=== PATIENT | male | born 1975 | race Caucasian/White ===

== ENCOUNTER 2022-04-28 07:26 | Emergency (ER) | payer OTHER ==
[2022-04-28] MEDS ORDERED: MORPHINE 4 MG/ML SYR ONE ×2 (07:43→08:52)
[2022-04-28] MEDS ORDERED: ONDANSETRON 4 MG/2 ML VIAL ONE (07:43)
[2022-04-28 08:08] LABS: Absolute Lymphocytes (CBC) 1.8 K/uL (0.7-4.9); Hematocrit 45.6 % (39.6-49.0); Lymphocytes % 23.6 % (15.3-44.8); MCV 81.5 fL (80-100); MPV 7.7 fL (7.6-11.3); RBC Red Blood Cell Count 5.59 M/uL (4.33-5.43)
[2022-04-28 08:12] LABS: Potassium 4.1 mmol/L (3.5-5.1)
--- NOTE | 2022-04-28 09:04 | RAD REPORT ---
EXAM DESCRIPTION: CT - Thorax W/ Con - 04/28/2022 8:42 am CLINICAL HISTORY: Trauma- dropped bench press bar on chest, chest pain COMPARISON: <Comparisons> TECHNIQUE: Dynamically enhanced 5 mm thick images of the chest were obtained during administration o f 100 mL non-ionic IV contrast. All CT scans are performed using dose optimization technique as appropriate and may include automated exposure control or mA/KV adjustment according to patient size. FINDINGS: No pulmonary contusion or acute lung parenchymal process. No pleural thickening or pleural effusion. No pneumothorax. No sternum fracture is present. Ribcage is intact. No hematoma or acute f inding seen in the anterior chest soft tissues. No chest wall mass or abnormal axillary lymphadenopathy. No cardiomegaly or pericardial effusion. Left ventricular wall appears slightly thickened. However, C T has limited sensitivity in evaluation of wall thickness. Aorta and pulmonary arterial tree enhance normally. IMPRESSION: No sternum fracture or acute traumatic injury to the chest identified. Left ventricular wall appears slightly thickened; however, CT sensitivity is limited.
--- NOTE | 2022-04-28 09:38 | ER ---
Nurse's Notes [facility] Name: Delonte Gonzales Age: 47 yrs Sex: Male : 1975 Arrival Date: 04/28/2022 Time: 07:27 Bed 2 Private MD: Diagnosis: Chest pain, unspecified Presentation: 04/28 07:32 Chief complaint: Patient states: was benching 250 pounds about 20 minutes ago and vg1 landed on pt chest; states difficulty breating. Coronavirus screen: Vaccine status: Patient reports receiving the 2nd dose of the covid vaccine. Client denies travel out of the [place] in the last 14 days. Ebola Screen: Patient denies exposure to infectious person. Patient denies travel to an Ebola-affected area in the 21 days before illness onset. Initial Sepsis Screen: Does the patient meet any 2 criteria? No. Patient's initial sepsis screen is negative. Does the patient have a suspected source of infection? No. Patient's initial sepsis screen is negative. Risk Assessment: Do you want to hurt yourself or someone else? Patient reports no desire to harm self or others. Onset of symptoms was April 28, 2022. 07:32 Method Of Arrival: Wheelchair vg1 07:32 Acuity: DANIEL 3 vg1 Triage Assessment: 07:33 General: Appears uncomfortable, Behavior is calm, cooperative. Pain: Complains of pain vg1 in left lateral anterior chest Pain currently is 10 out of 10 on a pain scale. Respiratory: Airway is patent Respiratory effort is even, unlabored. Historical: - Allergies: 07:33 No Known Allergies; vg1 - Home Meds: 07:33 None [Active]; vg1 - PMHx: 07:33 None; vg1 - Immunization history:: Client reports receiving the 2nd dose of the Covid vaccine. - Social history:: Smoking status: Patient denies any tobacco usage or history of. Screenin:35 Abuse screen: Denies threats or abuse. Denies injuries from another. Nutritional bp screening: No deficits noted. Tuberculosis screening: No symptoms or risk factors identified. Fall Risk None identified. Assessment: 07:35 General: SEE TRIAGE NOTE. bp 08:49 Reassessment: PT RETURNED FROM CT. bp 09:49 Reassessment: PT DC HOME AMBULATORY WITH FAMILY. bp Vital Signs: 07:32 BP 162 / 95; Pulse 120; Resp 24; Temp 98.6; Pulse Ox 100% ; Weight 81.65 kg; Height 5 vg1 ft. 4 in. (162.56 cm); Pain 10/10; 08:49 BP 146 / 83; Pulse 102; Resp 16; Pulse Ox 98% ; bp 09:49 BP 138 / 82; Pulse 99; Resp 16; Pulse Ox 96% ; bp 07:32 Body Mass Index 30.90 (81.65 kg, 162.56 cm) vg1 ED Course: 07:27 Patient arrived in ED. as 07:28 Saul Sommer DO is Attending Physician. ms3 07:31 Chester Avilez, RN is Primary Nurse. bp 07:33 Triage completed. vg1 07:33 Arm band placed on. vg1 07:35 Patient has correct armband on for positive identification. Bed in low position. Call bp light in reach. Side rails up X2. 07:39 Inserted saline lock: 20 gauge in right forearm, using aseptic technique. Blood bp collected. 08:44 CT Chest W/ Con In Process Unspecified. EDMS 09:37 [place] Bernardo DO is Referral Physician. ms3 09:49 No provider procedures requiring assistance completed. IV discontinued. bp Administered Medications: 07:40 Drug: morphine 4 mg Route: IVP; Infused Over: 4 mins; Site: right forearm; bp 08:49 Follow up: Response: No adverse reaction; Pain is decreased bp 07:40 Drug: Zofran (Ondansetron) 4 mg Route: IVP; Site: right forearm; bp 08:49 Follow up: Response: No adverse reaction bp 08:49 Drug: morphine 4 mg Route: IVP; Infused Over: 4 mins; Site: right forearm; bp 09:49 Follow up: Response: No adverse reaction; Pain is decreased bp 09:40 Drug: morphine 2 mg Route: IVP; Infused Over: 4 mins; Site: right forearm; bp 09:49 Follow up: Response: Pain is decreased bp 09:40 Drug: Ketorolac 15 mg Route: IVP; Site: right forearm; bp 09:49 Follow up: Response: Pain is decreased bp Medication: 07:35 VIS not applicable for this client. bp Outcome: 09:38 Discharge ordered by . ms3 09:49 Discharged to home ambulatory, with family. bp 09:49 Condition: stable 09:49 Discharge instructions given to patient, Instructed on discharge instructions, follow up and referral plans. medication usage, Demonstrated understanding of instructions, follow-up care, medications, Prescriptions given X 1. 09:51 Patient left the ED. bp Signatures: Dispatcher [employer] Jessica Irene Brian, MERT RN Sneha Gallegos RN RN vg1 Saul Sommer DO DO ms3
--- NOTE | 2022-04-28 09:39 | EDPHYS ---
Physician Documentation [facility] Name: Delonte Gonzales Age: 47 yrs Sex: Male : 1975 Arrival Date: 04/28/2022 Time: 07:27 Bed 2 Private MD: ED Physician Saul Sommer HPI: 04/28 08:36 This 47 yrs old Male presents to ER via Wheelchair with complaints of Chest Wall Injury ms3 - dropped 250 lbs onto chest. 08:36 The patient or guardian reports chest pain that is located primarily in the anterior ms3 aspect of left upper chest. Onset: The symptoms/episode began/occurred acutely, just prior to arrival. The pain does not radiate. Associated signs and symptoms: The patient has no apparent associated signs or symptoms. The chest pain is described as sharp. Duration: The patient or guardian reports a single episode, that is still ongoing. Modifying factors: The symptoms are alleviated by nothing. the symptoms are aggravated by nothing. Severity of pain: in the emergency department the pain is a 10 / 10. 47-year-old male with no past medical history presents after dropping a 250 pound benching bar on his chest. Patient states he was warming up when he went to lift the bar and it rolled forward falling on his chest. Patient states he is having 10/10 sharp pain that is worse with breathing. Patient denies alleviating symptoms.. Historical: - Allergies: 07:33 No Known Allergies; vg1 - Home Meds: 07:33 None [Active]; vg1 - PMHx: 07:33 None; vg1 - Immunization history:: Client reports receiving the 2nd dose of the Covid vaccine. - Social history:: Smoking status: Patient denies any tobacco usage or history of. ROS: 08:36 Constitutional: Negative for fever, and chills. Neck: Negative for injury, pain, and ms3 swelling, Respiratory: Negative for shortness of breath, cough, wheezing, and pleuritic chest pain, Abdomen/GI: Negative for abdominal pain, nausea, vomiting, diarrhea, and constipation, MS/Extremity: Negative for injury and deformity, Skin: Negative for injury, rash, and discoloration, Neuro: Negative for headache, weakness, numbness, tingling. 08:36 Cardiovascular: Positive for chest pain, with movement. 08:36 All other systems are negative. Exam: 08:36 Constitutional: This is a well developed, well nourished patient who is awake, alert, ms3 and in no acute distress. Eyes: Pupils equal round and reactive to light, extra-ocular motions intact. Lids and lashes normal. Conjunctiva and sclera are non-icteric and not injected. Periorbital areas with no swelling, redness, or edema. ENT: Nares patent. No nasal discharge, no septal abnormalities noted. Tympanic membranes are normal and external auditory canals are clear. Oropharynx with no redness, swelling, or masses, exudates, or evidence of obstruction, uvula midline. Mucous membranes moist. Cardiovascular: Regular rate and rhythm with a normal S1 and S2. No gallops, murmurs, or rubs. Normal PMI, no JVD. No pulse deficits. Respiratory: Lungs have equal breath sounds bilaterally, clear to auscultation and percussion. No rales, rhonchi or wheezes noted. No increased work of breathing, no retractions or nasal flaring. Abdomen/GI: Soft, non-tender, with normal bowel sounds. No distension or tympany. No guarding or rebound. No evidence of tenderness throughout. Skin: Warm, dry with normal turgor. Normal color with no rashes, no lesions, and no evidence of cellulitis. Psych: Awake, alert, with orientation to person, place and time. Behavior, mood, and affect are within normal limits. 08:36 Chest/axilla: Inspection: normal, Palpation: crepitus, is not appreciated, tenderness, that is severe, of the anterior aspect of left upper chest. Vital Signs: 07:32 BP 162 / 95; Pulse 120; Resp 24; Temp 98.6; Pulse Ox 100% ; Weight 81.65 kg; Height 5 vg1 ft. 4 in. (162.56 cm); Pain 10/10; 08:49 BP 146 / 83; Pulse 102; Resp 16; Pulse Ox 98% ; bp 09:49 BP 138 / 82; Pulse 99; Resp 16; Pulse Ox 96% ; bp 07:32 Body Mass Index 30.90 (81.65 kg, 162.56 cm) vg1 MDM: 07:28 Patient medically screened. ms3 08:36 Differential diagnosis: Pneumothorax Pulmonary Contusion Rib Fracture. ms3 09:38 Data reviewed: vital signs, nurses notes, lab test result(s), radiologic studies, CT ms3 scan, and as a result, I will discharge patient. Counseling: I had a detailed discussion with the patient and/or guardian regarding: the historical points, exam findings, and any diagnostic results supporting the discharge/admit diagnosis, lab results, radiology results, the need for outpatient follow up, to return to the emergency department if symptoms worsen or persist or if there are any questions or concerns that arise at home. ED course: Discussed labs, CT , PE findings with patient. Patient to follow up with Dr Bernardo in 2-3 days. Patient understands/ agrees with plan. All questions answered. Return precautions given to include worsening symptoms, or any other concerns. Patient is improved, in NAD, non-toxic appearing, ambulatory in ED, speaking full sentences. . 04/28 07:34 Order name: Basic Metabolic Panel; Complete Time: 08:35 ms3 04/28 07:34 Order name: CBC with Diff; Complete Time: 08:35 ms3 04/28 07:34 Order name: CT Chest W/ Con; Complete Time: 09:29 ms3 04/28 07:34 Order name: Labs collected and sent; Complete Time: 07:39 ms3 Administered Medications: 07:40 Drug: morphine 4 mg Route: IVP; Infused Over: 4 mins; Site: right forearm; bp 08:49 Follow up: Response: No adverse reaction; Pain is decreased bp 07:40 Drug: Zofran (Ondansetron) 4 mg Route: IVP; Site: right forearm; bp 08:49 Follow up: Response: No adverse reaction bp 08:49 Drug: morphine 4 mg Route: IVP; Infused Over: 4 mins; Site: right forearm; bp 09:49 Follow up: Response: No adverse reaction; Pain is decreased bp 09:40 Drug: morphine 2 mg Route: IVP; Infused Over: 4 mins; Site: right forearm; bp 09:49 Follow up: Response: Pain is decreased bp 09:40 Drug: Ketorolac 15 mg Route: IVP; Site: right forearm; bp 09:49 Follow up: Response: Pain is decreased bp Disposition Summary: 04/28/22 09:38 Discharge Ordered Location: Home ms3 Condition: Stable ms3 Diagnosis - Chest pain, unspecified ms3 Followup: ms3 - With: [place] Bernardo DO - When: 2 - 3 days - Reason: Recheck today's complaints Discharge Instructions: - Discharge Summary Sheet ms3 - Musculoskeletal Pain ms3 Forms: - Medication Reconciliation Form ms3 - Thank You Letter ms3 - Antibiotic Education ms3 - Prescription Opioid Use ms3 Prescriptions: - Ibuprofen 600 mg Oral Tablet - take 1 tablet by ORAL route every 6 hours As needed take with food; 30 tablet; ms3 Refills: 0, Product Selection Permitted Signatures: Dispatcher [employer] Chester Saucedo, RN RN Sneha Gallegos RN RN vg1 Saul Somemr DO DO ms3
[2022-04-28] MEDS ORDERED: KETOROLAC 30 MG/ML INJ ONE (09:49)
[2022-04-28] MEDS ORDERED: MORPHINE 2 MG/ML SYR ONE (09:49)
[2022-04-28 10:05] VITALS: TEMP 98.6
[2022-04-28 10:09] VITALS: BP 138/82; O2SAT 96
== END 2022-04-28 09:51 | disposition home or self-care (01) ==
LOC: ER 07:26
DX: R07.89 Other chest pain (principal)
CPT/HCPCS: 85025; 80048; 36415; 71260; 96375; 96374; 99284; Q9967; J2270; J2405

== ENCOUNTER 2022-04-30 07:26 | Emergency (ER) | payer OTHER ==
[2022-04-30] MEDS ORDERED: DIAZEPAM 5 MG TABLET ONE (08:02)
[2022-04-30] MEDS ORDERED: MORPHINE 4 MG/ML SYR ONE (08:03)
[2022-04-30] MEDS ORDERED: KETOROLAC 30 MG/ML INJ ONE (09:21)
--- NOTE | 2022-04-30 09:34 | RAD REPORT ---
EXAM DESCRIPTION: RAD - Chest Single View - 04/30/2022 8:26 am CLINICAL HISTORY: CHEST PAIN Chest pain. COMPARISON: No comparisons FINDINGS: Portable technique limits examination quality. The lungs are grossly clear. The heart is normal in size. No displaced fractures. IMPRESSION: No acute intrathoracic process suspected.
--- NOTE | 2022-04-30 10:28 | ER ---
Nurse's Notes [facility] Name: Delonte Gonzales Age: 47 yrs Sex: Male : 1975 Arrival Date: 04/30/2022 Time: 07:27 Bed 20 Private MD: Diagnosis: Chest pain, unspecified Presentation: 04/30 07:35 Chief complaint: Patient states: l back pain x 2 days. was seen 2 days ago in er after [facility] dropping weights on chest. took Robaxin this am but not helping. Coronavirus screen: Vaccine status: Patient reports receiving the 2nd dose of the covid vaccine. Client denies travel out of the [place] in the last 14 days. Ebola Screen: Patient negative for fever greater than or equal to 101.5 degrees Fahrenheit, and additional compatible Ebola Virus Disease symptoms Patient denies exposure to infectious person. Patient denies travel to an Ebola-affected area in the 21 days before illness onset. Initial Sepsis Screen: Does the patient meet any 2 criteria? No. Patient's initial sepsis screen is negative. Does the patient have a suspected source of infection? No. Patient's initial sepsis screen is negative. Risk Assessment: Do you want to hurt yourself or someone else? Patient reports no desire to harm self or others. Onset of symptoms was April 28, 2022. 07:35 Method Of Arrival: Ambulatory [facility] 07:35 Acuity: DANIEL 4 [facility] 07:35 Acuity: DANIEL 3 [facility] Triage Assessment: 07:39 General: Appears uncomfortable, Behavior is cooperative. Pain: Complains of pain in [facility] left subscapular area Pain currently is 10 out of 10 on a pain scale. Quality of pain is described as sharp, pinching, Pain began 2-3 days ago. Is intermittent, Aggravated by increased activity, repositioning. Musculoskeletal: Range of motion: intact in all extremities, Swelling absent. Historical: - Allergies: 07:38 No Known Allergies; [facility] - PMHx: 07:38 None; [facility] - Immunization history:: Adult Immunizations up to date, Client reports receiving the 2nd dose of the Covid vaccine. - Social history:: Smoking status: Patient denies any tobacco usage or history of. Screenin:05 Abuse screen: Denies threats or abuse. Nutritional screening: No deficits noted. jd3 Tuberculosis screening: No symptoms or risk factors identified. Fall Risk Ambulatory Aid- None/Bed Rest/Nurse Assist (0 pts). Gait- Normal/Bed Rest/Wheelchair (0 pts) Mental Status- Oriented to own ability (0 pts). Total Henry Fall Scale indicates No Risk (0-24 pts). Assessment: 08:04 General: Appears in no apparent distress. comfortable, Behavior is calm, cooperative, jd3 appropriate for age. Pain: Complains of pain in back Quality of pain is described as sharp, shooting. Neuro: Moran Agitation-Sedation Scale (RASS): 0 - Alert and Calm Level of Consciousness is awake, alert, obeys commands, Oriented to person, place, time, situation, Moves all extremities. Full function Gait is steady. Cardiovascular: Capillary refill < 3 seconds Patient's skin is warm and dry. Respiratory: Airway is patent Respiratory effort is even, unlabored, Respiratory pattern is regular, symmetrical, Denies cough, shortness of breath. GI: No signs and/or symptoms were reported involving the gastrointestinal system. : No signs and/or symptoms were reported regarding the genitourinary system. EENT: No signs and/or symptoms were reported regarding the EENT system. Derm: Skin is intact, Skin is dry, Skin is normal, Skin temperature is warm. Musculoskeletal: Circulation, motion, and sensation intact. Range of motion: intact in all extremities. 10:06 Reassessment: Patient appears in no apparent distress at this time. Patient and/or jd3 family updated on plan of care and expected duration. Pain level reassessed. Patient is alert, oriented x 3, equal unlabored respirations, skin warm/dry/pink. awaiting disposition. 10:56 Reassessment: Patient appears in no apparent distress at this time. Patient and/or jd3 family updated on plan of care and expected duration. Pain level reassessed. Patient is alert, oriented x 3, equal unlabored respirations, skin warm/dry/pink. reported understanding of discharge instructions Patient states feeling better. Vital Signs: 07:35 BP 150 / 68; Pulse 103; Resp 18; Temp 98.4; Pulse Ox 100% ; Weight 81.65 kg; Height 5 jh6 ft. 4 in. (162.56 cm); Pain 10/10; 10:56 BP 143 / 69; Pulse 99; Resp 16; Pulse Ox 100% on R/A; jd3 07:35 Body Mass Index 30.90 (81.65 kg, 162.56 cm) [facility] ED Course: 07:27 Patient arrived in ED. as 07:38 Triage completed. jh6 07:39 Arm band placed on left wrist. jh6 07:41 Saul Sommer DO is Attending Physician. ms3 07:50 Priyank Randle, RN is Primary Nurse. jd3 08:05 Patient has correct armband on for positive identification. Bed in low position. Call jd3 light in reach. Side rails up X 1. Adult w/ patient. Pulse ox on. NIBP on. 08:28 CXR XRAY In Process Unspecified. EDMS 10:07 No provider procedures requiring assistance completed. Patient did not have IV access jd3 during this emergency room visit. 10:26 Montana Bernardo DO is Referral Physician. ms3 10:45 Incentive spirometer education provided by an Emergency Department nursing staff member.jd3 Administered Medications: 08:02 Drug: morphine 4 mg Route: IM; Site: right deltoid; jd3 09:00 Follow up: Response: No adverse reaction; RASS: Alert and Calm (0) jd3 08:02 Drug: Valium (diazepam) 10 mg Route: PO; jd3 09:00 Follow up: Response: No adverse reaction jd3 09:18 Drug: Ketorolac 15 mg Route: IM; Site: left deltoid; jd3 10:08 Follow up: Response: No adverse reaction jd3 10:42 Drug: morphine 2 mg Route: IM; Site: left deltoid; jd3 10:57 Follow up: Response: No adverse reaction; RASS: Alert and Calm (0) jd3 Medication: 08:05 VIS not applicable for this client. jd3 Outcome: 10:27 Discharge ordered by . ms3 10:56 Discharged to home ambulatory, with family. jd3 10:56 Condition: stable 10:56 Discharge instructions given to patient, family, Instructed on discharge instructions, follow up and referral plans. medication usage, Demonstrated understanding of instructions, follow-up care, medications, Prescriptions given X 2. 10:57 Patient left the ED. jd3 Signatures: Dispatcher [employer] EDMS Jessica Phillip Jonathon, MERT RN jd3 Saul Sommer DO DO ms3 Jo Haile RN RN jh6 Corrections: (The following items were deleted from the chart) 10:07 10:06 Reassessment: Patient appears in no apparent distress at this time. Patient jd3 and/or family updated on plan of care and expected duration. Pain level reassessed. Patient is alert, oriented x 3, equal unlabored respirations, skin warm/dry/pink. jd3 10:57 10:56 Reassessment: Patient appears in no apparent distress at this time. Patient jd3 and/or family updated on plan of care and expected duration. Pain level reassessed. Patient is alert, oriented x 3, equal unlabored respirations, skin warm/dry/pink. reported understanding of discharge instructions jd3
--- NOTE | 2022-04-30 10:28 | EDPHYS ---
Physician Documentation [facility] Name: Delonte Gonzales Age: 47 yrs Sex: Male : 1975 Arrival Date: 04/30/2022 Time: 07:27 Bed 20 Private MD: ED Physician Saul Sommer HPI: 04/30 10:27 This 47 yrs old Male presents to ER via Ambulatory with complaints of Back Pain, muscle ms3 spasms. 10:27 The patient presents with pain that is acute, and a crush injury, 250 barbell. The ms3 symptoms are located in the Fell on chest. Onset: The symptoms/episode began/occurred Onset: The symptoms/episode began/occurred 2 day(s) ago. 10:27 The pain does not radiate. Associated signs and symptoms: Pertinent negatives: ms3 abdominal pain, weakness. The problem was sustained 250 pound barbell fell on his chest. Modifying factors: The patient symptoms are alleviated by nothing, the patient symptoms are aggravated by movement. Severity of symptoms: At their worst the symptoms were severe, in the emergency department the symptoms are unchanged, a " 10" out of "10". Historical: - Allergies: 07:38 No Known Allergies; jh6 - PMHx: 07:38 None; [facility] - Immunization history:: Adult Immunizations up to date, Client reports receiving the 2nd dose of the Covid vaccine. - Social history:: Smoking status: Patient denies any tobacco usage or history of. ROS: 10:27 Constitutional: Negative for fever, and chills. Neck: Negative for injury, pain, and ms3 swelling, Cardiovascular: Negative for chest pain, and palpitations. Respiratory: Negative for shortness of breath, cough, wheezing, and pleuritic chest pain, Abdomen/GI: Negative for abdominal pain, nausea, vomiting, diarrhea, and constipation, MS/Extremity: Left sided rib pain Skin: Negative for injury, rash, and discoloration, Neuro: Negative for headache, weakness, numbness, tingling. 10:27 All other systems are negative. ms3 Exam: 10:27 Head/Face: Normocephalic, atraumatic. Neck: Trachea midline, no cervical ms3 lymphadenopathy. Supple, full range of motion without nuchal rigidity, or vertebral point tenderness. No Meningismus. Cardiovascular: Regular rate and rhythm with a normal S1 and S2. No gallops, murmurs, or rubs. Normal PMI, no JVD. No pulse deficits. Respiratory: Lungs have equal breath sounds bilaterally, clear to auscultation and percussion. No rales, rhonchi or wheezes noted. No increased work of breathing, no retractions or nasal flaring. Abdomen/GI: Soft, non-tender, with normal bowel sounds. No distension or tympany. No guarding or rebound. No evidence of tenderness throughout. Skin: Warm, dry with normal turgor. Normal color with no rashes, no lesions, and no evidence of cellulitis. MS/ Extremity: Pulses equal, no cyanosis. Neurovascular intact. Full, normal range of motion. Psych: Awake, alert, with orientation to person, place and time. Behavior, mood, and affect are within normal limits. 10:27 Constitutional: The patient appears alert, awake, well developed, well hydrated, well groomed, well nourished, in obvious pain. 10:27 Chest/axilla: Inspection: no acute changes, Palpation: tenderness, that is severe, of the anterior aspect of left upper chest, that totally reproduces the patient's complaints. Vital Signs: 07:35 BP 150 / 68; Pulse 103; Resp 18; Temp 98.4; Pulse Ox 100% ; Weight 81.65 kg; Height 5 jh6 ft. 4 in. (162.56 cm); Pain 10/10; 10:56 BP 143 / 69; Pulse 99; Resp 16; Pulse Ox 100% on R/A; jd3 07:35 Body Mass Index 30.90 (81.65 kg, 162.56 cm) jh6 MDM: 07:48 Patient medically screened. ms3 10:27 Differential diagnosis: pneumonthorax vs hemothorax vs rib fx vs muscle spasm. ms3 10:27 Data reviewed: vital signs, nurses notes, radiologic studies, and as a result, I will ms3 discharge patient. Counseling: I had a detailed discussion with the patient and/or guardian regarding: the historical points, exam findings, and any diagnostic results supporting the discharge/admit diagnosis, radiology results, the need for outpatient follow up, to return to the emergency department if symptoms worsen or persist or if there are any questions or concerns that arise at home. ED course: Patient is improved, in NAD, non-toxic appearing, ambulatory in ED, speaking full sentences.. 04/30 07:49 Order name: CXR XRAY; Complete Time: 10:09 ms3 04/30 10:28 Order name: INCENTIVE SPIROMETRY ms3 Administered Medications: 08:02 Drug: morphine 4 mg Route: IM; Site: right deltoid; jd3 09:00 Follow up: Response: No adverse reaction; RASS: Alert and Calm (0) jd3 08:02 Drug: Valium (diazepam) 10 mg Route: PO; jd3 09:00 Follow up: Response: No adverse reaction jd3 09:18 Drug: Ketorolac 15 mg Route: IM; Site: left deltoid; jd3 10:08 Follow up: Response: No adverse reaction jd3 10:42 Drug: morphine 2 mg Route: IM; Site: left deltoid; jd3 10:57 Follow up: Response: No adverse reaction; RASS: Alert and Calm (0) jd3 Disposition Summary: 04/30/22 10:27 Discharge Ordered Location: Home ms3 Condition: Stable ms3 Diagnosis - Chest pain, unspecified ms3 Followup: ms3 - With: [place] Bernardo DO - When: 2 - 3 days - Reason: Re-evaluation by your physician Discharge Instructions: - Discharge Summary Sheet ms3 - Musculoskeletal Pain ms3 Forms: - Medication Reconciliation Form ms3 - Thank You Letter ms3 - Antibiotic Education ms3 - Prescription Opioid Use ms3 Prescriptions: - Tylenol-Codeine #3 300 mg-30 mg Oral - take 1 tablet by ORAL route every 6 weeks; 12 tablet; Refills: 0, Product ms3 Selection Permitted - Zofran 4 mg Oral Tablet - take 1 tablet by ORAL route every 8 hours As needed; 20 tablet; Refills: 0, ms3 Product Selection Permitted Signatures: Dispatcher [employer] Priyank Dickinson RN RN jd3 Saul Sommer DO DO ms3 Jo Haile RN RN jh6 Corrections: (The following items were deleted from the chart) 22:58 10:27 Onset: The symptoms/episode began/occurred ms3 ms3 23:01 10:27 Constitutional: Negative for fever, and chills. Neck: Negative for injury, pain, ms3 and swelling, Cardiovascular: Negative for chest pain, and palpitations. Respiratory: Negative for shortness of breath, cough, wheezing, and pleuritic chest pain, Abdomen/GI: Negative for abdominal pain, nausea, vomiting, diarrhea, and constipation, MS/Extremity: Left sided rib pain Skin: Negative for injury, rash, and discoloration, Neuro: Negative for headache, weakness, numbness, tingling. ms3
[2022-04-30] MEDS ORDERED: MORPHINE 2 MG/ML SYR ONE (10:39)
[2022-04-30 11:02] VITALS: TEMP 98.4; O2SAT 100
[2022-04-30 11:03] VITALS: BP 143/69
--- OUTSIDE RECORDS SUMMARY | 2022-05-01 15:23 | XMS REPORT | Continuity of Care Document ---
:1975 Author Organization [facility] t Address [address] [place] [address] [address]. [address]val[address] [place] [address] Care Team Providers Name Role Phone DR RADHA Attending Clinician Unavailable DR RADHA Admitting Clinician Unavailable Payers Payer Name Policy Type Policy Number Effective Date Expiration Date S matthias 0050 [id number] 2021 00:00:00 Problems This patient has no known problems. Allergies, Adverse Reactions, Alerts Allergy Allergy Status Severity Reaction(s) Onset Inactive Treating Comm ents Source Name Type Date Date Clinician No Known DA Active [facility] s Medications This patient has no known medications. Vital Signs Vital Name Observation Time Observation Value Comments Source Height 2022-02-26 11:34:00 162.56 CM Weight 2022-02-26 11:34:00 84.36 KG Procedures This patient has no known procedures. Encounters Start End Encounter Admission Attending Care Care Encounter Source Date/Time Date/Time Type Type Clinicians Facility Department ID 2022-02-26 2022-02-26 Emergency E ELIDA GARCIA [facility] [id number] [facility] 11:00:00 12:27:00 [facility] Results Test Description Test Time Test Comments Results Result Comments Source XR ELBOW RT 2022-02-26 COMPLETE 3 12:03:26 [facility]WS*WW* [facility] 1975 Sex: M EXAMINATION:XR ELBOW RT COMPLETE 3 VIEWS*WW*CLINICAL INDICATION:Male, 46 years old with Pain of right elbow jointCOMPARISON: NoneFINDINGS:AP, lateral, and oblique images of the right elbow were submitted.No acute fracture or malalignment is identified. There are mild degenerative changes. Soft tissue swelling is noted.IMPRESSION: Soft tissue swelling. No acute bone finding is identified.Electron davide signed by: Erick Lock MD 02/26/2022 12:03 PM CDT
== END 2022-04-30 10:57 | disposition home or self-care (01) ==
LOC: ER 07:26
DX: R07.9 Chest pain, unspecified (principal)
CPT/HCPCS: 71045; J2270

== ENCOUNTER 2022-06-16 10:05 | Emergency (ER) | payer OTHER ==
--- OUTSIDE RECORDS SUMMARY | 2022-06-16 10:07 | XMS REPORT | Continuity of Care Document ---
:1975 [address] [facility] t Address [address] [place] [address] Dr. [address]valo [address] [place] [address] Care Team Providers Name Role Phone DR SHARLA GARCIA Attending Clinician Unavailable DR SHARLA GARCIA Admitting Clinician Unavailable Payers Payer Name Policy Type Policy Number Effective Date Expiration Date S matthias 0050 [id number] 2021 00:00:00 Problems This patient has no known problems. Allergies, Adverse Reactions, Alerts Allergy Allergy Status Severity Reaction(s) Onset Inactive Treating Comm ents Source Name Type Date Date Clinician No Known DA Active [facility] s Medications This patient has no known medications. Vital Signs Vital Name Observation Time Observation Value Comments Source Height 2022-02-26 11:34:00 162.56 CM Weight 2022-02-26 11:34:00 84.36 KG Procedures This patient has no known procedures. Encounters Start End Encounter Admission Attending Care Care Encounter Source Date/Time Date/Time Type Type Clinicians Facility Department ID 2022-02-26 2022-02-26 Emergency E ELIDA GARCIA [facility] [id number] [facility] 11:00:00 12[facility]27[facility] Results Test Description Test Time Test Comments Results Result Comments Source XR ELBOW RT 2022-02-26 COMPLETE 3 12:03:26 VIEWS*WW* [facility] 1975 Sex: M EXAMINATION:XR ELBOW RT COMPLETE 3 VIEWS*WW*CLINICAL INDICATION:Male, 46 years old with Pain of right elbow jointCOMPARISON: NoneFINDINGS:AP, lateral, and oblique images of the right elbow were submitted.No acute fracture or malalignment is identified. There are mild degenerative changes. Soft tissue swelling is noted.IMPRESSION: Soft tissue swelling. No acute bone finding is identified.Electron ically signed by: Erick Lock MD 02/26/2022 12:03 PM CDT
[2022-06-16] MEDS ORDERED: CYCLOBENZAPRINE 10 MG TAB ONE (10:26)
[2022-06-16] MEDS ORDERED: KETOROLAC 30 MG/ML INJ ONE (10:26)
[2022-06-16] MEDS ORDERED: HYDROCODONE/APAP 7.5/325 MG TAB ONE (10:53)
--- NOTE | 2022-06-16 10:54 | RAD REPORT ---
EXAM DESCRIPTION: RAD - Shoulder Left 2 View - 06/16/2022 10:28 am CLINICAL HISTORY: Left shoulder pain FINDINGS: No fracture or dislocation is seen. Mild osteoarthritis involves AC joint mainly consisting of joint space narrowing
--- NOTE | 2022-06-16 11:01 | ER ---
Nurse's Notes [facility] Name: Delonte Gonzales Age: 47 yrs Sex: Male : 1975 Arrival Date: 06/16/2022 Time: 10:07 Bed 12 Private MD: Diagnosis: Other sprain of left shoulder joint Presentation: 06/16 10:08 Chief complaint: Patient states: Left shoulder pain. [place] a pop while bench pressing. kl Coronavirus screen: Client denies travel out of the [place] in the last 14 days. At this time, the client does not indicate any symptoms associated with coronavirus-19. Ebola Screen: No symptoms or risks identified at this time. Initial Sepsis Screen: Does the patient meet any 2 criteria? No. Patient's initial sepsis screen is negative. Does the patient have a suspected source of infection? No. Patient's initial sepsis screen is negative. Risk Assessment: Do you want to hurt yourself or someone else? Patient reports no desire to harm self or others. Onset of symptoms was June 16, 2022. 10:08 Method Of Arrival: Ambulatory kl 10:08 Acuity: DANIEL 4 kl 10:12 Note WHEEL LACER AND TRUER in triage to exam patient. Triage Assessment: 10:10 General: Appears in no apparent distress. Behavior is calm, cooperative, appropriate kl for age. Pain: Complains of pain in anterior aspect of left shoulder. Historical: - Allergies: 10:10 No Known Allergies; kl - Immunization history:: Client reports receiving the 2nd dose of the Covid vaccine. - Social history:: Smoking status: Patient denies any tobacco usage or history of. Screenin:36 Abuse screen: Denies threats or abuse. Nutritional screening: No deficits noted. bm7 Tuberculosis screening: No symptoms or risk factors identified. Fall Risk None identified. Assessment: 10:36 Reassessment: No changes from previously documented assessment. bm7 10:52 Reassessment: Patient and/or family updated on plan of care and expected duration. Pain bm7 level reassessed. Patient is alert, oriented x 3, equal unlabored respirations, skin warm/dry/pink. Vital Signs: 10:08 BP 108 / 51; Pulse 110; Resp 16; Temp 97.3; Pulse Ox 99% ; Weight 81.65 kg; Height 5 kl ft. 4 in. (162.56 cm); Pain 8/10; 10:53 BP 112 / 56; Pulse 92; Resp 16; Pulse Ox 100% on R/A; Pain 5/10; bm7 11:22 Pain 4/10; jl7 11:23 Pain 4/10; jl7 11:23 Pain 4/10; jl7 10:08 Body Mass Index 30.90 (81.65 kg, 162.56 cm) ED Course: 10:07 Patient arrived in ED. mr 10:09 Jo High FNP is PHCP. jh7 10:09 Krishna Mchugh MD is Attending Physician. 7 10:10 Triage completed. kl 10:10 Arm band placed on right wrist. Patient placed in an exam room, Patient notified of wait time. 10:30 XRAY Shoulder LEFT 2 view In Process Unspecified. EDMS 10:36 No apparent distress. Resting quietly. Awaiting for x-ray. bm7 10:36 Patient has correct armband on for positive identification. Bed in low position. Call 7 light in reach. Client placed on continuous cardiac and pulse oximetry monitoring. NIBP monitoring applied. 10:36 No provider procedures requiring assistance completed. Patient maintains SpO2 7 saturation greater than 95% on room air. 10:52 Assisted to bathroom. bm7 11:23 Patient did not have IV access during this emergency room visit. jl7 Administered Medications: 10:19 Drug: Ketorolac 60 mg Route: IM; Site: right gluteus; bm7 10:37 Follow up: Response: Pain is decreased bm7 10:45 Follow up: Response: Pain is unchanged, physician notified bm7 11:23 Follow up: Pain 4/10 Adult; Response: No adverse reaction; Pain is decreased jl7 10:20 Drug: Flexeril (cyclobenzaprine) 10 mg Route: PO; bm7 10:37 Follow up: Response: Pain is decreased bm7 11:23 Follow up: Pain 4/10 Adult; Response: No adverse reaction; Pain is decreased jl7 10:44 Drug: [place] (HYDROcodone-acetaminophen) (7.5 mg-325 mg) 1 tabs Route: PO; bm7 11:22 Follow up: Pain 4/10 Adult; Response: No adverse reaction; Pain is decreased; RASS: 7 Alert and Calm (0) 11:23 Follow up: Response: Pain is decreased dwight Medication: 10:36 VIS not applicable for this client. bm7 Outcome: 11:01 Discharge ordered by . sh[place]nee 11:23 Discharged to home ambulatory. enrique 11:23 Condition: stable 11:23 Discharge instructions given to patient, Instructed on discharge instructions, follow up and referral plans. medication usage, Demonstrated understanding of instructions, follow-up care, medications, Prescriptions given X 2. 11:24 Patient left the ED. enrique Signatures: Dispatcher [employer] EDMS Antonella Adam, RN Na Blanc Jahala RN RN Catina Vieyra, RN RN Jo Pittman FNP FNP jh7
--- NOTE | 2022-06-16 11:01 | EDPHYS ---
Physician Documentation [facility] Name: Delonte Gonzales Age: 47 yrs Sex: Male : 1975 Arrival Date: 06/16/2022 Time: 10:07 Bed 12 Private MD: ED Physician Krishna Mchugh HPI: 06/16 10:10 This 47 yrs old Male presents to ER via Ambulatory with complaints of Shoulder Pain. jh7 10:10 The patient or guardian complains of an injury. anterior aspect of left shoulder. jh7 Onset: The symptoms/episode began/occurred acutely. Associated signs and symptoms: The patient has no apparent associated signs or symptoms. Patient states that he was at the gym doing a bench press, and suddenly felt a pop in his left shoulder.. Historical: - Allergies: 10:10 No Known Allergies; kl - Immunization history:: Client reports receiving the 2nd dose of the Covid vaccine. - Social history:: Smoking status: Patient denies any tobacco usage or history of. ROS: 10:10 Constitutional: Negative for fever, chills, and weight loss, Eyes: Negative for injury, jh7 pain, redness, and discharge, Neck: Negative for injury, pain, and swelling, Cardiovascular: Negative for chest pain, palpitations, and edema, Respiratory: Negative for shortness of breath, cough, wheezing, and pleuritic chest pain, Abdomen/GI: Negative for abdominal pain, nausea, vomiting, diarrhea, and constipation, Back: Negative for injury and pain, Skin: Negative for injury, rash, and discoloration, Neuro: Negative for headache, weakness, numbness, tingling, and seizure. 10:10 MS/extremity: Positive for injury or acute deformity, decreased range of motion, pain, Negative for swelling, tenderness. 10:10 All other systems are negative. Exam: 10:10 Constitutional: This is a well developed, well nourished patient who is awake, alert, jh7 and in no acute distress. Head/Face: Normocephalic, atraumatic. Cardiovascular: Regular rate and rhythm with a normal S1 and S2. No gallops, murmurs, or rubs. Normal PMI, no JVD. No pulse deficits. Respiratory: Lungs have equal breath sounds bilaterally, clear to auscultation and percussion. No rales, rhonchi or wheezes noted. No increased work of breathing, no retractions or nasal flaring. Abdomen/GI: Soft, non-tender, with normal bowel sounds. No distension or tympany. No guarding or rebound. No evidence of tenderness throughout. Back: No spinal tenderness. No costovertebral tenderness. Full range of motion. Skin: Warm, dry with normal turgor. Normal color with no rashes, no lesions, and no evidence of cellulitis. Neuro: Awake and alert, GCS 15, oriented to person, place, time, and situation. Sensory grossly intact. Normal gait. 10:10 Musculoskeletal/extremity: ROM: limited active range of motion due to pain, in the left arm, Circulation is intact in all extremities. Sensation intact. Limited abduction of the shoulder beyond 90 degrees secondary to pain. No obvious swelling or tenderness to palpation noted. Full internal and external rotation.. Vital Signs: 10:08 BP 108 / 51; Pulse 110; Resp 16; Temp 97.3; Pulse Ox 99% ; Weight 81.65 kg; Height 5 kl ft. 4 in. (162.56 cm); Pain 8/10; 10:53 BP 112 / 56; Pulse 92; Resp 16; Pulse Ox 100% on R/A; Pain 5/10; bm7 11:22 Pain 4/10; jl7 11:23 Pain 4/10; jl7 11:23 Pain 4/10; jl7 10:08 Body Mass Index 30.90 (81.65 kg, 162.56 cm) MDM: 10:13 Patient medically screened. [facility] 11:05 Differential diagnosis: Anterior dislocation with fracture, Anterior dislocation [facility] without fracture, humeral head fracture, tendonitis, Shoulder sprain. Data reviewed: vital signs, nurses notes, radiologic studies. Data interpreted: Pulse oximetry: is 100 %. Interpretation: normal. Counseling: I had a detailed discussion with the patient and/or guardian regarding: the historical points, exam findings, and any diagnostic results supporting the discharge/admit diagnosis, to return to the emergency department if symptoms worsen or persist or if there are any questions or concerns that arise at home. 06/16 10:14 Order name: XRAY Shoulder LEFT 2 view; Complete Time: 11:00 [facility] 06/16 11:00 Order name: Sling; Complete Time: 11:21 [facility] Administered Medications: 10:19 Drug: Ketorolac 60 mg Route: IM; Site: right gluteus; bm7 10:37 Follow up: Response: Pain is decreased bm7 10:45 Follow up: Response: Pain is unchanged, physician notified bm7 11:23 Follow up: Pain 4/10 Adult; Response: No adverse reaction; Pain is decreased jl7 10:20 Drug: Flexeril (cyclobenzaprine) 10 mg Route: PO; bm7 10:37 Follow up: Response: Pain is decreased bm7 11:23 Follow up: Pain 4/10 Adult; Response: No adverse reaction; Pain is decreased jl7 10:44 Drug: [place] (HYDROcodone-acetaminophen) (7.5 mg-325 mg) 1 tabs Route: PO; bm7 11:22 Follow up: Pain 4/10 Adult; Response: No adverse reaction; Pain is decreased; RASS: jl7 Alert and Calm (0) 11:23 Follow up: Response: Pain is decreased Disposition: 15:42 Co-signature as Attending Physician, Krishna Mchugh MD I agree with the assessment and kdr plan of care. Disposition Summary: 06/16/22 11:01 Discharge Ordered Location: Home [facility] Problem: new [facility] Symptoms: have improved jh Condition: Stable [facility] Diagnosis - Other sprain of left shoulder joint [facility] Followup: [facility] - With: Private Physician - When: 2 - 3 days - Reason: Recheck today's complaints Discharge Instructions: - Discharge Summary Sheet [facility] - Shoulder Sprain [facility] Forms: - Medication Reconciliation Form 7 - Work release form eb - Thank You Letter [facility] Prescriptions: - Zanaflex 4 mg Oral Tablet - take 1 tablet by ORAL route every 8 hours As needed; 20 tablet; Refills: 0, [facility] Product Selection Permitted - Medrol ([place]) 4 mg Oral Tablets, Dose Pack - take 1 tablet by ORAL route as directed - follow package instructions; 1 [facility] packet; Refills: 0, Product Selection Permitted Signatures: Dispatcher [employer] Antonella Corley RN Krishna Ramos MD MD kdr McCarthy, Brittany, RN RN 7 Jo High FNP [employer] [facility] Jose White RN 7
[2022-06-16 11:58] VITALS: TEMP 97.3
[2022-06-16 12:00] VITALS: BP 112/56; O2SAT 100
== END 2022-06-16 11:24 | disposition home or self-care (01) ==
LOC: ER 10:05
DX: S43.492A Other sprain of left shoulder joint, initial encounter (principal)
CPT/HCPCS: 96372; 99284

== ENCOUNTER 2022-07-27 07:02 | Emergency (ER) | payer OTHER ==
--- OUTSIDE RECORDS SUMMARY | 2022-07-27 07:05 | XMS REPORT | Continuity of Care Document ---
:1975 Author Organization [facility] t Address [address] [place] [address] Dr. [address]o [address] [place] [address] Care Team Providers Name Role Phone DR AIDE PAULINO Attending Clinician Unavailable DR SHARLA GARCIA Attending Clinician Unavailable DR AIDE PAULINO Admitting Clinician Unavailable RADHA, DR MAGDALENO Admitting Clinician Unavailable Payers Payer Name Policy Type Policy Number Effective Date Expiration Date S ource 0191 [id number] 1959 00:00:00 0050 [id number] 2021 00:00:00 Problems This patient has no known problems. Allergies, Adverse Reactions, Alerts Allergy Allergy Status Severity Reaction(s) Onset Inactive Treating Comm ents Source Name Type Date Date Clinician No Known DA Active [facility] s Medications This patient has no known medications. Vital Signs Vital Name Observation Time Observation Value Comments Source Weight 2022-07-26 11:53:00 80.28 KG Height 2022-07-26 11:53:00 162.56 CM Height 2022-02-26 11:34:00 162.56 CM Weight 2022-02-26 11:34:00 84.36 KG Procedures This patient has no known procedures. Encounters Start End Encounter Admission Attending Care Care Encounter Source Date/Time Date/Time Type Type Clinicians Facility Department ID 2022-07-26 2022-07-26 Emergency E ELIDA PAULINO [facility] [id number] [place] 11:44:00 [facility] [place] 2022-02-26 2022-02-26 Emergency E ELIDA GARCIA [facility] [id number] [address] [facility] 11:00:00 12:27:00 [facility] Results Test Description Test Time Test Comments Results Result Comments Source XR ELBOW RT 2022-02-26 COMPLETE 3 12:03:26 VIEWS*WW* [facility] 1975 Sex: M EXAMINATION:XR [...]
--- NOTE | 2022-07-27 07:49 | EDPHYS ---
Physician Documentation [facility] Name: Delonte Gonzales Age: 47 yrs Sex: Male : 1975 Arrival Date: 07/27/2022 Time: 07:04 Bed 12 Private MD: MUKESH Physician Jonathan Hendricks HPI: 07/27 07:42 This 47 yrs old Male presents to ER via Ambulatory with complaints of papo Toothache, Tooth problem. 07:42 The patient presents with pain, swelling. The problem is located in the mouth and gums. papo Onset: The symptoms/episode began/occurred 1 day(s) ago. Duration: The symptoms are continuous, and are steadily getting worse. Modifying factors: The symptoms are alleviated by nothing, the symptoms are aggravated by chewing, cold fluids, food, hot fluids, talking. Associated signs and symptoms: The patient has no apparent associated signs or symptoms. Severity of symptoms: At their worst the symptoms were moderate, in the emergency department the symptoms are unchanged. The patient has not experienced similar symptoms in the past. Historical: - Allergies: 07:14 No Known Allergies; tw2 - Home Meds: 07:14 lisinopril 10 mg Oral tab 1 tab once daily [Active]; Protonix 40 mg Oral TbEC 1 tab tw2 once daily [Active]; omeprazole 20 mg Oral cpDR 1 cap once daily [Active]; - PMHx: 07:14 Barrettes esophagitis; Hypertensive disorder; tw2 - PSHx: 07:14 Cholecystectomy; tw2 - Immunization history:: Client reports receiving the 2nd dose of the Covid vaccine, Last tetanus immunization: < 5 years ago. - Social history:: Smoking status: Patient denies any tobacco usage or history of. - Family history:: not pertinent. ROS: 07:42 Constitutional: Negative for fever, chills, and weight loss, Eyes: Negative for injury, papo pain, redness, and discharge, Neck: Negative for injury, pain, and swelling, Cardiovascular: Negative for chest pain, palpitations, and edema, Respiratory: Negative for shortness of breath, cough, wheezing, and pleuritic chest pain, Abdomen/GI: Negative for abdominal pain, nausea, vomiting, diarrhea, and constipation, Back: Negative for injury and pain, : Negative for injury, bleeding, discharge, and swelling, MS/Extremity: Negative for injury and deformity, Skin: Negative for injury, rash, and discoloration, Neuro: Negative for headache, weakness, numbness, tingling, and seizure, Psych: Negative for depression, anxiety, suicide ideation, homicidal ideation, and hallucinations, Allergy/Immunology: Negative for hives, rash, and allergies, Endocrine: Negative for neck swelling, polydipsia, polyuria, polyphagia, and marked weight changes, Hematologic/Lymphatic: Negative for swollen nodes, abnormal bleeding, and unusual bruising. 07:42 ENT: Positive for dental pain, Gum pain Exam: 07:42 Constitutional: This is a well developed, well nourished patient who is awake, alert, papo and in no acute distress. Head/Face: Normocephalic, atraumatic. Eyes: Pupils equal round and reactive to light, extra-ocular motions intact. Lids and lashes normal. Conjunctiva and sclera are non-icteric and not injected. Cornea within normal limits. Periorbital areas with no swelling, redness, or edema. Neck: Trachea midline, no thyromegaly or masses palpated, and no cervical lymphadenopathy. Supple, full range of motion without nuchal rigidity, or vertebral point tenderness. No Meningismus. Chest/axilla: Normal chest wall appearance and motion. Nontender with no deformity. No lesions are appreciated. Cardiovascular: Regular rate and rhythm with a normal S1 and S2. No gallops, murmurs, or rubs. Normal PMI, no JVD. No pulse deficits. Respiratory: Lungs have equal breath sounds bilaterally, clear to auscultation and percussion. No rales, rhonchi or wheezes noted. No increased work of breathing, no retractions or nasal flaring. Abdomen/GI: Soft, non-tender, with normal bowel sounds. No distension or tympany. No guarding or rebound. No evidence of tenderness throughout. Back: No spinal tenderness. No costovertebral tenderness. Full range of motion. Skin: Warm, dry with normal turgor. Normal color with no rashes, no lesions, and no evidence of cellulitis. MS/ Extremity: Pulses equal, no cyanosis. Neurovascular intact. Full, normal range of motion. Neuro: Awake and alert, GCS 15, oriented to person, place, time, and situation. Cranial nerves II-XII grossly intact. Motor strength 5/5 in all extremities. Sensory grossly intact. Cerebellar exam normal. Normal gait. Psych: Awake, alert, with orientation to person, place and time. Behavior, mood, and affect are within normal limits. 07:42 ENT: Mouth: Gums: noted to have cellulitis, reddened, swollen, on the upper right first bicuspid. Vital Signs: 07:12 BP 132 / 83; Pulse 119; Resp 17; Temp 98.6(TE); Pulse Ox 98% on R/A; tw2 MDM: 07:23 Patient medically screened. papo 07:45 Differential diagnosis: dental caries, dental abscess. Data reviewed: vital signs, [facility] nurses notes. Data interpreted: cardiac monitor technician: rate is 119 beats/min, rhythm is regular. Counseling: I had a detailed discussion with the patient and/or guardian regarding: the historical points, exam findings, and any diagnostic results supporting the discharge/admit diagnosis, lab results, radiology results. Administered Medications: 07:58 Drug: [place] (HYDROcodone-acetaminophen) 10 mg-325 mg 1 tabs Route: PO; iw Disposition Summary: 07/27/22 07:48 Discharge Ordered Location: Home papo Problem: new papo Symptoms: have improved papo Condition: Stable papo Diagnosis - Dental procedure status - extraction papo Followup: papo - With: Private Physician - When: 2 - 3 days - Reason: Recheck today's complaints, Continuance of care, Re-evaluation by your physician Discharge Instructions: - Discharge Summary Sheet papo - Dental Extraction, Care After, Sqoi-[id number] papo - Dental Extraction, [id number] papo Forms: - Medication Reconciliation Form papo - Thank You Letter papo - Antibiotic Education [facility] - Prescription Opioid Use [facility] Prescriptions: - Amoxicillin 500 mg Oral Capsule - take 1 capsule by ORAL route every 8 hours for 10 days; 30 tablet; Refills: 0, papo Product Selection Permitted - Tylenol-Codeine #3 300 mg-30 mg Oral - take 2 tablet by ORAL route every 6 hours; 20 tablet; Refills: 0, Product [facility] Selection Permitted Signatures: Jonathan Hendricks MD MD cha Williams, Irene RN RN iw Ann-Marie Rosenthal RN RN tw2
--- NOTE | 2022-07-27 07:49 | ER ---
Nurse's Notes [facility] Name: Delonte Gonzales Age: 47 yrs Sex: Male : 1975 Arrival Date: 07/27/2022 Time: 07:04 Bed 12 Private MD: Diagnosis: Dental procedure status-extraction Presentation: 07/27 07:12 Chief complaint: Patient states: i had a tooth pulled Thursday night. i dont know if its tw2 dry socket or infected or what. its my RIGHT upper. they gave me naproxen and amoxicillin i think. Thursday morning it was fine. yesterday it got worse and last night the whole right side of my face is going to explode. Coronavirus screen: At this time, the client does not indicate any symptoms associated with coronavirus-19. Ebola Screen: Patient denies travel to an Ebola-affected area in the 21 days before illness onset. Initial Sepsis Screen: Does the patient meet any 2 criteria? HR > 90 bpm. No. Patient's initial sepsis screen is negative. Does the patient have a suspected source of infection? No. Patient's initial sepsis screen is negative. Risk Assessment: Do you want to hurt yourself or someone else? Patient reports no desire to harm self or others. Onset of symptoms was July 27, 2022. 07:12 Method Of Arrival: Ambulatory tw2 07:12 Acuity: DANIEL 4 tw2 Triage Assessment: 07:16 General: Appears in no apparent distress. uncomfortable, Behavior is calm, cooperative, tw2 appropriate for age. Pain: Complains of pain in gums. EENT: Reports pain in gums. Historical: - Allergies: 07:14 No Known Allergies; tw2 - Home Meds: 07:14 lisinopril 10 mg Oral tab 1 tab once daily [Active]; Protonix 40 mg Oral TbEC 1 tab tw2 once daily [Active]; omeprazole 20 mg Oral cpDR 1 cap once daily [Active]; - PMHx: 07:14 Barrettes esophagitis; Hypertensive disorder; tw2 - PSHx: 07:14 Cholecystectomy; tw2 - Immunization history:: Client reports receiving the 2nd dose of the Covid vaccine, Last tetanus immunization: < 5 years ago. - Social history:: Smoking status: Patient denies any tobacco usage or history of. - Family history:: not pertinent. Vital Signs: 07:12 BP 132 / 83; Pulse 119; Resp 17; Temp 98.6(TE); Pulse Ox 98% on R/A; tw2 ED Course: 07:04 Patient arrived in ED. bp1 07:14 Triage completed. tw2 07:15 Arm band placed on. tw2 07:23 Jonathan Hendricks MD is Attending Physician. papo 07:26 Janice Galloway, RN is Primary Nurse. iw Administered Medications: 07:58 Drug: [place] (HYDROcodone-acetaminophen) 10 mg-325 mg 1 tabs Route: PO; iw Outcome: 07:48 Discharge ordered by . papo 07:58 Patient left the ED. iw Signatures: Jonathan Hendricks MD MD cha Williams, Irene, RN RN Ann-Marie Rosenthal RN RN tw2 Catina Amos bp1
[2022-07-27] MEDS ORDERED: HYDROCODONE/APAP 10/325 TAB ONE (07:53)
[2022-07-27 08:25] VITALS: BP 132/83; TEMP 98.6; O2SAT 98
== END 2022-07-27 07:58 | disposition home or self-care (01) ==
LOC: ER 07:02
DX: K08.89 Other specified disorders of teeth and supporting structures (principal); Z98.818 Other dental procedure status; I10 Essential (primary) hypertension
CPT/HCPCS: 99282

== ENCOUNTER 2022-07-30 08:05 | Emergency (ER) | payer OTHER ==
--- OUTSIDE RECORDS SUMMARY | 2022-07-30 08:07 | XMS REPORT | Continuity of Care Document ---
:1975 Author Organization [facility] t Address [address] [place] [address] Dr. Zuniga. [address] [place] [address] Care Team Providers Name Role Phone DR AIDE PAULINO Attending Clinician Unavailable RADHA, DR MAGDALENO Attending Clinician Unavailable DR AIDE PAULINO Admitting Clinician Unavailable RADHA, DR MAGDALENO Admitting Clinician Unavailable Payers Payer Name Policy Type Policy Number Effective Date Expiration Date S ource 0191 [id number] 1959 00:00:00 0050 [id number] 2021 00:00:00 Problems This patient has no known problems. Allergies, Adverse Reactions, Alerts Allergy Allergy Status Severity Reaction(s) Onset Inactive Treating Comm ents Source Name Type Date Date Clinician No Known DA Active [facility] s Medications This patient has [...] ID 2022-07-26 2022-07-26 Emergency E ELIDA PAULINO [facility] [id number] 11:44:00 13:18:00 AIDE [facility] 2022-02-26 2022-02-26 Emergency E ELIDA GARCIA [facility] [id number] 11:00:00 12:27:00 [facility] Results Test Description Test Time Test Comments Results Result Comments Source XR ELBOW RT 2022-02-26 COMPLETE 3 12:03:26 VIEWS*WW* [facility] CENTERName: JUNE DELUNA : 1975 Sex: M EXAMINATION:XR [...]
--- NOTE | 2022-07-30 09:15 | ER ---
Nurse's Notes [facility] Name: Delonte Gonzales Age: 47 yrs Sex: Male : 1975 Arrival Date: 07/30/2022 Time: 08:06 Bed 12 Private MD: Diagnosis: Dental caries, unspecified;Other dental procedure status-extraction Presentation: 07/30 08:31 Chief complaint: Patient states: toothache that has been ongoing for days. Pt reports ss that he has a dentist appointment tomorrow, but needs some relief until then. Coronavirus screen: Client denies travel out of the [place] in the last 14 days. Ebola Screen: Patient denies exposure to infectious person. Patient denies travel to an Ebola-affected area in the 21 days before illness onset. Initial Sepsis Screen: Does the patient meet any 2 criteria? No. Patient's initial sepsis screen is negative. Does the patient have a suspected source of infection? No. Patient's initial sepsis screen is negative. Risk Assessment: Do you want to hurt yourself or someone else? Patient reports no desire to harm self or others. Onset of symptoms is unknown. 08:31 Method Of Arrival: Ambulatory ss 08:31 Acuity: DANIEL 4 ss Historical: - Allergies: 08:33 No Known Allergies; ss - Home Meds: 08:33 lisinopril 10 mg Oral tab 1 tab once daily [Active]; omeprazole 20 mg Oral cpDR 1 cap ss once daily [Active]; Protonix 40 mg Oral TbEC 1 tab once daily [Active]; - PMHx: 08:33 Hypertensive disorder; Crabtree's Esophagus; ss - PSHx: 08:33 Cholecystectomy; ss - Immunization history:: Client reports receiving the 2nd dose of the Covid vaccine. - Social history:: Smoking status: Patient denies any tobacco usage or history of. - Family history:: not pertinent. Screenin:27 Abuse screen: Denies threats or abuse. Denies injuries from another. Nutritional ph screening: No deficits noted. Tuberculosis screening: No symptoms or risk factors identified. Fall Risk None identified. Assessment: 09:29 General: Appears in no apparent distress. comfortable, well groomed, Behavior is calm, ph cooperative, appropriate for age. Pain: Complains of pain in upper right cuspid (#6). Neuro: Level of Consciousness is awake, alert, obeys commands, Oriented to person, place, time, situation. Respiratory: Airway is patent Respiratory effort is even, unlabored, Respiratory pattern is regular, symmetrical. EENT: Reports pain in mouth and upper right cuspid (#6). Derm: Skin is intact, is healthy with good turgor, Skin is pink, warm \T\ dry. Musculoskeletal: Circulation, motion, and sensation intact. Range of motion: intact in all extremities. Vital Signs: 08:31 BP 135 / 88; Pulse 112; Resp 17; Temp 98.1(TE); Pulse Ox 99% on R/A; Weight 81.19 kg; Height 5 ft. 4 in. (162.56 cm); Pain 9/10; 08:31 Body Mass Index 30.72 (81.19 kg, 162.56 cm) ED Course: 08:06 Patient arrived in ED. am2 08:10 Jonathan Hendricks MD is Attending Physician. [facility] 08:33 Triage completed. 08:33 Arm band placed on right wrist. 09:11 Antohny Huynh DDS is Referral Physician. [facility] 09:27 Leti José, RN is Primary Nurse. ph 09:27 Patient has correct armband on for positive identification. Bed in low position. Call ph light in reach. Side rails up X 1. Pulse ox on. NIBP on. 09:28 No provider procedures requiring assistance completed. Patient did not have IV access ph during this emergency room visit. Administered Medications: No medications were administered Medication: 09:27 VIS not applicable for this client. ph Outcome: 09:14 Discharge ordered by . papo 09:30 Discharged to home ambulatory. ph 09:30 Condition: good 09:30 Discharge instructions given to patient, Instructed on discharge instructions, follow up and referral plans. Demonstrated understanding of instructions, follow-up care, medications, Prescriptions given X 1. 09:31 Patient left the ED. ph Signatures: Jonathan Hendricks MD MD cha Smirch, Shelby, RN RN Leti José, RN RN Pura Palencia am2 Corrections: (The following items were deleted from the chart) 08:34 08:33 PMHx: Barrettes esophagitis; [facility]
--- NOTE | 2022-07-30 09:15 | EDPHYS ---
Physician Documentation [facility] Name: Delonte Gonzales Age: 47 yrs Sex: Male : 1975 Arrival Date: 07/30/2022 Time: 08:06 Bed 12 Private MD: ED Physician Jonathan Hendricks HPI: 07/30 09:08 This 47 yrs old Male presents to ER via Ambulatory with complaints of papo Toothache. 09:08 The patient presents with pain, redness. The problem is located in the gums. Onset: The papo symptoms/episode began/occurred 6 day(s) ago. Duration: The symptoms are continuous, and are unchanged since they started. Modifying factors: The symptoms are alleviated by warm compresses, the symptoms are aggravated by air, chewing, talking. Associated signs and symptoms: The patient has no apparent associated signs or symptoms. Severity of symptoms: At their worst the symptoms were mild, moderate, in the emergency department the symptoms have improved. The patient has not experienced similar symptoms in the past. Historical: - Allergies: 08:33 No Known Allergies; ss - Home Meds: 08:33 lisinopril 10 mg Oral tab 1 tab once daily [Active]; omeprazole 20 mg Oral cpDR 1 cap ss once daily [Active]; Protonix 40 mg Oral TbEC 1 tab once daily [Active]; - PMHx: 08:33 Hypertensive disorder; Crabtree's Esophagus; ss - PSHx: 08:33 Cholecystectomy; ss - Immunization history:: Client reports receiving the 2nd dose of the Covid vaccine. - Social history:: Smoking status: Patient denies any tobacco usage or history of. - Family history:: not pertinent. ROS: 09:08 Constitutional: Negative for fever, chills, and weight loss, Eyes: Negative for injury, papo pain, redness, and discharge, Neck: Negative for injury, pain, and swelling, Cardiovascular: Negative for chest pain, palpitations, and edema, Respiratory: Negative for shortness of breath, cough, wheezing, and pleuritic chest pain, Abdomen/GI: Negative for abdominal pain, nausea, vomiting, diarrhea, and constipation, Back: Negative for injury and pain, : Negative for injury, bleeding, discharge, and swelling, MS/Extremity: Negative for injury and deformity, Skin: Negative for injury, rash, and discoloration, Neuro: Negative for headache, weakness, numbness, tingling, and seizure, Psych: Negative for depression, anxiety, suicide ideation, homicidal ideation, and hallucinations, Allergy/Immunology: Negative for hives, rash, and allergies, Endocrine: Negative for neck swelling, polydipsia, polyuria, polyphagia, and marked weight changes, Hematologic/Lymphatic: Negative for swollen nodes, abnormal bleeding, and unusual bruising. :08 ENT: Positive for Teeth pain Exam: :08 Constitutional: This is a well developed, well nourished patient who is awake, alert, papo and in no acute distress. Head/Face: Normocephalic, atraumatic. Eyes: Pupils equal round and reactive to light, extra-ocular motions intact. Lids and lashes normal. Conjunctiva and sclera are non-icteric and not injected. Cornea within normal limits. Periorbital areas with no swelling, redness, or edema. Neck: Trachea midline, no thyromegaly or masses palpated, and no cervical lymphadenopathy. Supple, full range of motion without nuchal rigidity, or vertebral point tenderness. No Meningismus. Chest/axilla: Normal chest wall appearance and motion. Nontender with no deformity. No lesions are appreciated. Cardiovascular: Regular rate and rhythm with a normal S1 and S2. No gallops, murmurs, or rubs. Normal PMI, no JVD. No pulse deficits. Respiratory: Lungs have equal breath sounds bilaterally, clear to auscultation and percussion. No rales, rhonchi or wheezes noted. No increased work of breathing, no retractions or nasal flaring. Abdomen/GI: Soft, non-tender, with normal bowel sounds. No distension or tympany. No guarding or rebound. No evidence of tenderness throughout. Back: No spinal tenderness. No costovertebral tenderness. Full range of motion. Skin: Warm, dry with normal turgor. Normal color with no rashes, no lesions, and no evidence of cellulitis. MS/ Extremity: Pulses equal, no cyanosis. Neurovascular intact. Full, normal range of motion. Neuro: Awake and alert, GCS 15, oriented to person, place, time, and situation. Cranial nerves II-XII grossly intact. Motor strength 5/5 in all extremities. Sensory grossly intact. Cerebellar exam normal. Normal gait. Psych: Awake, alert, with orientation to person, place and time. Behavior, mood, and affect are within normal limits. 09:08 ENT: Mouth: Lips: normal, moist, Oral mucosa: normal, pink and intact, moist, Gums: normal with healthy appearance, Tongue: is normal, abscess, is not appreciated, drooling, is not appreciated, Dental exam: pain, that is mild, specifically in the upper right cuspid (#6). Vital Signs: 08:31 BP 135 / 88; Pulse 112; Resp 17; Temp 98.1(TE); Pulse Ox 99% on R/A; Weight 81.19 kg; ss Height 5 ft. 4 in. (162.56 cm); Pain 910; 08:31 Body Mass Index 30.72 (81.19 kg, 162.56 cm) ss MDM: 08:10 Patient medically screened. papo Administered Medications: No medications were administered Disposition Summary: 07/30/22 09:14 Discharge Ordered Location: Home papo Problem: new papo Symptoms: are unchanged papo Condition: Stable papo Diagnosis - Dental caries, unspecified papo - Other dental procedure status - extraction papo Followup: papo - With: Private Physician - When: Tomorrow - Reason: Recheck today's complaints, Continuance of care, Re-evaluation by your physician Followup: papo - With: Anthony Huynh DDS - When: 2 - 3 days - Reason: Recheck today's complaints, Re-evaluation by your physician Discharge Instructions: - Discharge Summary Sheet papo - Dental Pain papo - Dental Pain, [id number] papo - Dental Extraction, Care After, [id number] papo - Dental Extraction, Care After papo - Dental Caries, Adult, [id number] papo Forms: - Medication Reconciliation Form papo - Thank You Letter papo - Antibiotic Education papo - Prescription Opioid Use papo Prescriptions: - Tylenol-Codeine #3 300 mg-30 mg Oral - take 2 tablet by ORAL route every 6 hours; 18 tablet; Refills: 0, Product papo Selection Permitted Signatures: Jonathan Hendricks MD MD cha Smirch, Shelby RN RN ss Corrections: (The following items were deleted from the chart) 08:34 08:33 PMHx: Barrettes esophagitis; ss ss
[2022-07-30 09:35] VITALS: BP 135/88; TEMP 98.1; O2SAT 99
== END 2022-07-30 09:31 | disposition home or self-care (01) ==
LOC: ER 08:05
DX: K02.9 Dental caries, unspecified (principal); Z98.818 Other dental procedure status; I10 Essential (primary) hypertension
CPT/HCPCS: 99283

== ENCOUNTER 2022-08-08 21:45 | Emergency (ER) | payer OTHER ==
--- OUTSIDE RECORDS SUMMARY | 2022-08-08 21:47 | XMS REPORT | Continuity of Care Document ---
:1975 Author Organization [facility] t Address [address] [place] [address] Dr. Zuniga. [address] [place] [address] Care Team Providers Name Role Phone DR AIDE PAULINO Attending Clinician Unavailable RADHA, DR MAGDALENO Attending Clinician Unavailable DR AIDE PAULINO Admitting Clinician Unavailable RADHA, DR MAGDALENO Admitting Clinician Unavailable Payers Payer Name Policy Type Policy Number Effective Date Expiration Date S ource 0191 [id number] 1959 00:00:00 0050 [id number] 2021 00:00:00 Problems This patient has no known problems. Allergies, Adverse Reactions, Alerts Allergy Allergy Status Severity Reaction(s) Onset Inactive Treating Comm ents Source Name Type Date Date Clinician No Known DA Active [facility] s Medications This patient has no known medications. Vital Signs Vital Name Observation Time Observation Value Comments Source Height 2022-07-26 11:53:00 162.56 CM Weight 2022-07-26 11:53:00 80.28 KG Height 2022-02-26 11:34:00 162.56 CM Weight 2022-02-26 11:34:00 84.36 KG Procedures This patient has no known procedures. Encounters Start End Encounter Admission Attending Care Care Encounter Source Date/Time Date/Time Type Type Clinicians Facility Department ID 2022-07-26 2022-07-26 Emergency E ELIDA PAULINO [facility] [id number] 11:44:00 13:18:[facility] 2022-02-26 Emergency E ELIDA GARCIA [facility] [id number] 11:00:00 12:27:00 [facility] Results Test Description Test Time Test Comments Results Result Comments Source XR ELBOW RT 2022-02-26 COMPLETE 3 12:03:26 [facility]WS[facility]WW* [facility] 1975 Sex: M [...]
[2022-08-08] MEDS ORDERED: FENTANYL CITR 100 MCG/2 ML ONE (23:06)
[2022-08-09] MEDS ORDERED: KETOROLAC 30 MG/ML INJ ONE (00:47)
--- NOTE | 2022-08-09 01:07 | ER ---
Nurse's Notes [facility] Name: Delonte Gonzales Age: 47 yrs Sex: Male : 1975 Arrival Date: 08/08/2022 Time: 21:48 Bed 5 Private MD: Diagnosis: Other intraoperative and postprocedural complications and disorders of the musculoskeletal system Presentation: 08/08 21:59 Chief complaint: Patient states: Pt reports he had an I\T\D done by Dr Holland today. kb3 Reports wound is bleeding excessively since 1500. Coronavirus screen: Vaccine status: Patient reports receiving the 2nd dose of the covid vaccine. Client denies travel out of the [place] in the last 14 days. Ebola Screen: Patient negative for fever greater than or equal to 101.5 degrees Fahrenheit, and additional compatible Ebola Virus Disease symptoms Patient denies exposure to infectious person. Patient denies travel to an Ebola-affected area in the 21 days before illness onset. Initial Sepsis Screen: Does the patient meet any 2 criteria? No. Patient's initial sepsis screen is negative. Does the patient have a suspected source of infection? No. Patient's initial sepsis screen is negative. Risk Assessment: Do you want to hurt yourself or someone else? Patient reports no desire to harm self or others. Onset of symptoms was August 08, 2022 at 15:00. 21:59 Method Of Arrival: Ambulatory kb3 21:59 Acuity: DANIEL 3 kb3 Triage Assessment: 22:01 General: Appears in no apparent distress. Behavior is calm, cooperative. Pain: kb3 Complains of pain in left upper quadrant Pain does not radiate. Pain currently is 10 out of 10 on a pain scale. 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 - Social history:: Smoking status: Patient denies any tobacco usage or history of. Screenin:43 Abuse screen: Denies threats or abuse. Denies injuries from another. Nutritional as6 screening: No deficits noted. Tuberculosis screening: No symptoms or risk factors identified. Fall Risk None identified. Assessment: 22:42 General: Appears in no apparent distress. Behavior is calm, cooperative. Pain: as6 Complains of pain in abdomen and left upper quadrant. Neuro: Level of Consciousness is awake, alert, obeys commands, Oriented to person, place, time, situation. Respiratory: Respiratory effort is even, unlabored. Derm: Abscess located on left upper quadrant is golf ball sized, is red, is raised, lanced abscess with drainage tubing in place. bleeding at insertion site. 23:19 Derm: Bruising that is bright red, dark purple, on left upper quadrant hematoma to LUQ. as6 23:30 General: sandbag placed to hematoma . as6 08/09 00:57 General: ambulated pt, bleeding to hematoma controlled at this time . as6 01:23 General: abdominal binder placed . as6 Vital Signs: 08/08 21:59 BP 126 / 83; Pulse 109; Resp 20; Temp 98.0; Pulse Ox 100% ; Weight 77.56 kg; Height 5 kb3 ft. 4 in. (162.56 cm); Pain 07/21; 23:42 BP 128 / 85; Pulse 103; Resp 16 S; Pulse Ox 95% on R/A; as6 08/09 01:23 BP 128 / 79; Pulse 101; Resp 16 S; Pulse Ox 96% on R/A; as6 08/08 21:59 Body Mass Index 29.35 (77.56 kg, 162.56 cm) kb3 ED Course: 08/08 21:48 Patient arrived in ED. bp1 22:01 Triage completed. kb3 22:01 Arm band placed on right wrist. kb3 22:02 Natalia Abdalla is Primary Nurse. tw5 22:07 Lee Quijano MD is Attending Physician. bs3 23:10 Inserted saline lock: 20 gauge in right forearm, using aseptic technique. as6 23:43 Bed in low position. Call light in reach. as6 08/09 01:05 Danial Holland MD is Referral Physician. bs3 01:22 No provider procedures requiring assistance completed. IV discontinued, intact, as6 bleeding controlled, No redness/swelling at site. Pressure dressing applied. Administered Medications: 08/08 23:12 Drug: fentaNYL (PF) 100 mcg Route: IVP; Site: right forearm; as6 08/09 01:22 Follow up: Response: No adverse reaction as6 00:50 Drug: Ketorolac 15 mg Route: IVP; Site: right forearm; as6 01:22 Follow up: Response: No adverse reaction as6 Medication: 08/08 23:43 VIS not applicable for this client. as6 Outcome: 08/09 01:06 Discharge ordered by . bs3 01:22 Discharged to home ambulatory, with significant other. as6 01:22 Condition: stable 01:22 Discharge instructions given to patient, significant other, Instructed on discharge instructions, follow up and referral plans. Demonstrated understanding of instructions, follow-up care. 01:23 Patient left the ED. as6 Signatures: Catina Amos Tiffany tw5 Alexey Culp RN RN as6 Bridget Leslie RN RN kb3 Lee Quijano MD MD bs3
--- NOTE | 2022-08-09 01:07 | EDPHYS ---
Physician Documentation [facility] Name: Delonte Gonzales Age: 47 yrs Sex: Male : 1975 Arrival Date: 08/08/2022 Time: 21:48 Bed 5 Private MD: ED Physician Lee Quijano HPI: 08/09 01:10 This 47 yrs old Male presents to ER via Ambulatory with complaints of Post bs3 Surgical Bleeding. 08/08 22:19 47yo sp loop drainage to left lower abd pw persistent bleeding since this moring, bs3 nothing makes it better or worse, POD 0, changing multiple abd pads. never had this before. . 08/09 01:10 pt denies light headedness or dizziness but does have pain around the hematoma. He bs3 notes the hematoma was there since earlier today. . 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 - Social history:: Smoking status: Patient denies any tobacco usage or history of. ROS: 22:20 Constitutional: Negative for fever, chills Eyes: Negative for injury, pain, redness, bs3 and discharge, ENT: Negative for injury, pain, and discharge, Neck: Negative for injury, pain, and swelling, Cardiovascular: Negative for chest pain, palpitations, and edema, Respiratory: Negative for shortness of breath, cough, wheezing Abdomen/GI: Negative for abdominal pain, nausea, vomiting, diarrhea Neuro: Negative for headache, weakness, numbness, tingling, and seizure, Hematologic/Lymphatic: Negative for swollen nodes, abnormal bleeding Exam: 22:20 Constitutional: This is a well developed, well nourished patient who is awake, alert, bs3 and in no acute distress. Head/Face: Normocephalic, atraumatic. Eyes: Pupils equal round and reactive to light, extra-ocular motions intact. Lids and lashes normal. ENT: mmm, no posterior phyarngeal erythema Neck: Trachea midline, no thyromegaly, no neck stiffness Chest/axilla: Normal chest wall appearance and motion. Nontender with no deformity. No lesions are appreciated. Cardiovascular: Regular rate and rhythm with a normal S1 and S2. symmetric pulses in upper extremities Respiratory: Lungs have equal breath sounds bilaterally, clear to auscultation, no respiratory distress Abdomen/GI: pt with hematoma in lower abd with vascular loop, oozing blood from lower site. Vital Signs: 21:59 BP 126 / 83; Pulse 109; Resp 20; Temp 98.0; Pulse Ox 100% ; Weight 77.56 kg; Height 5 kb3 ft. 4 in. (162.56 cm); Pain 07/21; 23:42 BP 128 / 85; Pulse 103; Resp 16 S; Pulse Ox 95% on R/A; as6 08/09 01:23 BP 128 / 79; Pulse 101; Resp 16 S; Pulse Ox 96% on R/A; as6 08/08 21:59 Body Mass Index 29.35 (77.56 kg, 162.56 cm) kb3 MDM: 08/08 22:07 Patient medically screened. bs3 22:20 Data reviewed: vital signs, nurses notes, old medical records. ED course: pt with bs3 hematoma, placed pressure with improvement in bleeding, Dr. nicholas in house, will see patient. 08/09 01:03 ED course: surgery seen pt at bedside, rec sandbag, observation vs drainage.. ED bs3 course: pt seen after sandbag was on for 1 hour, no active bleeding, pt ambulated, without sig bleeding, pt feeling better, we had a shared decision-making conversation regarding bedside hematoma evacuation by myself versus observation patient wanted to go home he has follow-up on Thursday with his surgeon return precautions given will place abdominal binder. Administered Medications: 08/08 23:12 Drug: fentaNYL (PF) 100 mcg Route: IVP; Site: right forearm; as6 08/09 01:22 Follow up: Response: No adverse reaction as6 00:50 Drug: Ketorolac 15 mg Route: IVP; Site: right forearm; as6 01:22 Follow up: Response: No adverse reaction as6 Disposition Summary: 08/09/22 01:06 Discharge Ordered Location: Home bs3 Problem: new bs3 Symptoms: are resolved bs3 Condition: Stable bs3 Diagnosis - Other intraoperative and postprocedural complications and disorders of the bs3 musculoskeletal system Followup: bs3 - With: Danial Nicholas MD - When: 2 - 3 days - Reason: Discharge Instructions: - Discharge Summary Sheet bs3 - Hematoma, [id number] bs3 Forms: - Medication Reconciliation Form bs3 - Thank You Letter bs3 - Antibiotic Education bs3 - Prescription Opioid Use bs3 Signatures: Alexey Culp, RN RN as6 Bridget Leslie RN RN kb3 Lee Quijano MD MD bs3 Corrections: (The following items were deleted from the chart) 01:12 08/08 22:20 Constitutional: This is a well developed, well nourished patient who is bs3 awake, alert, and in no acute distress. Head/Face: Normocephalic, atraumatic. Eyes: Pupils equal round and reactive to light, extra-ocular motions intact. Lids and lashes normal. ENT: mmm, no posterior phyarngeal erythema Neck: Trachea midline, no thyromegaly, no neck stiffness Chest/axilla: Normal chest wall appearance and motion. Nontender with no deformity. No lesions are appreciated. Cardiovascular: Regular rate and rhythm with a normal S1 and S2. symmetric pulses in upper extremities Respiratory: Lungs have equal breath sounds bilaterally, clear to auscultation, no respiratory distress Abdomen/GI: pt with hematoma in lower abd with vascular loop, oozing blood bs3
[2022-08-09 01:47] VITALS: TEMP 98
[2022-08-09 02:03] VITALS: BP 128/79; O2SAT 96
== END 2022-08-09 01:23 | disposition home or self-care (01) ==
LOC: ER 21:45
DX: M96.89 Other intraoperative and postprocedural complications and disorders of the musculoskeletal system (principal); I10 Essential (primary) hypertension
CPT/HCPCS: 96375; 96374; 99283; J3010

== ENCOUNTER 2022-08-27 07:21 | Observation (INO) | payer OTHER ==
--- OUTSIDE RECORDS SUMMARY | 2022-08-27 07:25 | XMS REPORT | Continuity of Care Document ---
:1975 Author Organization [facility] t Address [address] [place] [address] Dr. Arevalo [address] [place] [address] Care Team Providers Name Role Phone KUNALWADE Petit Primary Care Physician Unavailable IRASEMA, DR GELY OROZCO Attending Clinician Unavailable CHECO, DR BARNETT Attending Clinician Unavailable MANUEL, DR JILLIAN WAGGONER Attending Clinician Unavailable JEFFERSON, DR NOBLE Attending Clinician Unavailable RADHA, DR MAGDALENO Attending Clinician Unavailable IRASEMA, DR GELY OROZCO Admitting Clinician Unavailable CHECO, DR BARNETT Admitting Clinician Unavailable MANUEL, DR JILLIAN WAGGONER Admitting Clinician Unavailable JEFFERSON, DR NOBLE Admitting Clinician Unavailable RADHA, DR MAGDALENO Admitting Clinician Unavailable Payers Payer Name Policy Type Policy Number Effective Date Expiration Date S ource 0191 [id number] 2021 00:00:00 1000 [id number] 2022 00:00:00 0050 [id number] 2021 00:00:00 Problems This patient has no known problems. Allergies, Adverse Reactions, Alerts Allergy Allergy Status Severity Reaction(s) Onset Inactive Treating Comm ents Source Name Type Date Date Clinician No Known DA Active [facility] s Medications This patient has no known medications. Vital Signs Vital Name Observation Time Observation Value Comments Source Height 2022-08-25 10:04:00 162.56 CM Weight 2022-08-25 10:04:00 82.23 KG Height 2022-08-22 09:53:00 162.56 CM Weight 2022-08-22 09:53:00 81.19 KG Height 2022-07-26 11:53:00 162.56 CM Weight 2022-07-26 11:53:00 80.28 KG Height 2022-02-26 11:34:00 162.56 CM Weight 2022-02-26 11:34:00 84.36 KG Procedures This patient has no known procedures. Encounters Start End Encounter Admission Attending Care Care Encounter Source Date/Time Date/Time Type Type Clinicians Facility Department ID 2022-08-26 2022-08-26 Emergency E PUMAREJO, [facility] [id number] [facility] 10:57:00 15:13:00 GELY [facility] 2022-08-25 2022-08-25 Emergency E CHECO, ANIBAL [facility] [id number] [facility] 09:48:00 11:36:00 [facility] 2022-08-22 2022-08-22 Emergency E MANUEL, [facility] [id number] [facility] 09:39:00 13:31:00 [facility] 2022-07-26 2022-07-26 Emergency E JEFFERSON, [facility] [id number] [facility] 11:44:00 13:18:00 AIDE [facility] 2022-02-26 2022-02-26 Emergency E RADHA, [facility] [id number] [facility] 11:00:00 12:27:00 [facility] Results Test Description Test Time Test Comments Results Result [facility] Comments CT ABDOMEN AND 2022-08-26 PELVIS WITH 13:53:02 CONTRAST*WW* [facility] 1975 Sex: M Ex am: CT abdomen and pelvis with contrast.CLINICAL HISTORY: Abdominal pain; Dehydration.LOCATION: D4.FINDINGS: Following the administration of 95 mL Isovue-300 intravenous contrast only, multislice axial images are obtained through the abdomen and pelvis during the venous phase. Coronal and sagittal reconstructed images are obtained and are used in interpretation. Creatinine and GFR are not given.No comparison studies. The liver is mildly above normal size limits measuring 16.7 cm craniocaudal at the midclavicular line. The gallbladder has been surgically removed. No abnormalities are noted of the pancreas or spleen. No perisplenic varices. No abnormalities are noted of the adrenal glands. No abnormalities are noted of the kidneys. The intrapelvic viscera are within normal limits. There is moderate fluid within the right colon and transverse colon. No significant adenopathy. There is a small amount of free fluid within the pelvis. No fluid collections. The appendix is normal in appearance. There is mild fluid distention of multiple mid small bowel with small air-fluid levels. There is a 3.7 cm x 1.2 cm oval well-defined hyperdense subcutaneous lesion at the left anterior mid abdomen. This is nonspecific and may represent hematoma. No acute skeletal or soft tissue abnormalities are otherwise identified.IMPRESSION :1. There is mild fluid distention of multiple mid small bowel loops with small air-fluid levels. There is also moderate fluid within the right colon and transverse colon. This appearance could be related to enteritis.2. There is a small amount of free fluid within the pelvis.3. 3.7 cm x 1.2 cm oval well-defined subcutaneous hyperdensity at the left anterior mid abdomen is nonspecific but may represent hematoma. Clinical follow-up to resolution is recommended. If persistent, follow-up targeted ultrasound examination may be performed.4. Mild hepatomegaly.*One or more of the following radiation dose reduction techniques was used: automated exposure control, adjustment of mA and/or KV according to patient size, and/or utilization of iterative reconstruction technique.Electronica lly signed by: Cleveland Lozano MD 08/26/2022 1:[address] [facility] URINALYSIS *WW* 2022-08-26 12:48:00 Test Item Value Reference Range Interpretation Comme nts COLOR (test code = COLU) YELLOW YELLOW CLARITY (test code = CLA) CLEAR CLEAR GLUCOSE UR (test code = UA GLUCOSE) NEGATIVE NEGATIVE BILI UR (test code = BILE) NEGATIVE NEGATIVE KETONES UR (test code = AMANDA) NEGATIVE NEGATIVE SP GRAVITY (test code = SPGR) 1.020 1.005-1.030 PH UR (test code = PH) 7.0 4.5-8.0 PROTEIN UR (test code = PU) NEGATIVE NEGATIVE UROBIL UR (test code = UROQ) 1.0 EU/dL 0.2-1.0 NITRITE UR (test code = NITRITE) NEGATIVE NEGATIVE BLOOD UR (test code = UA BLOOD) NEGATIVE NEGATIVE LEUK ES UR (test code = LEUK) NEGATIVE NEGATIVE AUAM (test code = WAUAM) NO NO MAGNESIUM 2022-08-26 12:35:00 Test Item Value Reference Range Interpretation Comments MAGNESIUM (test code = 48A) 2.0 mg/dL 1.6-2.6 PHOSPHORUS (P04) 2022-08-26 12:35:00 Test Item Value Reference Range Interpretation Comments PHOSPHORUS (test code = 43D) 3.4 mg/dL 2.4-5.1 LIPASE SERUM 2022-08-26 12:26:00 Test Item Value Reference Range Interpretation Comments LIPASE (test code = 60A) 44 IU/L 12-53 COMPREHENSIVE METABOLIC JAIMES 2022-08-26 12:25:00 Test Item Value Reference Range Interpretation Comments GLUCOSE (test code 125 mg/dL 75-100 H = 06D) SODIUM (test code 132 mmol/L 136-145 L = 01A) POTASSIUM (test 4.7 mmol/L 3.6-5.1 code = 01B) CHLORIDE (test 99 mmol/L 98-107 code = 04A) CO2 (test code = 25 mmol/L 20-31 02A) ANION GAP (test 12.7 mmol/L code = ANG) BUN (test code = 15 mg/dL 9-23 05D) CREATININE (test 1.2 mg/dL 0.7-1.3 code = 03E) GFR (test code = 70 See_Comment L [Automated GFR) mL/min/1.73m\S\2 message] Th e system which generated this result transmit betty reference range : >=90. The reference range was not used to interpret this result as normal/abnormal . GFR 82 See_Comment L [Automated MALAGASY (test mL/min/1.73m\S\2 message] The code = GFRAA) system which generated this result transmit betty reference range : >=90. The reference range was not used to interpret this result as normal/abnormal . EGFR (test code = eGFR BY EGFR) CKD-EPI CALCULATION IS NOT RECOMMENDED FOR PATIENTS UNDER 18 YEARS OF AGE. BUN/CREA (test 13 12-20 code = BCR) CALCIUM (test code 9.3 mg/dL 8.3-10.6 = 09D) BILI TOTAL (test 0.5 mg/dL 0.2-1.0 code = 11A) PROTEIN (test code 6.8 g/dL 5.7-8.2 = 07D) ALBUMIN (test code 4.2 g/dL 3.2-4.8 = 08D) GLOBULIN (test 2.6 g/dL 1.5-3.8 code = GLB) ALB/GLOB (test 1.6 1.0-2.6 code = AGRR) ALK PHOS (test 45 IU/L 46-116 L code = 35A) AST (test code = 62 IU/L See_Comment H [Automated 30A) message] The system which generated this result transmit betty reference range : <=33. The reference range was not used to interpret this result as normal/abnormal . ALT (test code = 52 IU/L 10-49 H 31A) AMYLASE AND LIPASE 2022-08-26 12:25:00 Test Item Value Reference Range Interpretation Comments AMYLASE (test code = 10A) 140 U/L 28-100 H LIPASE (test code = 60A) 45 IU/L 12-53 CALCIUM 2022-08-26 12:25:00 Test Item Value Reference Range Interpretation Comments CALCIUM (test code = 09D) 9.3 mg/dL 8.3-10.6 PRO TIME AND PTT 2022-08-26 12:20:00 Test Item Value Reference Range Interpretation Comments PT (test code = 18.2 s 9.8-13.6 H TT) INR (test code = 1.6 INR) INRH (test code = SUGGESTED THERAPEUTIC INRH) RANGE FOR INR: 2.5 - 3.5 For Patients with Prosthetic Valves or Patients with recurrent Thromboembolic Events 2.0 - 3.0 For Most Other Applications PTT (test code = 19.1 s 20.2-38.0 L PTT) PTTH (test code = To monitor the PTTH) effectiveness of heparin, we offer the Anti-Xa (Heparin Assay). It can be used for either unfractionated or LMW Heparin. Order Code is ANTI-XA LACTIC ACID WW2022-08-26 12:14:00 Test Item Value Reference Range Interpretation Comments LACTIC ACD (test code = LA) 1.3 mmol/L 0.4-2.0 CBC (INCLUDES AUTOMATED DIFFERENTIAL)*[id number] 12:04:00 Test Item Value Reference Range Interpretation Comments WBC (test code = WBC) 16.4 10\S\3/uL 4.5-11.0 H RBC (test code = RBC) 3.84 10\S\6/uL 4.20-5.60 L HGB (test code = HBG) 9.6 g/dL 14.0-18.0 L HCT (test code = HCT) 32.3 % 35.0-46.0 L MCV (test code = MCV) 84.1 fL 80.0-94.0 MCH (test code = MCH) 25.0 pg 27.0-31.0 L MCHC (test code = MCHC) 29.7 g/dL 32.0-36.0 L RDW (test code = RDW) 15.7 % 11.5-14.5 H PLT (test code = PLT) 359 10\S\3/uL 130-400 MPV (test code = MPV) 10.7 fL 9.4-12.4 NEUTROP # (test code = NE#) 14.8 10\S\3/uL 2.0-8.0 H LYMPH # (test code = LY#) 0.6 10\S\3/uL 1.2-4.0 L MONOCYTE # (test code = MO#) 0.8 10\S\3/uL 0.0-1.1 EOSINOPH # (test code = EO#) 0.0 10\S\3/uL 0.0-0.7 BASOPHIL # (test code = BA#) 0.0 10\S\3/uL 0.0-0.3 IG # (test code = IG#) 0.07 10\S\3/uL 0.00-0.06 H NRBC # (test code = NRBC#) 0.00 10\S\3/uL 0.00-0.01 NEUTROPH % (test code = NE%) 90.5 % 35.0-73.0 H LYMPH % (test code = LY%) 3.9 % 20.0-55.0 L MONO % (test code = MO%) 4.9 % 2.5-10.0 EOSINOPH % (test code = EO%) 0.2 % 0.0-5.0 BASOPHIL % (test code = BA%) 0.1 % 0.0-2.0 IG % (test code = IG%) 0.4 % 0.0-0.8 NRBC% (test code = NRBC%) 0.0 % 0.0-0.2 MANDIFF (test code = WMDIFF) NO NO RBC MORPH (test code = NORMAL WRBCMOR) XR ELBOW RT COMPLETE 3 VIEWS*WW*2022-02-26 12:03:26 [facility] 1975 Sex: MEXAMINATION:XR ELBOW RT COMPLETE 3 VIEWS*WW*CLINICAL INDICATION:Male, 46 years old with Pain of right elbow jointCOMPARISON: NoneFINDINGS:AP, lateral, and oblique images of the right elbow were submitted.No acute fractureor malalignment is identified. There are mild degenerative changes. Soft tissue swelling is noted.IMPRESSION: Soft tissue swelling. No acute bone finding is identified.Electronically signed by: Erick Lock MD 02/26/2022 12:03 PM CDT
[2022-08-27] MEDS ORDERED: MORPHINE 4 MG/ML SYR ONE ×5 (08:00→21:33)
[2022-08-27] MEDS ORDERED: FAMOTIDINE 20 MG/2 ML VIAL IV ONE (08:00)
[2022-08-27] MEDS ORDERED: NA CHLORIDE 0.9% 1,000 ML ONE ×2 (08:00→13:45)
[2022-08-27] MEDS ORDERED: ONDANSETRON 4 MG/2 ML VIAL ONE ×2 (08:00→13:45)
[2022-08-27 08:41] LABS: Absolute Lymphocytes (CBC) 1.5 K/uL (0.7-4.9); Hematocrit 36.4 % (39.6-49.0); Lymphocytes % 10.5 % (15.3-44.8); MCV 79.6 fL (80-100); RBC Red Blood Cell Count 4.58 M/uL (4.33-5.43)
[2022-08-27 08:56] LABS: Albumin 2.7 g/dL (3.4-5.0); Bilirubin Total 0.6 mg/dL (0.2-1.0); Potassium 5.1 mmol/L (3.5-5.1); Protein, Total 7.3 g/dL (6.4-8.2)
[2022-08-27 09:32] LABS: Urine Blood Negative (Negative); Urine Glucose Negative (Negative); Urine Protein Negative (Negative)
[2022-08-27] MEDS ORDERED: CIPROFLOXACIN 400mg IV 400 MG/200 ML BAG IV ONE ×2 (13:01→21:34)
[2022-08-27] MEDS ORDERED: METRONIDAZOLE 500mg IVPB 500 MG/100 ML BAG IV ONE (13:02)
--- NOTE | 2022-08-27 13:32 | RAD REPORT ---
EXAM DESCRIPTION: CTAbdomen Pelvis W Contrast - 08/27/2022 1:16 pm CLINICAL HISTORY: Abdominal pain. Abdominal pain, acute, nonlocalized COMPARISON: No comparisons TECHNIQUE: Biphasic CT imaging of the abdomen and pelvis was performed with 100 ml non-ionic IV cont rast. All CT scans are performed using dose optimization technique as appropriate and may include automated exposure control or mA/KV adjustment according to patient size. FINDINGS: The lung bases are clear.Cholecystectomy clips. The liver, spleen, pancreas, adrenal glands and kidneys are within normal limits. There is thickening present of multiple small bowel loops. No bowel obstruction. The appendix is norm al. Mild free fluid in the abdomen seen. No evidence of significant lymphadenopathy. Nonspecific romy centic fluid collection measuring 6 x 1 cm in the subcutaneous tissues left abdominal wall noted, non specific. No suspicious bony findings. IMPRESSION: Mild free fluid is seen in the abdomen and pelvis. There is mild thickening of numerous small bowel loops. Although findings are nonspecific, this could be related enteritis. Crescentic fluid-like collection in the subcutaneous fat left abdomen wall could be related to previo us hematoma.
--- NOTE | 2022-08-27 13:56 | ER ---
Nurse's Notes [facility] Name: Delonte Gonzales Age: 47 yrs Sex: Male : 1975 Arrival Date: 08/27/2022 Time: 07:23 Bed 24 Private MD: Diagnosis: Abdominal tenderness;Nausea;Diarrhea, unspecified;Elevated white blood cell count;Abnormal level of enzymes in specimens from digestive organs and abdominal cavity-elevated lipase 10,674 Presentation: 08/27 07:48 Chief complaint: Patient states: Thursday started with constipation and took a laxative; thursday started having diarrhea and abdominal pain and went to [facility] ED, they did CT and full blood workup, discharged with enteritis and a RX for Bentyl and Carafate. Pain continues and medications do not help. Coronavirus screen: Vaccine status: Patient reports receiving the 2nd dose of the covid vaccine. At this time, the client does not indicate any symptoms associated with coronavirus-19. Ebola Screen: No symptoms or risks identified at this time. Initial Sepsis Screen: Does the patient meet any 2 criteria? No. Patient's initial sepsis screen is negative. Does the patient have a suspected source of infection? No. Patient's initial sepsis screen is negative. Risk Assessment: Do you want to hurt yourself or someone else? Patient reports no desire to harm self or others. Onset of symptoms was August 25, 2022. 07:48 Method Of Arrival: Ambulatory [facility] 07:48 Acuity: DANIEL 3 jl7 Triage Assessment: 07:51 General: Appears in no apparent distress. uncomfortable, Behavior is calm, cooperative, jl7 appropriate for age. Pain: Complains of pain in abdomen Pain currently is 10 out of 10 on a pain scale. GI: Reports lower abdominal pain, upper abdominal pain, diarrhea. 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 - Social history:: Smoking status: Patient denies any tobacco usage or history of. Screenin:00 Abuse screen: Denies threats or abuse. Denies injuries from another. Nutritional ko1 screening: No deficits noted. Tuberculosis screening: No symptoms or risk factors identified. Fall Risk None identified. Assessment: 09:29 General: Appears in no apparent distress. uncomfortable, Behavior is calm, cooperative, ko1 appropriate for age. Pain: Complains of pain in abdomen. Neuro: No deficits noted. Cardiovascular: No deficits noted. Respiratory: No deficits noted. GI: Bowel sounds present X 4 quads. hyperactive in right upper quadrant, left upper quadrant, right lower quadrant and left lower quadrant Abd is soft Abdomen is tender to palpation X 4 quads. : No deficits noted. EENT: No deficits noted. Derm: No deficits noted. Musculoskeletal: No deficits noted. 16:38 Reassessment: No changes from previously documented assessment. ko1 Vital Signs: 07:48 BP 118 / 78; Pulse 110; Resp 17; Temp 99; Pulse Ox 99% ; Weight 81.65 kg; Height 5 ft. jl7 4 in. (162.56 cm); Pain 10/10; 09:28 BP 122 / 79; Pulse 107; Resp 16; Pulse Ox 99% on R/A; Pain 7/10; ko1 10:15 BP 122 / 89; Pulse 99; ko1 11:29 BP 117 / 70; Pulse 103; ko1 11:47 BP 113 / 59; Pulse 99; Pulse Ox 99% on R/A; ko1 15:42 BP 129 / 81; Pulse 99; Pulse Ox 99% on R/A; ko1 07:48 Body Mass Index 30.90 (81.65 kg, 162.56 cm) 7 ED Course: 07:23 Patient arrived in ED. as 07:39 Jonathan Hendricks MD is Attending Physician. [facility] 07:51 Triage completed. jl7 07:51 Arm band placed on right wrist. jl7 07:55 Pastora Cortez, MERT is Primary Nurse. ko1 08:00 Patient has correct armband on for positive identification. Placed in gown. Bed in low ko1 position. Call light in reach. Side rails up X 1. Adult w/ patient. Pulse ox on. NIBP on. 08:36 Inserted saline lock: 20 gauge in right antecubital area, using aseptic technique. kr3 Blood collected. 08:39 CBC with Diff Sent. ko1 08:39 CMP Sent. ko1 08:39 Lipase Sent. ko1 13:18 CT Abd/Pelvis - IV Contrast Only In Process Unspecified. EDMS 13:52 Ventura Garcia MD is Hospitalizing Provider. [facility] 14:00 Lipid Profile Sent. ko1 17:11 SARS-COV-2 Antigen Rapid Sent. ko1 Administered Medications: 08:38 Drug: NS 0.9% 1000 ml Route: IV; Rate: 1 bolus; Site: left antecubital; ko1 11:00 Follow up: IV Status: Completed infusion; IV Intake: 1000ml ko1 08:38 Drug: Zofran (Ondansetron) 4 mg Route: IVP; Site: right antecubital; ko1 08:39 Drug: Pepcid (famotidine) 20 mg Route: IVP; Site: right antecubital; ko1 08:39 Drug: morphine 4 mg Route: IVP; Infused Over: 4 mins; Site: right antecubital; ko1 15:33 Follow up: Response: No adverse reaction ko1 10:19 Drug: morphine 4 mg Route: IVP; Infused Over: 4 mins; Site: right antecubital; ko1 13:31 Drug: Cipro (ciprofloxacin) 400 mg Volume: 200 ml; Route: IVPB; Infused Over: 60 mins; ko1 Site: right antecubital; 14:30 Follow up: IV Status: Completed infusion; IV Intake: 200ml ko1 13:50 Drug: Zofran (Ondansetron) 4 mg Route: IVP; Site: right antecubital; ko1 14:15 Follow up: Response: No adverse reaction ko1 13:51 Drug: NS 0.9% 1000 ml Route: IV; Rate: 1 bolus; Site: right antecubital; ko1 15:34 Follow up: Response: No adverse reaction ko1 13:51 Drug: morphine 4 mg Route: IVP; Infused Over: 4 mins; Site: right antecubital; ko1 14:15 Follow up: Response: No adverse reaction; Pain is unchanged, physician notified ko1 14:24 Drug: Flagyl (metroNIDAZOLE) 500 mg Volume: 100 ml; Route: IVPB; Rate: 200 ml/hr; ko1 Infused Over: 30 mins; Site: right antecubital; 15:00 Follow up: IV Status: Completed infusion; IV Intake: 100ml ko1 14:38 Drug: Dilaudid (HYDROmorphone) 1 mg Route: IVP; Site: right antecubital; ko1 15:33 Follow up: Response: No adverse reaction; Pain is decreased ko1 Intake: 11:00 IV: 1000ml; Total: 1000ml. ko1 14:30 IV: 200ml; Total: 1200ml. ko1 15:00 IV: 100ml; Total: 1300ml. ko1 Outcome: 13:55 Decision to Hospitalize by Provider. papo 08/28 13:23 Patient left the ED. eb Signatures: Dispatcher [employer] Jonathan Villarreal MD MD cha Martinez, Amelia as Leal, Jahala RN RN [email or web address] Carlie Steiner Kelley, RN RN kr3 Pastora Cortez RN RN ko1
--- NOTE | 2022-08-27 13:56 | EDPHYS ---
Physician Documentation [facility] Name: Delonte Gonzales Age: 47 yrs Sex: Male : 1975 Arrival Date: 08/27/2022 Time: 07:23 Bed 24 Private MD: MUKESH Physician Jonathan Hendricks HPI: 08/27 13:45 This 47 yrs old Male presents to ER via Ambulatory with complaints of papo Abdominal Pain, Diarrhea. 13:45 The patient presents to the emergency department with nausea, diarrhea, abdominal pain, papo of the right upper quadrant, left upper quadrant, right lower quadrant and left lower quadrant. Onset: The symptoms/episode began/occurred 3 day(s) ago. Possible causes: unknown. The symptoms are aggravated by food , The symptoms are alleviated by remaining still. Associated signs and symptoms: The patient has no apparent associated signs or symptoms. Severity of symptoms: At their worst the symptoms were moderate in the emergency department the symptoms are unchanged. The patient has not experienced similar symptoms in the past. 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 - Social history:: Smoking status: Patient denies any tobacco usage or history of. ROS: 13:46 Constitutional: Negative for fever, chills, and weight loss, Eyes: Negative for injury, papo pain, redness, and discharge, ENT: Negative for injury, pain, and discharge, Neck: Negative for injury, pain, and swelling, Cardiovascular: Negative for chest pain, palpitations, and edema, Respiratory: Negative for shortness of breath, cough, wheezing, and pleuritic chest pain, Back: Negative for injury and pain, : Negative for injury, bleeding, discharge, and swelling, MS/Extremity: Negative for injury and deformity, Skin: Negative for injury, rash, and discoloration, Neuro: Negative for headache, weakness, numbness, tingling, and seizure, Psych: Negative for depression, anxiety, suicide ideation, homicidal ideation, and hallucinations, Allergy/Immunology: Negative for hives, rash, and allergies, Endocrine: Negative for neck swelling, polydipsia, polyuria, polyphagia, and marked weight changes, Hematologic/Lymphatic: Negative for swollen nodes, abnormal bleeding, and unusual bruising. 13:46 Abdomen/GI: Positive for abdominal pain, nausea, diarrhea, abdominal cramps, of the right upper quadrant, left upper quadrant, right lower quadrant and left lower quadrant, left abdominal wall hematoma. Exam: 13:46 Constitutional: This is a well developed, well nourished patient who is awake, alert, papo and in no acute distress. Head/Face: Normocephalic, atraumatic. Eyes: Pupils equal round and reactive to light, extra-ocular motions intact. Lids and lashes normal. Conjunctiva and sclera are non-icteric and not injected. Cornea within normal limits. Periorbital areas with no swelling, redness, or edema. ENT: Nares patent. No nasal discharge, no septal abnormalities noted. Tympanic membranes are normal and external auditory canals are clear. Oropharynx with no redness, swelling, or masses, exudates, or evidence of obstruction, uvula midline. Mucous membranes moist. Neck: Trachea midline, no thyromegaly or masses palpated, and no cervical lymphadenopathy. Supple, full range of motion without nuchal rigidity, or vertebral point tenderness. No Meningismus. Chest/axilla: Normal chest wall appearance and motion. Nontender with no deformity. No lesions are appreciated. Cardiovascular: Regular rate and rhythm with a normal S1 and S2. No gallops, murmurs, or rubs. Normal PMI, no JVD. No pulse deficits. Respiratory: Lungs have equal breath sounds bilaterally, clear to auscultation and percussion. No rales, rhonchi or wheezes noted. No increased work of breathing, no retractions or nasal flaring. Back: No spinal tenderness. No costovertebral tenderness. Full range of motion. Male : Normal genitalia with no discharge or lesions. Skin: Warm, dry with normal turgor. Normal color with no rashes, no lesions, and no evidence of cellulitis. MS/ Extremity: Pulses equal, no cyanosis. Neurovascular intact. Full, normal range of motion. Neuro: Awake and alert, GCS 15, oriented to person, place, time, and situation. Cranial nerves II-XII grossly intact. Motor strength 5/5 in all extremities. Sensory grossly intact. Cerebellar exam normal. Normal gait. Psych: Awake, alert, with orientation to person, place and time. Behavior, mood, and affect are within normal limits. 13:46 Abdomen/GI: Inspection: abdomen appears normal, Bowel sounds: active, Palpation: moderate abdominal tenderness, in all quadrants, Liver: no appreciated palpable abnormalities, Hernia: not appreciated. Vital Signs: 07:48 BP 118 / 78; Pulse 110; Resp 17; Temp 99; Pulse Ox 99% ; Weight 81.65 kg; Height 5 ft. jl7 4 in. (162.56 cm); Pain 10/10; 09:28 BP 122 / 79; Pulse 107; Resp 16; Pulse Ox 99% on R/A; Pain 7/10; ko1 10:15 BP 122 / 89; Pulse 99; ko1 11:29 BP 117 / 70; Pulse 103; ko1 11:47 BP 113 / 59; Pulse 99; Pulse Ox 99% on R/A; ko1 15:42 BP 129 / 81; Pulse 99; Pulse Ox 99% on R/A; ko1 07:48 Body Mass Index 30.90 (81.65 kg, 162.56 cm) jl7 MDM: 07:39 Patient medically screened. papo 13:48 Differential diagnosis: Nonspecific abd pain, gastritis, cholecystitis, pancreatitis, papo appendicitis, diverticulitis, viral gastroenteritis, gastroenteritis. Data reviewed: vital signs, nurses notes, lab test result(s), radiologic studies, CT scan, plain films, ultrasound. Data interpreted: traffic monitor specialist: rate is 99 beats/min, rhythm is regular, Pulse oximetry: on room air is 99 %. Counseling: I had a detailed discussion with the patient and/or guardian regarding: the historical points, exam findings, and any diagnostic results supporting the discharge/admit diagnosis, lab results, radiology results, the need for further work-up and treatment in the hospital. 08/27 07:40 Order name: CBC with Diff; Complete Time: 12:56 papo 08/27 07:40 Order name: CMP; Complete Time: 12:56 papo 08/27 07:40 Order name: Lipase; Complete Time: 12:56 [facility] 08/27 09:33 Order name: Urine Dipstick-Ancillary; Complete Time: 12:56 [facility] 08/27 12:57 Order name: Fecal Leukocyte Stain [facility] 08/27 12:57 Order name: Occult Blood [facility] 08/27 12:57 Order name: Stool Culture [facility] 08/27 13:50 Order name: Lipid Profile; Complete Time: 14:36 08/27 16:27 Order name: Hemoglobin A1c [facility] 08/27 16:27 Order name: Lipase [facility] 08/27 16:27 Order name: Lipase [facility] 08/27 16:34 Order name: T4 Free [facility] 08/27 16:34 Order name: Thyroid Stimulating Hormone [facility] 08/27 16:34 Order name: Urinalysis [facility] 08/27 16:34 Order name: Basic Metabolic Panel [facility] 08/27 16:34 Order name: Basic Metabolic Panel [facility] 08/27 16:34 Order name: CBC with Automated Diff [facility] 08/27 16:34 Order name: CBC with Automated Diff [facility] 08/27 16:42 Order name: SARS-COV-2 Antigen Rapid 08/27 22:05 Order name: Iron [facility] 08/27 22:05 Order name: Transferrin Sat/Iron Binding [facility] 08/28 03:11 Order name: Retic Count [facility] 08/28 03:11 Order name: Protime (+INR) [facility] 08/28 03:11 Order name: PTT, Activated Partial Thromb [facility] 08/28 03:13 Order name: Ammonia [facility] 08/28 03:55 Order name: Liver (Hepatic) Function [facility] 08/28 03:55 Order name: Magnesium [facility] 08/28 03:55 Order name: Iron [facility] 08/28 03:55 Order name: Folic Acid, (Folate) [facility] 08/27 07:40 Order name: IV Saline Lock; Complete Time: 08:39 [facility] 08/27 07:40 Order name: Labs collected and sent; Complete Time: 08:39 [facility] 08/27 07:40 Order name: Urine Dipstick-Ancillary (obtain specimen); Complete Time: 09:28 [facility] 08/27 12:57 Order name: CT Abd/Pelvis - IV Contrast Only; Complete Time: 13:42 [facility] 08/27 16:28 Order name: NPO [facility] 08/28 03:55 Order name: Vitamin B12 Level [facility] 08/28 06:06 Order name: Procalcitonin [facility] 08/28 11:54 Order name: Lipase [facility] Administered Medications: 08:38 Drug: NS 0.9% 1000 ml Route: IV; Rate: 1 bolus; Site: left antecubital; ko1 11:00 Follow up: IV Status: Completed infusion; IV Intake: 1000ml ko1 08:38 Drug: Zofran (Ondansetron) 4 mg Route: IVP; Site: right antecubital; ko1 08:39 Drug: Pepcid (famotidine) 20 mg Route: IVP; Site: right antecubital; ko1 08:39 Drug: morphine 4 mg Route: IVP; Infused Over: 4 mins; Site: right antecubital; ko1 15:33 Follow up: Response: No adverse reaction ko1 10:19 Drug: morphine 4 mg Route: IVP; Infused Over: 4 mins; Site: right antecubital; ko1 13:31 Drug: Cipro (ciprofloxacin) 400 mg Volume: 200 ml; Route: IVPB; Infused Over: 60 mins; ko1 Site: right antecubital; 14:30 Follow up: IV Status: Completed infusion; IV Intake: 200ml ko1 13:50 Drug: Zofran (Ondansetron) 4 mg Route: IVP; Site: right antecubital; ko1 14:15 Follow up: Response: No adverse reaction ko1 13:51 Drug: NS 0.9% 1000 ml Route: IV; Rate: 1 bolus; Site: right antecubital; ko1 15:34 Follow up: Response: No adverse reaction ko1 13:51 Drug: morphine 4 mg Route: IVP; Infused Over: 4 mins; Site: right antecubital; ko1 14:15 Follow up: Response: No adverse reaction; Pain is unchanged, physician notified ko1 14:24 Drug: Flagyl (metroNIDAZOLE) 500 mg Volume: 100 ml; Route: IVPB; Rate: 200 ml/hr; ko1 Infused Over: 30 mins; Site: right antecubital; 15:00 Follow up: IV Status: Completed infusion; IV Intake: 100ml ko1 14:38 Drug: Dilaudid (HYDROmorphone) 1 mg Route: IVP; Site: right antecubital; ko1 15:33 Follow up: Response: No adverse reaction; Pain is decreased ko1 Disposition Summary: 08/27/22 13:55 Hospitalization Ordered Hospitalization Status: Inpatient Admission papo Provider: Ventura Garcia cha Condition: Fair papo Problem: new papo Symptoms: have improved papo Bed/Room Type: Standard papo Location: [facility] ER HOLD(08/27/22 17:55) jl7 Room Assignment: ERHOLD-(08/27/22 17:55) jl7 Diagnosis - Abdominal tenderness papo - Nausea papo - Diarrhea, unspecified papo - Elevated white blood cell count papo - Abnormal level of enzymes in specimens from digestive organs and abdominal cavity - papo elevated lipase 10,674 Forms: - Medication Reconciliation Form papo - SBAR form papo Signatures: Dispatcher [employer] EDMS Jonathan Hendricks MD MD cha Leal, Jahala, RN RN jl7 Pastora Cortez RN RN ko1 Corrections: (The following items were deleted from the chart) 13:55 13:50 Abdomen Limited+US.RAD.BRZ ordered. EDMS EDMS 16:28 16:27 Lipid Profile ordered. EDCO EDMS 17:55 13:55 Telemetry/MedSurg (Inpatient) papo jl7 17:55 13:55 papo jl7
[2022-08-27] MEDS ORDERED: HYDROMORPHONE HCL 1 MG/ML INJ ONE (14:38)
[2022-08-27] MEDS ORDERED: ACETAMINOPHEN 325 MG TABLET PO PRN (16:21)
[2022-08-27] MEDS ORDERED: LABETALOL 20 MG/4ML SYRINGE IV PRN (16:31)
[2022-08-27] MEDS ORDERED: ONDANSETRON 4 MG/2 ML VIAL IV PRN (16:31)
--- NOTE | 2022-08-27 16:33 | P.HP ---
Certification for Inpatient Patient admitted to: Inpatient With expected LOS: >2 Midnights Patient will require the following post-hospital care: None Practitioner: I am a practitioner with admitting privileges, knowledge of patient current condition, hospital course, and medical plan of care. Services: Services provided to patient in accordance with Admission requirements found in Title 42 Section 412.3 of the Code of Federal Regulations Patient History Date of Service: 08/27/22 Reason for admission: Abdominal pain and diarrhea History of Present Illness: Patient is a 47-year-old male with a past medical history significant for hypertension, Crabtree's esophagus, PTSD, hepatitis C who presents with complaint of generalized abdominal pain and diarrhea that has been ongoing for the past 2 days. Patient rated pain as 10/10 and described pain as aching in quality. Patient reports associated signs and symptoms of fever, chills and headache. Patient denies any other signs or symptoms. Symptoms are aggravated or relieved by nothing. Patient decided to present to the hospital due to worsening symptoms. Allergies No Known Allergies Allergy (Unverified 08/08/22 12:30) Home Medications: Lisinopril [Zestril] 10 mg PO BID* 08/27/22 Omeprazole 20 mg PO DAILY 08/27/22 Pantoprazole Sodium [Protonix] 40 mg PO DAILY 08/27/22 clonazePAM [Klonopin] 0.5 mg PO BEDTIME 08/27/22 - Past Medical/Surgical History -: Hypertension -: Crabtree's esophagitis -: PTSD Past Surgical History: Reviewed- Non-Contributory - Family History Family History: Reviewed- Non-Contributory - Social History Smoking Status: Former smoker Alcohol use: No CD- Drugs: No Caffeine use: No Place of Residence: Home Review of Systems General: Fever, Chills Eyes: Unremarkable ENT: Unremarkable Respiratory: Unremarkable Cardiovascular: Unremarkable Gastrointestinal: Abdominal Pain, Diarrhea Genitourinary: Unremarkable Musculoskeletal: Unremarkable Integumentary: Unremarkable Neurological: Other (Headache) Lymphatics: Unremarkable Physical Examination - Physical Exam General: Alert, Oriented x3, Cooperative HEENT: Atraumatic, PERRLA, Mucous membr. moist/pink, EOMI, Sclerae nonicteric Neck: Supple, 2+ carotid pulse no bruit, No LAD, Without JVD or thyroid abnormality Respiratory: Clear to auscultation bilaterally, Normal air movement Cardiovascular: No edema, Normal pulses, Regular rate/rhythm, Normal S1 S2 Capillary refill: <2 Seconds Gastrointestinal: Hypoactive, Other (Abdominal hematoma), Tenderness Musculoskeletal: No swelling, No contractures, No tenderness Integumentary: No rashes, No breakdown, Other (Abdominal hematoma) Neurological: Normal gait, Normal speech, Normal strength at 5/5 x4 extr, Normal tone, Normal affect Lymphatics: No axilla or inguinal lymphadenopathy - Studies Laboratory Data (last 24 hrs) 08/27/22 16:25: Triglycerides Cancelled, Cholesterol Cancelled, HDL Cholesterol Cancelled, Cholesterol/HDL Ratio Cancelled 08/27/22 08:29: Triglycerides 219 H, Cholesterol 167, HDL Cholesterol 16 L, Cholesterol/HDL Ratio 10.44 08/27/22 08:29: Sodium 135 L, Potassium 5.1, BUN 14, Creatinine 1.30, Glucose 96, Total Bilirubin 0.6, AST 48 H, ALT 57, Alkaline Phosphatase 40 L, Lipase [id number] H 08/27/22 08:29: WBC 14.70 H, Hgb 11.6 L, Hct 36.4 L, Plt Count 729 H Assessment and Plan - Plan --Acute [place] [id number]. We will keep patient NPO. Continue IV hydration. We will reassess lipase in a.m. --Enteritis. CT abdominal imaging indicates findings consistent with enteritis. Patient placed on antibiotics. Continue IV hydration. --Diarrhea. Stool studies pending to rule out any infectious process. Continue antibiotics and IV hydration --Acute pain. We will manage pain with current pain medication regimen. --History of hep C. Patient follows up with his PCP. Currently planning treatment. Continue supportive care. --History of PTSD. Continue home medication. -- GERD\history of Crabtree's esophagus. Patient placed on Protonix IV. --Hypertension. Stable. We will manage BP with labetalol as needed. Continue home medications when appropriate --Microcytic anemia. H&H stable. We will get some iron studies. We will continue to monitor hemoglobin and transfuse if less than 7.0. --Leukocytosis. Stool studies and blood cultures pending. Continue antibiotics. --CKD 2. Baseline functions unknown. We will continue to monitor renal functions. --DVT prophylaxis with Lovenox subQ. Discharge Plan: Home Plan to discharge in: Greater than 2 days - Advance Directives Does patient have a Living Will: No Does patient have a Durable POA for Healthcare: No - Code Status/Comfort Care Code Status Assessed: Yes Physician Review: Patient Assessed, Agree with Above Assessment and Plan Critical Care: No
[2022-08-27] MEDS: D5 0.45 NS 1,000 ML IV SCH (17:00)
[2022-08-27 17:34] LABS: SARS-CoV-2 Antigen Rapid Res Negative (Negative)
[2022-08-27] MEDS: METRONIDAZOLE 250mg IVPB 250 MG/50 ML BAG IV SCH (18:00)
[2022-08-27] MEDS: ENOXAPARIN 40 MG/0.4 ML SQ SCH (18:00)
[2022-08-27] MEDS: MORPHINE 4 MG/ML SYR IV PRN ×2 (18:16→21:53)
[2022-08-27] MEDS ORDERED: ENOXAPARIN 40 MG/0.4 ML SQ ONE (18:20)
[2022-08-27] MEDS ORDERED: D5 0.45 NS 1,000 ML IV ONE (18:20)
[2022-08-27 19:03] VITALS: BMI 30.9
[2022-08-27] MEDS ORDERED: SODIUM CHLORIDE 0.9% 10ML INJ IV PRN (19:19)
[2022-08-27] MEDS: CIPROFLOXACIN 400mg IV 400 MG/200 ML BAG IV SCH (21:00)
[2022-08-27] MEDS ORDERED: NA CHLORIDE 0.9% 0 ML ONE (21:33)
[2022-08-27 21:55] LABS: Thyroid Stimulating Hormone 1.5 uIU/mL (0.360-3.740)
[2022-08-27 22:04] LABS: Ferritin 31.9 ng/mL (26-388)
[2022-08-27] MEDS ORDERED: HYDROMORPHONE HCL 0.5 MG/0.5 ML INJ ONE (23:35)
[2022-08-27] MEDS: HYDROMORPHONE HCL 1 MG/ML INJ IV PRN (23:41)
[2022-08-28] MEDS: METRONIDAZOLE 250mg IVPB 250 MG/50 ML BAG IV SCH (01:00)
--- NOTE | 2022-08-28 01:20 | P.PN ---
Subjective Date of Service: 08/28/22 Review of Systems 10-point ROS is otherwise unremarkable Physical Examination - Vital Signs Temperature: 98.6 F Blood Pressure: 125/62 Pulse: 99 Respirations: 17 Pulse Ox (%): 100 - Physical Exam General: Alert, In no apparent distress, Oriented x3 Respiratory: Clear to auscultation bilaterally, Normal air movement Cardiovascular: Regular rate/rhythm, Normal S1 S2 Gastrointestinal: Normal bowel sounds, No rebound, No guarding, Tenderness Musculoskeletal: No clubbing, No swelling, No tenderness Neurological: Sensation intact, Cranial nerves 3-12 intact - Studies Laboratory Data (last 24 hrs) 08/27/22 08:29: Triglycerides 219 H, Cholesterol 167, HDL Cholesterol 16 L, Cholesterol/HDL Ratio 10.44 08/27/22 08:29: Sodium 135 L, Potassium 5.1, BUN 14, Creatinine 1.30, Glucose 96, Total Bilirubin 0.6, AST 48 H, ALT 57, Alkaline Phosphatase 40 L, Lipase 29850 H 08/27/22 08:29: WBC 14.70 H, Hgb 11.6 L, Hct 36.4 L, Plt Count 729 H Medications List Reviewed: Yes Assessment & Plan - Problems (Diagnosis) (1) Acute pancreatitis Current Visit: Yes Status: Acute (2) Iron deficiency anemia Current Visit: Yes Status: Acute (3) Thrombocytosis Current Visit: Yes Status: Acute - Advance Directives Does patient have a Living Will: No Does patient have a Durable POA for Healthcare: No Physician Review: Patient Assessed, Agree with Above Assessment and Plan
[2022-08-28] MEDS ORDERED: HYDROMORPHONE HCL 1 MG/ML INJ ONE ×4 (02:57→12:29)
[2022-08-28] MEDS ORDERED: METRONIDAZOLE 500mg IVPB 500 MG/100 ML BAG IV ONE (02:57)
[2022-08-28] MEDS: D5 0.45 NS 1,000 ML IV SCH (03:00)
[2022-08-28 03:07] LABS: Absolute Lymphocytes (CBC) 2.1 K/uL (0.7-4.9); Lymphocytes % 25.8 % (15.3-44.8); MCV 80.1 fL (80-100); MPV 6.8 fL (7.6-11.3)
[2022-08-28] MEDS: HYDROMORPHONE HCL 1 MG/ML INJ IV PRN ×4 (03:10→12:32)
[2022-08-28 03:11] LABS: Protime INR 1.24
[2022-08-28 03:52] LABS: Albumin 2.6 g/dL (3.4-5.0); Bilirubin Direct 0.2 mg/dL (0-0.2); Bilirubin Total 0.6 mg/dL (0.2-1.0); Folic Acid, (Folate) 14.1 ng/mL (3.1-17.5); Magnesium 1.9 mg/dL (1.8-2.4); Potassium 4.4 mmol/L (3.5-5.1); Protein, Total 6.6 g/dL (6.4-8.2)
[2022-08-28] MEDS ORDERED: SOD FERRIC GLUC COMPLX/SUCROSE 125 MG in NA CHLORIDE 0.9% 100 ML IV SCH ×2 (08:00→09:00)
[2022-08-28] MEDS ORDERED: INFLUENZA VACCINE (for 6+ mo) 0.5 ML DOSE IMVAC ONE (08:00)
[2022-08-28] MEDS ORDERED: PANTOPRAZOLE 40 MG INJ ONE (08:50)
[2022-08-28] MEDS ORDERED: ASPIRIN EC 81 MG TAB PO ONE (08:50)
[2022-08-28] MEDS ORDERED: ENOXAPARIN 40 MG/0.4 ML SQ ONE (08:50)
[2022-08-28] MEDS ORDERED: CIPROFLOXACIN 400mg IV 400 MG/200 ML BAG IV ONE (08:51)
[2022-08-28] MEDS ORDERED: ASPIRIN EC 81 MG TAB PO SCH (09:00)
[2022-08-28] MEDS: CIPROFLOXACIN 400mg IV 400 MG/200 ML BAG IV SCH (09:00)
[2022-08-28] MEDS ORDERED: METRONIDAZOLE 500mg IVPB 500 MG/100 ML BAG IV SCH (09:00)
[2022-08-28] MEDS: ENOXAPARIN 40 MG/0.4 ML SQ SCH (09:00)
[2022-08-28] MEDS ORDERED: PANTOPRAZOLE 40 MG INJ IVP SCH (09:00)
--- NOTE | 2022-08-28 11:35 | P.DS ---
Discharge Date: 08/28/22 Disposition: ROUTINE DISCHARGE Discharge Condition: GOOD Reason for Admission: Abdominal pain and diarrhea - Problems (1) Acute pancreatitis Current Visit: Yes Status: Acute (2) Iron deficiency anemia Current Visit: Yes Status: Acute (3) Thrombocytosis Current Visit: Yes Status: Acute Brief History of Present Illness: Patient is a 47-year-old gentleman who came to the hospital with abdominal pain. He was recently admitted to the hospital for intra-abdominal abscess. This looks to have resolved. He did have a slight hematoma on his CT scan. He denies drinking alcohol. He has had a laparoscopic cholecystectomy. Surprisingly, his lipase was 10,000. However, his repeat was 1000. CT scan did not indicate any pancreatitis. He is clinically feeling a whole lot better. We will start him on a diet and see how he does today. Hospital Course: Patient is tolerating diet. Clinically he is appearing. Doing much better. At this time, he is stable for discharge. He will follow-up with gastroenterology. He has iron deficiency and needs to get this evaluated. He also has enteritis which needs to be further evaluated by endoscopy in the near future. Vital Signs/Physical Exam: Temp Pulse Resp BP Pulse Ox 98.6 F 92 H 18 120/94 H 99 08/28/22 01:20 08/28/22 04:00 08/28/22 09:06 08/28/22 04:00 08/28/22 09:06 General: Alert, In no apparent distress, Oriented x3 Laboratory Data at Discharge: WBC 8.00 K/uL (4.3-10.9) 08/28/22 02:47 Hgb 10.2 g/dL (13.6-17.9) L D 08/28/22 02:47 Hct 32.0 % (39.6-49.0) L 08/28/22 02:47 Plt Count 499 K/uL (152-406) H D 08/28/22 02:47 PT 13.6 SECONDS (9.5-12.5) H 08/28/22 02:47 INR 1.24 08/28/22 02:47 APTT 24.9 SECONDS (24.3-36.9) 08/28/22 02:47 Sodium 137 mmol/L (136-145) 08/28/22 02:47 Potassium 4.4 mmol/L (3.5-5.1) D 08/28/22 02:47 BUN 12 mg/dL (7-18) 08/28/22 02:47 Creatinine 1.28 mg/dL (0.55-1.3) 08/28/22 02:47 Glucose 77 mg/dL (74-106) 08/28/22 02:47 Magnesium Cancelled 08/28/22 06:00 Total Bilirubin Cancelled 08/28/22 05:00 AST Cancelled 08/28/22 05:00 ALT Cancelled 08/28/22 05:00 Alkaline Phosphatase Cancelled 08/28/22 05:00 Triglycerides Cancelled 08/27/22 16:25 Cholesterol Cancelled 08/27/22 16:25 HDL Cholesterol Cancelled 08/27/22 16:25 Cholesterol/HDL Ratio Cancelled 08/27/22 16:25 Lipase 1033 U/L (73-393) H 08/28/22 02:47 Home Medications: Lisinopril [Zestril] 10 mg PO BID* 08/27/22 Omeprazole 20 mg PO DAILY 08/27/22 Pantoprazole Sodium [Protonix] 40 mg PO DAILY 08/27/22 clonazePAM [Klonopin] 0.5 mg PO BEDTIME 08/27/22 Acidophilus/Bulgaricus [Lactinex Packet] 1 each PO AC #90 packet 08/28/22 Ferrous Gluconate 324 mg PO BID #60 tab 08/28/22 Hydrocodone 5/APAP 325 [Junior 5/325] 1 tab PO Q6H PRN #30 tab 08/28/22 levoFLOXacin [Levaquin] 500 mg PO DAILY #7 tab 08/28/22 metroNIDAZOLE [Flagyl] 500 mg PO Q8H #20 08/28/22 predniSONE [Deltasone] 20 mg PO DAILY #5 tab 08/28/22 New Medications: Ferrous Gluconate 324 mg PO BID #60 tab metroNIDAZOLE [Flagyl] 500 mg PO Q8H #20 Acidophilus/Bulgaricus [Lactinex Packet] 1 each PO AC #90 packet levoFLOXacin [Levaquin] 500 mg PO DAILY #7 tab Hydrocodone 5/APAP 325 [Junior 5/325] 1 tab PO Q6H PRN #30 tab PRN Reason: Pain predniSONE [Deltasone] 20 mg PO DAILY #5 tab Physician Discharge Instructions: -DC IV and DC home after dinner if tolerates meals -Follow-up with PCP in 1 to 2 weeks -Follow-up with gastroenterology in 1 to 2 weeks -Please call Dr. Garcia at [phone] if any questions regarding hospital stay -Please call nursing station at [phone] if any nursing or medication questions -Return to the emergency room if symptoms worsen Diet: Low-fat Activity: Fall precautions Followup: OOTOOT [Primary Care Provider] - 1-2 Weeks (call for appointment) Time spent managing pt's care (in minutes): 35
[2022-08-28 11:54] VITALS: O2SAT 100
[2022-08-28 11:55] VITALS: BP 132/76; TEMP 98.3
== END 2022-08-28 12:47 | disposition home or self-care (01) ==
LOC: ER 07:21 → ERHOLD 16:18 → INTOOBSV 16:18 → ERHOLD 08-28 08:55
PROVIDERS: ADMIT Hospitalist; ATTEND Hospitalist
DX: K85.90 Acute pancreatitis without necrosis or infection, unspecified (principal); D50.9 Iron deficiency anemia, unspecified; D75.839 Thrombocytosis, unspecified; K52.9 Noninfective gastroenteritis and colitis, unspecified; I10 Essential (primary) hypertension; K22.70 Barrett's esophagus without dysplasia; F43.10 Post-traumatic stress disorder, unspecified; B19.20 Unspecified viral hepatitis C without hepatic coma; R19.7 Diarrhea, unspecified; K21.9 Gastro-esophageal reflux disease without esophagitis; D72.829 Elevated white blood cell count, unspecified; N18.2 Chronic kidney disease, stage 2 (mild); Z20.822 Contact with and (suspected) exposure to COVID-19; Z23 Encounter for immunization
CPT/HCPCS: 96365; 96361; 87040; 85025 ×2; 80048; 36415 ×2; 82140; 83735; 85610; 85044; 80061; 80076; 85730; 84443; 81003; 83036; 84439; 82728; 82746; 82607; 83690 ×3; 83540 ×2; 80053; 84145; 84466; 74177; 96375; 99284; 87811; Q9967; C9113; J1650 ×2; J2916; J1170 ×6; J7799; J7030 ×2; J2405 ×2; J0744 ×3; G0378 ×3; J7050

== ENCOUNTER 2022-09-05 06:34 | Emergency (ER) | payer OTHER ==
--- OUTSIDE RECORDS SUMMARY | 2022-09-05 06:44 | XMS REPORT | Continuity of Care Document ---
:1975 Author Organization [facility] t Address [address] [place] [address] [address]. [address] [place] [address] Care Team Providers Name Role Phone KUNALWADE [...] Effective Date Expiration Date S ource 0191 [id number] 2021 00:00:00 1000 [id number] 2022 00:00:00 0050 [id number] 2021 00:00:00 Problems This patient has no known problems. Allergies, Adverse Reactions, Alerts Allergy Allergy Status Severity Reaction(s) Onset Inactive Treating Comm ents Source Name Type Date Date Clinician No Known DA Active [facility] s Medications This patient [...] Department ID 2022-08-26 2022-08-26 Emergency E PUMAREJO, [facility] [id number] [place] 10:57:00 15:13:00 G[facility] 2022-08-25 2022-08-25 Emergency E CHECO, ANIBAL [facility] [id number] [place] 09:48:00 11:36:00 [facility] 2022-08-22 2022-08-22 Emergency E MANUEL, [facility] [id number] [place] 09:39:00 13:[facility] 2022-07-26 2022-07-26 Emergency E JEFFERSON, [facility] [id number] [place] 11:44:00 13:18:00 [facility] 2022-02-26 2022-02-26 Emergency E RADHA, [facility] [id number] [place] 11:00:00 12:27:00 [facility] Results Test Description Test Time Test Comments Results Result Comments Source BLOOD CULTURE 2022-08-31 13:40:00 Test Item Value Reference Range Interpretation Comme nts Culture Observations (test code = COB1) NO GROWTH AFTER 5 DAYS BLOOD [id number] 13:40:00 Test Item Value Reference Range Interpretation Comments Culture Observations (test NO GROWTH AFTER 5 code = COB1) DAYS URINE [id number] 10:08:00 Test Item Value Reference Range Interpretation Comments Culture Observations (test NO GROWTH (<1,000 code = COB1) CFU/ML) CT ABDOMEN AND PELVIS WITH CONTRAST*WW*2022-08-26 13:53:02 [facility] 1975 Sex: MExam: CT abdomen and pelvis with contrast.CLINICAL HISTORY: Abdominal pain; Dehydration.LOCATION: D4.FINDINGS: Followingthe administration of 95 mL Isovue-300 intravenous contrast [...] normal in appearance. There is mild fluid diste ntion of multiple mid small bowel with small air-fluid levels. There is a 3.7 cm x 1.2 cm oval well-defined hyperdense subcutaneous lesion at the left anterior mid abdomen. This is nonspecific and may represent hematoma. No acute skeletal or soft tissue abnormalities are otherwise identified.IMPRESSION:1. There is mild fluid distention of multiple [...] patient size, and/or utilization of iterative reconstruction technique.Electronically signed by: Evelina REINOSO 08/26/2022 1:53 PM [facility] [id number] *WW*2022-08-26 12:48:00 Test Item Value Reference Range Interpretation Comments COLOR (test code = COLU) YELLOW YELLOW [...] (test code = WAUAM) NO NO MAGNESIUM WW2022-08-26 12:35:00 Test Item Value Reference Range Interpretation Comments MAGNESIUM (test code = 48A) 2.0 mg/dL 1.6-2.6 PHOSPHORUS (P04) *WW*2022-08-26 12:35:00 Test Item Value Reference Range Interpretation Comments PHOSPHORUS (test code = 43D) 3.4 mg/dL 2.4-5.1 LIPASE SERUM WW2022-08-26 12:26:00 Test Item Value Reference Range Interpretation Comments LIPASE (test code = 60A) 44 IU/L 12-53 COMPREHENSIVE METABOLIC JAIMES *WW*2022-08-26 12:25:00 Test Item Value Reference Range Interpretation [...] normal/abnormal . GFR 82 See_Comment L [Automated [place] (test mL/min/1.73m\S\2 message] The code = GFRAA) system which generated this result transmit betty reference range : >=90. The reference range was not used to interpret this result as normal/abnormal . EGFR (test code = eGFR BY EGFR) CKD-EPI CALCULATION IS NOT RECOMMENDED FOR PATIENTS UNDER 18 YEARS OF AGE. BUN/CREA (test 13 09-30 code = BCR) CALCIUM (test code 9.3 [...] 9.3 mg/dL 8.3-10.6 PRO TIME AND PTT *WW*2022-08-26 12:20:00 Test Item Value Reference Range Interpretation [...] LA) 1.3 mmol/L 0.4-2.0 CBC (INCLUDES AUTOMATED DIFFERENTIAL)*[id number] 12:04:00 Test Item Value Reference Range Interpretation [...] NORMAL WRBCMOR) XR ELBOW RT COMPLETE 3 VIEWS*ALLIE*2022-02-26 12:03:26 [facility] 1975 Sex: MEXAMINATION:XR ELBOW RT COMPLETE 3 VIEWS*ALLIE*CLINICAL INDICATION:Male, 46 years old with Pain of right elbow jointCOMPARISON: NoneFINDINGS:AP, lateral, and oblique images of the right elbow were submitted.No acute fractureor malalignment is identified. There are mild degenerative changes. Soft tissue swelling is noted.IMPRESSION: Soft tissue swelling. No acute bone finding is identified.Electronically signed by: Erick Lock MD 02/26/2022 12:03 PM CDT
--- NOTE | 2022-09-05 07:34 | ER ---
Nurse's Notes [facility] Name: Delonte Gonzales Age: 47 yrs Sex: Male : 1975 Arrival Date: 09/05/2022 Time: 06:37 Bed 4 Private MD: Diagnosis: Injury of muscle, fascia and tendon of long head of biceps Presentation: 09/05 07:01 Chief complaint: Patient states: "I was doing curls at the gym when I felt a pop and tw5 now my arm is killing me. I have a huge knot in my arm.". Coronavirus screen: Vaccine status: Patient reports receiving the 2nd dose of the covid vaccine. Moderna. Ebola Screen: Patient negative for fever greater than or equal to 101.5 degrees Fahrenheit, and additional compatible Ebola Virus Disease symptoms Patient denies exposure to infectious person. Patient denies travel to an Ebola-affected area in the 21 days before illness onset. Initial Sepsis Screen: Does the patient meet any 2 criteria? No. Patient's initial sepsis screen is negative. Does the patient have a suspected source of infection? No. Patient's initial sepsis screen is negative. Risk Assessment: Do you want to hurt yourself or someone else? Patient reports no desire to harm self or others. Onset of symptoms was September 05, 2022 at 06:00. 07:01 Method Of Arrival: Ambulatory tw5 07:01 Acuity: DANIEL 3 tw5 Triage Assessment: 07:03 General: Appears in no apparent distress. uncomfortable, Behavior is calm, cooperative, tw5 appropriate for age. Pain: Complains of pain in right bicep Pain currently is 10 out of 10 on a pain scale. 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 - Social history:: Smoking status: Patient/guardian denies using tobacco, the patient reports quitting approximately 10 years ago. - Family history:: not pertinent. Screenin:00 Abuse screen: Denies threats or abuse. Denies injuries from another. Nutritional bp screening: No deficits noted. Tuberculosis screening: No symptoms or risk factors identified. Fall Risk None identified. Assessment: 07:00 General: RECD REPORT FROM ALEJANDRO PAINTING. 47YO WM P/W PAIN/DEFORMITY TO R BICEP AREA AFTER bp WEIGHT LIFTING. 08:40 Reassessment: DC HOME AMBULATORY WITH FAMILY. Musculoskeletal: Swelling present in bp right bicep. Vital Signs: 07:01 BP 137 / 100; Pulse 103; Resp 18; Temp 98.4; Pulse Ox 100% ; Weight 79.38 kg; Height 5 tw5 ft. 4 in. (162.56 cm); Pain 10/10; 08:40 BP 138 / 52; Pulse 89; Resp 16; Pulse Ox 99% ; bp 07:01 Body Mass Index 30.04 (79.38 kg, 162.56 cm) tw5 ED Course: 06:37 Patient arrived in ED. ja2 07:00 Patient has correct armband on for positive identification. Bed in low position. Call bp light in reach. Side rails up X2. 07:03 Triage completed. tw5 07:03 Arm band placed on. EKG completed in triage. Results shown to MD. tw5 07:09 Jonathan Hendricks MD is Attending Physician. papo 07:15 Chester Avilez RN is Primary Nurse. bp 07:33 Fuentes Petty MD is Referral Physician. papo 07:53 Humerus Right XRAY In Process Unspecified. EDMS 08:39 No provider procedures requiring assistance completed. Patient did not have IV access bp during this emergency room visit. Sling applied to right arm. Administered Medications: 07:40 Drug: Ketorolac 60 mg Route: IM; Site: right gluteus; bp 08:38 Follow up: Response: No adverse reaction bp 07:40 Drug: Courtland (HYDROcodone-acetaminophen) 10 mg-325 mg 1 tabs Route: PO; bp 08:38 Follow up: Response: No adverse reaction bp 07:40 Drug: Valium (diazepam) 10 mg Route: PO; bp 08:38 Follow up: Response: No adverse reaction bp 08:38 Drug: morphine 8 mg Route: IM; Site: right gluteus; bp 08:39 Follow up: Response: No adverse reaction bp 08:39 Drug: Promethazine 25 mg Route: IM; Site: right gluteus; bp 08:39 Follow up: Response: No adverse reaction bp Medication: 07:00 VIS not applicable for this client. bp Outcome: 07:34 Discharge ordered by . papo 08:40 Discharged to home ambulatory, with family. bp 08:40 Condition: stable 08:40 Discharge instructions given to patient, Instructed on discharge instructions, follow up and referral plans. medication usage, Demonstrated understanding of instructions, follow-up care, medications, Prescriptions given X 2. 08:41 Patient left the ED. bp Signatures: Dispatcher [employer] EDNM Jonathan Hendricks MD MD cha Peltier, Brian, RN RN Anne Wilson Tiffany tw5
--- NOTE | 2022-09-05 07:34 | EDPHYS ---
Physician Documentation [facility] Name: Delonte Gonzales Age: 47 yrs Sex: Male : 1975 Arrival Date: 09/05/2022 Time: 06:37 Bed 4 Private MD: MUKESH Physician Jonathan Hendricks HPI: 09/05 07:27 This 47 yrs old Male presents to ER via Ambulatory with complaints of Arm papo Pain, Arm Injury. 07:27 The patient or guardian complains of decreased range of motion, pain, that is acute. papo The complaints affect the right bicep. Context: The problem was sustained at a gym. Onset: The symptoms/episode began/occurred just prior to arrival. Treatment prior to arrival includes: no previous treatment. Modifying factors: The symptoms are alleviated by nothing. remaining still, the symptoms are aggravated by movement, bending arm. Associated signs and symptoms: Pertinent positives: pain. Severity of symptoms: At their worst the symptoms were moderate, in the emergency department the symptoms are unchanged. The patient has not experienced similar symptoms in the past. 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 - Social history:: Smoking status: Patient/guardian denies using tobacco, the patient reports quitting approximately 10 years ago. - Family history:: not pertinent. ROS: 07:27 Constitutional: Negative for fever, chills, and weight loss, Eyes: Negative for injury, papo pain, redness, and discharge, ENT: Negative for injury, pain, and discharge, Neck: Negative for injury, pain, and swelling, Cardiovascular: Negative for chest pain, palpitations, and edema, Respiratory: Negative for shortness of breath, cough, wheezing, and pleuritic chest pain, Abdomen/GI: Negative for abdominal pain, nausea, vomiting, diarrhea, and constipation, Back: Negative for injury and pain, : Negative for injury, bleeding, discharge, and swelling, Skin: Negative for injury, rash, and discoloration, Neuro: Negative for headache, weakness, numbness, tingling, and seizure, Psych: Negative for depression, anxiety, suicide ideation, homicidal ideation, and hallucinations, Allergy/Immunology: Negative for hives, rash, and allergies, Endocrine: Negative for neck swelling, polydipsia, polyuria, polyphagia, and marked weight changes, Hematologic/Lymphatic: Negative for swollen nodes, abnormal bleeding, and unusual bruising. 07:27 MS/extremity: Positive for decreased range of motion, pain, swelling, tenderness. Exam: 07:27 Constitutional: This is a well developed, well nourished patient who is awake, alert, papo and in no acute distress. Head/Face: Normocephalic, atraumatic. Eyes: Pupils equal round and reactive to light, extra-ocular motions intact. Lids and lashes normal. Conjunctiva and sclera are non-icteric and not injected. Cornea within normal limits. Periorbital areas with no swelling, redness, or edema. ENT: Nares patent. No nasal discharge, no septal abnormalities noted. Tympanic membranes are normal and external auditory canals are clear. Oropharynx with no redness, swelling, or masses, exudates, or evidence of obstruction, uvula midline. Mucous membranes moist. Neck: Trachea midline, no thyromegaly or masses palpated, and no cervical lymphadenopathy. Supple, full range of motion without nuchal rigidity, or vertebral point tenderness. No Meningismus. Chest/axilla: Normal chest wall appearance and motion. Nontender with no deformity. No lesions are appreciated. Cardiovascular: Regular rate and rhythm with a normal S1 and S2. No gallops, murmurs, or rubs. Normal PMI, no JVD. No pulse deficits. Respiratory: Lungs have equal breath sounds bilaterally, clear to auscultation and percussion. No rales, rhonchi or wheezes noted. No increased work of breathing, no retractions or nasal flaring. Abdomen/GI: Soft, non-tender, with normal bowel sounds. No distension or tympany. No guarding or rebound. No evidence of tenderness throughout. Back: No spinal tenderness. No costovertebral tenderness. Full range of motion. Skin: Warm, dry with normal turgor. Normal color with no rashes, no lesions, and no evidence of cellulitis. Neuro: Awake and alert, GCS 15, oriented to person, place, time, and situation. Cranial nerves II-XII grossly intact. Motor strength 5/5 in all extremities. Sensory grossly intact. Cerebellar exam normal. Normal gait. Psych: Awake, alert, with orientation to person, place and time. Behavior, mood, and affect are within normal limits. 07:27 Musculoskeletal/extremity: ROM: limited active range of motion, in the right bicep, limited active range of motion due to pain, limited passive range of motion due to pain. Vital Signs: 07:01 BP 137 / 100; Pulse 103; Resp 18; Temp 98.4; Pulse Ox 100% ; Weight 79.38 kg; Height 5 tw5 ft. 4 in. (162.56 cm); Pain 10/10; 08:40 BP 138 / 52; Pulse 89; Resp 16; Pulse Ox 99% ; bp 07:01 Body Mass Index 30.04 (79.38 kg, 162.56 cm) tw5 MDM: 07:09 Patient medically screened. [facility] 07:31 Differential diagnosis: closed fracture, contusion, abrasion, tendonitis. Data papo reviewed: vital signs, nurses notes, radiologic studies, plain films. Data interpreted: quality assurance monitor body: rate is 103 beats/min, rhythm is regular, Pulse oximetry: on room air is 100 %. Test interpretation: by ED physician or midlevel provider: plain radiologic studies. Counseling: I had a detailed discussion with the patient and/or guardian regarding: the historical points, exam findings, and any diagnostic results supporting the discharge/admit diagnosis, radiology results, the need for outpatient follow up, for definitive care, a orthopedic surgeon. 09/05 07:25 Order name: Humerus Right XRAY; Complete Time: 04:10 [facility] 09/05 07:25 Order name: Sling; Complete Time: 08:38 [facility] 09/05 07:25 Order name: Ice pack; Complete Time: 07:42 papo Administered Medications: 07:40 Drug: Ketorolac 60 mg Route: IM; Site: right gluteus; bp 08:38 Follow up: Response: No adverse reaction bp 07:40 Drug: Bov[place] (HYDROcodone-acetaminophen) 10 mg-325 mg 1 tabs Route: PO; bp 08:38 Follow up: Response: No adverse reaction bp 07:40 Drug: Valium (diazepam) 10 mg Route: PO; bp 08:38 Follow up: Response: No adverse reaction bp 08:38 Drug: morphine 8 mg Route: IM; Site: right gluteus; bp 08:39 Follow up: Response: No adverse reaction bp 08:39 Drug: Promethazine 25 mg Route: IM; Site: right gluteus; bp 08:39 Follow up: Response: No adverse reaction bp Disposition Summary: 09/05/22 07:34 Discharge Ordered Location: Home papo Problem: new papo Symptoms: have improved papo Condition: Stable papo Diagnosis - Injury of muscle, fascia and tendon of long head of biceps papo Followup: papo - With: Private Physician - When: 2 - 3 days - Reason: Recheck today's complaints, Continuance of care, Re-evaluation by your physician Followup: papo - With: Fuentes Petty MD - When: 2 - 3 days - Reason: Recheck today's complaints Discharge Instructions: - Discharge Summary Sheet papo - Proximal Biceps Tendon Tear papo Forms: - Medication Reconciliation Form papo - Thank You Letter papo - Antibiotic Education papo - Prescription Opioid Use papo Prescriptions: - Protonix 40 mg Oral Tablet - take 1 tablet by ORAL route once daily; 30 tablet; Refills: 0, Product [facility] Selection Permitted - Diclofenac Sodium 75 mg Oral tablet,delayed release (DR/EC) - take 1 tablet by ORAL route 2 times per day; 20 tablet; Refills: 0, Product [facility] Selection Permitted - Tylenol-Codeine #3 300 mg-30 mg Oral - take 2 tablet by ORAL route every 6 hours; 24 tablet; Refills: 0, Product [facility] Selection Permitted Signatures: Dispatcher [employer] Jonathan Villarreal MD MD cha Nieto, Roman, MD MD rn Peltier, Brian, RN RN bp Wood, Tiffany tw5
[2022-09-05] MEDS ORDERED: DIAZEPAM 5 MG TABLET ONE (07:37)
[2022-09-05] MEDS ORDERED: HYDROCODONE/APAP 10/325 TAB ONE (07:37)
[2022-09-05] MEDS ORDERED: KETOROLAC 30 MG/ML INJ ONE (07:38)
[2022-09-05] MEDS ORDERED: MORPHINE 4 MG/ML SYR ONE (08:27)
[2022-09-05] MEDS ORDERED: PROMETHAZINE INJ 25 MG/ML AMP ONE (08:27)
[2022-09-05 08:45] VITALS: TEMP 98.4
[2022-09-05 08:46] VITALS: BP 138/52; O2SAT 99
--- NOTE | 2022-09-05 09:10 | RAD REPORT ---
EXAM DESCRIPTION: RAD - Humerus Right - 09/05/2022 7:51 am CLINICAL HISTORY: Right arm pain FINDINGS: No fracture is seen. No bony abnormality is displayed. Prominence of the soft tissue mid to distal upper arm may represent normal musculature or hematoma. I f there is clinical concern for a tendon/muscular injury then MRI would be recommended
== END 2022-09-05 08:41 | disposition home or self-care (01) ==
LOC: ER 06:34
DX: S46.101A Unspecified injury of muscle, fascia and tendon of long head of biceps, right arm, initial encounter (principal)
CPT/HCPCS: 73060; 96372; 99284; J2550

== ENCOUNTER 2022-09-21 04:50 | Emergency (ER) | payer OTHER ==
--- OUTSIDE RECORDS SUMMARY | 2022-09-21 04:54 | XMS REPORT | Continuity of Care Document ---
:1975 Author Organization [facility] t Address [address] [place] [address] Dr. Arevalo [address] [place] [address] Care Team Providers Name Role Phone KUNAL WADE Primary Care Physician Unavailable ARTHUR, DR SOLOMON Attending Clinician Unavailable IRASEMA, DR GELY OROZCO Attending Clinician Unavailable CHECO, DR BARNETT Attending Clinician Unavailable MANUEL, DR JILLIAN WAGGONER Attending Clinician Unavailable JEFFERSON, DR NOBLE Attending Clinician Unavailable RADHA, DR MAGDALENO Attending Clinician Unavailable ARTHUR, DR SOLOMON Admitting Clinician Unavailable IRASEMA, DR GELY OROZCO Admitting Clinician Unavailable CHECO, DR BARNETT Admitting Clinician Unavailable MANUEL, DR JILLIAN WAGGONER Admitting Clinician Unavailable JEFFERSON, DR NOBLE Admitting Clinician Unavailable RADHA, DR MAGDALENO Admitting Clinician Unavailable Payers Payer Name Policy Type Policy Number Effective Date Expiration Date S ource 0191 [id number] 2021 00:00:00 1000 [id number] 2022 00:00:00 0050 [id number] 2021 00:00:00 Problems This patient has no known problems. Allergies, Adverse Reactions, Alerts Allergy Allergy Status Severity Reaction(s) Onset Inactive Treating Comm ents Source Name Type Date Date Clinician No Known DA Active [facility] s Medications This patient has no known medications. Vital Signs Vital Name Observation Time Observation Value Comments Source Weight 2022-09-15 09:26:00 79.37 KG Height 2022-09-14 09:04:00 162.56 CM Weight 2022-09-14 09:04:00 80.73 KG Weight 2022-09-13 09:13:00 79.96 KG Height 2022-08-25 10:04:00 162.56 CM Weight 2022-08-25 [...] Date/Time Type Type Clinicians Facility Department ID 2022-09-15 2022-09-15 Emergency E PESCO, [facility] [id number] [place] 09:09:00 12:08:00 JUANITO Medic [facility] 2022-09-14 2022-09-14 Emergency E PESCO, [facility] [id number] [place] 08:52:00 12:23:00 JUANITO Medic al [facility] 2022-09-13 2022-09-13 Emergency E PESCO, [facility] [id number] [place] 09:03:00 11:18:00 JUANITO Medic al Ep[facility] 2022-08-26 2022-08-26 Emergency E PUMAREJO, [facility] [id number] [place] 10:57:00 15:13:00 GELY [facility] 2022-08-25 2022-08-25 Emergency E CHECO, IMRAN [facility] [id number] [place] 09:48:00 11:36:00 Medica l Epes 2022-08-22 2022-08-22 Emergency E MANUEL, [facility] [id number] [place] 09:39:00 13:31:00 JILLIAN Medica l [facility] 2022-07-26 2022-07-26 Emergency E FAKJANJO, [facility] [id number] [place] 11:44:00 13:18:00 AIDE Medica l Ep[facility] 2022-02-26 2022-02-26 Emergency E RADHA, [facility] [id number] [place] 11:00:00 12:27:00 [facility] Center Results Test Description Test Time Test Comments Results Result Sour e Comments U/S ABDOMEN 2022-09-14 RUQ*WW* 11:05:47 [facility] : 1975 Sex: M EX AMINATION:US abdomen Doppler, limitedCLINICAL INDICATION:Pain. Evaluate for portal vein thrombosis.TECHNIQUE: Limited grayscale, color Doppler, and spectral waveform analysis of the liver performed to assess portal vein patency.COMPARISON: CT of the abdomen and pelvis 08/26/2022FINDINGS:Vi sualized portions of liver parenchyma appear slightly increased in echogenicity suggesting at least mild hepatic steatosis. No definite focal hepatic lesions are seen on the submitted images. No significant hepatic surface contour nodularity. The main portal vein is patent with normal direction of flow. Visualized Hepatic veins are also patent.No obvious intra-abdominal ascites demonstrated.IMPRESSI ON:1. No sonographic abnormality of the visualized hepatic vasculature. Patent main portal vein. No evidence of portal vein thrombus.Electronical ly signed by: Antonella Pham MD 09/14/2022 11:05 AM ARNP AMYLASE AND LIPASE 2022-09-14 10:11:00 Test Item Value Reference Range Interpretation Comme nts AMYLASE (test code = 10A) 102 U/L 28-100 H LIPASE (test code = 60A) 84 IU/L 12-53 H COMPREHENSIVE METABOLIC JAIMES *WW*2022-09-14 10:07:00 Test Item Value Reference Range Interpretation Comments GLUCOSE (test code 121 mg/dL 75-100 H = 06D) SODIUM (test code 140 mmol/L 136-145 = 01A) POTASSIUM (test 4.9 mmol/L 3.6-5.1 code = 01B) CHLORIDE (test 105 mmol/L 98-107 code = 04A) CO2 (test code = 26 mmol/L 20-31 02A) ANION GAP (test 13.9 mmol/L code = ANG) BUN (test code = 18 mg/dL 9-23 05D) CREATININE (test 1.2 mg/dL 0.7-1.3 code = 03E) GFR (test code = 70 See_Comment L [Automated GFR) mL/min/1.73m\S\2 message] Th e system which generated this result transmit betty reference range : >=90. The reference range was not used to interpret this result as normal/abnormal . GFR 82 See_Comment L [Automated IRISH (test mL/min/1.73m\S\2 message] The code = GFRAA) system which generated this result transmit betty reference range : >=90. The reference range was not used to interpret this result as normal/abnormal . EGFR (test code = eGFR BY EGFR) CKD-EPI CALCULATION IS NOT RECOMMENDED FOR PATIENTS UNDER 18 YEARS OF AGE. BUN/CREA (test 15 12-20 code = BCR) CALCIUM (test code 9.5 mg/dL 8.3-10.6 = 09D) BILI TOTAL (test 0.7 mg/dL 0.2-1.0 code = 11A) PROTEIN (test code 7.4 g/dL 5.7-8.2 = 07D) ALBUMIN (test code 4.8 g/dL 3.2-4.8 = 08D) GLOBULIN (test 2.6 g/dL 1.5-3.8 code = GLB) ALB/GLOB (test 1.8 1.0-2.6 code = AGRR) ALK PHOS (test 42 IU/L 46-116 L code = 35A) AST (test code = 85 IU/L See_Comment H [Automated 30A) message] The system which generated this result transmit betty reference range : <=33. The reference range was not used to interpret this result as normal/abnormal . ALT (test code = 101 IU/L 10-49 H 31A) LACTIC ACID WW2022-09-14 10:01:00 Test Item Value Reference Range Interpretation Comments LACTIC ACD (test code = LA) 1.9 mmol/L 0.4-2.0 DRUGS OF ABUSE 2022-09-14 09:51:00 Test Item Value Reference Range Interpretation Comments DRUG SCRN (test code = URINE DRUG HDOA) SCREEN This is an unconfirmed screening result and should not be used for non-medical purposes CANNABINOD (test code NEGATIVE NEGATIVE = 88C) AMPHETAMINE (test code NEGATIVE NEGATIVE = 84A) BENZODIAZP (test code POSITIVE NEGATIVE A = 86A) BARBITURAT (test code NEGATIVE NEGATIVE = 85A) OPIATES (test code = POSITIVE NEGATIVE A 92B) COCAINE (test code = NEGATIVE NEGATIVE 87A) PHENCYCLID (test code NEGATIVE NEGATIVE = 66A) METHADONE (test code = NEGATIVE NEGATIVE 64A) DOAH (test code = DOAH.) URINE DRUGSCREEN Cut-off values are as follows: Cannabinoids 50 ng/mL Cocaine 300 ng/mL Amphetamines 1000 ng/mL Phencyclidine 25 ng/mL Benzodiazepines 200 ng.mL Methadone 300 ng/mL Barbiturates 200 ng/mL Opiates 300 ng/mL AMYLASE AND LIPASE *WW*2022-09-13 10:25:00 Test Item Value Reference Range Interpretation Comments AMYLASE (test code = 10A) 107 U/L 28-100 H LIPASE (test code = 60A) 88 IU/L 12-53 H COMPREHENSIVE METABOLIC JAIMES 2022-09-13 10:15:00 Test Item Value Reference Range Interpretation Comments GLUCOSE (test code 118 mg/dL 75-100 H = 06D) SODIUM (test code 138 mmol/L 136-145 = 01A) POTASSIUM (test 5.0 mmol/L 3.6-5.1 code = 01B) CHLORIDE (test 103 mmol/L 98-107 code = 04A) CO2 (test code = 25 mmol/L 20-31 02A) ANION GAP (test 15.0 mmol/L code = ANG) BUN (test code = 16 mg/dL 9-23 05D) CREATININE (test 1.3 mg/dL 0.7-1.3 code = 03E) GFR (test code = 64 See_Comment L [Automated GFR) mL/min/1.73m\S\2 message] Th e system which generated this result transmit betty reference range : >=90. The reference range was not used to interpret this result as normal/abnormal . GFR 74 See_Comment L [Automated IRISH (test mL/min/1.73m\S\2 message] The code = GFRAA) system which generated this result transmit betty reference range : >=90. The reference range was not used to interpret this result as normal/abnormal . EGFR (test code = eGFR BY EGFR) CKD-EPI CALCULATION IS NOT RECOMMENDED FOR PATIENTS UNDER 18 YEARS OF AGE. BUN/CREA (test 12 12-20 code = BCR) CALCIUM (test code 9.8 mg/dL 8.3-10.6 = 09D) BILI TOTAL (test 0.8 mg/dL 0.2-1.0 code = 11A) PROTEIN (test code 7.4 g/dL 5.7-8.2 = 07D) ALBUMIN (test code 4.8 g/dL 3.2-4.8 = 08D) GLOBULIN (test 2.6 g/dL 1.5-3.8 code = GLB) ALB/GLOB (test 1.9 1.0-2.6 code = AGRR) ALK PHOS (test 37 IU/L 46-116 L code = 35A) AST (test code = 100 IU/L See_Comment H [Automated 30A) message] The system which generated this result transmit betty reference range : <=33. The reference range was not used to interpret this result as normal/abnormal . ALT (test code = 111 IU/L 10-49 H 31A) CBC (INCLUDES AUTOMATED DIFFERENTIAL)*[id number] 09:55:00 Test Item Value Reference Range Interpretation Comments WBC (test code = WBC) 10.2 10\S\3/uL 4.5-11.0 RBC (test code = RBC) 4.68 10\S\6/uL 4.20-5.60 HGB (test code = HBG) 11.3 g/dL 14.0-18.0 L HCT (test code = HCT) 38.1 % 35.0-46.0 MCV (test code = MCV) 81.4 fL 80.0-94.0 MCH (test code = MCH) 24.1 pg 27.0-31.0 L MCHC (test code = MCHC) 29.7 g/dL 32.0-36.0 L RDW (test code = RDW) 15.4 % 11.5-14.5 H PLT (test code = PLT) 599 10\S\3/uL 130-400 H MPV (test code = MPV) 8.9 fL 9.4-12.4 L NEUTROP # (test code = NE#) 9.2 10\S\3/uL 2.0-8.0 H LYMPH # (test code = LY#) 0.8 10\S\3/uL 1.2-4.0 L MONOCYTE # (test code = MO#) 0.1 10\S\3/uL 0.0-1.1 EOSINOPH # (test code = EO#) 0.0 10\S\3/uL 0.0-0.7 BASOPHIL # (test code = BA#) 0.0 10\S\3/uL 0.0-0.3 IG # (test code = IG#) 0.03 10\S\3/uL 0.00-0.06 NRBC # (test code = NRBC#) 0.00 10\S\3/uL 0.00-0.01 NEUTROPH % (test code = NE%) 90.0 % 35.0-73.0 H LYMPH % (test code = LY%) 8.3 % 20.0-55.0 L MONO % (test code = MO%) 1.0 % 2.5-10.0 L EOSINOPH % (test code = EO%) 0.2 % 0.0-5.0 BASOPHIL % (test code = BA%) 0.2 % 0.0-2.0 IG % (test code = IG%) 0.3 % 0.0-0.8 NRBC% (test code = NRBC%) 0.0 % 0.0-0.2 MANDIFF (test code = WMDIFF) NO NO RBC MORPH (test code = NORMAL WRBCMOR) BLOOD [id number] 13:40:00 Test Item Value Reference Range Interpretation Comments Culture Observations (test NO GROWTH AFTER 5 code = COB1) DAYS BLOOD [id number] 13:40:00 Test Item Value Reference Range Interpretation Comments Culture Observations (test NO GROWTH AFTER 5 code = COB1) DAYS URINE [id number] 10:08:00 Test Item Value Reference Range Interpretation Comments Culture Observations (test NO GROWTH (<1,000 code = COB1) CFU/ML) CT ABDOMEN AND PELVIS WITH CONTRAST*WW*2022-08-26 13:53:02 [facility] 1975 Sex: MExam: CT [...] signed by: Evelina REINOSO 08/26/2022 1:53 PM [facility] [id number] *WW*2022-08-26 12:48:00 Test Item Value Reference Range [...] ANG) BUN (test code = 15 mg/dL 07-04 05D) CREATININE (test 1.2 mg/dL 0.7-1.3 code = 03E) GFR (test code = 70 See_Comment L [Automated GFR) mL/min/1.73m\S\2 message] Th e system which generated this result transmit betty reference range : >=90. The reference range was not used to interpret this result as normal/abnormal . GFR 82 See_Comment L [Automated IRISH (test mL/min/1.73m\S\2 message] The code = GFRAA) system which generated this result transmit betty reference range : >=90. The reference range was not used to interpret this result as normal/abnormal . EGFR (test code = eGFR BY EGFR) CKD-EPI CALCULATION IS NOT RECOMMENDED FOR PATIENTS UNDER 18 YEARS OF AGE. BUN/CREA (test 09-30 code = BCR) CALCIUM (test code [...] IU/L 10-49 H 31A) AMYLASE AND LIPASE *WW*2022-08-26 12:25:00 Test Item Value Reference Range Interpretation Comments AMYLASE (test code = 10A) 140 U/L 28-100 H LIPASE (test code = 60A) 45 IU/L 12-53 CALCIUM *WW*2022-08-26 12:25:00 Test Item Value Reference Range [...] LA) 1.3 mmol/L 0.4-2.0 CBC (INCLUDES AUTOMATED DIFFERENTIAL)*[id number] 12:04:00 Test Item Value Reference Range Interpretation [...] XR ELBOW RT COMPLETE 3 VIEWS*WW*2022-02-26 12:03:26 [facility] : 1975 Sex: MEXAMINATION:XR ELBOW [...]
[2022-09-21] MEDS ORDERED: MORPHINE 4 MG/ML SYR ONE (05:14)
[2022-09-21] MEDS ORDERED: ONDANSETRON 4 MG (ODT) TAB ONE (05:14)
[2022-09-21] MEDS ORDERED: KETOROLAC 30 MG/ML INJ ONE (05:14)
--- NOTE | 2022-09-21 05:15 | EDPHYS ---
Physician Documentation [facility] Name: Delonte Gonzales Age: 47 yrs Sex: Male : 1975 Arrival Date: 09/21/2022 Time: 04:54 Bed 12 Private MD: ED Physician Krishna Mchugh HPI: 09/21 05:08 This 47 yrs old Male presents to ER via Unassigned with complaints of Toothache. kdr 05:09 The patient reports that he had 14 teeth pulled on . Since then he has had kdr increasing discomfort. Due to prior narcotic use and prescriptions, he has not been able to utilize anything more than Tylenol Motrin for pain control since the teeth were pulled. This morning the pain has become unbearable and so he came to the ED. He is concerned that he may have a dry socket. Patient otherwise has not had a fever no nausea or vomiting or other associated signs or symptoms. Review of systems overall is negative aside from the dental pain for which she is seeking treatment. Patient is nontoxic appearing. Onset: The symptoms/episode began/occurred gradually, 3 day(s) ago. Severity of symptoms: At their worst the symptoms were severe incapacitating just prior to arrival, in the emergency department the symptoms have improved mildly. The patient has not experienced similar symptoms in the past. The patient has been recently seen by a physician: Dentist. Historical: - Allergies: 05:09 No Known Allergies; kl - Home Meds: 05:09 Klonopin 0.5 mg Oral tab [Active]; lisinopril 10 mg Oral tab 1 tab once daily [Active]; kl omeprazole 20 mg Oral cpDR 1 cap once daily [Active]; Protonix 40 mg Oral TbEC 1 tab once daily [Active]; - PMHx: 05:09 Crabtree's Esophagus; Hypertensive disorder; PTSD; Pancreatitis; bicep tear; kl - PSHx: 05:09 Cholecystectomy; kl - Immunization history:: Adult Immunizations up to date. - Social history:: Smoking status: Patient denies any tobacco usage or history of. ROS: 05:09 Constitutional: Negative for fever, chills, and weight loss, Eyes: Negative for injury, kdr pain, redness, and discharge, Neck: Negative for injury, pain, and swelling, Cardiovascular: Negative for chest pain, palpitations, and edema. 05:09 ENT: Positive for dental pain, Negative for drainage from ear(s), sinus pain, sore throat, difficulty swallowing, difficulty handling secretions. Exam: 05:09 Constitutional: This is a well developed, well nourished patient who is awake, alert, kdr and in no acute distress. Head/Face: Normocephalic, atraumatic. Eyes: Pupils equal round and reactive to light, extra-ocular motions intact. Lids and lashes normal. Conjunctiva and sclera are non-icteric and not injected. Cornea within normal limits. Periorbital areas with no swelling, redness, or edema. Neck: Trachea midline, no thyromegaly or masses palpated, and no cervical lymphadenopathy. Supple, full range of motion without nuchal rigidity, or vertebral point tenderness. No Meningismus. Chest/axilla: Normal chest wall appearance and motion. Nontender with no deformity. No lesions are appreciated. 05:09 ENT: Dental exam: missing teeth, diffusely, Patient has multiple sites where the tooth has been extracted. None of the extraction sites are currently empty or suggesting an dry socket circumstance or situation. There is no purulent drainage or other swelling consistent with an abscess at this time. Patient has extremely poor dentition on the remaining teeth. pain, that is moderate, diffusely. Vital Signs: 05:07 BP 142 / 96; Pulse 87; Resp 16; Temp 98.7(TE); Pulse Ox 100% on R/A; Weight 76.2 kg kl (R); Height 5 ft. 4 in. (162.56 cm); Pain 10/10; 05:07 Body Mass Index 28.84 (76.20 kg, 162.56 cm) MDM: 05:09 Data reviewed: vital signs, nurses notes. Counseling: I had a detailed discussion with kdr the patient and/or guardian regarding: the historical points, exam findings, and any diagnostic results supporting the discharge/admit diagnosis, the need for outpatient follow up, Maintain your appointment on Thursday with your dentist. Try to contact someone later today for some alternative treatments that may mitigate the pain between now and Thursday. 05:14 Patient medically screened. kdr Administered Medications: 05:25 Drug: morphine 4 mg Route: IM; Site: right ventrogluteal; kl 05:25 Drug: Ketorolac 30 mg Route: IM; Site: right ventrogluteal; kl 05:26 Drug: Ondansetron 4 mg Route: PO; Disposition Summary: 09/21/22 05:14 Discharge Ordered Location: Home kdr Problem: an acute exacerbation kdr Symptoms: have improved kdr Condition: Stable kdr Diagnosis - Dental extraction pain, poor dentition kdr Followup: kdr - With: Private Physician - When: 2 - 3 days - Reason: If symptoms return, Further diagnostic work-up, Recheck today's complaints, Continuance of care, Re-evaluation by your physician Forms: - Medication Reconciliation Form kdr - Thank You Letter kdr - Antibiotic Education kdr - Prescription Opioid Use kdr Signatures: Antonella Adam RN RN kl Rittger, Kevin, MD MD kdr
--- NOTE | 2022-09-21 05:15 | ER ---
Nurse's Notes [facility] Name: Delonte Gonzales Age: 47 yrs Sex: Male : 1975 Arrival Date: 09/21/2022 Time: 04:54 Bed 12 Private MD: Diagnosis: Dental extraction pain, poor dentition Presentation: 09/21 05:07 Chief complaint: Patient states: dental pain s/p having 14 teeth pulled 09/18/2022. Coronavirus screen: Vaccine status: Patient reports receiving the 2nd dose of the covid vaccine. Ebola Screen: Patient negative for fever greater than or equal to 101.5 degrees Fahrenheit, and additional compatible Ebola Virus Disease symptoms. Initial Sepsis Screen: Does the patient meet any 2 criteria? No. Patient's initial sepsis screen is negative. Does the patient have a suspected source of infection? No. Patient's initial sepsis screen is negative. Risk Assessment: Do you want to hurt yourself or someone else? Patient reports no desire to harm self or others. Note pt reports out of pain medication. Onset of symptoms. 05:07 Method Of Arrival: Ambulatory 05:07 Acuity: DANIEL 5 kl Triage Assessment: 05:10 General: Appears uncomfortable, well groomed, well developed, Behavior is calm, kl cooperative. Pain: Complains of pain in mouth Pain currently is 10 out of 10 on a pain scale. EENT: Poor dentition noted. Absence of teeth noted - upper right first molar (#3), upper right first bicuspid (#5), upper left cuspid (#11), lower left third molar (#17), lower left second molar (#18), lower left second bicuspid (#20), lower left first bicuspid (#21), lower left lateral incisor (#23), lower right central incisor (#25), lower right cuspid (#27), lower right first bicuspid (#28), lower right second bicuspid (#29), lower right first molar (#30) and lower right second molar (#31). 05:44 EENT: Reports pain. 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 - Social history:: Smoking status: Patient denies any tobacco usage or history of. Screenin:40 Abuse screen: Denies threats or abuse. Nutritional screening: No deficits noted. pf1 Tuberculosis screening: No symptoms or risk factors identified. Fall Risk None identified. Assessment: 05:44 General: see triage assessment. Vital Signs: 05:07 BP 142 / 96; Pulse 87; Resp 16; Temp 98.7(TE); Pulse Ox 100% on R/A; Weight 76.2 kg (R); Height 5 ft. 4 in. (162.56 cm); Pain 10/10; 05:07 Body Mass Index 28.84 (76.20 kg, 162.56 cm) ED Course: 04:54 Patient arrived in ED. bp1 04:56 Krishna Mchugh MD is Attending Physician. kdr 05:09 Triage completed. kl 05:40 Arm band placed on right wrist. pf1 05:40 No provider procedures requiring assistance completed. Patient did not have IV access pf1 during this emergency room visit. 05:41 Patient has correct armband on for positive identification. Bed in low position. Call pf1 light in reach. Administered Medications: 05:25 Drug: morphine 4 mg Route: IM; Site: right ventrogluteal; 05:25 Drug: Ketorolac 30 mg Route: IM; Site: right ventrogluteal; 05:26 Drug: Ondansetron 4 mg Route: PO; Medication: 05:41 VIS not applicable for this client. pf1 Outcome: 05:14 Discharge ordered by . kdr 05:40 Discharged to home ambulatory, with family. pf1 05:40 Condition: stable 05:40 Discharge instructions given to patient, Instructed on discharge instructions, follow up and referral plans. Demonstrated understanding of instructions, follow-up care. 05:44 Patient left the ED. Signatures: Antonella Adam RN RN Rittger, Krishna, MD MD kdr Catina Amos Pamala, RN RN pf1
[2022-09-21 05:49] VITALS: BP 142/96; TEMP 98.7; O2SAT 100
== END 2022-09-21 05:44 | disposition home or self-care (01) ==
LOC: ER 04:50
DX: K08.89 Other specified disorders of teeth and supporting structures (principal); Z98.818 Other dental procedure status; I10 Essential (primary) hypertension
CPT/HCPCS: 96372; 99283; Q0162

== ENCOUNTER 2022-09-22 05:31 | Emergency (ER) | payer OTHER ==
--- OUTSIDE RECORDS SUMMARY | 2022-09-22 05:34 | XMS REPORT | Continuity of Care Document ---
:1975 Author Organization [facility] t Address [address] [place] [address] Dr. Arevalo [address] [place] [address] Care Team Providers Name Role Phone KUNAL WADE Primary Care Physician Unavailable ARTHUR, DR SOLOMON Attending Clinician Unavailable IRASEMA, DR GELY OROZCO Attending Clinician Unavailable CHECO, DR BARNETT Attending Clinician Unavailable MANUEL, DR JILLIAN WAGGONER Attending Clinician Unavailable JEFFERSON, DR NOBLE Attending Clinician Unavailable RADHA, DR MAGDALENO Attending Clinician Unavailable ARHTUR, DR SOLOMON Admitting Clinician Unavailable IRASEMA, DR GELY OROZCO Admitting Clinician Unavailable CHECO, DR BARNETT Admitting Clinician Unavailable MANUEL, DR JILLIAN WAGGONER Admitting Clinician Unavailable JEFFERSON, DR NOBLE Admitting Clinician Unavailable RADHA, DR MAGDALENO Admitting Clinician Unavailable Payers Payer Name Policy Type Policy Number Effective Date Expiration Date S ource 0191 [id number] 2021 00:00:00 1000 [id number] 2022 00:00:00 0050 [id number] 2021 00:00:00 Problems This patient has no known problems. Allergies, Adverse Reactions, Alerts Allergy Allergy Status Severity Reaction(s) Onset Inactive Treating Comm ents Source Name Type Date Date Clinician No Known DA Active [facility] s Medications [...] Department ID 2022-09-15 2022-09-15 Emergency E [facility]CO, [facility] [id number] [place] 09:09:00 12:08:00 JUANITO Medic [facility] 2022-09-14 2022-09-14 Emergency E [facility]CO, [facility] [id number] [place] 08:52:00 12:23:00 JUANITO Medic [facility] [place] 2022-09-13 2022-09-13 Emergency E PESCO, [facility] [id number] [place] 09:03:00 11:18:00 JUANITO Medic al [place] 2022-08-26 2022-08-26 Emergency E PUMAREJO, [facility] [id number] [place] 10:57:00 15:13:00 GELY [facility] 2022-08-25 2022-08-25 Emergency E CHECO, IMRAN [facility] [id number] [place] 09:48:00 11:36:00 Medica [facility] [place] 2022-08-22 2022-08-22 Emergency E MANUEL, [facility] [id number] [place] 09:39:00 13:31:00 JILLIAN [facility] [place] 2022-07-26 2022-07-26 Emergency E FAKJANJO, [facility] [id number] [place] 11:44:00 13:18:00 AIDE [facility] [place] 2022-02-26 2022-02-26 Emergency E RADHA, [facility] [id number] [place] 11:00:00 12:27:00 [facility] Results Test Description Test Time Test Comments Results Result Sour e Comments U/S ABDOMEN 2022-09-14 RUQ*WW* 11:05:47 [facility] 1975 [...] by: Antonella Pham MD 09/14/2022 11:05 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 GFR 82 See_Comment L [Automated SRI LANKAN (test mL/min/1.73m\S\2 message] The code = GFRAA) [...] normal/abnormal . GFR 74 See_Comment L [Automated SRI LANKAN (test mL/min/1.73m\S\2 message] The code = GFRAA) [...] IU/L 10-49 H 31A) CBC (INCLUDES AUTOMATED DIFFERENTIAL)*[id number] 09:55:00 Test Item Value Reference Range Interpretation [...] MORPH (test code = NORMAL WRBCMOR) BLOOD [id number] 13:40:00 Test Item Value Reference Range Interpretation Comments Culture Observations (test NO GROWTH AFTER 5 code = COB1) DAYS BLOOD [id number] 13:40:00 Test Item Value Reference Range Interpretation Comments Culture Observations (test NO GROWTH AFTER 5 code = COB1) DAYS URINE [id number] 10:08:00 Test Item Value Reference Range Interpretation Comments Culture Observations (test NO GROWTH (<1,000 code = COB1) CFU/ML) CT ABDOMEN AND PELVIS WITH CONTRAST*WW*2022-08-26 13:53:02 [facility] 1975 Sex: MExam: [...] signed by: Evelina REINOSO 08/26/2022 1:53 PM [facility] [id number] *WW*2022-08-26 12:48:00 Test Item Value Reference Range [...] normal/abnormal . GFR 82 See_Comment L [Automated SRI LANKAN (test mL/min/1.73m\S\2 message] The code = GFRAA) [...] LA) 1.3 mmol/L 0.4-2.0 CBC (INCLUDES AUTOMATED DIFFERENTIAL)*[id number] 12:04:00 Test Item Value Reference Range Interpretation [...] XR ELBOW RT COMPLETE 3 VIEWS*WW*2022-02-26 12:03:26 [facility] 1975 Sex: [...]
[2022-09-22] MEDS ORDERED: MORPHINE 4 MG/ML SYR ONE (05:57)
[2022-09-22] MEDS ORDERED: KETOROLAC 30 MG/ML INJ ONE (05:57)
--- NOTE | 2022-09-22 06:29 | ER ---
Nurse's Notes [facility] Name: Delonte Gonzlaes Age: 47 yrs Sex: Male : 1975 Arrival Date: 09/22/2022 Time: 05:33 Bed DIS3 Private MD: Diagnosis: Dental caries, unspecified;Dentalgia Presentation: 09/22 05:43 Chief complaint: Patient states: TOOTH PAIN S/P EXTRACTION OUT OF PAIN MEDICATION. Coronavirus screen: Vaccine status: Patient reports receiving the 2nd dose of the covid vaccine. Ebola Screen: Patient negative for fever greater than or equal to 101.5 degrees Fahrenheit, and additional compatible Ebola Virus Disease symptoms. Initial Sepsis Screen: Does the patient meet any 2 criteria? No. Patient's initial sepsis screen is negative. Does the patient have a suspected source of infection? No. Patient's initial sepsis screen is negative. Risk Assessment: Do you want to hurt yourself or someone else? Patient reports no desire to harm self or others. 05:43 Method Of Arrival: Ambulatory 05:43 Acuity: DANIEL 5 kl Triage Assessment: 05:44 General: Appears in no apparent distress. comfortable, Behavior is calm, cooperative. kl Pain: Complains of pain in MOUTH. EENT: Reports pain. Neuro: No deficits noted. Cardiovascular: No deficits noted. Respiratory: No deficits noted. GI: No deficits noted. No signs and/or symptoms were reported involving the gastrointestinal system. : No deficits noted. No signs and/or symptoms were reported regarding the genitourinary system. Derm: No deficits noted. No signs and/or symptoms reported regarding the dermatologic system. Historical: - Allergies: 06:11 No Known Allergies; kl - Home Meds: 05:44 Klonopin 0.5 mg oral tab [Active]; lisinopril 10 mg Oral tab 1 tab once daily [Active]; kl omeprazole 20 mg Oral cpDR 1 cap once daily [Active]; Protonix 40 mg Oral TbEC 1 tab once daily [Active]; - PMHx: 05:44 Crabtree's Esophagus; bicep tear; Hypertensive disorder; Pancreatitis; PTSD; kl - PSHx: 05:44 Cholecystectomy; kl - Immunization history:: Adult Immunizations not up to date. - Social history:: Smoking status: Patient denies any tobacco usage or history of. - Family history:: not pertinent. - Hospitalizations: : No recent hospitalization is reported. Screenin:33 Abuse screen: Denies threats or abuse. Nutritional screening: No deficits noted. Tuberculosis screening: No symptoms or risk factors identified. Fall Risk No fall in past 12 months (0 pts). Assessment: 06:32 Reassessment: Patient appears in no apparent distress at this time. Patient is alert, kl oriented x 3, equal unlabored respirations, skin warm/dry/pink. Patient states feeling better. Patient states symptoms have improved. Vital Signs: 05:43 BP 136 / 78; Pulse 98; Resp 16; Temp 98(O); Pulse Ox 99% on R/A; Weight 77.11 kg; kl Height 5 ft. 4 in. (162.56 cm); Pain 8/10; 05:43 Body Mass Index 29.18 (77.11 kg, 162.56 cm) ED Course: 05:33 Patient arrived in ED. bp1 05:37 Grayson Wynn MD is Attending Physician. rn 05:44 Triage completed. kl 06:33 Patient has correct armband on for positive identification. kl 06:33 No provider procedures requiring assistance completed. Patient did not have IV access kl during this emergency room visit. Administered Medications: 05:55 Drug: morphine 4 mg Route: IM; Site: left ventrogluteal; kl 06:32 Follow up: Response: No adverse reaction; Marked relief of symptoms kl 05:55 Drug: Ketorolac 30 mg Route: IM; Site: left ventrogluteal; kl 06:32 Follow up: Response: No adverse reaction; Marked relief of symptoms Outcome: 06:29 Discharge ordered by . rn 06:33 Discharged to home ambulatory. kl 06:33 Condition: improved 06:33 Discharge instructions given to patient, Instructed on discharge instructions, follow up and referral plans. Demonstrated understanding of instructions, follow-up care. 06:33 Patient left the ED. Signatures: Antonella Adam RN RN kl Nieto, Roman, MD MD rn Paniauga, Brittany bp1
--- NOTE | 2022-09-22 06:29 | EDPHYS ---
Physician Documentation [facility] Name: Delonte Gonzales Age: 47 yrs Sex: Male : 1975 Arrival Date: 09/22/2022 Time: 05:33 Bed DIS3 Private MD: ED Physician Grayson Wynn HPI: 09/22 06:25 This 47 yrs old Male presents to ER via Ambulatory with complaints of Toothache. rn 06:25 The patient presents with pain. The problem is located in the entire mouth. rn 06:26 Onset: The symptoms/episode began/occurred 1 week(s) ago. Duration: The symptoms are rn continuous. Modifying factors: The symptoms are alleviated by prescription meds, the symptoms are aggravated by chewing, talking. Associated signs and symptoms: Pertinent negatives: fever, inability to eat, swelling. Severity of symptoms: At their worst the symptoms were moderate, in the emergency department the symptoms are unchanged. The patient has not experienced similar symptoms in the past. The patient has been recently seen by a physician:. Pt reports is "flagged" and cannot fill prescription pain medication, came in because pain got worse again and doesn't have anything at home. No fever. On abx. Has tried steroids. . Historical: - Allergies: 06:11 No Known Allergies; kl - Home Meds: 05:44 Klonopin 0.5 mg oral tab [Active]; lisinopril 10 mg Oral tab 1 tab once daily [Active]; kl omeprazole 20 mg Oral cpDR 1 cap once daily [Active]; Protonix 40 mg Oral TbEC 1 tab once daily [Active]; - PMHx: 05:44 Crabtree's Esophagus; bicep tear; Hypertensive disorder; Pancreatitis; PTSD; kl - PSHx: 05:44 Cholecystectomy; kl - Immunization history:: Adult Immunizations not up to date. - Social history:: Smoking status: Patient denies any tobacco usage or history of. - Family history:: not pertinent. - Hospitalizations: : No recent hospitalization is reported. ROS: 06:26 Constitutional: Negative for fever, chills, and weight loss, Eyes: Negative for injury, rn pain, redness, and discharge, ENT: + dental pain Neck: Negative for injury, pain, and swelling. Exam: 06:26 Constitutional: This is a well developed, well nourished patient who is awake, alert, rn and in no acute distress. Head/Face: Normocephalic, atraumatic. ENT: Poor dentition, no swelling, no discoloration, no abscess Neck: Trachea midline, no masses palpated, and no cervical lymphadenopathy. Supple, full range of motion without nuchal rigidity. No Meningismus. Vital Signs: 05:43 BP 136 / 78; Pulse 98; Resp 16; Temp 98(O); Pulse Ox 99% on R/A; Weight 77.11 kg; kl Height 5 ft. 4 in. (162.56 cm); Pain 8/10; 05:43 Body Mass Index 29.18 (77.11 kg, 162.56 cm) kl MDM: 05:37 Patient medically screened. rn 06:26 Differential diagnosis: dental caries. Data reviewed: vital signs, nurses notes, old rn medical records, and as a result, I will discharge patient. Counseling: I had a detailed discussion with the patient and/or guardian regarding: the historical points, exam findings, and any diagnostic results supporting the discharge/admit diagnosis, the need for outpatient follow up, to return to the emergency department if symptoms worsen or persist or if there are any questions or concerns that arise at home. Response to treatment: the patient's symptoms have mildly improved after treatment, and as a result, I will discharge patient. Special discussion: I discussed with the patient/guardian in detail that at this point there is no indication for admission to the hospital. It is understood, however, that if the symptoms persist or worsen the patient needs to return immediately for re-evaluation. Based on the history and exam findings, there is no indication for further emergent testing or inpatient evaluation. I discussed with the patient/guardian the need to see a dentist for further evaluation of the symptoms. I discussed with the patient/guardian the need to see the auto painter for further evaluation of the symptoms. Administered Medications: 05:55 Drug: morphine 4 mg Route: IM; Site: left ventrogluteal; kl 06:32 Follow up: Response: No adverse reaction; Marked relief of symptoms kl 05:55 Drug: Ketorolac 30 mg Route: IM; Site: left ventrogluteal; kl 06:32 Follow up: Response: No adverse reaction; Marked relief of symptoms kl Disposition Summary: 09/22/22 06:29 Discharge Ordered Location: Home rn Problem: an ongoing problem rn Symptoms: have improved rn Condition: Stable rn Diagnosis - Dental caries, unspecified rn - Dentalgia rn Followup: rn - With: Private Physician - When: As needed - Reason: Recheck today's complaints, Re-evaluation by your physician Discharge Instructions: - Discharge Summary Sheet rn - Dental Caries, Adult rn - Dental Pain rn Forms: - Medication Reconciliation Form rn - Thank You Letter rn - Antibiotic paid intern - Prescription Opioid Use rn Signatures: Antonella Adam RN RN Grayson Bhandari MD MD rn
[2022-09-22 06:38] VITALS: BP 136/78; TEMP 98; O2SAT 99
== END 2022-09-22 06:33 | disposition home or self-care (01) ==
LOC: ER 05:31
DX: K02.9 Dental caries, unspecified (principal); Z98.818 Other dental procedure status; I10 Essential (primary) hypertension
CPT/HCPCS: 96372; 99283

== ENCOUNTER 2022-09-26 05:17 | Emergency (ER) | payer OTHER ==
--- OUTSIDE RECORDS SUMMARY | 2022-09-26 05:20 | XMS REPORT | Continuity of Care Document ---
:1975 Author Organization [facility] t Address [address] [place] [address] Dr. Arevalo [address] [place] [address] Care Team Providers Name Role Phone KUNAL WADE Primary Care Physician Unavailable ARTHUR, DR SOLOMON Attending Clinician Unavailable IRASEMA, DR GELY OROZCO Attending Clinician Unavailable CHECO, DR BARNETT Attending Clinician Unavailable MANUEL, DR JILLINA WAGGONER Attending Clinician Unavailable JEFFERSON, DR NOBLE [...] Effective Date Expiration Date S ource 0191 [id number] 2021 00:00:00 1000 [id number] 2022 00:00:00 0050 [id number] 2021 00:00:00 Problems This patient has no known problems. Allergies, Adverse Reactions, Alerts Allergy Allergy Status Severity Reaction(s) Onset Inactive Treating Comm ents Source Name Type Date Date Clinician No Known DA Active [facility] s Medications This [...] Department ID 2022-09-15 2022-09-15 Emergency E P[facility]CO, [facility] [id number] [place] 09:09:00 12:08:00 JUANITO Medic [facility] 2022-09-14 2022-09-14 Emergency E P[facility]CO, [facility] [id number] [place] 08:52:00 12:23:00 JUANITO Medic al [facility] 2022-09-13 2022-09-13 Emergency E PESCO, [facility] [id number] [place] 09:03:00 11:18:00 JUANITO Medic al [facility] 2022-08-26 2022-08-26 Emergency E PUMAREJO, [facility] [id number] [place] 10:57:00 15:13:00 GELY [facility] 2022-08-25 2022-08-25 Emergency E CHECO, IMRAN [facility] [id number] [place] 09:48:00 11:36:00 Medica l [facility] 2022-08-22 2022-08-22 Emergency E MANUEL, [facility] [id number] [place] 09:39:00 13:31:00 JILLIAN [facility]ica [facility] 2022-07-26 2022-07-26 Emergency E FAKJANJO, [facility] [id number] [place] 11:44:00 13:18:00 AIDE Medica l [facility] [place] 2022-02-26 2022-02-26 Emergency E RADHA, [facility] [id number] [place] 11:00:00 12:27:00 [facility] Results Test Description Test Time Test Comments Results Result Sour e Comments U/S ABDOMEN 2022-09-14 RUQ*WW* 11:05:47 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 GFR 82 See_Comment L [Automated MALTESE (test mL/min/1.73m\S\2 message] The code = GFRAA) [...] normal/abnormal . GFR 74 See_Comment L [Automated MALTESE (test mL/min/1.73m\S\2 message] The code = GFRAA) [...] IU/L 10-49 H 31A) CBC (INCLUDES AUTOMATED DIFFERENTIAL)*[id number] 09:55:00 Test Item Value Reference Range Interpretation [...] MORPH (test code = NORMAL WRBCMOR) BLOOD [id number] 13:40:00 Test Item Value Reference Range Interpretation Comments Culture Observations (test NO GROWTH AFTER 5 code = COB1) DAYS BLOOD [id number] 13:40:00 Test Item Value Reference Range Interpretation Comments Culture Observations (test NO GROWTH AFTER 5 code = COB1) DAYS URINE [id number] 10:08:00 Test Item Value Reference Range Interpretation Comments Culture Observations (test NO GROWTH (<1,000 code = COB1) CFU/ML) CT ABDOMEN AND PELVIS WITH CONTRAST*WW*2022-08-26 13:53:02 [facility] : 1975 Sex: MExam: CT [...] signed by: Evelina REINOSO 08/26/2022 1:53 PM [facility] [id number] *WW*2022-08-26 12:48:00 Test Item Value Reference Range [...] normal/abnormal . GFR 82 See_Comment L [Automated MALTESE (test mL/min/1.73m\S\2 message] The code = GFRAA) [...] LA) 1.3 mmol/L 0.4-2.0 CBC (INCLUDES AUTOMATED DIFFERENTIAL)*[id number] 12:04:00 Test Item Value Reference Range Interpretation [...] XR ELBOW RT COMPLETE 3 VIEWS*WW*2022-02-26 12:03:26 [facility] : 1975 Sex: MEXAMINATION:XR [...]
[2022-09-26] MEDS ORDERED: HYDROCODONE/APAP 10/325 TAB ONE (05:46)
[2022-09-26] MEDS ORDERED: KETOROLAC 30 MG/ML INJ ONE (05:46)
--- NOTE | 2022-09-26 05:51 | ER ---
Nurse's Notes [facility] Name: Delonte Gonzales Age: 47 yrs Sex: Male : 1975 Arrival Date: 09/26/2022 Time: 05: Bed Waiting Private MD: Diagnosis: Dental caries, unspecified-PAIN Presentation: 09/26 05:30 Chief complaint: Patient states: he had 14 teeth removed over the last couple of weeks bb and is having terrible pain to his left lower jaw. Coronavirus screen: At this time, the client does not indicate any symptoms associated with coronavirus-19. Ebola Screen: No symptoms or risks identified at this time. Initial Sepsis Screen: Does the patient meet any 2 criteria? No. Patient's initial sepsis screen is negative. Does the patient have a suspected source of infection? No. Patient's initial sepsis screen is negative. Risk Assessment: Do you want to hurt yourself or someone else? Patient reports no desire to harm self or others. Onset of symptoms was September 26, 2022. 05:30 Method Of Arrival: Ambulatory bb 05:30 Acuity: DANIEL 5 bb Triage Assessment: 05:33 General: Appears in no apparent distress. Behavior is calm, cooperative. Pain: bb Complains of pain in mouth Pain currently is 8 out of 10 on a pain scale. EENT: Reports pain in left jaw. Neuro: Level of Consciousness is awake, alert, obeys commands, Oriented to person, place, time, situation. Cardiovascular: No deficits noted. Respiratory: Respiratory effort is even, unlabored, Respiratory pattern is regular. GI: No signs and/or symptoms were reported involving the gastrointestinal system. Derm: Skin is pink, warm \T\ dry. Musculoskeletal: Circulation, motion, and sensation intact. Historical: - Allergies: 05:33 No Known Allergies; bb - Home Meds: 05:33 Klonopin 0.5 mg Oral tab [Active]; lisinopril 10 mg Oral tab 1 tab once daily [Active]; bb omeprazole 20 mg Oral cpDR 1 cap once daily [Active]; Protonix 40 mg Oral TbEC 1 tab once daily [Active]; - Immunization history:: Adult Immunizations up to date. - Social history:: Smoking status: Patient denies any tobacco usage or history of. - Family history:: not pertinent. Vital Signs: 05:30 BP 132 / 88; Pulse 104; Resp 16 S; Temp 98.9(O); Pulse Ox 97% on R/A; Weight 76.2 kg bb (R); Height 5 ft. 4 in. (162.56 cm) (R); Pain 8/10; 05:30 Body Mass Index 28.84 (76.20 kg, 162.56 cm) bb ED Course: 05:22 Patient arrived in ED. es 05:23 Jonathan Hendricks MD is Attending Physician. papo 05:33 Triage completed. bb 05:33 Arm band placed on pt seen by Dr Hendricks in triage and discharged from triage. Pt bb verbalized understanding of and agrees to plan of care discharge instructions given pt ambulated with steady gait to exit. Administered Medications: 05:49 Drug: Ketorolac 60 mg Route: IM; Site: right gluteus; bb 05:55 Follow up: Response: No adverse reaction bb 05:49 Drug: Ethel (HYDROcodone-acetaminophen) 10 mg-325 mg 1 tabs Route: PO; bb 05:55 Follow up: Response: No adverse reaction bb Outcome: 05:50 Discharge ordered by . [facility] 05:56 Discharged to home ambulatory. bb 05:56 Condition: stable 05:56 Discharge instructions given to patient, Instructed on discharge instructions, follow up and referral plans. medication usage, Demonstrated understanding of instructions, follow-up care, medications, Prescriptions given X 2. 05:56 Patient left the ED. bb Signatures: Jonathan Hendricks MD MD cha Salyer, Edna es Ballard, Brenda, RN RN bb
--- NOTE | 2022-09-26 05:51 | EDPHYS ---
Physician Documentation [facility] Name: Delonte Gonzales Age: 47 yrs Sex: Male : 1975 Arrival Date: 09/26/2022 Time: 05:22 Bed Waiting Private MD: MUKESH Physician Jonathan Hendricks HPI: 09/26 05:44 This 47 yrs old Male presents to ER via Ambulatory with complaints of papo Toothache. 05:44 The patient presents with pain. The problem is located in the left jaw and mouth. papo Onset: The symptoms/episode began/occurred 2 day(s) ago. Duration: The symptoms are continuous, and are steadily getting worse. Modifying factors: The symptoms are alleviated by nothing, the symptoms are aggravated by air, chewing, cold fluids, food, hot fluids. Associated signs and symptoms: The patient has no apparent associated signs or symptoms. Severity of symptoms: At their worst the symptoms were mild, in the emergency department the symptoms have resolved. The patient has experienced similar episodes in the past, multiple times. Historical: - Allergies: 05:33 No Known Allergies; bb - Home Meds: 05:33 Klonopin 0.5 mg Oral tab [Active]; lisinopril 10 mg Oral tab 1 tab once daily [Active]; bb omeprazole 20 mg Oral cpDR 1 cap once daily [Active]; Protonix 40 mg Oral TbEC 1 tab once daily [Active]; - Immunization history:: Adult Immunizations up to date. - Social history:: Smoking status: Patient denies any tobacco usage or history of. - Family history:: not pertinent. ROS: 05:44 Constitutional: Negative for fever, chills, and weight loss, Eyes: Negative for injury, papo pain, redness, and discharge, Neck: Negative for injury, pain, and swelling, Cardiovascular: Negative for chest pain, palpitations, and edema, Respiratory: Negative for shortness of breath, cough, wheezing, and pleuritic chest pain, Abdomen/GI: Negative for abdominal pain, nausea, vomiting, diarrhea, and constipation, Back: Negative for injury and pain, : Negative for injury, bleeding, discharge, and swelling, MS/Extremity: Negative for injury and deformity, Skin: Negative for injury, rash, and discoloration, Neuro: Negative for headache, weakness, numbness, tingling, and seizure, Psych: Negative for depression, anxiety, suicide ideation, homicidal ideation, and hallucinations, Allergy/Immunology: Negative for hives, rash, and allergies, Endocrine: Negative for neck swelling, polydipsia, polyuria, polyphagia, and marked weight changes. 05:44 ENT: Positive for Teeth pain Exam: 05:44 Constitutional: This is a well developed, well nourished patient who is awake, alert, papo and in no acute distress. Head/Face: Normocephalic, atraumatic. Eyes: Pupils equal round and reactive to light, extra-ocular motions intact. Lids and lashes normal. Conjunctiva and sclera are non-icteric and not injected. Cornea within normal limits. Periorbital areas with no swelling, redness, or edema. Neck: Trachea midline, no thyromegaly or masses palpated, and no cervical lymphadenopathy. Supple, full range of motion without nuchal rigidity, or vertebral point tenderness. No Meningismus. Chest/axilla: Normal chest wall appearance and motion. Nontender with no deformity. No lesions are appreciated. Cardiovascular: Regular rate and rhythm with a normal S1 and S2. No gallops, murmurs, or rubs. Normal PMI, no JVD. No pulse deficits. Respiratory: Lungs have equal breath sounds bilaterally, clear to auscultation and percussion. No rales, rhonchi or wheezes noted. No increased work of breathing, no retractions or nasal flaring. Abdomen/GI: Soft, non-tender, with normal bowel sounds. No distension or tympany. No guarding or rebound. No evidence of tenderness throughout. Back: No spinal tenderness. No costovertebral tenderness. Full range of motion. Skin: Warm, dry with normal turgor. Normal color with no rashes, no lesions, and no evidence of cellulitis. MS/ Extremity: Pulses equal, no cyanosis. Neurovascular intact. Full, normal range of motion. Neuro: Awake and alert, GCS 15, oriented to person, place, time, and situation. Cranial nerves II-XII grossly intact. Motor strength 5/5 in all extremities. Sensory grossly intact. Cerebellar exam normal. Normal gait. Psych: Awake, alert, with orientation to person, place and time. Behavior, mood, and affect are within normal limits. 05:44 ENT: Mouth: Lips: normal, Oral mucosa: normal, Gums: reddened, on the lower left second molar and lower left first molar. Vital Signs: 05:30 BP 132 / 88; Pulse 104; Resp 16 S; Temp 98.9(O); Pulse Ox 97% on R/A; Weight 76.2 kg bb (R); Height 5 ft. 4 in. (162.56 cm) (R); Pain 8/10; 05:30 Body Mass Index 28.84 (76.20 kg, 162.56 cm) bb MDM: 05:23 Patient medically screened. papo 05:47 Differential diagnosis: dental caries, gingivitis, dental abscess, acute necrotizing papo ulcerative gingivitis. Data reviewed: vital signs, nurses notes. Data interpreted: monitor car operator: not applicable for this patient encounter. rate is 104 beats/min, Pulse oximetry: on room air is 97 %. Counseling: I had a detailed discussion with the patient and/or guardian regarding: the historical points, exam findings, and any diagnostic results supporting the discharge/admit diagnosis. Administered Medications: 05:49 Drug: Ketorolac 60 mg Route: IM; Site: right gluteus; bb 05:55 Follow up: Response: No adverse reaction bb 05:49 Drug: [place] (HYDROcodone-acetaminophen) 10 mg-325 mg 1 tabs Route: PO; bb 05:55 Follow up: Response: No adverse reaction bb Disposition Summary: 09/26/22 05:50 Discharge Ordered Location: Home papo Problem: new papo Symptoms: have improved papo Condition: Stable papo Diagnosis - Dental caries, unspecified - PAIN paop Followup: papo - With: Private Physician - When: 2 - 3 days - Reason: Recheck today's complaints, Continuance of care, Re-evaluation by your physician Discharge Instructions: - Discharge Summary Sheet papo - Dental Caries, Adult papo - Dental Pain papo - Dental Pain, Siyr-ml-Oedo papo - Diet and Dental Disease papo Forms: - Medication Reconciliation Form papo - Thank You Letter papo - Antibiotic Education papo - Prescription Opioid Use papo Prescriptions: - Cephalexin 500 mg Oral Capsule - take 1 capsule by ORAL route every 6 hours for 7 days; 28 capsule; Refills: 0, papo Product Selection Permitted - Diclofenac Sodium 75 mg Oral tablet,delayed release (DR/EC) - take 1 tablet by ORAL route 2 times per day; 20 tablet; Refills: 0, Product papo Selection Permitted Signatures: Jonathan Hendricks MD MD cha Ballard, Brenda, RN RN bb
[2022-09-26 06:00] VITALS: BP 132/88; TEMP 98.9; O2SAT 97
== END 2022-09-26 05:56 | disposition home or self-care (01) ==
LOC: ER 05:17
DX: R51.9 Headache, unspecified (principal)
CPT/HCPCS: 96372; 99283

== ENCOUNTER 2022-10-11 07:07 | Emergency (ER) | payer OTHER ==
--- OUTSIDE RECORDS SUMMARY | 2022-10-11 07:10 | XMS REPORT | Continuity of Care Document ---
:1975 Author Organization [facility] t Address [address] [place] [address] [address]. Areval[address] [place] [address] Care Team Providers Name Role Phone WADE SYED Primary Care Physician Unavailable ARTHUR, DR SOLOMON Attending Clinician Unavailable SALBADORRESAM, DR GELY OROZCO Attending Clinician Unavailable CHECO, DR BARNETT Attending Clinician Unavailable MANUEL, DR JILLIAN WAGGONER Attending Clinician Unavailable JEFFERSON, DR NOBLE Attending Clinician Unavailable RADHA, DR MAGDALENO Attending Clinician Unavailable PESCO, DR SOLOMON Admitting Clinician Unavailable PUMARESAM, DR GELY OROZCO Admitting Clinician Unavailable CHECO, DR BARNETT Admitting Clinician Unavailable MANUEL, DR JILLIAN WAGGONER Admitting Clinician Unavailable JEFFERSON, DR NOBLE Admitting Clinician Unavailable RADHA, DR MAGDALENO Admitting Clinician Unavailable Payers Payer Name Policy Type Policy Number Effective Date Expiration Date S matthias 0191 [id number] 2021 00:00:00 1000 [id number] 2022 00:00:00 0050 [id number] 2021 00:00:00 Problems This patient has no known problems. Allergies, Adverse Reactions, Alerts Allergy Allergy Status Severity Reaction(s) Onset Inactive Treating Comm ents Source Name Type Date Date Clinician No Known DA Active [facility] s Medications [...] Department ID 2022-09-15 2022-09-15 Emergency E PESCO, [facility] [id number] [place] 09:09:00 12:08:00 JUANITO Medic al [place] 2022-09-14 2022-09-14 Emergency E PESCO, [facility] [id number] [place] 08:52:00 12:23:00 JUANITO Medic al [place] 2022-09-13 2022-09-13 Emergency E PESCO, [facility] [id number] [place] 09:03:00 11:18:00 JUANITO Medic al [place] 2022-08-26 2022-08-26 Emergency E PUMAREJO, [facility] [id number] [place] 10:57:00 15:13:00 GELY Medica [facility] [place] 2022-08-25 2022-08-25 Emergency E CHECO, IMRAN [facility] [id number] [place] 09:48:00 11:36:00 Medica [facility] [place] 2022-08-22 2022-08-22 Emergency E MANUEL, [facility] [id number] [place] 09:39:00 13:31:00 JILLIAN [facility] [place] 2022-07-26 2022-07-26 Emergency E FAKOYEJO, [facility] [id number] [place] 11:44:00 13:18:00 AIDE [facility] [place] 2022-02-26 2022-02-26 Emergency E RADHA, [facility] [id number] [place] 11:00:00 12:27:00 [facility] Results Test Description Test Time Test Comments Results Result Sour e Comments U/S ABDOMEN 2022-09-14 RUQ*WW* 11:05:47 [facility] : 1975 Sex: M [...] by: Antonella Pham MD 09/14/2022 11:05 AM REPAIR [employer] 2022-09-14 10:11:00 Test Item [...] normal/abnormal . GFR 82 See_Comment L [Automated DJIBOUTIAN (test mL/min/1.73m\S\2 message] The code = GFRAA) [...] LA) 1.9 mmol/L 0.4-2.0 DRUGS OF ABUSE *WW*2022-09-14 09:51:00 Test Item Value Reference Range Interpretation [...] 88 IU/L 12-53 H COMPREHENSIVE METABOLIC JAIMES *WW*2022-09-13 10:15:00 Test Item Value Reference Range Interpretation [...] normal/abnormal . GFR 74 See_Comment L [Automated DJIBOUTIAN (test mL/min/1.73m\S\2 message] The code = GFRAA) [...] IU/L 10-49 H 31A) CBC (INCLUDES AUTOMATED DIFFERENTIAL)*[id number] 09:55:00 Test Item Value Reference Range Interpretation [...] MORPH (test code = NORMAL WRBCMOR) BLOOD [id number] 13:40:00 Test Item Value Reference Range Interpretation Comments Culture Observations (test NO GROWTH AFTER 5 code = COB1) DAYS BLOOD [id number] 13:40:00 Test Item Value Reference Range Interpretation Comments Culture Observations (test NO GROWTH AFTER 5 code = COB1) DAYS URINE [id number] 10:08:00 Test Item Value Reference Range Interpretation Comments Culture Observations (test NO GROWTH (<1,000 code = COB1) CFU/ML) CT ABDOMEN AND PELVIS WITH CONTRAST*WW*2022-08-26 13:53:02 [facility] 1975 Sex: MExam: CT [...] REINOSO 08/26/2022 1:53 PM [facility] [id number] *WW*2022-08-26 12:48:00 Test Item Value Reference Range [...] ANG) BUN (test code = 15 mg/dL 9- 05D) CREATININE (test 1.2 mg/dL 0.7-1.3 code = 03E) GFR (test code = 70 See_Comment L [Automated GFR) mL/min/1.73m\S\2 message] Th e system which generated this result transmit betty reference range : >=90. The reference range was not used to interpret this result as normal/abnormal . GFR 82 See_Comment L [Automated DJIBOUTIAN (test mL/min/1.73m\S\2 message] The code = GFRAA) [...] LA) 1.3 mmol/L 0.4-2.0 CBC (INCLUDES AUTOMATED DIFFERENTIAL)*[id number] 12:04:00 Test Item Value Reference Range Interpretation [...] XR ELBOW RT COMPLETE 3 VIEWS*WW*2022-02-26 12:03:26 [facility] : 1975 Sex: MEXAMINATION:XR [...]
[2022-10-11] MEDS ORDERED: DICYCLOMINE HCL 20 MG/2 ML AMP IM ONE (07:41)
[2022-10-11 07:56] LABS: Absolute Lymphocytes (CBC) 1.3 K/uL (0.7-4.9); Hematocrit 35.5 % (39.6-49.0); Lymphocytes % 9.3 % (15.3-44.8); MCV 72.4 fL (80-100); MPV 6.8 fL (7.6-11.3)
[2022-10-11 08:19] LABS: Bilirubin Total 0.4 mg/dL (0.2-1.0); Potassium 4.2 mmol/L (3.5-5.1); Protein, Total 7.4 g/dL (6.4-8.2)
--- NOTE | 2022-10-11 08:48 | RAD REPORT ---
EXAM DESCRIPTION: CTAbdomen Pelvis W Contrast - 10/11/2022 8:35 am CLINICAL HISTORY: central abd pain COMPARISON: <Comparisons> TECHNIQUE: CT of the abdomen and pelvis was performed with IV contrast. All CT scans are performed using dose optimization technique as appropriate and may include automated exposure control or mA/KV adjustment according to patient size. FINDINGS: Lower chest: No acute abnormality. Liver: No acute abnormality or suspicious lesions. Biliary: No biliary ductal dilatation. Cholecystectomy Stomach: No significant focal abnormality. Duodenum: No significant focal abnormality. Pancreas: Similar configuration of the pancreas which is diffusely enlarged. No peripancreatic strand ing is present. Spleen: No significant abnormality. Adrenal: No suspicious lesions. Kidney/ureter: No hydronephrosis. No renal calculi. Retroperitoneum: No retroperitoneal adenopathy. Vascular: No aneurysm. Bowel: No significant focal abnormality. Normal appendix Peritoneum: No ascites or free air. Bladder: Grossly unremarkable. Reproductive: No adnexal masses. Bones: No acute fracture. Moderate degenerative changes at L5-S1. Other: n/a IMPRESSION: No acute intra-abdominal or pelvic finding. Normal appendix.
[2022-10-11] MEDS ORDERED: MORPHINE 4 MG/ML SYR ONE (08:50)
[2022-10-11] MEDS ORDERED: ONDANSETRON 4 MG/2 ML VIAL ONE (08:50)
--- NOTE | 2022-10-11 09:02 | ER ---
Nurse's Notes [facility] Name: Delonte Gonzales Age: 47 yrs Sex: Male : 1975 Arrival Date: 10/11/2022 Time: 07:09 Bed 20 Private MD: Diagnosis: Abdominal pain, unspecified Presentation: 10/11 07:29 Chief complaint: Patient states: Right mid abdominal pain x 1 month, worsening today, jl7 denies N/V/D. Coronavirus screen: Vaccine status: Patient reports receiving the 2nd dose of the covid vaccine. At this time, the client does not indicate any symptoms associated with coronavirus-19. Ebola Screen: No symptoms or risks identified at this time. Initial Sepsis Screen: Does the patient meet any 2 criteria? No. Patient's initial sepsis screen is negative. Does the patient have a suspected source of infection? No. Patient's initial sepsis screen is negative. Risk Assessment: Do you want to hurt yourself or someone else? Patient reports no desire to harm self or others. Onset of symptoms is unknown. Care prior to arrival: None. 07:29 Method Of Arrival: Ambulatory [facility] 07:29 Acuity: DANIEL 3 jl7 Triage Assessment: 07:32 General: Appears in no apparent distress. uncomfortable, Behavior is calm, cooperative, jl7 appropriate for age. Pain: Complains of pain in abdomen Pain currently is 9 out of 10 on a pain scale. GI: Abdomen is flat, non-distended, Patient currently denies diarrhea, nausea, vomiting. Historical: - Allergies: 07:32 No Known Allergies; jl7 - Home Meds: 07:32 Klonopin 0.5 mg Oral tab [Active]; lisinopril 10 mg Oral tab 1 tab once daily [Active]; jl7 omeprazole 20 mg Oral cpDR 1 cap once daily [Active]; Protonix 40 mg Oral TbEC 1 tab once daily [Active]; - PMHx: 07:32 Crabtree's Esophagus; bicep tear; Hypertensive disorder; Pancreatitis; PTSD; jl7 - PSHx: 07:32 Cholecystectomy; jl7 - Immunization history:: Client reports receiving the 2nd dose of the Covid vaccine. - Social history:: Smoking status: Patient denies any tobacco usage or history of. - Family history:: not pertinent. - Hospitalizations: : No recent hospitalization is reported. Screenin:30 [facility] ED Fall Risk Assessment (Adult) History of falling in the last 3 months, eh3 including since admission No falls in past 3 months (0 pts) Confusion or Disorientation No (0 pts) Intoxicated or Sedated No (0 pts) Impaired Gait No (0 pts) Mobility Assist Device Used No (0 pt) Altered Elimination Yes (1 pt) Score/Fall Risk Level 0 - 2 = Low Risk. Abuse screen: Denies threats or abuse. Denies injuries from another. Nutritional screening: No deficits noted. Tuberculosis screening: No symptoms or risk factors identified. Assessment: 07:30 General: Appears in no apparent distress. uncomfortable, Behavior is cooperative, eh3 appropriate for age, anxious. Pain: Complains of pain in right lower quadrant Pain does not radiate. Pain currently is 9 out of 10 on a pain scale. Quality of pain is described as burning, Pain began 1 month ago. Neuro: Level of Consciousness is awake, alert, obeys commands, Oriented to person, place, time, situation. Cardiovascular: Capillary refill < 3 seconds Patient's skin is warm and dry. Respiratory: Airway is patent Respiratory effort is even, unlabored, Respiratory pattern is regular, symmetrical. GI: Abdomen is flat, non-distended, Bowel sounds present X 4 quads. Abd is soft X 4 quads Mass noted in right lower quadrant Reports lower abdominal pain, diarrhea, nausea, vomiting. : No signs and/or symptoms were reported regarding the genitourinary system. EENT: No signs and/or symptoms were reported regarding the EENT system. Derm: No signs and/or symptoms reported regarding the dermatologic system. Musculoskeletal: No signs and/or symptoms reported regarding the musculoskeletal system. Circulation, motion, and sensation intact. Range of motion: intact in all extremities. 08:30 Reassessment: Patient appears in no apparent distress at this time. Patient and/or eh3 family updated on plan of care and expected duration. Pain level reassessed. Patient is alert, oriented x 3, equal unlabored respirations, skin warm/dry/pink. Patient states symptoms have not improved. Vital Signs: 07:29 BP 124 / 78; Pulse 111; Resp 17; Temp 98.5(O); Pulse Ox 100% on R/A; Weight 81.65 kg; jl7 Height 5 ft. 4 in. (162.56 cm); Pain 9/10; 08:30 BP 100 / 85; Pulse 106; Resp 18; Pulse Ox 99% on R/A; eh3 07:29 Body Mass Index 30.90 (81.65 kg, 162.56 cm) 7 ED Course: 07:09 Patient arrived in ED. mr 07:10 Grayson Wynn MD is Attending Physician. rn 07:23 Jory José RN is Primary Nurse. eh3 07:30 Patient has correct armband on for positive identification. Bed in low position. Call eh3 light in reach. Side rails up X2. Pulse ox on. NIBP on. Door closed. Noise minimized. Lights dimmed. Warm blanket given. 07:32 Triage completed. jl7 07:32 Arm band placed on right wrist. jl7 07:40 Inserted saline lock: 20 gauge in right upper arm, using aseptic technique. Blood eh3 collected. 08:36 CT Abd/Pelvis - IV Contrast Only In Process Unspecified. EDPR 09:02 No provider procedures requiring assistance completed. IV discontinued, intact, eh3 bleeding controlled, No redness/swelling at site. Pressure dressing applied. Administered Medications: 07:44 Drug: Bentyl (dicyclomine) 20 mg Route: IM; Site: right deltoid; eh3 08:30 Follow up: Response: Pain is unchanged, physician notified eh3 08:48 Drug: morphine 4 mg Route: IVP; Infused Over: 4 mins; Site: right upper arm; eh3 09:03 Follow up: Response: Pain is decreased; RASS: Alert and Calm (0) eh3 08:48 Drug: Zofran (Ondansetron) 4 mg Route: IVP; Site: right upper arm; eh3 09:03 Follow up: Response: Nausea is decreased eh3 Medication: 09:02 VIS not applicable for this client. eh3 Outcome: 09:02 Discharge ordered by . rn 09:02 Discharged to home ambulatory. eh3 09:02 Condition: stable 09:02 Discharge instructions given to patient, Instructed on discharge instructions, follow up and referral plans. Demonstrated understanding of instructions, follow-up care. 09:07 Patient left the ED. eh3 Signatures: Dispatcher [employer] EDPR Na Alejandro mr Grayson Wynn MD MD rn Leal, Jahala, RN RN 7 José, Jory, RN RN eh3
--- NOTE | 2022-10-11 09:02 | EDPHYS ---
Physician Documentation [facility] Name: Delonte Gonzales Age: 47 yrs Sex: Male : 1975 Arrival Date: 10/11/2022 Time: 07:09 Bed 20 Private MD: ED Physician Grayson Wynn HPI: 10/11 07:36 This 47 yrs old Male presents to ER via Ambulatory with complaints of Abdominal Pain. rn 07:36 The patient presents with abdominal pain in the periumbilical area. Onset: The rn symptoms/episode began/occurred 1 month(s) ago. The symptoms do not radiate. Associated signs and symptoms: Pertinent negatives: nausea and vomiting, anorexia, blood in stools, chest pain, diarrhea, dysuria, fever, hematuria, shortness of breath, vomiting, vomiting blood. The symptoms are described as achy, sharp. Modifying factors: The symptoms are alleviated by nothing, the symptoms are aggravated by stretching/exercising . Severity of pain: At its worst the pain was moderate in the emergency department the pain has improved. The patient has experienced similar episodes in the past. The patient has not recently seen a physician. Historical: - Allergies: 07:32 No Known Allergies; jl7 - Home Meds: 07:32 Klonopin 0.5 mg Oral tab [Active]; lisinopril 10 mg Oral tab 1 tab once daily [Active]; jl7 omeprazole 20 mg Oral cpDR 1 cap once daily [Active]; Protonix 40 mg Oral TbEC 1 tab once daily [Active]; - PMHx: 07:32 Crabtree's Esophagus; bicep tear; Hypertensive disorder; Pancreatitis; PTSD; jl7 - PSHx: 07:32 Cholecystectomy; jl7 - Immunization history:: Client reports receiving the 2nd dose of the Covid vaccine. - Social history:: Smoking status: Patient denies any tobacco usage or history of. - Family history:: not pertinent. - Hospitalizations: : No recent hospitalization is reported. ROS: 07:36 Constitutional: Negative for fever, chills, and weight loss, Eyes: Negative for injury, rn pain, redness, and discharge, Cardiovascular: Negative for chest pain, palpitations, and edema, Respiratory: Negative for shortness of breath, cough, wheezing, and pleuritic chest pain, Abdomen/GI: Negative for nausea, vomiting, diarrhea, and constipation Back: Negative for injury and pain, MS/Extremity: Negative for injury and deformity, Skin: Negative for injury, rash, and discoloration, Neuro: Negative for headache, weakness, numbness, tingling, and seizure. Exam: 07:36 Constitutional: This is a well developed, well nourished patient who is awake, alert, rn and in no acute distress. Head/Face: Normocephalic, atraumatic. Cardiovascular: Tachycardic, regular. No pulse deficits. Respiratory: No increased work of breathing, no retractions or nasal flaring. Abdomen/GI: soft, + mild periumbilical tenderness, no masses, no skin changes Skin: Warm, dry MS/ Extremity: Pulses equal, no cyanosis. Neuro: Awake and alert, GCS 15 Vital Signs: 07:29 BP 124 / 78; Pulse 111; Resp 17; Temp 98.5(O); Pulse Ox 100% on R/A; Weight 81.65 kg; jl7 Height 5 ft. 4 in. (162.56 cm); Pain 9/10; 08:30 BP 100 / 85; Pulse 106; Resp 18; Pulse Ox 99% on R/A; eh3 07:29 Body Mass Index 30.90 (81.65 kg, 162.56 cm) jl7 MDM: 07:10 Patient medically screened. rn 09:01 Differential diagnosis: appendicitis, bowel obstruction, diverticulitis, gastritis, rn gastroesophageal reflux disease, pancreatitis, Peptic Ulcer Disease, Ureterolithiasis. Data reviewed: vital signs, nurses notes, lab test result(s), radiologic studies, CT scan, and as a result, I will discharge patient. Counseling: I had a detailed discussion with the patient and/or guardian regarding: the historical points, exam findings, and any diagnostic results supporting the discharge/admit diagnosis, lab results, radiology results, the need for outpatient follow up, to return to the emergency department if symptoms worsen or persist or if there are any questions or concerns that arise at home. Response to treatment: the patient's symptoms have mildly improved after treatment, and as a result, I will discharge patient. Special discussion: I discussed with the patient/guardian in detail that at this point there is no indication for admission to the hospital. It is understood, however, that if the symptoms persist or worsen the patient needs to return immediately for re-evaluation. Based on the history and exam findings, there is no indication for further emergent testing or inpatient evaluation. 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 ED course: Pt states has seen GI 2 days ago, has further w/u planned as well as MRI ordered. Will dc home with return precautions. Also has pain management doctor. . 10/11 07:32 Order name: CBC with Diff; Complete Time: 08:17 rn 10/11 07:32 Order name: CMP; Complete Time: 08:21 rn 10/11 07:32 Order name: Lipase; Complete Time: 08:21 rn 10/11 07:32 Order name: CT Abd/Pelvis - IV Contrast Only; Complete Time: 08:50 rn 10/11 07:32 Order name: IV Saline Lock; Complete Time: 07:37 rn 10/11 07:32 Order name: Labs collected and sent; Complete Time: 07:37 rn Administered Medications: 07:44 Drug: Bentyl (dicyclomine) 20 mg Route: IM; Site: right deltoid; eh3 08:30 Follow up: Response: Pain is unchanged, physician notified eh3 08:48 Drug: morphine 4 mg Route: IVP; Infused Over: 4 mins; Site: right upper arm; eh3 09:03 Follow up: Response: Pain is decreased; RASS: Alert and Calm (0) eh3 08:48 Drug: Zofran (Ondansetron) 4 mg Route: IVP; Site: right upper arm; eh3 09:03 Follow up: Response: Nausea is decreased eh3 Disposition Summary: 10/11/22 09:02 Discharge Ordered Location: Home rn Problem: an ongoing problem rn Symptoms: have improved rn Condition: Stable rn Diagnosis - Abdominal pain, unspecified rn Followup: rn - With: Private Physician - When: As needed - Reason: Recheck today's complaints, Re-evaluation by your physician Discharge Instructions: - Discharge Summary Sheet rn - Abdominal Pain, Adult rn - Pain Without a Known Cause rn Forms: - Medication Reconciliation Form rn - Thank You Letter rn - Antibiotic real estate attorney - Prescription Opioid Use rn Signatures: Dispatcher [employer] Grayson Cabrales MD MD rn Leal, Jahala, RN RN jl7 Jory José RN RN eh3
[2022-10-11 09:15] VITALS: TEMP 98.5
[2022-10-11 09:21] VITALS: BP 100/85; O2SAT 99
== END 2022-10-11 09:07 | disposition home or self-care (01) ==
LOC: ER 07:07
DX: R10.33 Periumbilical pain (principal); I10 Essential (primary) hypertension
CPT/HCPCS: 85025; 36415; 83690; 80053; 74177; 96375; 96372; 96374; 99284; Q9967; J0500; J2405

== ENCOUNTER 2022-10-13 03:33 | Emergency (ER) | payer OTHER, SELFPAY ==
--- OUTSIDE RECORDS SUMMARY | 2022-10-13 03:37 | XMS REPORT | Continuity of Care Document ---
:1975 Author Organization [facility] t Address [address] [place] [address] [address] [place] [address] Care Team Providers Name Role Phone WADE [...] Effective Date Expiration Date S matthias 0191 [id number] 2021 00:00:00 1000 [id number] 2022 00:00:00 0050 [id number] 2021 00:00:00 Problems This patient has no known problems. Allergies, Adverse Reactions, Alerts Allergy Allergy Status Severity Reaction(s) Onset Inactive Treating Comm ents Source Name Type Date Date Clinician No Known DA Active [facility] s Medications This patient [...] Department ID 2022-09-15 2022-09-15 Emergency E [facility], [facility] [id number] [place] 09:09:00 12:08:00 JUANITO Medic al [place] 2022-09-14 2022-09-14 Emergency E [facility], [facility] [id number] [place] 08:52:00 12:23:00 JUANITO Medic al [place] 2022-09-13 2022-09-13 Emergency E [facility], [facility] [id number] [place] 09:03:00 11:18:00 JUANITO Medic al [place] 2022-08-26 2022-08-26 Emergency E PUMAREJO, [facility] [id number] [place] 10:57:00 15:13:00 GELY [facility] [place] 2022-08-25 2022-08-25 Emergency E CHECO, IMRAN [facility] [id number] [place] 09:48:00 11:36:00 Med[facility] [place] 2022-08-22 2022-08-22 Emergency E MANUEL, [facility] [id number] [place] 09:39:00 13:31:00 JILLIAN [facility] [place] 2022-07-26 2022-07-26 Emergency E FAKOYEJO, [facility] [id number] [place] 11:44:00 13:18:00 AIDE [facility] [place] 2022-02-26 2022-02-26 Emergency E RADHA, [facility] [id number] 73 [place] 11:00:00 12:27:00 [facility] Results Test Description Test Time Test Comments Results Result Sour e Comments U/S ABDOMEN 2022-09-14 RUQ*WW* 11:05:47 [facility] 1975 Sex: M [...] by: Antonella Pham MD 09/14/2022 11:05 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 GFR 82 See_Comment L [Automated CROATIAN (test mL/min/1.73m\S\2 message] The code = GFRAA) [...] normal/abnormal . GFR 74 See_Comment L [Automated CROATIAN (test mL/min/1.73m\S\2 message] The code = GFRAA) [...] IU/L 10-49 H 31A) CBC (INCLUDES AUTOMATED DIFFERENTIAL)*[id number] 09:55:00 Test Item Value Reference Range Interpretation [...] MORPH (test code = NORMAL WRBCMOR) BLOOD [id number] 13:40:00 Test Item Value Reference Range Interpretation Comments Culture Observations (test NO GROWTH AFTER 5 code = COB1) DAYS BLOOD [id number] 13:40:00 Test Item Value Reference Range Interpretation Comments Culture Observations (test NO GROWTH AFTER 5 code = COB1) DAYS URINE [id number] 10:08:00 Test Item Value Reference Range Interpretation Comments Culture Observations (test NO GROWTH (<1,000 code = COB1) CFU/ML) CT ABDOMEN AND PELVIS WITH CONTRAST*WW*2022-08-26 13:53:02 [facility] 1975 Sex: [...] signed by: Evelina REINOSO 08/26/2022 1:53 PM [facility] [id number] *WW*2022-08-26 12:48:00 Test Item Value Reference Range [...] normal/abnormal . GFR 82 See_Comment L [Automated CROATIAN (test mL/min/1.73m\S\2 message] The code = GFRAA) [...] LA) 1.3 mmol/L 0.4-2.0 CBC (INCLUDES AUTOMATED DIFFERENTIAL)*[id number] 12:04:00 Test Item Value Reference Range Interpretation [...] XR ELBOW RT COMPLETE 3 VIEWS*WW*2022-02-26 12:03:26 [facility] : 1975 Sex: MEXAMINATION:XR [...]
--- NOTE | 2022-10-13 05:01 | EDPHYS ---
Physician Documentation [facility] Name: Delonte Gonzales Age: 47 yrs Sex: Male : 1975 Arrival Date: 10/13/2022 Time: 03:38 Bed 12 Private MD: Jonathan Flores HPI: 10/13 04:54 This 47 yrs old Male presents to ER via Wheelchair with complaints of Low papo Back Pain. 04:54 The patient presents with pain that is acute, with no known mechanism of injury, that papo is chronic, and decreased range of motion. The symptoms are located in the low back, lumbar area, left low back, left mid back, right mid back and right low back. The pain radiates to the right low back. The problem was sustained from unknown cause. Onset: The symptoms/episode began/occurred 2 day(s) ago. Onset: The symptoms/episode began/occurred 2 week(s) ago. Modifying factors: The patient symptoms are alleviated by remaining still, the patient symptoms are aggravated by movement, standing. Associated signs and symptoms: The patient has no apparent associated signs or symptoms. Severity of symptoms: At their worst the symptoms were mild, moderate, in the emergency department the symptoms are unchanged. The patient has not experienced similar symptoms in the past. Historical: - Allergies: 04:29 No Known Allergies; bb - Home Meds: 04:29 Klonopin 0.5 mg Oral tab [Active]; lisinopril 10 mg Oral tab 1 tab once daily [Active]; bb omeprazole 20 mg Oral cpDR 1 cap once daily [Active]; Protonix 40 mg Oral TbEC 1 tab once daily [Active]; - PMHx: 04:29 Crabtree's Esophagus; bicep tear; Hypertensive disorder; Pancreatitis; PTSD; bb - PSHx: 04:29 Cholecystectomy; bb - Immunization history:: Adult Immunizations up to date. - Social history:: Smoking status: Patient denies any tobacco usage or history of. - Family history:: not pertinent. ROS: 04:54 Constitutional: Negative for fever, chills, and weight loss, Eyes: Negative for injury, papo pain, redness, and discharge, ENT: Negative for injury, pain, and discharge, Neck: Negative for injury, pain, and swelling, Cardiovascular: Negative for chest pain, palpitations, and edema, Respiratory: Negative for shortness of breath, cough, wheezing, and pleuritic chest pain, Abdomen/GI: Negative for abdominal pain, nausea, vomiting, diarrhea, and constipation, : Negative for injury, bleeding, discharge, and swelling, MS/Extremity: Negative for injury and deformity, Skin: Negative for injury, rash, and discoloration, Neuro: Negative for headache, weakness, numbness, tingling, and seizure, Psych: Negative for depression, anxiety, suicide ideation, homicidal ideation, and hallucinations, Allergy/Immunology: Negative for hives, rash, and allergies, Endocrine: Negative for neck swelling, polydipsia, polyuria, polyphagia, and marked weight changes, Hematologic/Lymphatic: Negative for swollen nodes, abnormal bleeding, and unusual bruising. 04:54 Back: Positive for decreased range of motion, pain at rest, pain with movement, of the lumbar area, left low back and right low back. Exam: 04:54 Constitutional: This is a well developed, well nourished patient who is awake, alert, papo and in no acute distress. Head/Face: Normocephalic, atraumatic. Eyes: Pupils equal round and reactive to light, extra-ocular motions intact. Lids and lashes normal. Conjunctiva and sclera are non-icteric and not injected. Cornea within normal limits. Periorbital areas with no swelling, redness, or edema. ENT: Nares patent. No nasal discharge, no septal abnormalities noted. Tympanic membranes are normal and external auditory canals are clear. Oropharynx with no redness, swelling, or masses, exudates, or evidence of obstruction, uvula midline. Mucous membranes moist. Neck: Trachea midline, no thyromegaly or masses palpated, and no cervical lymphadenopathy. Supple, full range of motion without nuchal rigidity, or vertebral point tenderness. No Meningismus. Chest/axilla: Normal chest wall appearance and motion. Nontender with no deformity. No lesions are appreciated. Cardiovascular: Regular rate and rhythm with a normal S1 and S2. No gallops, murmurs, or rubs. Normal PMI, no JVD. No pulse deficits. Respiratory: Lungs have equal breath sounds bilaterally, clear to auscultation and percussion. No rales, rhonchi or wheezes noted. No increased work of breathing, no retractions or nasal flaring. Abdomen/GI: Soft, non-tender, with normal bowel sounds. No distension or tympany. No guarding or rebound. No evidence of tenderness throughout. Male : Normal genitalia with no discharge or lesions. Skin: Warm, dry with normal turgor. Normal color with no rashes, no lesions, and no evidence of cellulitis. MS/ Extremity: Pulses equal, no cyanosis. Neurovascular intact. Full, normal range of motion. Neuro: Awake and alert, GCS 15, oriented to person, place, time, and situation. Cranial nerves II-XII grossly intact. Motor strength 5/5 in all extremities. Sensory grossly intact. Cerebellar exam normal. Normal gait. Psych: Awake, alert, with orientation to person, place and time. Behavior, mood, and affect are within normal limits. 04:54 Back: pain, that is moderate, ROM is painful, normal spinal alignment noted, CVA tenderness, is absent, muscle spasm, is appreciated in the left low back, left mid back, right mid back and right low back. Vital Signs: 04:26 BP 142 / 82; Pulse 102; Resp 18 S; Temp 98.7(O); Pulse Ox 97% on R/A; Weight 81.65 kg bb (R); Height 5 ft. 4 in. (162.56 cm) (R); Pain 10/10; 04:26 Body Mass Index 30.90 (81.65 kg, 162.56 cm) bb MDM: 03:50 Patient medically screened. papo 04:58 Differential diagnosis: sciatica, Herniated disc UTI. Data reviewed: vital signs, [facility] nurses notes. 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 Counseling: I had a detailed discussion with the patient and/or guardian regarding: the historical points, exam findings, and any diagnostic results supporting the discharge/admit diagnosis, radiology results, the need for outpatient follow up, for definitive care, a neurosurgeon. Administered Medications: No medications were administered Disposition Summary: 10/13/22 05:00 Discharge Ordered Location: Home papo Problem: new papo Symptoms: have improved papo Condition: Stable papo Diagnosis - Sciatica, left side papo - Low back pain papo - Other chronic pain papo Followup: papo - With: Private Physician - When: 2 - 3 days - Reason: Recheck today's complaints, Continuance of care, Re-evaluation by your physician Followup: papo - With: Neal Leroy MD - When: 2 - 3 days - Reason: Recheck today's complaints, Re-evaluation by your physician Discharge Instructions: - Discharge Summary Sheet papo - Acute Back Pain, Adult papo - Chronic Back Pain papo - Chronic Pain, Adult papo - Musculoskeletal Pain papo - Sciatica papo - Back Injury Prevention, [id number] papo - Chronic Back Pain, [id number]-[id number] papo - Sciatica, [id number]-[id number] papo - Back Exercises, [id number]-[id number] papo Forms: - Medication Reconciliation Form papo - Thank You Letter papo - Antibiotic Education papo - Prescription Opioid Use [facility] Signatures: Jonathan Hendricks MD MD cha Ballard, Brenda, RN RN bb
--- NOTE | 2022-10-13 05:01 | ER ---
Nurse's Notes [facility] [place] [place] Name: Delonte Gonzales Age: 47 yrs Sex: Male : 1975 Arrival Date: 10/13/2022 Time: 03:38 Bed 12 Private MD: Diagnosis: Sciatica, left side;Low back pain;Other chronic pain Presentation: 10/13 04:26 Chief complaint: Patient states: he got up off of the couch this morning felt something bb in his back pop and started having back pain he went to [place] and had a CT which showed a herniated disc and spinal stenosisl which he had but pt is still in excruciating pain. Coronavirus screen: At this time, the client does not indicate any symptoms associated with coronavirus-19. Ebola Screen: No symptoms or risks identified at this time. Initial Sepsis Screen: Does the patient meet any 2 criteria? No. Patient's initial sepsis screen is negative. Does the patient have a suspected source of infection? No. Patient's initial sepsis screen is negative. Risk Assessment: Do you want to hurt yourself or someone else? Patient reports no desire to harm self or others. Onset of symptoms was October 12, 2022. 04:26 Method Of Arrival: Wheelchair bb 04:26 Acuity: DANIEL 3 bb Triage Assessment: 04:30 General: Appears in no apparent distress. uncomfortable, Behavior is cooperative. Pain: bb Complains of pain in back. Neuro: Level of Consciousness is awake, alert, obeys commands, Oriented to person, place, time, situation. Cardiovascular: Capillary refill < 3 seconds Patient's skin is warm and dry. Respiratory: Respiratory effort is unlabored. GI: No signs and/or symptoms were reported involving the gastrointestinal system. Derm: Skin is pink, warm \T\ dry. Musculoskeletal: Circulation, motion, and sensation intact. Reports pain in back decreased ability to move left leg. Historical: - Allergies: 04:29 No Known Allergies; bb - Home Meds: 04:29 Klonopin 0.5 mg Oral tab [Active]; lisinopril 10 mg Oral tab 1 tab once daily [Active]; bb omeprazole 20 mg Oral cpDR 1 cap once daily [Active]; Protonix 40 mg Oral TbEC 1 tab once daily [Active]; - PMHx: 04:29 Crabtree's Esophagus; bicep tear; Hypertensive disorder; Pancreatitis; PTSD; bb - PSHx: 04:29 Cholecystectomy; bb - Immunization history:: Adult Immunizations up to date. - Social history:: Smoking status: Patient denies any tobacco usage or history of. - Family history:: not pertinent. Assessment: 04:51 Reassessment: No changes from previously documented assessment. Patient is alert, bb oriented x 3, equal unlabored respirations, skin warm/dry/pink. Dr Hendricks at bedside had long discussion with pt on substance abuse offered pt anti inflammatories and muscle relaxers but pt refused and left the ED with steady gait accompanied by spouse. Vital Signs: 04:26 BP 142 / 82; Pulse 102; Resp 18 S; Temp 98.7(O); Pulse Ox 97% on R/A; Weight 81.65 kg bb (R); Height 5 ft. 4 in. (162.56 cm) (R); Pain 10/10; 04:26 Body Mass Index 30.90 (81.65 kg, 162.56 cm) ED Course: 03:38 Patient arrived in ED. ja2 03:50 Jonathan Hendricks MD is Attending Physician. papo 04:29 Triage completed. bb 04:29 Arm band placed on Patient placed in an internal wait recliner. bb 04:59 Neal Leroy MD is Referral Physician. papo Administered Medications: No medications were administered Outcome: 05:00 Discharge ordered by . papo 05:08 Patient left the ED. bb Signatures: Jonathan Hendricks MD MD cha Ballard, Brenda, RN RN Anne Castillo Corrections: (The following items were deleted from the chart) 04:55 04:51 Reassessment: No changes from previously documented assessment. Patient is alert, bb oriented x 3, equal unlabored respirations, skin warm/dry/pink. Dr Hendricks at bedside had long discussion with pt on substance abuse offered pt anti inflammatories and muscle relaxers but pt refused and left the ED accompanied by spouse jade
[2022-10-13 05:28] VITALS: BP 142/82; TEMP 98.7; O2SAT 97
== END 2022-10-13 05:08 | disposition home or self-care (01) ==
LOC: ER 03:33
DX: M54.32 Sciatica, left side (principal); G89.29 Other chronic pain
CPT/HCPCS: 99281

== ENCOUNTER 2023-04-03 20:05 | Emergency (ER) | payer OTHER ==
--- OUTSIDE RECORDS SUMMARY | 2023-04-03 20:08 | XMS REPORT | Continuity of Care Document ---
:1975 Author Organization [facility] t Address [address] [place] [address] [place] [id number] Care Team Providers Name Role Phone KUNALWADE Petit Primary Care Physician Unavailable Jose Marquez Attending Clinician Unavailable Vahe Ward Attending Clinician Unavailable Misael Adam Attending Clinician Unavailable FARNAZ, DR IYER Attending Clinician Unavailable ABDULKADIR, DR AGARWAL Attending Clinician Unavailable JUANITO GIBSON Attending Clinician Unavailable IRASEMA, DR GELY OROZCO Attending Clinician Unavailable CHECO, DR BARNETT Attending Clinician Unavailable MANUEL, DR JILLIAN WAGGONER Attending Clinician Unavailable JEFFERSON, DR NOBLE Attending Clinician Unavailable RADHA, DR MAGDALENO Attending Clinician Unavailable Misael Adam Admitting Clinician Unavailable OSEI, DR IYER Admitting Clinician Unavailable OLANDREW, DR AGARWAL Admitting Clinician Unavailable ARTHUR, DR SOLOMON Admitting Clinician Unavailable IRASEMA, DR GELY OROZCO Admitting Clinician Unavailable CHECO, DR BARNETT Admitting Clinician Unavailable MANUEL, DR JILLIAN WAGGONER Admitting Clinician Unavailable JEFFERSON, DR NOBLE Admitting Clinician Unavailable RADHA, DR MAGDALENO Admitting Clinician Unavailable Payers Payer Name Policy Type Policy Number Effective Date Expiration Date S oursharath 0111 [id number] 2022 00:00:00 0191 [id number] 2021 00:00:00 1005 [id number] 1959 00:00:00 1000 [id number] 2022 00:00:00 0050 [id number] 2021 00:00:00 Problems This patient has no known problems. Allergies, Adverse Reactions, Alerts Allergy Allergy Status Severity Reaction(s) Onset Inactive Treating Comm ents Source Name Type Date Date Clinician No Known DA Active [facility] Allergie [place] s Medications This patient has no known medications. Vital Signs Vital Name Observation Time Observation Value Comments Source Weight 2022-11-17 10:52:00 78.01 KG Height 2022-11-17 10:52:00 162.56 CM Height 2022-10-26 08:30:00 162.56 CM Weight 2022-10-26 08:30:00 81.19 KG Weight 2022-09-15 09:26:00 79.37 KG Height 2022-09-14 [...] Date/Time Type Type Clinicians Facility Department ID 2022-12-12 2022-12-12 Emergency ER [place], [facility] [id number] [place] 10:46:00 13:08:00 [place] -[id number] [facility] 2022-12-11 2022-12-11 Emergency ER Ed [facility] [id number] [place] 06:51:00 10:31:00 Noemíes -[id number] [facility] 2022-12-04 2022-12-05 Inpatient ER Jair [facility] [id number] [place] 15:02:00 14:27:00 Misael -[id number] [facility] 2022-12-03 2022-12-03 Inpatient ER Jair [facility] [id number] [place] 09:41:00 07:21:00 Misael -[id number] [facility] 2022-12-02 2022-12-02 Emergency ER Ed, [facility] [id number] [place] 10:15:00 16:30:00 Frankyjaneth -[id number] [facility] 2022-11-17 2022-11-17 Emergency E OSEI, [facility] [id number] [place] 10:31:00 11:05:00 JAYLON [facility] 2022-10-26 2022-10-26 Emergency E OLADE, [facility] [id number] [place] 08:20:00 10:20:00 STEFANO [facility] 2022-09-15 2022-09-15 Emergency E PESCO, [facility] [id number] [place] 09:09:00 12:08:00 JUANITO Medic [facility] [place] 2022-09-14 2022-09-14 Emergency E PESCO, [facility] [id number] [place] 08:52:00 12:23:00 JUANITO Medic [facility] [place] 2022-09-13 2022-09-13 Emergency E PESCO, [facility] [id number] [place] 09:03:00 11:18:00 JUANITO Medic [facility] [place] 2022-08-26 2022-08-26 Emergency E PUMAREJO, [facility] [id number] [place] 10:57:00 15:13:00 GELY [facility] 2022-08-25 2022-08-25 Emergency E CHECO, IMRAN [facility] [id number] [place] 09:48:00 11:36:00 Medica [facility] [place] 2022-08-22 2022-08-22 Emergency E MANUEL, [facility] [id number] [place] 09:39:00 13:31:00 JILLIAN [facility] 2022-07-26 2022-07-26 Emergency E FAKOYEJO, [facility] [id number] [place] 11:44:00 13:18:00 AIDE [facility] 2022-02-26 2022-02-26 Emergency E GARCIA, [facility] [id number] [place] 11:00:00 12:27:00 SHARLA [facility] Results Test Description Test Time Test Comments Results Result Sourc e Comments U/S ABDOMEN 2022-09-14 RUQ*WW* 11:05:47 [facility] 1975 Sex: [...] by: Antonella Pham MD 09/14/2022 11:[address] BUILDER [facility] 2022-09-14 10:11:00 Test Item [...] normal/abnormal . GFR 82 See_Comment L [Automated CAMEROONIAN (test mL/min/1.73m\S\2 message] The code = GFRAA) [...] ng/mL Opiates 300 ng/mL AMYLASE [facility] LIPASE 2022-09-13 10:25:00 Test Item Value Reference Range Interpretation [...] normal/abnormal . GFR 74 See_Comment L [Automated CAMEROONIAN (test mL/min/1.73m\S\2 message] The code = GFRAA) [...] IU/L 10-49 H 31A) CBC (INCLUDES AUTOMATED DIFFERENTIAL)*[id number] 09:55:00 Test Item Value Reference Range Interpretation [...] MORPH (test code = NORMAL WRBCMOR) BLOOD [id number] 13:40:00 Test Item Value Reference Range Interpretation Comments Culture Observations (test NO GROWTH AFTER 5 code = COB1) DAYS BLOOD [id number] 13:40:00 Test Item Value Reference Range Interpretation Comments Culture Observations (test NO GROWTH AFTER 5 code = COB1) DAYS URINE [id number] 10:08:00 Test Item Value Reference Range Interpretation Comments Culture Observations (test NO GROWTH (<1,000 code = COB1) CFU/ML) CT ABDOMEN AND PELVIS WITH CONTRAST*WW*2022-08-26 13:53:02 [facility] 1975 Sex: MExam: CT [...] signed by: Evelina REINOSO 08/26/2022 1:53 PM [facility]UST [id number] *WW*2022-08-26 12:48:00 Test Item Value Reference Range [...] 04A) CO2 (test code = 25 mmol/L - 02A) ANION GAP (test 12.7 mmol/L code = ANG) BUN (test code = 15 mg/dL 07-04 05D) CREATININE (test 1.2 mg/dL 0.7-1.3 code = 03E) GFR (test code = 70 See_Comment L [Automated GFR) mL/min/1.73m\S\2 message] e system which generated this result transmit betty reference range : >=90. The reference range was not used to interpret this result as normal/abnormal . GFR 82 See_Comment L [Automated CAMEROONIAN (test mL/min/1.73m\S\2 message] The code = GFRAA) [...] LA) 1.3 mmol/L 0.4-2.0 CBC (INCLUDES AUTOMATED DIFFERENTIAL)*[id number] 12:04:00 Test Item Value Reference Range Interpretation [...] RT COMPLETE 3 VIEWS*WW*2022-02-26 12:03:26 [facility] : 1975 Sex: MEXAMINATION:XR ELBOW [...]
--- NOTE | 2023-04-03 21:25 | RAD REPORT ---
EXAM DESCRIPTION: RAD - Tib Fib Right - 04/03/2023 9:17 pm CLINICAL HISTORY: lower extremity, swelling, pain COMPARISON: No comparisons FINDINGS: Mild to moderate soft tissue swelling is present. No fracture seen. No radiopaque foreign body. No soft tissue gas evident.
--- NOTE | 2023-04-03 22:42 | EDPHYS ---
Physician Documentation [facility] Name: Delonte Gonzales Age: 48 yrs Sex: Male : 1975 Arrival Date: 04/03/2023 Time: 20:05 Bed 11 Private MD: ED Physician Rene Soria HPI: 04/03 20:32 This 48 yrs old Male presents to ER via Ambulatory with complaints of Knee Injury. [facility] 20:32 The patient presents with an injury, pain, that is acute. The complaints affect the m right knee. Onset: The symptoms/episode began/occurred acutely, 2 week(s) ago. Modifying factors: The symptoms are alleviated by nothing. the symptoms are aggravated by nothing. Associated signs and symptoms: Pertinent positives: swelling. The patient has not experienced similar symptoms in the past. Historical: - Allergies: 20:27 No Known Allergies; kl - Home Meds: 20:27 amlodipine oral [Active]; omeprazole 20 mg Oral cpDR 1 cap once daily [Active]; kl Protonix 40 mg Oral TbEC 1 tab once daily [Active]; Xanax 0.5 mg Oral tablet daily [Active]; - PMHx: 20:27 Crabtree's Esophagus; bicep tear; Hypertensive disorder; Pancreatitis; PTSD; kl - PSHx: 20:27 Cholecystectomy; kl - Immunization history:: Adult Immunizations not immunized. - Social history:: Smoking status: Patient denies any tobacco usage or history of. ROS: 20:32 Constitutional: Negative for fever, chills, and weight loss, Cardiovascular: Negative jm for chest pain, palpitations, and edema, Respiratory: Negative for shortness of breath, cough, wheezing, and pleuritic chest pain. 20:32 MS/extremity: Positive for injury or acute deformity, pain, swelling. 20:32 All other systems are negative. Exam: 20:32 Constitutional: This is a well developed, well nourished patient who is awake, alert, jmm and in no acute distress. Head/Face: atraumatic. Eyes: EOMI, no conjunctival erythema appreciated ENT: Moist Mucus Membranes Neck: Trachea midline, Supple Chest/axilla: Normal chest wall appearance and motion. Cardiovascular: Regular rate and rhythm. No edema appreciated Respiratory: Normal respirations, no respiratory distress appreciated Abdomen/GI: Non distended Back: Normal ROM Skin: General appearance color normal 20:32 Musculoskeletal/extremity: Swelling noted to the right proximal tibial region, (+) MacMurray, compartments soft, painful rom, full dorsalis pulse, NVI. 20:32 Skin: Appearance: Color: normal in color. 20:32 Neuro: Orientation: is normal, Mentation: is normal, Memory: is normal. 20:32 Psych: Behavior/mood is pleasant, cooperative. Vital Signs: 20:24 BP 157 / 92; Pulse 96; Resp 18; Temp 97.1; Pulse Ox 99% ; Weight 78.02 kg (R); Height 5 kl ft. 4 in. ; Pain 6/10; 22:30 BP 146 / 89; Pulse 89; Resp 18; Pulse Ox 98% ; pf1 20:24 Body Mass Index 29.52 (78.02 kg, 162.56 cm) kl 20:24 Pain Scale: Adult kl MDM: 20:32 Patient medically screened. [facility] 22:40 Differential diagnosis: Internal derangement, fracture, DVT. Data reviewed: vital [facility] signs, nurses notes, radiologic studies, plain films, ultrasound. I considered the following discharge prescriptions or medication management in the emergency department Medications were administered in the Emergency Department. See MAR. Counseling: I had a detailed discussion with the patient and/or guardian regarding: the historical points, exam findings, and any diagnostic results supporting the discharge/admit diagnosis, radiology results, the need for outpatient follow up, to return to the emergency department if symptoms worsen or persist or if there are any questions or concerns that arise at home. 04/03 20:36 Order name: Tib Fib Right XRAY; Complete Time: 21:26 [facility] 04/03 20:36 Order name: US Extremity Venous Unilateral Ltd [facility] 04/03 22:36 Order name: Jasxon wrap-joint; Complete Time: 23:23 [facility] Administered Medications: No medications were administered Disposition: 04/04 08:41 Co-signature as Attending Physician, Rene Soria MD I agree with the assessment sp4 and plan of care. I reviewed the patient's care provided by the Advanced Practice Provider and agree with the diagnosis and treatment plan. Disposition Summary: 04/03/23 22:41 Discharge Ordered Location: Home [facility] Condition: Stable [facility] Diagnosis - Other internal derangements of right knee [facility] Followup: [facility] - With: Fabien Doran MD - When: 2 - 3 days - Reason: Recheck today's complaints, Continuance of care, Re-evaluation by your physician Discharge Instructions: - Discharge Summary Sheet [facility] - Acute Knee Pain, Adult [facility] Forms: - Medication Reconciliation Form [facility] - Thank You Letter [facility] - Antibiotic Education [facility] - Prescription Opioid Use [facility] Prescriptions: - diclofenac sodium 3 % Topical gel - apply 1 application by TOPICAL route 4 times per day As needed; 1 unit; [facility] Refills: 0, Product Selection Permitted - Medrol (Aiden) 4 mg Oral Tablets, Dose Pack - take 1 tablet by ORAL route as directed - follow package instructions; 1 jmm packet; Refills: 0, Product Selection Permitted - orphenadrine citrate 100 mg Oral Tablet Sustained Release - take 1 tablet by ORAL route 2 times per day As needed; 20 tablet; Refills: 0, [facility] Product Selection Permitted Signatures: Dispatcher [employer] Antonella Corley RN RN kl Mickail, Joel, PA PA jmm Potepalov, Sergey, MD MD sp4 Corrections: (The following items were deleted from the chart) 04/03 21:06 20:37 Knee Right 3 View+RAD.RAD.BRZ ordered. IVONNE CORONADO
--- NOTE | 2023-04-03 22:42 | ER ---
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 Coronavirus screen: Vaccine status: Patient reports receiving the 2nd dose of the covid vaccine. Ebola Screen: Patient negative for fever greater than or equal to 101.5 degrees Fahrenheit, and additional compatible Ebola Virus Disease symptoms. Initial Sepsis Screen: Does the patient meet any 2 criteria? No. Patient's initial sepsis screen is negative. Does the patient have a suspected source of infection? No. Patient's initial sepsis screen is negative. Risk Assessment: Do you want to hurt yourself or someone else? Patient reports no desire to harm self or others. 20:24 Method Of Arrival: Ambulatory 20:24 Acuity: DANIEL 3 kl Triage Assessment: 20:29 General: Appears uncomfortable, Behavior is calm, cooperative. Pain: Complains of pain kl in right knee Pain radiates to anterior aspect of right ankle Pain currently is 6 out of 10 on a pain scale. at worst was 8 out of 10 on a pain scale. Aggravated by staying still. Musculoskeletal: Reports pain in right knee pt reports area hot to touch. Historical: - Allergies: 20:27 No Known Allergies; kl - Home Meds: 20:27 amlodipine oral [Active]; omeprazole 20 mg Oral cpDR 1 cap once daily [Active]; kl Protonix 40 mg Oral TbEC 1 tab once daily [Active]; Xanax 0.5 mg Oral tablet daily [Active]; - PMHx: 20:27 Crabtree's Esophagus; bicep tear; Hypertensive disorder; Pancreatitis; PTSD; kl - PSHx: 20:27 Cholecystectomy; kl - Immunization history:: Adult Immunizations not immunized. - Social history:: Smoking status: Patient denies any tobacco usage or history of. Screenin:46 [facility] ED Fall Risk Assessment (Adult) History of falling in the last 3 months, kl including since admission No falls in past 3 months (0 pts) Confusion or Disorientation No (0 pts) Intoxicated or Sedated No (0 pts) Impaired Gait No (0 pts) Mobility Assist Device Used No (0 pt) Altered Elimination No (0 pt) Score/Fall Risk Level 0 - 2 = Low Risk Oriented to surroundings, Maintained a safe environment. Abuse screen: Denies threats or abuse. Nutritional screening: No deficits noted. Tuberculosis screening: No symptoms or risk factors identified. Assessment: 21:46 Reassessment: Patient appears in no apparent distress at this time. Patient and/or family updated on plan of care and expected duration. Pain level reassessed. Vital Signs: 20:24 BP 157 / 92; Pulse 96; Resp 18; Temp 97.1; Pulse Ox 99% ; Weight 78.02 kg (R); Height 5 kl ft. 4 in. ; Pain 6/10; 22:30 BP 146 / 89; Pulse 89; Resp 18; Pulse Ox 98% ; pf1 20:24 Body Mass Index 29.52 (78.02 kg, 162.56 cm) 20:24 Pain Scale: Adult ED Course: 20:20 Patient arrived in ED. jj6 20:21 Elroy Tena PA is PHCP. [facility] 20:21 Rene Soria MD is Attending Physician. [facility] 20:27 Triage completed. kl 21:19 Tib Fib Right XRAY In Process Unspecified. EDMS 21:47 Patient has correct armband on for positive identification. kl 21:47 No provider procedures requiring assistance completed. Patient did not have IV access during this emergency room visit. 22:00 Arm band placed on right wrist. pf1 22:33 US Extremity Venous Unilateral Ltd In Process Unspecified. EDMS 22:41 Fabien Doran MD is Referral Physician. [facility] Administered Medications: No medications were administered Medication: 21:47 VIS not applicable for this client. Outcome: 22:41 Discharge ordered by . [facility] 22:55 Discharged to home ambulatory. pf1 22:55 Condition: improved 22:55 Discharge instructions given to patient, Instructed on discharge instructions, follow up and referral plans. Demonstrated understanding of instructions, follow-up care, medications, Prescriptions given X 3. 22:55 Patient left the ED. pf1 Signatures: Dispatcher [employer] EDAntonella Vidal RN RN Elroy Mccauley PA PA jmm Jeffries, Jennifer jj6 Dahlia Oviedo RN RN pf1 Corrections: (The following items were deleted from the chart) 04/04 08:04 04/03 23:29 Patient left the ED. pf1 pf1
--- NOTE | 2023-04-03 23:41 | RAD REPORT ---
EXAM DESCRIPTION: US - Extremity Venous Uni Ltd - 04/03/2023 10:32 pm CLINICAL HISTORY: swelling, trauma, 2 weeks ago Leg swelling and edema. COMPARISON: No comparisons FINDINGS: Right lower extremity venous system was interrogated with Doppler technique. Normal flow, compressibility and augmentation was noted. There is no DVT present. IMPRESSION: No evidence of right lower extremity deep venous thrombosis.
[2023-04-03 23:48] VITALS: BP 157/92; TEMP 97.1; O2SAT 99
[2023-04-04] MEDS ORDERED: METOPROLOL TARTRATE 5 MG/5 ML INJ IV ONE ×2 (00:41→01:00)
[2023-04-04] MEDS ORDERED: METOCLOPRAMIDE 10 MG/2mL INJ ONE (00:41)
== END 2023-04-03 23:29 | disposition home or self-care (01) ==
LOC: ER 20:05
DX: M23.8X1 Other internal derangements of right knee (principal)
CPT/HCPCS: 93971; 99283

== ENCOUNTER 2023-04-29 13:11 | Emergency (ER) | payer OTHER ==
--- OUTSIDE RECORDS SUMMARY | 2023-04-29 13:16 | XMS REPORT | Continuity of Care Document ---
:1975 Author Organization [facility] t Address [address] [place] [address] [place] [address] Care Team Providers Name Role Phone KUNALWADE [...] Effective Date Expiration Date S oursharath 0111 [id number] 2022 00:00:00 0191 [id number] 2021 00:00:00 1005 [id number] 1959 00:00:00 1000 [id number] 2022 00:00:00 0050 [id number] 2021 00:00:00 Problems This patient has no known problems. Allergies, Adverse Reactions, Alerts Allergy Allergy Status Severity Reaction(s) Onset Inactive Treating Comm ents Source Name Type Date Date Clinician No Known DA Active [facility] Allergie [place] s Medications This patient has no known [...] Department ID 2022-12-12 2022-12-12 Emergency ER [place], [facility] [id number] [place] 10:46:00 13:08:00 [place] -[id number] [facility] 2022-12-11 2022-12-11 Emergency ER Ed [facility] [id number] [place] 06:51:00 10:31:00 Noemíes -[id number] [facility] 2022-12-04 2022-12-05 Inpatient ER Jair [facility] [id number] [place] 15:02:00 14:27:00 Misael -[id number] [facility] 2022-12-03 2022-12-03 Inpatient ER Jair [facility] [id number] [place] 09:41:00 07:21:00 Misael -[id number] [facility] 2022-12-02 2022-12-02 Emergency ER Ed, [facility] [id number] [place] 10:15:00 16:30:00 Frankyjaneth -[id number] [facility] 2022-11-17 2022-11-17 Emergency E OSEI, [facility] [id number] [place] 10:31:00 11:05:00 JAYLON [facility] 2022-10-26 2022-10-26 Emergency E OLADE, [facility] [id number] [place] 08:20:00 10:20:00 STEFANO [facility] 2022-09-15 2022-09-15 Emergency E PESCO, [facility] [id number] [place] 09:09:00 12:08:00 JUANITO Medic [facility] [place] 2022-09-14 2022-09-14 Emergency E PESCO, [facility] [id number] [place] 08:52:00 12:23:00 JUANITO Medic [facility] [place] 2022-09-13 2022-09-13 Emergency E PESCO, [facility] [id number] [place] 09:03:00 11:18:00 JUANITO Medic [facility] [place] 2022-08-26 2022-08-26 Emergency E PUMAREJO, [facility] [id number] [place] 10:57:00 15:13:00 GELY [facility] 2022-08-25 2022-08-25 Emergency E CHECO, IMRAN [facility] [id number] [place] 09:48:00 11:36:00 Medica l [place] 2022-08-22 2022-08-22 Emergency E MANUEL, [facility] [id number] [place] 09:39:00 13:31:00 JILLIAN [facility] 2022-07-26 2022-07-26 Emergency E FAKOYEJO, [facility] [id number] [place] 11:44:00 13:18:00 AIDE [facility] 2022-02-26 2022-02-26 Emergency E GARCIA, [facility] [id number] [place] 11:00:00 12:27:00 [facility] Results Test Description Test Time Test Comments Results Result Sourc e Comments U/S ABDOMEN 2022-09-14 RUQ*WW* 11:05:47 [facility] 1975 [...] by: Antonella Pham MD 09/14/2022 11:05 AM NURSE CHARGE RN [facility]YL[facility] LIPASE 2022-09-14 10:11:00 Test Item [...] normal/abnormal . GFR 82 See_Comment L [Automated ETHIOPIAN (test mL/min/1.73m\S\2 message] The code = GFRAA) [...] normal/abnormal . GFR 74 See_Comment L [Automated ETHIOPIAN (test mL/min/1.73m\S\2 message] The code = GFRAA) [...] IU/L 10-49 H 31A) CBC (INCLUDES AUTOMATED DIFFERENTIAL)*[id number] 09:55:00 Test Item Value Reference Range Interpretation [...] MORPH (test code = NORMAL WRBCMOR) BLOOD [id number] 13:40:00 Test Item Value Reference Range Interpretation Comments Culture Observations (test NO GROWTH AFTER 5 code = COB1) DAYS BLOOD [id number] 13:40:00 Test Item Value Reference Range Interpretation Comments Culture Observations (test NO GROWTH AFTER 5 code = COB1) DAYS URINE [id number] 10:08:00 Test Item Value Reference Range Interpretation [...] signed by: Evelina REINOSO 08/26/2022 1:53 PM [facility] [[email or web address]] [id number] *WW*2022-08-26 12:48:00 Test Item Value Reference Range [...] normal/abnormal . GFR 82 See_Comment L [Automated ETHIOPIAN (test mL/min/1.73m\S\2 message] The code = GFRAA) [...] LA) 1.3 mmol/L 0.4-2.0 CBC (INCLUDES AUTOMATED DIFFERENTIAL)*[id number] 12:04:00 Test Item Value Reference Range Interpretation [...]
--- NOTE | 2023-04-29 14:11 | RAD REPORT ---
EXAM DESCRIPTION: Nery Desai And Ana (2 Views)04/29/2023 1:54 pm CLINICAL HISTORY: Shortness of breath COMPARISON: 2021 FINDINGS: The lungs appear clear of acute infiltrate. The heart is normal size IMPRESSION: No acute abnormalities displayed
[2023-04-29] MEDS ORDERED: IPRATROPIUM BROM 0.5MG/2.5ML ONE (14:23)
[2023-04-29] MEDS ORDERED: ALBUTEROL 2.5 MG/3 ML NEB SOL ONE (14:23)
[2023-04-29 14:30] LABS: Absolute Lymphocytes (CBC) 1.2 K/uL (0.7-4.9); Hematocrit 32.6 % (39.6-49.0); Lymphocytes % 10.3 % (15.3-44.8); MCV 64.4 fL (80-100); MPV 6.9 fL (7.6-11.3); RBC Red Blood Cell Count 5.06 M/uL (4.33-5.43)
[2023-04-29] MEDS ORDERED: ACETAMINOPHEN 500 MG TAB ONE (14:31)
[2023-04-29 14:36] LABS: Protime INR 1.23
[2023-04-29 14:59] LABS: Albumin 2.9 g/dL (3.4-5.0); Bilirubin Direct 0.1 mg/dL (0-0.2); Bilirubin Indirect, Calculated 0.2 mg/dL (0.2-0.8); Bilirubin Total 0.3 mg/dL (0.2-1.0); Potassium 4.2 mEq/L (3.5-5.1); Protein, Total 6.9 g/dL (6.4-8.2); Troponin High Sensitivity 15.5 pg/mL (<58.9)
--- NOTE | 2023-04-29 15:59 | RAD REPORT ---
EXAM DESCRIPTION: US - UPPER EXTREMITY VENOUS UNILATE - 04/29/2023 3:43 pm CLINICAL HISTORY: left arm swelling. COMPARISON: None. FINDINGS: Left internal jugular vein, left subclavian vein, left axillary vein, left brachial vein, left cephalic, left basilic, left ulnar and left radial veins demonstrate phasic signal. The veins are compressible. Doppler demonstrates good flow. Grayscale, color and spectral analysis performed on all vessels IMPRESSION: No sonographic evidence of thrombus involving the left upper extremity veins.
[2023-04-29] MEDS ORDERED: KETOROLAC 30 MG/ML INJ ONE (16:39)
[2023-04-29] MEDS ORDERED: MAGNESIUM SULFATE 1 gm IVPB 1 GM/100 ML BAG IV ONE (16:39)
[2023-04-29] MEDS ORDERED: NA CHLORIDE 0.9% 1,000 ML ONE (16:39)
--- NOTE | 2023-04-29 16:47 | RAD REPORT ---
EXAM DESCRIPTION: CT - Chest For Pe Angio - 04/29/2023 4:16 pm CLINICAL HISTORY: sob COMPARISON: 2021 TECHNIQUE: Dynamically enhanced axial 3 mm thick images of the chest were obtained during administra tion of 100 mL Isovue 370 IV contrast. Coronal and oblique reconstruction images were generated and r eviewed. Exam utilizes a protocol for optimal evaluation of pulmonary arterial tree. Maximum intensity projections 3D imaging was utilized All CT scans are performed using dose optimization technique as appropriate and may include automated exposure control or mA/KV adjustment according to patient size. FINDINGS: Suboptimal opacification of the pulmonary arteries. No gross central pulmonary embolus see n. A thoracic aortic aneurysm is not noted. A pleural effusion is not seen. A pericardial effusion is not seen. Moderate bilateral centrilobular nodules within the lungs IMPRESSION: Suboptimal opacification of the pulmonary arteries. No gross central pulmonary embolus s een. Moderate bilateral centrilobular nodules within the lungs. This can be seen with endobronchial infect ion, pulmonary edema, bronchiolitis, and pneumonitis
[2023-04-29] MEDS ORDERED: AZITHROMYCIN 500 MG INJ IVPB ONE (17:33)
[2023-04-29] MEDS ORDERED: NA CHLORIDE 0.9% 250 ML ONE (17:33)
[2023-04-29] MEDS ORDERED: CEFTRIAXONE 1000 MG/VIAL ONE (17:33)
[2023-04-29] MEDS ORDERED: METHYLPREDNISOLONE 125 MG INJ ONE (17:33)
--- NOTE | 2023-04-29 18:15 | ER ---
Nurse's Notes [facility] Name: Delonte Gonzales Age: 48 yrs Sex: Male : 1975 Arrival Date: 04/29/2023 Time: 13:11 Bed 5 Private MD: Diagnosis: Dyspnea;Other pneumonia, unspecified organism Presentation: 04/29 13:32 Chief complaint: Patient states: Cough, congestion, low grade fever since Thursday. ll1 Coronavirus screen: Vaccine status: Patient reports receiving the 2nd dose of the covid vaccine. Client denies travel out of the [place] in the last 14 days. chills, congestion, cough unrelated to allergies, diarrhea, difficulty breathing, fatigue, fever, headache, muscle pain, nausea, runny nose, shaking with chills, shortness of breath, sore throat, vomiting. Client presents with at least one sign or symptom that may indicate coronavirus-19. Standard/surgical mask placed on the client. Ebola Screen: Patient denies travel to an Ebola-affected area in the 21 days before illness onset. Initial Sepsis Screen: Does the patient meet any 2 criteria? No. Patient's initial sepsis screen is negative. Does the patient have a suspected source of infection? Yes: Productive cough/pneumonia. Risk Assessment: Do you want to hurt yourself or someone else? Patient reports no desire to harm self or others. Onset of symptoms was April 27, 2023. 13:32 Method Of Arrival: Ambulatory ll1 13:32 Acuity: DANIEL 3 ll1 Historical: - Allergies: 13:32 No Known Allergies; ll1 - PMHx: 13:32 bicep tear; Hypertensive disorder; Pancreatitis; PTSD; Crabtree's Esophagus; ll1 - PSHx: 13:32 Cholecystectomy; ll1 - Immunization history:: Adult Immunizations up to date. - Social history:: Smoking status: Patient denies any tobacco usage or history of. Screenin:30 [facility] ED Fall Risk Assessment (Adult) History of falling in the last 3 months, ko1 including since admission No falls in past 3 months (0 pts) Confusion or Disorientation No (0 pts) Intoxicated or Sedated No (0 pts) Impaired Gait No (0 pts) Mobility Assist Device Used No (0 pt) Altered Elimination No (0 pt) Score/Fall Risk Level 0 - 2 = Low Risk Oriented to surroundings, Maintained a safe environment, Educated pt \T\ family on fall prevention, incl call for assistance when getting out of bed, Assessed \T\ reinforced patient's understanding of fall precautions, Provided non-skid footwear, Hourly rounding (assess needs \T\ fall precautionary measures) done, Used ambulatory aids as needed (educated on \T\ assisted with), Used gait belt as appropriate. Abuse screen: Denies threats or abuse. Denies injuries from another. Nutritional screening: No deficits noted. Tuberculosis screening: No symptoms or risk factors identified. Assessment: 13:30 General: Appears in no apparent distress. uncomfortable, Behavior is calm, cooperative, ko1 appropriate for age. Pain: Complains of pain in forehead. Neuro: No deficits noted. Cardiovascular: No deficits noted. Respiratory: Reports cough that is dry. GI: No deficits noted. : No deficits noted. EENT: Reports nasal congestion. Derm: No deficits noted. Musculoskeletal: No deficits noted. 15:30 Reassessment: Patient appears in no apparent distress at this time. Patient is alert, bp oriented x 3, equal unlabored respirations, skin warm/dry/pink. 17:31 Reassessment: Patient appears in no apparent distress at this time. Patient is alert, bp oriented x 3, equal unlabored respirations, skin warm/dry/pink. Vital Signs: 13:32 BP 156 / 81; Pulse 99; Resp 20; Temp 97.5; Pulse Ox 99% on R/A; ll1 17:30 BP 140 / 73; Pulse 104; Resp 16; Pulse Ox 94% ; bp 18:26 BP 116 / 46; Pulse 90; Resp 18; Pulse Ox 99% ; ko1 ED Course: 13:14 Patient arrived in ED. kj1 13:16 Nancy Woo PA-C is PHCP. sb4 13:16 Grayson Wynn MD is Attending Physician. sb4 13:30 Patient has correct armband on for positive identification. Bed in low position. Call ko1 light in reach. Side rails up X 1. Provided Education on: test/labs. Pulse ox on. NIBP on. Door closed. Noise minimized. 13:34 Triage completed. ll1 13:34 Arm band placed on Patient placed in an exam room, on a stretcher. ll1 13:50 Pastora Cortez, RN is Primary Nurse. ko1 13:55 XRAY Chest Pa And Lat (2 Views) In Process Unspecified. EDMS 14:11 Flu Sent. ko1 14:11 COVID-19 SARS RT PCR Sent. ko1 14:14 Initial lab(s) drawn, by me, sent to lab. EKG done, by ED staff, reviewed by Nancy Woo PA-C. Inserted saline lock: 20 gauge in right forearm, using aseptic technique. Blood collected. 15:45 UPPER EXTREMITY VENOUS UNILATE In Process Unspecified. EDMS 16:18 Chest For PE Angio CT In Process Unspecified. EDMS 18:26 No provider procedures requiring assistance completed. IV discontinued, intact, ko1 bleeding controlled, No redness/swelling at site. Pressure dressing applied. Administered Medications: 14:18 Drug: DuoNeb Nebulize (3:1) (2.5 mg - 0.5 mg) 3 ml Route: Nebulizer; ko1 15:01 Follow up: Response: No adverse reaction ko1 14:24 Drug: Acetaminophen PO 1000 mg Route: PO; ko1 16:34 Drug: NS 0.9% IV 1000 ml Route: IV; Rate: 1 bolus; Site: right forearm; ko1 16:35 Drug: Magnesium Sulfate IVPB 1 grams Route: IVPB; Infused Over: 1 hrs; Site: right ko1 forearm; 16:35 Drug: Ketorolac IVP 15 mg Route: IVP; Site: right forearm; ko1 17:30 Drug: AZITHromycin IVPB 500 mg Route: IVPB; Infused Over: 1 hrs; Site: right forearm; bp 17:30 Drug: Rocephin IV 1 grams Route: IV; Rate: bolus; Site: right forearm; bp 17:30 Drug: MethylPrednisoLONE IVP 125 mg Route: IVP; Site: right forearm; bp Medication: 18:26 VIS not applicable for this client. ko1 Outcome: 18:14 Discharge ordered by . sb4 18:33 Discharged to home ambulatory, with family. ko1 18:33 Condition: stable 18:33 Discharge instructions given to patient, family, Instructed on discharge instructions, follow up and referral plans. medication usage, Demonstrated understanding of instructions, follow-up care, medications, Prescriptions given X 4. 18:34 Patient left the ED. ko1 Signatures: Dispatcher [employer] EDRoberto Padilla Brian, RN RN bp Loyda Chiu kj1 Brenden Adam, MERT RN ll1 Pastora Cortez, RN RN ko1 Nancy Woo, JOSE GARCIA sb4
--- NOTE | 2023-04-29 18:16 | EDPHYS ---
Physician Documentation [facility] Name: Delonte Gonzales Age: 48 yrs Sex: Male : 1975 Arrival Date: 04/29/2023 Time: 13:11 Bed 5 Private MD: ED Physician Grayson Wynn HPI: 04/29 15:25 This 48 yrs old Male presents to ER via Ambulatory with complaints of Flu Symptoms. sb4 15:25 48-year-old male past medical history of hypertension, pancreatitis, and Crabtree's sb4 esophagus presents with shortness of breath. He states that he participated in a power lifting competition last week and everything was fine. 2 days later, he started feeling generally unwell with shortness of breath, cough, sinus congestion, borderline fever. He states that the shortness of breath has progressed so much that he cannot lie flat or go up stairs. Historical: - Allergies: 13:32 No Known Allergies; ll1 - PMHx: 13:32 bicep tear; Hypertensive disorder; Pancreatitis; PTSD; Crabtree's Esophagus; ll1 - PSHx: 13:32 Cholecystectomy; ll1 - Immunization history:: Adult Immunizations up to date. - Social history:: Smoking status: Patient denies any tobacco usage or history of. ROS: 15:25 Cardiovascular: Negative for chest pain, palpitations, and edema, Abdomen/GI: Negative sb4 for abdominal pain, nausea, vomiting, diarrhea, and constipation, MS/Extremity: Negative for injury and deformity, Skin: Negative for injury, rash, and discoloration. 15:25 Constitutional: Positive for fatigue, fever, Negative for body aches, chills. 15:25 ENT: Positive for sinus congestion, sore throat, Negative for difficulty swallowing, difficulty handling secretions. 15:25 Respiratory: Positive for cough, dyspnea on exertion, orthopnea, pleurisy, Negative for hemoptysis. 15:25 All other systems are negative. sb4 Exam: 15:25 Constitutional: This is a well developed, well nourished patient who is awake, alert, sb4 and in no acute distress. Head/Face: Normocephalic, atraumatic. Eyes: Extra-ocular motions intact. Periorbital areas with no swelling, redness, or edema. 15:25 ENT: Dry mucous membranes. 15:25 Respiratory: the patient does not display signs of respiratory distress, Respirations: tachypnea, 24 Breath sounds: are clear throughout. 15:25 Musculoskeletal/extremity: DVT Exam: Swelling noted in left hand. Left arm does feel little warmer than right. No obvious erythema or significant size difference. No tenderness. Vital Signs: 13:32 BP 156 / 81; Pulse 99; Resp 20; Temp 97.5; Pulse Ox 99% on R/A; ll1 17:30 BP 140 / 73; Pulse 104; Resp 16; Pulse Ox 94% ; bp 18:26 BP 116 / 46; Pulse 90; Resp 18; Pulse Ox 99% ; ko1 MDM: 13:16 Patient medically screened. sb4 15:25 Differential diagnosis: viral Infection, bacterial infection, URI, bronchitis, sb4 pneumonia COVID, flu, DVT, PE. 18:08 Data reviewed: vital signs, nurses notes, lab test result(s), EKG, radiologic studies, sb4 I have discussed the patient's presentation/case with the attending Emergency Department Physician; and as a result, I will discharge patient. Consideration of Admission/Observation Escalation of care including admission/observation considered. Historians other than the Patient: Spouse/Significant Other: . Care significantly affected by the following chronic conditions: Hypertension. Counseling: I had a detailed discussion with the patient and/or guardian regarding: the historical points, exam findings, and any diagnostic results supporting the discharge/admit diagnosis, the presence of at least one elevated blood pressure reading (>120/80) during this emergency department visit, lab results, radiology results, to return to the emergency department if symptoms worsen or persist or if there are any questions or concerns that arise at home. Response to treatment: the patient's symptoms have mildly improved after treatment. ED course: I discussed at length with patient his regarding his blood and radiology results. I did recommend admission as a pulmonary embolism is not definitively ruled out. He does not want to stay in the hospital. I gave him and his strict return precautions and they understand. . 04/29 13:42 Order name: BMP; Complete Time: 15:00 sb4 04/29 13:42 Order name: CBC with Diff sb4 04/29 13:42 Order name: CPK; Complete Time: 15:00 sb4 04/29 13:42 Order name: D-Dimer; Complete Time: 14:48 sb4 04/29 13:42 Order name: Hepatic Function; Complete Time: 15:00 sb4 04/29 13:42 Order name: Lipase; Complete Time: 15:00 sb4 04/29 13:42 Order name: Magnesium; Complete Time: 15:00 sb4 04/29 13:42 Order name: NT PRO-BNP; Complete Time: 15:00 sb4 04/29 13:42 Order name: PT-INR; Complete Time: 14:48 sb4 04/29 13:42 Order name: Ptt, Activated; Complete Time: 14:48 sb4 04/29 13:42 Order name: Troponin HS; Complete Time: 15:00 sb4 04/29 13:42 Order name: COVID-19 SARS RT PCR; Complete Time: 14:40 sb4 04/29 13:42 Order name: Flu; Complete Time: 14:40 sb4 04/29 13:42 Order name: [place] Screen Profile; Complete Time: 14:48 sb4 04/29 13:42 Order name: XRAY Chest Pa And Lat (2 Views); Complete Time: 14:40 sb4 04/29 15:45 Order name: UPPER EXTREMITY VENOUS UNILATE; Complete Time: 16:01 EDMS 04/29 16:01 Order name: Chest For PE Angio CT; Complete Time: 16:48 sb4 04/29 13:42 Order name: EKG; Complete Time: 13:43 sb4 04/29 13:42 Order name: Cardiac monitoring; Complete Time: 13:51 sb4 04/29 13:42 Order name: EKG - Nurse/Tech; Complete Time: 14:12 sb4 04/29 13:42 Order name: IV Saline Lock; Complete Time: 14:14 sb4 04/29 13:42 Order name: Labs collected and sent; Complete Time: 14:14 sb4 04/29 13:42 Order name: O2 Per Protocol; Complete Time: 13:51 sb4 04/29 13:42 Order name: O2 Sat Monitoring; Complete Time: 13:51 sb4 04/29 17:17 Order name: Vital Signs; Complete Time: 17:30 sb4 EC:23 Rate is 90 beats/min. Rhythm is regular, Normal Sinus Rhythm. QRS [place] is Normal. [place] sb4 interval is normal at 90 msec. QRS interval is normal at 80 msec. QT interval is normal at 304 msec. No Q waves. T waves are Normal. No ST changes noted. Clinical impression: Normal ECG. Interpreted by me. Reviewed by me. Administered Medications: 14:18 Drug: DuoNeb Nebulize (3:1) (2.5 mg - 0.5 mg) 3 ml Route: Nebulizer; ko1 15:01 Follow up: Response: No adverse reaction ko1 14:24 Drug: Acetaminophen PO 1000 mg Route: PO; ko1 16:34 Drug: NS 0.9% IV 1000 ml Route: IV; Rate: 1 bolus; Site: right forearm; ko1 16:35 Drug: Magnesium Sulfate IVPB 1 grams Route: IVPB; Infused Over: 1 hrs; Site: right ko1 forearm; 16:35 Drug: Ketorolac IVP 15 mg Route: IVP; Site: right forearm; ko1 17:30 Drug: AZITHromycin IVPB 500 mg Route: IVPB; Infused Over: 1 hrs; Site: right forearm; bp 17:30 Drug: Rocephin IV 1 grams Route: IV; Rate: bolus; Site: right forearm; bp 17:30 Drug: MethylPrednisoLONE IVP 125 mg Route: IVP; Site: right forearm; bp Disposition: 04/30 14:24 Co-signature as Attending Physician, Grayson Wynn MD I reviewed the patient's care rn provided by the Advanced Practice Provider and agree with the diagnosis and treatment plan. Disposition Summary: 04/29/23 18:14 Discharge Ordered Location: Home sb4 Problem: new sb4 Symptoms: have improved sb4 Condition: Fair sb4 Diagnosis - Dyspnea sb4 - Other pneumonia, unspecified organism sb4 Followup: sb4 - With: Emergency Department - When: - Reason: Fever > 102 F, Trouble breathing, Worsening of condition Discharge Instructions: - Discharge Summary Sheet sb4 - Shortness of Breath, Adult, Exan-gs-Pmes sb4 Forms: - Work release form sb4 - Medication Reconciliation Form sb4 - Thank You Letter sb4 - Antibiotic Education sb4 - Prescription Opioid Use sb4 - Patient Portal Instructions sb4 Prescriptions: - azithromycin 250 mg Oral tablet - take 1 dose pack by ORAL route as directed on dose pack For 250 mg dose pack: sb4 take 500 mg today (day 1), then 250 mg for 4 days (days 2-5); 1 Pack; Refills: 0, Product Selection Permitted - Augmentin 875-125 mg Oral Tablet - take 1 tablet by ORAL route every 12 hours for 10 days; 20 tablet; Refills: 0, sb4 Product Selection Permitted - Tessalon Perles 100 mg Oral Capsule - take 200 capsule by ORAL route every 8 hours As needed; 30 capsule; Refills: 0, sb4 Product Selection Permitted - Medrol ([place]) 4 mg Oral Tablets, Dose Pack - take 1 tablet by ORAL route as directed - follow package instructions; 1 sb4 packet; Refills: 0, Product Selection Permitted Signatures: Dispatcher [employer] EDMS Grayson Wynn MD MD rn Peltier, Brian, RN RN Brenden Morin RN RN ll1 Pastora Cortez RN RN koNancy Liang PA-C PA-C sb4 Corrections: (The following items were deleted from the chart) 04/29 13:48 13:43 Extremity Venous Uni Ltd+[email or web address] ordered. EDMS EDMS 14:04 13:48 UPPER EXTREMITY VENOUS UNILATE ordered. EDMS EDMS 15:45 14:53 Extremity Venous Uni Ltd+[email or web address] ordered. EDMS EDMS
[2023-04-29 18:50] VITALS: TEMP 97.5
[2023-04-29 19:02] VITALS: BP 116/46; O2SAT 99
[2023-04-29 20:01] LABS: Blood Morphology Comment NOTED (NOT SEEN); Platelet Estimate INCR; Poikilocytosis 2+; White Blood Cell Scan OK (OK)
== END 2023-04-29 18:34 | disposition home or self-care (01) ==
LOC: ER 13:11
DX: J18.8 Other pneumonia, unspecified organism (principal); Z20.822 Contact with and (suspected) exposure to COVID-19; I10 Essential (primary) hypertension
CPT/HCPCS: 85025; 80048; 36415; 83735; 82550; 86308; 85610; 85379; 80076; 85730; 84484; 83690; 83880; 87635; 87804 ×2; 71275; 71046; 93971; Q9967; J3475; J7613; J7644; J2930; J7050; J7030; J0696; 94640; 96374; 96375; 99285

== ENCOUNTER 2023-05-25 08:02 | Emergency (ER) | payer OTHER ==
--- OUTSIDE RECORDS SUMMARY | 2023-05-25 08:07 | XMS REPORT | Continuity of Care Document ---
:1975 Author Organization [facility] t Address [address] [place] [address] [place] [id number] Care Team Providers Name Role Phone WADE SYED Primary Care Physician Unavailable LAUREN ANGELES Attending Clinician Unavailable Neal Kaiser MD Attending Clinician Lauren Angeles MD Attending Clinician NEAL KAISER Attending Clinician Unavailable Jose Marquez Attending Clinician Unavailable Vahe Ward Attending Clinician Unavailable Misael Adam Attending Clinician Unavailable DR JAYLON OSEI Attending Clinician Unavailable DR STEFANO PANCHAL Attending Clinician Unavailable JUANITO GIBSON Attending Clinician Unavailable DR GELY VILLALPANDO Attending Clinician Unavailable DR ANIBAL KESSLER Attending Clinician Unavailable DR JILLIAN JACKSON Attending Clinician Unavailable DR AIDE PAULINO Attending Clinician Unavailable DR SHARLA GARCIA Attending Clinician Unavailable NEAL KAISER Admitting Clinician Unavailable Misael Adam Admitting Clinician Unavailable DR JAYLON OSEI Admitting Clinician Unavailable DR STEFANO PANCHAL Admitting Clinician Unavailable DR JUANITO GIBSON Admitting Clinician Unavailable DR GELY VILLALPANDO Admitting Clinician Unavailable DR ANIBAL KESSLER Admitting Clinician Unavailable DR JILLIAN JACKSON Admitting Clinician Unavailable DR AIDE PAULINO Admitting Clinician Unavailable DR SHARLA GARCIA Admitting Clinician Unavailable Payers Payer Name Policy Type Policy Number Effective Date Expiration Date [facility] [id number] 2022 00:00:00 0111 [id number] 2022 00:00:00 0191 [id number] 2021 00:00:00 1005 [id number] 1959 00:00:00 1000 [id number] 2022 00:00:00 0050 [id number] 2021 00:00:00 Problems Condition Condition Condition Status Onset Resolution Last Treating Co mments Source Name Details Category Date Date Treatment Clinician Date Pericardit Pericardit Disease Active [facility] STEMI (ST STEMI (ST Disease Resolve 2023-05-06 2023-05-[address] [facility] [address] elevation elevation d 05-05 00:00:00 10:30:34 [facility] myocardial myocardial 00:00: Me dical infarction infarction 00 Ce nter ) ) Allergies, Adverse Reactions, Alerts Allergy Allergy Status Severity Reaction(s) Onset Inactive Treating Comm ents Source Name Type Date Date Clinician NO KNOWN Allergy Active [facility] No Known DA Active [facility] Allergie [place] s Social History Social Habit Start Date Stop Date Quantity Comments Source History SDOH [facility] History SDOH 2023-05-06 2023-05-[address] [facility] Med 00:00:00 00:00:[address] Sex Assigned At [address] [facility] 00:00:00 00:[facility]00 [facility] Center Medications Ordered Filled Start Stop Current Ordering Indication Dosage Frequency Signature Comments Components Source Medication Medication Date Date Medication? Clinician (SIG) Name Name aspirin 81 2023- Yes 81mg QD Take [address] [facility] [address] MG EC 05-07 tablet (81 [facility] tablet 00:00: 23:59 mg total) Medic al 00 :00 by mouth Center daily. colchicine 2023- Yes .6mg QD Take [address] (COLCRYS) 05-07 tablet [facility] 0.6 mg 00:00: 23:59 (0.6 mg Medical tablet 00 :00 total) by Center mouth daily. rosuvastati 2023- Yes 10mg QD Take [address] n (CRESTOR) 05-07 tablet (10 L ukes 10 MG 00:00: 23:59 mg total) Medica l tablet 00 :00 by mouth Center daily. aspirin 81 2022- No 81mg QD Take [address] [facility] MG EC 05-07- tablet (81 [facility] tablet 00:00: 00:00 mg total) Medic al 00 :00 by mouth Center daily. colchicine 2022- No .6mg QD Take [address] (COLCRYS) 05-07- tablet [facility] 0.6 mg 00:00: 00:00 (0.6 mg Medical tablet 00 :00 total) by Center mouth daily. rosuvastati 2022- No 10mg QD Take [address] [facility] [address] n (CRESTOR) 05-07- tablet (10 L ukes 10 MG 00:00: 00:00 mg total) Medica l tablet 00 :00 by mouth Center daily. metoprolol 2023- Yes 25mg Q.5D Take [address] tartrate 05-06- tablet (25 [facility] (LOPRESSOR) 00:00: 23:59 mg total) Medical 25 MG 00 :00 by mouth 2 Center tablet (two) times daily. furosemide 2023- Yes 40mg QD Take [address] (LASIX) 40 05-06- tablet (40 Heather kes MG tablet 00:00: 23:59 mg total) Me dical 00 :00 by mouth Center daily. HYDROcodone 2022- No 1{tbl} Take [address] -acetaminop 05-06 08-05 tablet by Heather vargas (NORCO 00:00: 23:59 mouth Medic al 5-325) 00 :00 every 6 Center 5-325 mg (six) per tablet hours as needed for up to 10 days. Max Daily Amount: 4 tablets predniSONE 2022- No 40mg QD Take [address] (DELTASONE) 05-06 07-29 tablets Luke s 10 MG 00:00: 23:59 (40 mg Medical tablet 00 :00 total) by Center mouth daily for 3 days . HYDROcodone 2022- No 1{tbl} Take [address] -acetaminop 05-06- tablet by Heather kes hen (NORCO 00:00: 00:00 mouth Medic al 5-325) 00 :00 every 6 Center 5-325 mg (six) per tablet hours as needed for up to 10 days. Max Daily Amount: 4 tablets metoprolol No 25mg Q.5D Take [address] tartrate 05-06 tablet (25 [facility] (LOPRESSOR) 00:00: 00:00 mg total) Medical 25 MG 00 :00 by mouth 2 Center tablet (two) times daily. furosemide No 40mg QD Take [address] (LASIX) 40 05-06 tablet (40 Heather kes MG tablet 00:00: 00:00 mg total) Me dical 00 :00 by mouth Center daily. Vital Signs Vital Name Observation Time Observation Value Comments Source HEIGHT 2023-05-05 15:00:00 164.5 cm WEIGHT 2023-05-05 15:00:00 84.142 kg HEIGHT 2023-05-05 15:00:00 164.5 cm WEIGHT 2023-05-05 15:00:00 84.142 kg HEIGHT 2023-05-05 15:00:00 164.5 cm WEIGHT 2023-05-05 15:00:00 84.142 kg Height 2022-11-17 10:52:00 162.56 CM Weight 2022-11-17 10:52:00 78.01 KG Height 2022-10-26 08:30:00 162.56 CM Weight 2022-10-26 [...] 162.56 CM Weight 2022-02-26 11:34:00 84.36 KG Heart rate 2023-05-06 16:35:00 95 /min [facility] Systolic blood 2023-05-06 16:00:00 131 mm[Hg] [facility] Diastolic blood 2023-05-06 16:00:00 75 mm[Hg] [facility] Body temperature 2023-05-06 16:00:00 36.39 Cassia [facility] Respiratory rate 2023-05-06 16:00:00 18 /min [facility] Oxygen saturation in 2023-05-06 16:00:00 95 /min [facility] Arterial blood by Medical Ce nter Pulse oximetry Body height 2023-05-05 15:00:00 164.5 cm [facility] Body weight 2023-05-05 15:00:00 84.142 kg [facility] BMI 2023-05-05 15:00:00 31.09 kg/m2 [facility] Procedures Procedure Date / Time Performed Performing Clinician [facility] e 2D ECHO W/ DOPPLER 2023-05-06 14:58:00 [facility] (CW/PW/COLOR) [facility] B-TYPE NATRIURETIC 2023-05-06 05:42:00 Miguel Cedeno [facility] FACTOR (BNP) [facility] HIGH SENSITIVITY 2023-05-06 05:42:00 Miguel Cedeno [facility] TROPONIN I [facility] HEMOGLOBIN A1C 2023-05-06 05:42:00 Neal Kaiser [facility] BASIC METABOLIC PANEL 2023-05-06 05:42:00 [facility] CBC (HEMOGRAM ONLY) 2023-05-06 05:42:00 [facility] LIPID PANEL 2023-05-06 05:42:00 [facility] Lauren [facility] HEPATIC FUNCTION PANEL 2023-05-06 05:42:00 [facility] LIPASE 2023-05-06 05:42:00 KarthikLauren [facility] BLOOD CULTURE 2023-05-05 20:14:00 Karthik Lauren [facility] URINALYSIS W/ REFLEX 2023-05-05 20:14:00 KarthikLaurened [facility] URINE CULTURE [facility] ECG 12-LEAD 2023-05-05 17:20:59 [facility] ECG 12-LEAD 2023-05-05 17:20:59 Unknown, Hl7 Doctor [facility] XR CHEST 1 VIEW PORTABLE 2023-05-05 11:31:00 Miguel Cedeno [facility] / BEDSIDE [facility] CATHETERIZATION, HEART, 2023-05-05 10:34:00 Neal Kaiser [facility] LEFT, WITH PERCUTANEOUS [facility] CORONARY INTERVENTION BASIC METABOLIC PANEL 2023-05-05 09:53:00 Miguel Cedeno [facility] MAGNESIUM 2023-05-05 09:53:00 Miguel Cedeno [facility] PHOSPHORUS 2023-05-05 09:53:00 Miguel Cedeno [facility] HIGH SENSITIVITY 2023-05-05 09:53:00 Miguel Cedeno [facility] TROPONIN I [facility] B-TYPE NATRIURETIC 2023-05-05 09:53:00 Miguel Cedeno [facility] FACTOR (BNP) [facility] CBC W/PLT COUNT & AUTO 2023-05-05 09:53:00 Miguel Cedeno [facility] DIFFERENTIAL [facility] CBC W/PLT COUNT & AUTO 2023-05-05 09:53:00 Miguel Cedeno [facility] DIFFERENTIAL [facility] ECG 12-LEAD 2023-05-05 09:28:58 Neal Kaiser [facility] ECG 12-LEAD 2023-05-05 09:23:38 Miguel Cedeno [facility] CARDIAC CATH REPORT - 2023-05-05 00:00:[address] [facility] EKG-SCANNED 2023-05-05 00:00:00 Provider, Default [facility] Plan of Care Planned Activity Planned Date Details Comments Source Future Scheduled 2026-05-06 Lipid panel (procedure) [facility] Test 00:00:00 [code = 23105874] Medical Ce nter Future Scheduled 2023-06-12 Influenza Vaccine (#1) [facility] 00:00[facility]00 [code = Influenza Vaccine [facility]ok Center (#1)] Future Scheduled 2023 SHINGLES VACCINES ([address] [facility] Test 00:00:00 2) [code = SHINGLES Medical Center VACCINES (1 of 2)] Future Scheduled 2022-10-[address] [facility] Test 00:00:00 (12+) [code = DEPRESSION [facility] SCREENING (12+)] Future Scheduled 1992 DTAP/TDAP/TD VACCINES ([address] [facility] Test 00:00:00 - Tdap) [code = Medical Cent er DTAP/TDAP/TD VACCINES (1 - Tdap)] Future Scheduled 1991 HEPATITIS C [facility]CRE[facility]ING [facility] Test 00:00:00 [code = HEPATITIS C Medical Center SCREENING] Future Scheduled [address] [facility] Test 00:00:00 virus screening Medical Cent er (procedure) [code = 847121619] Future Scheduled [address] [facility] Test 00:00:00 Counseling and Screening [facility] (12+) [code = Tobacco Cessation Counseling and Screening (12+)] Future Scheduled 1975 COVID-19 VACCINE (#1) [facility] 00:00:00 [code = COVID-19 VACCINE [facility] (#1)] Future Scheduled 1973 CT Colonography (combo) [facility] Test 00:00:00 [code = CT Colonography [facility] (combo)] Future Scheduled 1975 Screening for malignant [facility] Test 00:00:00 neoplasm of colon Medical Ce nter (procedure) [code = 203487936] Future Scheduled 1975 Screening for malignant [facility] Test 00:00:00 neoplasm of colon Medical Ce nter (procedure) [code = 419181605] Future Scheduled 1975 Screening for malignant [facility] Test 00:00:00 neoplasm of colon Medical Ce nter (procedure) [code = 333849805] Future Scheduled 1973 Screening for malignant [facility] Test 00:00:00 neoplasm of colon Medical Ce nter (procedure) [code = 884759671] Future Scheduled 1975 Sigmoidoscopy [code = [facility] Test 00:00:00 Sigmoidoscopy] Medical Cente r Encounters Start End Encounter Admission Attending Care Care Encounter Source Date/Time Date/Time Type Type Clinicians Facility Department ID 2023-05-06 Inpatient ER KARTHIK [facility] [id number] SLE 12:33:08 [facility] 2023-05-05 Outpatient [facility] [id number] 14:28:05 [id number] [facility] 2023-05-[address] [facility] [id number] SLE 10:47:09 2023-05-[address] [facility] [id number] SLE 09:27:55 2023-05-05 2023-05-06 [facility] [id number] 08:53:00 17:36:00 LAUREN [facility] 2023-05-05 2023-05-06 [facility] [id number] [facility] 08:53:00 17:36:00 Encounter [facility] 2023-05-05 2023-05-05 [facility] [id number] 11:05:00 13:31:00 [facility] 2023-05-05 2023-05-05 Orders [facility] [id number] 00:00:00 00:00:00 [facility] 2022-12-12 2022-12-12 Emergency ER Alma [facility] [id number] [place] 10:46:00 13:08:00 Jose [id number] [facility] 2022-12-11 2022-12-11 Emergency ER Ed [facility] [id number] [place] 06:51:00 10:31:00 Adianes -[id number] [facility] 2022-12-04 2022-12-05 Inpatient ER Jair, [facility] [id number] [place] 15:02:00 14:27:00 Misael -[id number] [facility] 2022-12-03 2022-12-03 Inpatient ER Jair, [facility] [id number] [place] 09:41:00 07:21:00 Misael -[id number] [facility] 2022-12-02 2022-12-02 Emergency ER Ed, [facility] [id number] [place] 10:15:00 16:30:00 [facility] -[id number] [facility] 2022-11-17 2022-11-17 Emergency E OSEI, [facility] [id number] [facility] 10:31:00 11:05:[address] [facility] 2022-10-26 2022-10-26 Emergency E OLADE, [facility] [id number] [facility] 08:20:00 10:20:[address] [facility] 2022-09-15 2022-09-15 Emergency E PESCO, [facility] [id number] [facility] 09:09:00 12:08:00 JUANITO Medic [facility] 2022-09-14 2022-09-14 Emergency E PESCO, [facility] [id number] [facility] 08:52:00 12:23:00 JUANITO Medic al [place] 2022-09-13 2022-09-13 Emergency E PESCO, [facility] [id number] [facility] 09:03:00 11:18:00 JUANITO Medic al [place] 2022-08-26 2022-08-26 Emergency E PUMAREJO, [facility] [id number] [facility] 10:57:00 15:13:[address] [facility] 2022-08-25 2022-08-25 Emergency E CHECO, IMRAN [facility] [id number] [facility] 09:48:00 11:36:00 Medica l [place] 2022-08-22 2022-08-22 Emergency E MANUEL, [facility] [id number] [facility] 09:39:00 13:31:00 JILLIAN [facility] 2022-07-26 2022-07-26 Emergency E JEFFERSON, [facility] [id number] [facility] 11:44:00 13:18:00 AIDE [facility] 2022-02-26 2022-02-26 Emergency E RADHA, [facility] [id number] [facility] 11:00:00 12:27:00 [facility] Results Test Description Test Time Test Comments Results Result Comments Source BLOOD CULTURE 2023-05-10 21:00:24 Test Item Value Reference Range Interpretation Comme nts CULTURE (BEAKER) (test code = 1095) No growth in 5 days BLOOD [id number] 21:00:24 Test Item Value Reference Range Interpretation Comments CULTURE (BEAKER) (test No growth in 5 days code = 1095) The specimen volume collected for this blood culture was below the optimum (10 mL per bottle or 20 mL total). Use of lower volumes may adversely affect recovery and/or detection times of some organisms.HEMOGLOBIN [id number] 11:41:48 Test Item Value Reference Range Interpretation Comments HEMOGLOBIN A1C 6.1 % See_Comment H [Automated m essage] ELECTROPHORESIS (BEAKER) The system which (test code = 3811) generated this result transmitted ref erence range: <=5.6%. The reference range was not used to int erpret this result as normal/abnormal . "The A1c is measured using a NGSP-certified method. HbA1c value equal to or greater than 6.5% as thediagnosis cutoff for diabetes. An HbA1c value of 5.7- 6.4% indicates increased risk for diabetes (prediabetes)."Customer Sales Distributor ID - ADM HEPATIC FUNCTION [id number] 11:38:34 Test Item Value Reference Range Interpretation Comments TOTAL PROTEIN (BEAKER) (test code = 6.2 gm/dL 6.0-8.3 770) ALBUMIN (BEAKER) (test code = 1145) 3.4 g/dL 3.5-5.0 L BILIRUBIN TOTAL (BEAKER) (test code 0.4 mg/dL 0.2-1.2 = 377) BILIRUBIN DIRECT (BEAKER) (test 0.2 mg/dL 0.1-0.5 code = 706) ALKALINE PHOSPHATASE (BEAKER) (test 42 U/L 40-150 code = 346) AST (SGOT) (BEAKER) (test code = 26 U/L 5-34 353) ALT (SGPT) (BEAKER) (test code = 45 U/L 6-55 347) Customer Sales Distributor ID - MMOperator ID - [id number] 11:09:16 Test Item Value Reference Range Interpretation Comments LIPASE (BEAKER) (test code = 749) 93 U/L 8-78 H Customer Sales Distributor ID - MMB-TYPE NATRIURETIC FACTOR (BNP)2023-05-06 07:10:09 Test Item Value Reference Range Interpretation Comments B-TYPE NATRIURETIC PEPTIDE (BEAKER) < pg/mL 0-100 (test code = 700) Customer Sales Distributor ID - MMHIGH SENSITIVITY TROPONIN [id number] 07:09:22 Test Item Value Reference Range Interpretation Comments HIGH SENSITIVITY TROPONIN I (test 10 pg/ml <=35 code = 9218386) Customer Sales Distributor ID - MMThe UNDERWRITING [employer] STAT High Sensitivity Troponin-I results should be used in conjunctionwith other diagnostic information such as ECG, clinical observations and information, and patient symptoms to aid in the diagnosis of [place].BASIC METABOLIC [id number] 07:01:55 Test Item Value Reference Range Interpretation Comments SODIUM (BEAKER) 141 meq/L 136-145 (test code = 381) POTASSIUM 3.9 meq/L 3.5-5.1 (BEAKER) (test code = 379) CHLORIDE (BEAKER) 102 meq/L 98-107 (test code = 382) CO2 (BEAKER) 33 meq/L 22-29 H (test code = 355) BLOOD UREA 11 mg/dL 7-21 NITROGEN (BEAKER) (test code = 354) CREATININE 1.03 mg/dL 0.57-1.25 (BEAKER) (test code = 358) GLUCOSE RANDOM 150 mg/dL 70-105 H (BEAKER) (test code = 652) CALCIUM (BEAKER) 9.1 mg/dL 8.4-10.2 (test code = 697) EGFR (BEAKER) 90 Interpretatio n of eGFR (test code = mL/min/1.73 values Stage De scription 1092) sq m Result G1 Joyce l or high >=90 G2 Mildly decreased 60-89 G3a Mildl y to moderately 45-5 9 G3b Moderately to s everely 30-44 G4 Severl y decreased 15-29 G5 Kidney failure <15Reported eGF R is based on the CKD-EPI 2020 equation that d oes not use a race coefficientEsti mated GFR is not as accur ate as Creatinine Caroline han in predicting glom erular filtration rate . Estimated GFR is not appl icable for dialysis patien ts Customer Sales Distributor ID - MMLIPID [id number] 07:01:55 Test Item Value Reference Range Interpretation Comments TRIGLYCERIDES (BEAKER) (test code = 72 mg/dL 540) CHOLESTEROL (BEAKER) (test code = 94 mg/dL 631) HDL CHOLESTEROL (BEAKER) (test code 20 mg/dL = 976) LDL CHOLESTEROL CALCULATED (BEAKER) 60 mg/dL (test code = 633) Triglyceride Reference Range: Low Risk <150 Borderline 150-199 High Risk 200- 499 Very High Risk >=500Cholesterol Reference Range: Low Risk <200 Borderline 200-239 High Risk >240HDL Cholesterol Reference Range: Low Risk >=60 High Risk <40LDL Cholesterol Reference Range: Optimal <100 Near Optimal 100-129 Borderline 130-159 High 160-189 Very High >=190 Customer Sales Distributor ID - MMCBC (HEMOGRAM ONLY)2023-05-06 06:56:02 Test Item Value Reference Range Interpretation Comments WHITE BLOOD CELL COUNT (BEAKER) 14.1 K/ L 3.5-10.5 H (test code = 775) RED BLOOD CELL COUNT (BEAKER) 5.02 M/ L 4.63-6.08 (test code = 761) HEMOGLOBIN (BEAKER) (test code = 9.6 GM/DL 13.7-17.5 L 410) HEMATOCRIT (BEAKER) (test code = 34.2 % 40.1-51.0 L 411) MEAN CORPUSCULAR VOLUME (BEAKER) 68 fL 79-92 L (test code = 753) MEAN CORPUSCULAR HEMOGLOBIN 19.1 pg 25.7-32.2 L (BEAKER) (test code = 751) MEAN CORPUSCULAR HEMOGLOBIN CONC 28.1 GM/DL 32.3-36.5 L (BEAKER) (test code = 752) RED CELL DISTRIBUTION WIDTH 18.3 % 11.6-14.4 H (BEAKER) (test code = 412) PLATELET COUNT (BEAKER) (test 517 K/CU MM 150-450 H code = 756) MEAN PLATELET VOLUME (BEAKER) 9.0 fL 9.4-12.4 L (test code = 754) NUCLEATED RED BLOOD CELLS 0 /100 WBC 0-0 (BEAKER) (test code = 413) Urinalysis w/Microscopic + Reflex to [id number] 21:11:57 Test Item Value Reference Range Interpretation Comments Color, UA (test Light Yellow code = 5778-6) Clarity, UA (test Clear code = 5767-9) Specific [place], 1.012 1.001-1.035 UA (test code = 5811-5) pH, UA (test code 7.0 5.0-8.0 = 5803-2) Protein, UA (test Negative Negative code = 67138-4) Glucose, UA (test Negative Negative code = 365) Ketones, UA (test Negative Negative code = 2514-8) Bilirubin, UA Negative Negative (test code = 18369-3) Blood, UA (test Negative Negative code = 55787-7) Nitrite, UA (test Negative Negative code = 5802-4) Leukocytes, UA Negative Negative (test code = 5799-2) Urobilinogen, UA 0.2 0.2-1.0 (test code = 38926-2) RBC, UA (test See_Comment [Automated me ssage] code = 49654-3) The system [facility] generated this result transmit betty reference range : /HPF. The refer ence range was not u sed to interpret th is result as normal/abnormal . WBC, UA (test 1 See_Comment [Automated me ssage] code = 5821-4) The system [facility] generated this result transmit betty reference range : /HPF. The refer ence range was not u sed to interpret th is result as normal/abnormal . Specimen Source (test code = 2795) DAVID (test code = Customer Sales Distributor ID - DAVID) [auto]Customer Sales Distributor ID - tech [facility] REFLEX URINE [id number] 21:11:57 Test Item Value Reference Range Interpretation Comments COLOR (BEAKER) (test code = 470) Light Yellow CLARITY (BEAKER) (test code = Clear 469) SPECIFIC GRAVITY UA (BEAKER) 1.012 1.001-1.035 (test code = 468) PH UA (BEAKER) (test code = 467) 7.0 5.0-8.0 PROTEIN UA (BEAKER) (test code = Negative Negative 464) GLUCOSE UA (BEAKER) (test code = Negative Negative 365) KETONES UA (BEAKER) (test code = Negative Negative 371) BILIRUBIN UA (BEAKER) (test code Negative Negative = 462) BLOOD UA (BEAKER) (test code = Negative Negative 461) NITRITE UA (BEAKER) (test code = Negative Negative 465) LEUKOCYTE ESTERASE UA (BEAKER) Negative Negative (test code = 466) UROBILINOGEN UA (BEAKER) (test 0.2 0.2-1.0 code = 463) RBC UA (BEAKER) (test code = < /HPF 519) WBC UA (BEAKER) (test code = 1 /HPF 520) SOURCE(BEAKER) (test code = 2795) Customer Sales Distributor ID - [auto]Customer Sales Distributor ID - techXR CHEST 1 VIEW PORTABLE / BEDSIDE 2023-05-05 11:36:03 [facility] : 1975 Sex: MEXAMINATION:XR CHEST 1 VIEW PORTABLE / BEDSIDE INDICATION: STEMI, edema?COMPARISON: None FINDINGS:LINES/TUBES: None LUNGS: The lungs are well inflated. Right hemidiaphragmatic elevation.Perihilar fullness and pulmonary vascular indistinctness. No focalairspace consolidation.PLEURA: No pleural effusion or pneumothorax.MEDIASTINUM: The cardiomediastinal silhouette appears normal in size andshape. Atherosclerotic calcifications of the thoracic aorta.BONES/SOFT TISSUES: No acute osseous injury.ABDOMEN: No free air under the diaphragm.IMPRESSION:Central pulmonary vascular congestion. No focal pneumonia or airspaceedema.Right hemidiaphragmatic elevation.Electronically Signed By: Fransisca Helms05/05/2023 11:38 CDTWorkstation Name: [id number] NATRIURETIC FACTOR (BNP)2023-05-05 10:43:34 Test Item Value Reference Range Interpretation Comments B-TYPE NATRIURETIC PEPTIDE (BEAKER) < pg/mL 0-100 (test code = 700) Customer Sales Distributor ID - BVHIGH SENSITIVITY TROPONIN [id number] 10:42:25 Test Item Value Reference Range Interpretation Comments HIGH SENSITIVITY TROPONIN I (test 8 pg/ml <=35 code = 4436813) Customer Sales Distributor ID - BVThe UNDERWRITING [employer] [facility] High Sensitivity Troponin-I results should be used in conjunctionwith other diagnostic information such as ECG, clinical observations and information, and patient symptoms to aid in the diagnosis of KS.[id number] 10:35:41 Test Item Value Reference Range Interpretation Comments MAGNESIUM (BEAKER) (test code = 2.1 mg/dL 1.6-2.6 627) Customer Sales Distributor ID - [id number] 10:35:41 Test Item Value Reference Range Interpretation Comments PHOSPHORUS (BEAKER) (test code = 2.7 mg/dL 2.3-4.7 604) Customer Sales Distributor ID - BVBASIC METABOLIC [id number] 10:35:40 Test Item Value Reference Range Interpretation Comments SODIUM (BEAKER) 136 meq/L 136-145 (test code = 381) POTASSIUM 4.5 meq/L 3.5-5.1 (BEAKER) (test code = 379) CHLORIDE (BEAKER) 102 meq/L 98-107 (test code = 382) CO2 (BEAKER) 29 meq/L 22-29 (test code = 355) BLOOD UREA 12 mg/dL 7-21 NITROGEN (BEAKER) (test code = 354) CREATININE 0.94 mg/dL 0.57-1.25 (BEAKER) (test code = 358) GLUCOSE RANDOM 171 mg/dL 70-105 H (BEAKER) (test code = 652) CALCIUM (BEAKER) 9.0 mg/dL 8.4-10.2 (test code = 697) EGFR (BEAKER) 100 Interpretatio n of eGFR (test code = mL/min/1.73 values Stage De scription 1092) sq m Result G1 Joyce l or high >=90 G2 Mildly decreased 60-89 G3a Mildl y to moderately 45-5 9 G3b Moderately to s everely 30-44 G4 Severl y decreased 15-29 G5 Kidney failure <15Reported eGF R is based on the CKD-EPI 2020 equation that d oes not use a race coefficientEsti mated GFR is not as accur ate as Creatinine Caroline guille in predicting glom erular filtration rate . Estimated GFR is not appl icable for dialysis patien ts Customer Sales Distributor ID - BVCBC W/PLT COUNT & AUTO [id number] 10:24:49 Test Item Value Reference Range Interpretation Comments WHITE BLOOD CELL COUNT (BEAKER) 20.9 K/ L 3.5-10.5 H (test code = 775) RED BLOOD CELL COUNT (BEAKER) 4.84 M/ L 4.63-6.08 (test code = 761) HEMOGLOBIN (BEAKER) (test code = 9.1 GM/DL 13.7-17.5 L 410) HEMATOCRIT (BEAKER) (test code = 33.0 % 40.1-51.0 L 411) MEAN CORPUSCULAR VOLUME (BEAKER) 68 fL 79-92 L (test code = 753) MEAN CORPUSCULAR HEMOGLOBIN 18.8 pg 25.7-32.2 L (BEAKER) (test code = 751) MEAN CORPUSCULAR HEMOGLOBIN CONC 27.6 GM/DL 32.3-36.5 L (BEAKER) (test code = 752) RED CELL DISTRIBUTION WIDTH 17.7 % 11.6-14.4 H (BEAKER) (test code = 412) PLATELET COUNT (BEAKER) (test 501 K/CU MM 150-450 H code = 756) MEAN PLATELET VOLUME (BEAKER) 9.3 fL 9.4-12.4 L (test code = 754) NUCLEATED RED BLOOD CELLS 1 /100 WBC 0-0 H (BEAKER) (test code = 413) NEUTROPHILS RELATIVE PERCENT 82 % (BEAKER) (test code = 429) LYMPHOCYTES RELATIVE PERCENT 10 % (BEAKER) (test code = 430) MONOCYTES RELATIVE PERCENT 7 % (BEAKER) (test code = 431) EOSINOPHILS RELATIVE PERCENT 0 % (BEAKER) (test code = 432) BASOPHILS RELATIVE PERCENT 0 % (BEAKER) (test code = 437) NEUTROPHILS ABSOLUTE COUNT 17.00 K/ L 1.78-5.38 H (BEAKER) (test code = 670) LYMPHOCYTES ABSOLUTE COUNT 1.99 K/ L 1.32-3.57 (BEAKER) (test code = 414) MONOCYTES ABSOLUTE COUNT (BEAKER) 1.50 K/ L 0.30-0.82 H (test code = 415) EOSINOPHILS ABSOLUTE COUNT 0.06 K/ L 0.04-0.54 (BEAKER) (test code = 416) BASOPHILS ABSOLUTE COUNT (BEAKER) 0.05 K/ L 0.01-0.08 (test code = 417) IMMATURE GRANULOCYTES-RELATIVE 1.30 % 0.00-1.00 H PERCENT (BEAKER) (test code = 2801) U/S ABDOMEN RUQ*WW*2022-09-14 11:05:47 [facility] : 1975 Sex: MEXAMINATION:US abdomen Doppler, limitedCLINICAL INDICATION:Pain. Evaluate for portal vein thrombosis.TECHNIQUE: Limited grayscale, color Doppler, and spectral waveform analysis of the liver performed to assess portal veinpatency.COMPARISON: CT of the abdomen and pelvis 08/26/2022FINDINGS:Visualized portions of liver pare nchyma appear slightly increased in echogenicity suggesting at least mild hepatic steatosis. No definite focal hepatic lesions are seen on the submitted images. No significant hepatic surface contour nodularity. The main portal vein is patent with normal direction of flow. Visualized Hepatic veins arealso patent.No obvious intra-abdominal ascites demonstrated.IMPRESSION:1. No sonographic abnormalityof the visualized hepatic vasculature. Patent main portal vein. No evidence of portal vein thrombus.Electronically signed by: Antonella Pham MD 09/14/2022 11:05 AM [facility] [id number] AND [id number] 10:11:00 Test Item Value Reference Range Interpretation Comments AMYLASE (test code = 10A) 102 U/L [...] ANG) BUN (test code = 18 mg/dL 9- 05D) CREATININE (test 1.2 mg/dL 0.7-1.3 code = 03E) GFR (test code = 70 See_Comment L [Automated GFR) mL/min/1.73m\\S\\2 message] Th e system which generated this result transmit betty reference range : >=90. The reference range was not used to interpret this result as normal/abnormal . GFR 82 See_Comment L [Automated BURUNDIAN (test mL/min/1.73m\\S\\2 message] The code = GFRAA) system which generated this result transmit betty reference range : >=90. The reference range was not used to interpret this result as normal/abnormal . EGFR (test code = eGFR BY EGFR) CKD-EPI CALCULATION IS NOT RECOMMENDED FOR PATIENTS UNDER 18 YEARS OF AGE. BUN/CREA (test 09-30 code = BCR) CALCIUM (test code 9.5 [...] ANG) BUN (test code = 16 mg/dL 9- 05D) CREATININE (test 1.3 mg/dL 0.7-1.3 code = 03E) GFR (test code = 64 See_Comment L [Automated GFR) mL/min/1.73m\\S\\2 message] Th e system which generated this result transmit betty reference range : >=90. The reference range was not used to interpret this result as normal/abnormal . GFR 74 See_Comment L [Automated BURUNDIAN (test mL/min/1.73m\\S\\2 message] The code = GFRAA) system which generated this result transmit betty reference range : >=90. The reference range was not used to interpret this result as normal/abnormal . EGFR (test code = eGFR BY EGFR) CKD-EPI CALCULATION IS NOT RECOMMENDED FOR PATIENTS UNDER 18 YEARS OF AGE. BUN/CREA (test 09-30 code = BCR) CALCIUM (test code 9.8 [...] IU/L 10-49 H 31A) CBC (INCLUDES AUTOMATED DIFFERENTIAL)*[id number] 09:55:00 Test Item Value Reference Range Interpretation Comments WBC (test code = WBC) 10.2 10\\S\\3/uL 4.5-11.0 RBC (test code = RBC) 4.68 10\\S\\6/uL 4.20-5.60 HGB (test code = HBG) 11.3 g/dL 14.0-18.0 L HCT (test code = HCT) 38.1 % 35.0-46.0 MCV (test code = MCV) 81.4 fL 80.0-94.0 MCH (test code = MCH) 24.1 pg 27.0-31.0 L MCHC (test code = MCHC) 29.7 g/dL 32.0-36.0 L RDW (test code = RDW) 15.4 % 11.5-14.5 H PLT (test code = PLT) 599 10\\S\\3/uL 130-400 H MPV (test code = MPV) 8.9 fL 9.4-12.4 L NEUTROP # (test code = NE#) 9.2 10\\S\\3/uL 2.0-8.0 H LYMPH # (test code = LY#) 0.8 10\\S\\3/uL 1.2-4.0 L MONOCYTE # (test code = MO#) 0.1 10\\S\\3/uL 0.0-1.1 EOSINOPH # (test code = EO#) 0.0 10\\S\\3/uL 0.0-0.7 BASOPHIL # (test code = BA#) 0.0 10\\S\\3/uL 0.0-0.3 IG # (test code = IG#) 0.03 10\\S\\3/uL 0.00-0.06 NRBC # (test code = NRBC#) 0.00 10\\S\\3/uL 0.00-0.01 NEUTROPH % (test code = NE%) [...] MORPH (test code = NORMAL WRBCMOR) BLOOD [id number] 13:40:00 Test Item Value Reference Range Interpretation Comments Culture Observations (test NO GROWTH AFTER 5 code = COB1) DAYS BLOOD [id number] 13:40:00 Test Item Value Reference Range Interpretation Comments Culture Observations (test NO GROWTH AFTER 5 code = COB1) DAYS URINE [id number] 10:08:00 Test Item Value Reference Range Interpretation Comments Culture Observations (test NO GROWTH (<1,000 code = COB1) CFU/ML) CT ABDOMEN AND PELVIS WITH CONTRAST*WW*2022-08-26 13:53:02 [facility] : 1975 Sex: MExam: CT [...] signed by: Evelina REINOSO 08/26/2022 1:53 PM [facility] [id number] *WW*2022-08-26 12:48:00 Test Item Value Reference Range [...] code = 70 See_Comment L [Automated GFR) mL/min/1.73m\\S\\2 message] Th e system which generated this result transmit betty reference range : >=90. The reference range was not used to interpret this result as normal/abnormal . GFR 82 See_Comment L [Automated BURUNDIAN (test mL/min/1.73m\\S\\2 message] The code = GFRAA) system which [...] LA) 1.3 mmol/L 0.4-2.0 CBC (INCLUDES AUTOMATED DIFFERENTIAL)*[id number] 12:04:00 Test Item Value Reference Range Interpretation Comments WBC (test code = WBC) 16.4 10\\S\\3/uL 4.5-11.0 H RBC (test code = RBC) 3.84 10\\S\\6/uL 4.20-5.60 L HGB (test code = HBG) 9.6 g/dL 14.0-18.0 L HCT (test code = HCT) 32.3 % 35.0-46.0 L MCV (test code = MCV) 84.1 fL 80.0-94.0 MCH (test code = MCH) 25.0 pg 27.0-31.0 L MCHC (test code = MCHC) 29.7 g/dL 32.0-36.0 L RDW (test code = RDW) 15.7 % 11.5-14.5 H PLT (test code = PLT) 359 10\\S\\3/uL 130-400 MPV (test code = MPV) 10.7 fL 9.4-12.4 NEUTROP # (test code = NE#) 14.8 10\\S\\3/uL 2.0-8.0 H LYMPH # (test code = LY#) 0.6 10\\S\\3/uL 1.2-4.0 L MONOCYTE # (test code = MO#) 0.8 10\\S\\3/uL 0.0-1.1 EOSINOPH # (test code = EO#) 0.0 10\\S\\3/uL 0.0-0.7 BASOPHIL # (test code = BA#) 0.0 10\\S\\3/uL 0.0-0.3 IG # (test code = IG#) 0.07 10\\S\\3/uL 0.00-0.06 H NRBC # (test code = NRBC#) 0.00 10\\S\\3/uL 0.00-0.01 NEUTROPH % (test code = NE%) [...] XR ELBOW RT COMPLETE 3 VIEWS*WW*2022-02-26 12:03:26 [facility] : 1975 Sex: MEXAMINATION:XR [...]
[2023-05-25] MEDS ORDERED: PANTOPRAZOLE INJ 80 MG in NA CHLORIDE 0.9% 250 ML IV ONE (09:00)
[2023-05-25] MEDS ORDERED: PANTOPRAZOLE 40 MG INJ ONE (09:01)
[2023-05-25] MEDS ORDERED: DIAZEPAM 5 MG TABLET ONE (09:37)
[2023-05-25 10:13] LABS: Absolute Lymphocytes (CBC) 0.7 K/uL (0.7-4.9); Hematocrit 34.3 % (39.6-49.0); Lymphocytes % 8.1 % (15.3-44.8); MCV 63.6 fL (80-100); MPV 7.3 fL (7.6-11.3); Platelets 452 thou/uL (152-406)
[2023-05-25 10:17] LABS: Protime INR 1.18
--- NOTE | 2023-05-25 10:33 | RAD REPORT ---
EXAM DESCRIPTION: RADChest Single View05/25/2023 10:10 am CLINICAL HISTORY: CHEST PAIN COMPARISON: Chest Single View dated 05/05/2023; Chest Pa And Lat (2 Views) dated 04/29/2023; Chest Sin gle View dated 04/30/2022 TECHNIQUE: Portable AP view of the chest. FINDINGS: Elevation of the right hemidiaphragm again noted. The lungs show progressive mild right ba silar streaky opacity, could reflect atelectasis or early airspace disease. No pneumothorax or effusi on. The cardiomediastinal contours are unremarkable. IMPRESSION: Developing mild right basilar streaky opacification, could reflect atelectasis or early airspace disease.
[2023-05-25 10:40] LABS: Albumin 3.4 g/dL (3.4-5.0); Bilirubin Direct 0.2 mg/dL (0-0.2); Bilirubin Indirect, Calculated 0.5 mg/dL (0.2-0.8); Bilirubin Total 0.7 mg/dL (0.2-1.0); Magnesium 2.2 mg/dL (1.6-2.4); Potassium 4.5 mEq/L (3.5-5.1); Protein, Total 7.1 g/dL (6.4-8.2); Thyroid Stimulating Hormone 0.453 uIU/mL (0.358-3.740); Troponin High Sensitivity 11.8 pg/mL (<58.9)
[2023-05-25 10:51] LABS: Blood Morphology Comment NOTED (NOT SEEN); Hypochromasia 2+; Platelet Estimate INCR; Polychromasia 1+; Rouleau NOTED; White Blood Cell Scan OK (OK)
--- NOTE | 2023-05-25 10:58 | EDPHYS ---
Physician Documentation [facility] Name: Delonte Gonzales Age: 48 yrs Sex: Male : 1975 Arrival Date: 05/25/2023 Time: 08:02 Bed 7 Private MD: ED Physician Saul Sommer HPI: 05/25 09:00 This 48 yrs old Male presents to ER via Wheelchair with complaints of Chest Pain, snw Breathing Difficulty. 09:00 The patient or guardian reports chest pain that is located primarily in the substernal snw area, epigastric area. Onset: suddenly, and became worse and became persistent. Associated signs and symptoms: Pertinent positives: shortness of breath. The chest pain is described as burning, sharp. Duration: The patient or guardian reports a single episode. Severity of pain: At its worst the pain was moderate. The patient has experienced a previous episode, approximately 1 months ago, flown to [facility] for CP, SOB, dx Pericarditis. It is unknown whether or not the patient has recently seen a physician. Historical: - Allergies: 08:37 No Known Allergies; ph - PMHx: 08:37 Crabtree's Esophagus; bicep tear; Hypertensive disorder; Pancreatitis; PTSD; Myocarditis;ph - PSHx: 08:37 Cholecystectomy; ph - Immunization history:: Adult Immunizations unknown. - Social history:: Smoking status: Patient denies any tobacco usage or history of. ROS: 09:01 Constitutional: Negative for fever, chills, and weight loss, Eyes: Negative for injury, snw pain, redness, and discharge, ENT: Negative for injury, pain, and discharge, Neck: Negative for injury, pain, and swelling. 09:01 Abdomen/GI: Negative for abdominal pain, nausea, vomiting, diarrhea, and constipation, Back: Negative for injury and pain, : Negative for injury, bleeding, discharge, and swelling, MS/Extremity: Negative for injury and deformity, Skin: Negative for injury, rash, and discoloration, Neuro: Negative for headache, weakness, numbness, tingling, and seizure, Psych: Negative for depression, anxiety, suicide ideation, homicidal ideation, and hallucinations. 09:01 Cardiovascular: Positive for chest pain. 09:01 Respiratory: Positive for shortness of breath. Exam: 08:36 Constitutional: This is a well developed, well nourished patient who is awake, alert, snw and in no acute distress. Head/Face: Normocephalic, atraumatic. 08:36 Eyes: Periorbital structures: appear normal, Pupils: no acute changes, Conjunctiva: pale, bilaterally. 08:50 ENT: Nares patent. No nasal discharge, no septal abnormalities noted. Tympanic snw membranes are normal and external auditory canals are clear. Oropharynx with no redness, swelling, or masses, exudates, or evidence of obstruction, uvula midline. Mucous membranes moist. Neck: Trachea midline, no thyromegaly or masses palpated, and no cervical lymphadenopathy. Supple, full range of motion without nuchal rigidity, or vertebral point tenderness. No Meningismus. Chest/axilla: Normal chest wall appearance and motion. Nontender with no deformity. No lesions are appreciated. Cardiovascular: Regular rate and rhythm with a normal S1 and S2. No gallops, murmurs, or rubs. Normal PMI, no JVD. No pulse deficits. Respiratory: Lungs have equal breath sounds bilaterally, clear to auscultation and percussion. No rales, rhonchi or wheezes noted. No increased work of breathing, no retractions or nasal flaring. Abdomen/GI: Soft, non-tender, with normal bowel sounds. No distension or tympany. No guarding or rebound. No evidence of tenderness throughout. Back: No spinal tenderness. No costovertebral tenderness. Full range of motion. MS/ Extremity: Pulses equal, no cyanosis. Neurovascular intact. Full, normal range of motion. Neuro: Awake and alert, GCS 15, oriented to person, place, time, and situation. Cranial nerves II-XII grossly intact. Motor strength 5/5 in all extremities. Sensory grossly intact. Cerebellar exam normal. Normal gait. 08:50 Skin: Appearance: normal except for affected area, Color: pale. 08:50 Psych: Behavior/mood is pleasant, anxious. Vital Signs: 08:35 BP 136 / 90; Pulse 96; Resp 18; Temp 98; Pulse Ox 100% on R/A; Weight 78.47 kg; Height ph 5 ft. 4 in. ; Pain 10/10; 08:50 BP 133 / 83; Pulse 92; Resp 18; Pulse Ox 99% on R/A; ld1 09:20 BP 133 / 84; Pulse 69; Resp 20 S; Pulse Ox 97% on R/A; aa5 10:31 BP 156 / 104; Pulse 75; Resp 18; Pulse Ox 97% on R/A; ld1 11:18 BP 149 / 92; Pulse 71; Resp 18; Pulse Ox 100% on R/A; ld1 08:35 Body Mass Index 29.70 (78.47 kg, 162.56 cm) ph 08:35 Pain Scale: Adult ph MDM: 08:37 Patient medically screened. snw 10:59 Differential diagnosis: abnormal EKG, acute pericarditis, anxiety, coronary artery snw disease chest wall pain, esophagitis, gastritis, gastroesophageal reflux disease (GERD), stable angina, unstable angina. The patient was not given aspirin in the Emergency Department. Patient reports taking aspirin within the past 24 hours. Data reviewed: vital signs, nurses notes, lab test result(s), EKG, radiologic studies. I considered the following discharge prescriptions or medication management in the emergency department Medications were administered in the Emergency Department. See MAR. Counseling: I had a detailed discussion with the patient and/or guardian regarding: the historical points, exam findings, and any diagnostic results supporting the discharge/admit diagnosis, the presence of at least one elevated blood pressure reading (>120/80) during this emergency department visit, lab results, radiology results, the need for outpatient follow up, to return to the emergency department if symptoms worsen or persist or if there are any questions or concerns that arise at home. Response to treatment: the patient's symptoms have mildly improved after treatment. Special discussion: Based on the patient's history, exam, and Dx evaluation, there is no indication for emergent intervention or inpatient Tx. It is understood by the patient/guardian that if the Sx's persist or worsen they need to return immediately for re-evaluation. 05/25 08:36 Order name: Basic Metabolic Panel; Complete Time: 10:45 snw 05/25 08:36 Order name: CBC with Diff; Complete Time: 10:54 snw 05/25 08:36 Order name: LFT's; Complete Time: 10:45 snw 05/25 08:36 Order name: Magnesium; Complete Time: 10:45 snw 05/25 08:36 Order name: NT PRO-BNP; Complete Time: 10:45 snw 05/25 08:36 Order name: PT-INR; Complete Time: 10:20 snw 05/25 08:36 Order name: Troponin HS; Complete Time: 10:45 snw 05/25 08:36 Order name: DD; Complete Time: 10:20 snw 05/25 08:36 Order name: TS; Complete Time: 10:45 snw 05/25 08:36 Order name: TSH; Complete Time: 10:45 snw 05/25 09:43 Order name: Lipase; Complete Time: 10:34 snw 05/25 10:17 Order name: CBC Smear Scan; Complete Time: 10:54 EDMS 05/25 08:36 Order name: XRAY Chest (1 view); Complete Time: 10:34 snw 05/25 08:36 Order name: EKG; Complete Time: 08:37 snw 05/25 08:36 Order name: Cardiac monitoring; Complete Time: 08:40 snw 05/25 08:36 Order name: EKG - Nurse/Tech; Complete Time: 08:40 snw 05/25 08:36 Order name: IV Saline Lock; Complete Time: 09:00 snw 05/25 08:36 Order name: Labs collected and sent; Complete Time: 10:39 snw 05/25 08:36 Order name: O2 Per Protocol; Complete Time: 08:40 snw 05/25 08:36 Order name: O2 Sat Monitoring; Complete Time: 08:40 snw EC:45 Rate is 87 beats/min. Rhythm is regular. QRS [place] is Normal. VA interval is normal. QRS snw interval is normal. T waves are Inverted in lead III. ST Segment is depressed in lead III. Clinical impression: NSR w/ Non-specific ST/T Changes. Administered Medications: 09:10 Drug: Pantoprazole IV 8 mg/hr Route: IV; Rate: 25 ml/hr; Site: right forearm; ph 09:10 Drug: Pantoprazole IVP 40 mg Route: IVP; Site: right forearm; ph 09:30 Follow up: Response: No adverse reaction aa5 09:30 Drug: Diazepam PO 10 mg Route: PO; aa5 10:04 Follow up: Response: No adverse reaction aa5 Disposition: 09:55 Co-signature as Attending Physician, Saul LOVE was immediately available on-site ms3 in the Emergency Department for consultation in the care of the patient. Disposition Summary: 05/25/23 10:57 Discharge Ordered Location: Home snw Condition: Stable snw Diagnosis - Chest pain, unspecified snw - Gastro-esophageal reflux disease with esophagitis snw - Gastritis, unspecified snw Followup: snw - With: Emergency Department - When: As needed - Reason: Worsening of condition Followup: snw - With: Private Physician - When: 2 - 3 days - Reason: Recheck today's complaints, Continuance of care, Re-evaluation by your physician Discharge Instructions: - Discharge Summary Sheet snw - Nonspecific Chest Pain, Adult snw - Food Choices for Gastroesophageal Reflux Disease, Adult snw - Esophagitis snw - Gastroesophageal Reflux Disease, Adult snw - How to Take Your Blood Pressure, [id number]-xx-[id number] snw - Aspirin and Your Heart snw - Form - Blood Pressure Record Sheet snw Forms: - Medication Reconciliation Form snw - Thank You Letter snw - Antibiotic Education snw - Prescription Opioid Use snw - Patient Portal Instructions snw - Leadership Thank You Letter snw - Work release form ld1 Prescriptions: - Carafate 1 gram Oral Tablet - take 1 tablet by ORAL route 4 times per day take on an empty stomach, beginning snw on waking and last dose at bedtime; 100 tablet; Refills: 0, Product Selection Permitted - Protonix 40 mg Oral tablet,delayed release (DR/EC) - take 1 tablet by ORAL route 2 times per day; 60 tablet; Refills: 0, Product snw Selection Permitted Signatures: Dispatcher [employer] EDNga Manzo FNP-C [employer] Ansley Moya RN RN aa5 Leti José RN RN Saul Sommer, DO ms3
--- NOTE | 2023-05-25 10:58 | ER ---
Nurse's Notes [facility] [place] Name: Delonte Gonzales Age: 48 yrs Sex: Male : 1975 Arrival Date: 05/25/2023 Time: 08:02 Bed 7 Private MD: Diagnosis: Chest pain, unspecified;Gastro-esophageal reflux disease with esophagitis;Gastritis, unspecified Presentation: 05/25 08:35 Chief complaint: Patient states: Chest pain, SOB, N/V and dark stools, admitted to [facility] approx 2 weeks ago for myocarditis. Coronavirus screen: Vaccine status: Patient reports receiving the 2nd dose of the covid vaccine. Ebola Screen: No symptoms or risks identified at this time. Initial Sepsis Screen: Does the patient meet any 2 criteria? No. Patient's initial sepsis screen is negative. Does the patient have a suspected source of infection?. Risk Assessment: Do you want to hurt yourself or someone else? Patient reports no desire to harm self or others. Onset of symptoms was May 25, 2023. 08:35 Method Of Arrival: Wheelchair 08:35 Acuity: DANIEL 2 Triage Assessment: 08:38 General: Appears in no apparent distress. uncomfortable, Behavior is calm, cooperative. ph Pain: Complains of pain in anterior aspect of left upper chest, mid-sternal area and left breast. Neuro: Level of Consciousness is awake, alert, obeys commands. Cardiovascular: Reports chest pain, nausea, shortness of breath, vomiting. Respiratory: Airway is patent Respiratory effort is even, unlabored. GI: Reports nausea, vomiting. Derm: Skin is pink, warm \T\ dry. Musculoskeletal: Circulation, motion, and sensation intact. Range of motion: intact in all extremities. Historical: - Allergies: 08:37 No Known Allergies; ph - PMHx: 08:37 Crabtree's Esophagus; bicep tear; Hypertensive disorder; Pancreatitis; PTSD; Myocarditis;ph - PSHx: 08:37 Cholecystectomy; ph - Immunization history:: Adult Immunizations unknown. - Social history:: Smoking status: Patient denies any tobacco usage or history of. Screenin:39 [facility] ED Fall Risk Assessment (Adult) History of falling in the last 3 months, ph including since admission No falls in past 3 months (0 pts) Confusion or Disorientation No (0 pts) Intoxicated or Sedated No (0 pts) Impaired Gait No (0 pts) Mobility Assist Device Used No (0 pt) Altered Elimination No (0 pt) Score/Fall Risk Level 0 - 2 = Low Risk Oriented to surroundings, Maintained a safe environment, Hourly rounding (assess needs \T\ fall precautionary measures) done. Abuse screen: Denies threats or abuse. Denies injuries from another. Nutritional screening: No deficits noted. Tuberculosis screening: No symptoms or risk factors identified. Assessment: 09:11 General: SEE TRIAGE ASSESSMENT . ph 09:20 Reassessment: Patient is alert, oriented x 3, equal unlabored respirations, skin aa5 warm/dry/pink. Pt c/o chest pain, rates 10/10, provider notified. Pt appears uncomfortable and anxious. . 09:32 Reassessment: Awaiting phlebotomy to draw labs, pt is hard stick. Spoke to Fiorella at the aa5 lab and states she will be coming soon. . 09:48 Reassessment: Phlebotomy at bedside . aa5 10:02 Reassessment: Blood was collected by phlebotomy and sent to lab. aa5 10:31 Reassessment: Patient appears in no apparent distress at this time. No changes from ld1 previously documented assessment. Patient and/or family updated on plan of care and expected duration. Pain level reassessed. Vital Signs: 08:35 BP 136 / 90; Pulse 96; Resp 18; Temp 98; Pulse Ox 100% on R/A; Weight 78.47 kg; Height ph 5 ft. 4 in. ; Pain 10/10; 08:50 BP 133 / 83; Pulse 92; Resp 18; Pulse Ox 99% on R/A; ld1 09:20 BP 133 / 84; Pulse 69; Resp 20 S; Pulse Ox 97% on R/A; aa5 10:31 BP 156 / 104; Pulse 75; Resp 18; Pulse Ox 97% on R/A; ld1 11:18 BP 149 / 92; Pulse 71; Resp 18; Pulse Ox 100% on R/A; ld1 08:35 Body Mass Index 29.70 (78.47 kg, 162.56 cm) ph 08:35 Pain Scale: Adult ph ED Course: 08:19 Patient arrived in ED. mg5 08:25 Nga Murray FNP-C is PHCP. snw 08:25 Saul Sommer DO is Attending Physician. snw 08:35 Leti José, RN is Primary Nurse. ph 08:37 Triage completed. ph 08:38 Arm band placed on Patient placed in an exam room, on a stretcher, on laboratory monitor, ph on pulse oximetry. 08:40 Patient has correct armband on for positive identification. Bed in low position. Call ph light in reach. Side rails up X2. Client placed on continuous cardiac and pulse oximetry monitoring. NIBP monitoring applied. 08:40 Patient maintains SpO2 saturation greater than 95% on room air. ph 09:05 Report received from Leti José RN. aa5 09:10 Missed attempt(s): 22 gauge in left antecubital area. Bleeding controlled, band aid ph applied, catheter tip intact. Missed attempt(s): 22 gauge in right antecubital area. Bleeding controlled, band aid applied, catheter tip intact. Inserted saline lock: 20 gauge in right forearm, using aseptic technique. 10:12 XRAY Chest (1 view) In Process Unspecified. EDMS 11:18 No provider procedures requiring assistance completed. IV discontinued, intact, ld1 bleeding controlled, No redness/swelling at site. Administered Medications: 09:10 Drug: Pantoprazole IV 8 mg/hr Route: IV; Rate: 25 ml/hr; Site: right forearm; ph 09:10 Drug: Pantoprazole IVP 40 mg Route: IVP; Site: right forearm; ph 09:30 Follow up: Response: No adverse reaction aa5 09:30 Drug: Diazepam PO 10 mg Route: PO; aa5 10:04 Follow up: Response: No adverse reaction aa5 Medication: 08:40 VIS not applicable for this client. ph Outcome: 10:57 Discharge ordered by MD. snw 11:18 Discharged to home ambulatory. ld1 11:18 Condition: stable 11:18 Discharge instructions given to patient, Instructed on discharge instructions, follow up and referral plans. medication usage, Demonstrated understanding of instructions, follow-up care, medications, Prescriptions given X 2. 11:18 Patient left the ED. ld1 Signatures: Dispatcher [employer] EDMS Nga Murray, TAI LARAP-Ansley Dillard RN RN aa5 Leti José RN RN Roxana Sommer RN RN ld1 Jennifer Nash mg5
[2023-05-25 11:41] VITALS: TEMP 98
[2023-05-25 12:02] VITALS: BP 149/92; O2SAT 100
--- NOTE | 2023-05-26 17:06 | EKG ---
Test Date: 2023-05-25 Test Time: 08:45:56 [employer]: MEASUREMENT RESULTS: Intervals: Rate: 87 TX: 150 QRSD: 86 QT: 334 QTc: 401 [place]: P: 70 TX: 150 QRS: -18 T: 2 INTERPRETIVE STATEMENTS: Normal sinus rhythm Normal ECG Compared to ECG 05/05/2023 07:23:14 Sinus tachycardia no longer present ST (T wave) deviation no longer present Myocardial infarct finding no longer present Electronically Signed On 05-26-23 17:03:28 CDT by Landon Redding
== END 2023-05-25 11:18 | disposition home or self-care (01) ==
LOC: ER 08:02
DX: R07.9 Chest pain, unspecified (principal); K21.00 Gastro-esophageal reflux disease with esophagitis, without bleeding; K29.70 Gastritis, unspecified, without bleeding; R06.02 Shortness of breath; R11.2 Nausea with vomiting, unspecified; I51.4 Myocarditis, unspecified; K22.70 Barrett's esophagus without dysplasia; I10 Essential (primary) hypertension; K85.90 Acute pancreatitis without necrosis or infection, unspecified
CPT/HCPCS: 85025; 80048; 36415; 86900; 83735; 86850; 85610; 86901; 85379; 80076; 84443; 84484; 83690; 83880; 71045; C9113 ×2; J7050; 93005

== ENCOUNTER 2023-05-27 19:32 | Emergency (ER) | payer OTHER ==
--- OUTSIDE RECORDS SUMMARY | 2023-05-27 19:36 | XMS REPORT | Continuity of Care Document ---
:1975 Author Organization Formerly [facility] t Address [address] [place] [address] [place] [address] Care Team Providers Name Role Phone WADE SYED Primary Care Physician Unavailable LAUREN ANGELES Attending Clinician Unavailable Neal Kaiser MD Attending Clinician Lauren Angeles MD Attending Clinician Jose Marquez Attending Clinician Unavailable Vahe Ward Attending Clinician Unavailable Misael Adam Attending Clinician Unavailable DR JAYLON OSEI Attending Clinician Unavailable DR STEFANO PANCHAL Attending Clinician Unavailable JUANITO GIBSON Attending Clinician Unavailable DR GELY VILLALPANDO Attending Clinician Unavailable CHECO, DR BARNETT Attending Clinician Unavailable DR JILLIAN JACKSON Attending Clinician Unavailable DR AIDE PAULINO Attending Clinician Unavailable DR SHARLA GARCIA Attending Clinician Unavailable NEAL KAISER Admitting Clinician Unavailable Misael Adam Admitting Clinician Unavailable DR JAYLON OSEI Admitting Clinician Unavailable DR STEFANO PANCHAL Admitting Clinician Unavailable DR JUANITO GBISON Admitting Clinician Unavailable DR GELY VILLALPANDO Admitting Clinician Unavailable DR ANIBAL KESSLER Admitting Clinician Unavailable DR JILLIAN JACKSON Admitting Clinician Unavailable DR AIDE PAULINO Admitting Clinician Unavailable DR SHARLA GARCIA Admitting Clinician Unavailable Payers Payer Name Policy Type Policy Number Effective Date Expiration Date matthias [facility] [id number] 2022 00:00:00 110 [id number] 2022 00:00:00 190 [id number] 2021 00:00:00 1005 [id number] 1959 00:00:00 1000 [id number] 2022 00:00:00 0050 [id number] 2021 00:00:00 Problems Condition Condition Condition Status [...] Date Date Clinician No Known DA Active [facility] Allergie [place] s NO KNOWN Allergy [facility] Social History Social Habit Start Date Stop Date Quantity Comments Source History SDOH [facility] History SDOH 2023-05-06 2023-05-[address] [facility] Med 00:00:00 00:00:[address] Sex Assigned At [birth year] [facility] [address] Heather kes 00:00:00 00:00:00 Medical Center [...] tablet 00 :00 by mouth Center daily. rosuvastati 2022- No 10mg QD Take [...] 00 :00 total) by Center mouth daily. metoprolol 2023- Yes 25mg Q.5D Take [...] Center mouth daily for 3 days . furosemide 2022- No 40mg QD Take [address] (LASIX) 40 -06 05-26 tablet (40 Heather kes MG tablet 00:00: 00:00 mg total) Me dical 00 :00 by mouth Center daily. HYDROcodone 1{tbl} Take [address] -acetaminop 05-06 tablet by Heather vargas (NORCO 00:00: 00:00 mouth Medic al 5-325) 00 :00 every 6 Center 5-325 mg (six) per tablet hours as needed for up to 10 days. Max Daily Amount: 4 tablets metoprolol No 25mg Q.5D Take [address] tartrate 05-06 tablet (25 Luke s (LOPRESSOR) 00:00: 00:00 mg total) Medical 25 MG 00 :00 by mouth 2 Center tablet (two) times daily. Vital Signs Vital Name Observation Time [...] KG Heart rate 2023-05-06 16:35:00 95 /min [facility] Systolic blood 2023-05-06 16:00:00 131 mm[Hg] [facility] pressure [facility] Diastolic blood 2023-05-06 16:00:00 75 mm[Hg] [facility] Body temperature 2023-05-06 16:00:00 36.39 Cassia [facility] Respiratory rate 2023-05-06 16:00:00 18 /min [facility] Oxygen saturation in 2023-05-06 16:00:00 95 /min [facility] Arterial blood by Medical Ce nter Pulse oximetry Body height 2023-05-05 15:00:00 164.5 cm [facility] Body weight 2023-05-05 15:00:00 84.142 kg [facility] BMI 2023-05-05 15:00:00 31.09 kg/m2 [facility] Procedures Procedure Date / Time Performed Performing Clinician [facility] e 2D ECHO W/ DOPPLER 2023-05-06 14:58:00 Lauren Angeles [facility] (CW/PW/COLOR) [facility] B-TYPE NATRIURETIC 2023-05-06 05:42:00 Miguel Cedeno [facility] FACTOR (BNP) [facility] HIGH SENSITIVITY 2023-05-06 05:42:00 Miguel Cedeno [facility] TROPONIN I [facility] HEMOGLOBIN A1C 2023-05-06 05:42:00 Neal Kaiser [facility] BASIC METABOLIC PANEL 2023-05-06 05:42:00 KarthikLauren [facility] CBC (HEMOGRAM ONLY) 2023-05-06 05:42:00 KarthikLauren [facility] LIPID PANEL 2023-05-06 05:42:00 Lauren Angeles [facility] HEPATIC FUNCTION PANEL 2023-05-06 05:42:00 Lauren Angeles [facility] LIPASE 2023-05-06 05:42:00 Lauren Angeles [facility] BLOOD CULTURE 2023-05-05 20:14:00 Lauren Angeles [facility] URINALYSIS W/ REFLEX 2023-05-05 20:14:00 Zion Angelesscot Stearnsed [facility] URINE CULTURE Medical Center ECG 12-LEAD 2023-05-05 17:20:59 RohanNeal [facility] ECG 12-LEAD 2023-05-05 17:20:59 Unknown, Hl7 Doctor [facility] XR CHEST 1 VIEW PORTABLE 2023-05-05 11:31:00 Miguel Cedeno [facility] / BEDSIDE Medical Center CATHETERIZATION, HEART, 2023-05-05 10:34:00 [facility] LEFT, WITH PERCUTANEOUS Medical Center CORONARY INTERVENTION BASIC METABOLIC PANEL 2023-05-05 09:53:00 Miguel Cedeno [facility] MAGNESIUM 2023-05-05 09:53:00 Miguel Cedeno [facility] PHOSPHORUS 2023-05-05 09:53:00 Miguel Cedeno [facility] HIGH SENSITIVITY 2023-05-05 09:53:00 Miguel Cedeno [facility] TROPONIN I [facility] B-TYPE NATRIURETIC 2023-05-05 09:53:00 Miguel Cedeno [facility] FACTOR (BNP) [facility] CBC W/PLT COUNT & AUTO 2023-05-05 09:53:00 Miguel Cedeno [facility] DIFFERENTIAL [facility] CBC W/PLT COUNT & AUTO 2023-05-05 09:53:00 Miguel Cedeno [facility] DIFFERENTIAL [facility] ECG 12-LEAD 2023-05-05 09:28:58 Neal Kaiser [facility] ECG 12-LEAD 2023-05-05 09:23:38 Miguel Cedeno [facility] CARDIAC CATH REPORT - 2023-05-05 00:00:00 Vane Mccormick [facility] SCAN Scanning [facility] EKG-SCANNED 2023-05-05 00:00:00 Provider, [facility] Scanning [facility] Plan of Care Planned Activity Planned Date Details Comments Source Future Scheduled 2026-05-06 Lipid panel (procedure) [facility] 00:00:00 [code = 71039242] Medical Ce nter Future Scheduled 2023-06-12 Influenza Vaccine (#1) [facility] 00:00[facility]00 [code = Influenza Vaccine Md dicny Center (#1)] Future Scheduled 2023 SHINGLES VACCINES ([address] [facility] Test 00:00:00 2) [code = SHINGLES Medical Center VACCINES (1 of 2)] Future Scheduled 2022-10-[address] [facility] Test 00:00:00 (12+) [code = DEPRESSION Med ical Center SCREENING (12+)] Future Scheduled 1992 DTAP/TDAP/TD [...] screening Medical Cent er (procedure) [code = 413175587] Future Scheduled [address] [facility] Test 00:00:00 Counseling and Screening [facility] (12+) [code = Tobacco Cessation Counseling and Screening (12+)] Future Scheduled 1975 COVID-19 VACCINE (#1) [facility] 00:00[facility]00 [code = COVID-19 VACCINE [facility] (#1)] Future Scheduled 1973 CT Colonography (combo) [facility] Test 00:00:00 [code = CT Colonography [facility] Center (combo)] Future Scheduled 1975 Screening for malignant [facility] Test 00:00:00 neoplasm of colon Medical Ce nter (procedure) [code = 723456539] Future Scheduled 1973 Screening for malignant [facility] Test 00:00:00 neoplasm of colon Medical Ce nter (procedure) [code = 614310297] Future Scheduled 1973 Screening for malignant [facility] Test 00:00:00 neoplasm of colon Medical Ce nter (procedure) [code = 364486184] Future Scheduled 1973 Screening for malignant [facility] Test 00:00:00 neoplasm of colon Medical Ce nter (procedure) [code = 285043995] Future Scheduled 1975 Sigmoidoscopy [code = [facility] S[facility]oscopy] Medical Cente r Encounters Start End Encounter Admission Attending Care Care Encounter Source Date/Time Date/Time Type Type Clinicians Facility Department ID 2023-05-06 Inpatient ER MANNIE ANGELES [facility] [id number] SLE 12:33:08 [facility] 2023-05-05 Outpatient [facility] [id number] [place] 14:28:05 [id number] [facility] 2023-05-05 Inpatient ER [facility] [id number] SLE 10:47:09 2023-05-05 Inpatient ER [facility] [id number] SLE 09:27:55 2023-05-05 2023-05-06 [facility] ER Neal Kaiser Socorro [facility] [id number] [facility] 08:53:00 17:36:00 Encounter Lauren Angeles [facility] 2023-05-05 2023-05-06 Inpatient ER KARTHIK [facility] Cardiac [id number] [facility] 08:53[facility]00 [facility] 2023-05-05 Surgery Rohan, [facility] [id number] 11:05:00 13:31:00 [facility] 2023-05-05 2023-05-05 Orders [facility] [id number] 00:00:00 00:00:00 [facility] 2022-12-12 2022-12-12 Emergency ER Alma, [facility] [id number] [place] 10:46:00 13:08:00 Jose -[id number] [facility], [facility] 2022-12-11 2022-12-11 Emergency ER Ed [facility] [id number] [place] 06:51:00 10:31:00 Vahe -[id number] [facility] 2022-12-04 2022-12-05 Inpatient ER Jair [facility] [id number] [place] 15:02:00 14:27:00 Misael -[id number] [facility] 2022-12-03 2022-12-03 Inpatient ER Jair, [facility] [id number] [place] 09:41:00 07:21:00 Misael -[id number] [facility] 2022-12-02 2022-12-02 Emergency ER Ed, [facility] [id number] [place] 10:15:00 16:30:00 Noemíes -[id number] [facility] 2022-11-17 2022-11-17 Emergency E OSEI, [facility] [id number] [facility] 10:31:00 11:05:00 JAYLON [facility] 2022-10-26 2022-10-26 Emergency E OLADE, [facility] [id number] [facility] 08:20:00 10:20:00 STEFANO [facility] 2022-09-15 2022-09-15 Emergency E PESCO, [facility] [id number] [facility] 09:09:00 12:08:00 JUANITO Medic [facility] 2022-09-14 2022-09-14 Emergency E PESCO, [facility] [id number] [facility] 08:52:00 12:23:00 JUANITO Medic [facility] 2022-09-13 2022-09-13 Emergency E PESCO, [facility] [id number] [facility] 09:03:00 11:18:00 JUANITO Medic [facility] 2022-08-26 2022-08-26 Emergency E PUMAREJO, [facility] [id number] [facility] 10:57:00 15:13:00 GELY [facility] 2022-08-25 2022-08-25 Emergency E CHECO, IMRAN [facility] [id number] [facility] 09:48:00 11:36:00 [facility] 2022-08-22 2022-08-22 Emergency E MANUEL, [facility] [id number] [facility] 09:39:00 13:31:00 JILLIAN [facility] 2022-07-26 2022-07-26 Emergency E FAKOYEJO, [facility] [id number] [facility] 11:44:00 13:18:00 [facility] 2022-02-26 2022-02-26 Emergency E RADHA, [facility] [id number] [facility] 11:00:00 12:27:00 [facility] Results Test Description Test Time Test Comments Results Result Comments Source BLOOD CULTURE 2023-05-10 21:00:24 Test Item Value Reference Range Interpretation Comme nts CULTURE (BEAKER) (test code = 1095) No growth in 5 days BLOOD [id number] 21:00:24 Test Item Value Reference Range Interpretation Comments CULTURE (BEAKER) (test No growth in 5 days code = 1095) The specimen volume collected for this blood culture was below the optimum (10 mL per bottle or 20 mL total). Use of lower volumes may adversely affect recovery and/or detection times of some organisms.HEMOGLOBIN [id number] 11:41:48 Test Item Value Reference Range Interpretation [...] 5.7- 6.4% indicates increased risk for diabetes (prediabetes)."Purchasing Manager/Sales ID - ADM HEPATIC FUNCTION [id number] 11:38:34 Test Item Value Reference Range Interpretation [...] (test code = 45 U/L 6-55 347) Purchasing Manager/Sales ID - MMOperator ID - [id number] 11:09:16 Test Item Value Reference Range Interpretation Comments LIPASE (BEAKER) (test code = 749) 93 U/L 8-78 H Purchasing Manager/Sales ID - MMB-TYPE NATRIURETIC FACTOR (BNP)2023-05-06 07:10:09 Test Item Value Reference Range Interpretation Comments B-TYPE NATRIURETIC PEPTIDE (BEAKER) < pg/mL 0-100 (test code = 700) Purchasing Manager/Sales ID - MMHIGH SENSITIVITY TROPONIN [id number] 07:09:22 Test Item Value Reference Range Interpretation Comments HIGH SENSITIVITY TROPONIN I (test 10 pg/ml <=35 code = 6197956) Purchasing Manager/Sales ID - MMThe TOOLROOM MACHINIST STAT High Sensitivity Troponin-I results should be used in conjunctionwith other diagnostic information such as ECG, clinical observations and information, and patient symptoms to aid in the diagnosis of NE.BASIC METABOLIC [id number] 07:01:55 Test Item Value Reference Range Interpretation [...] G3b Moderately to s everely 30-44 G4 Sever ly decreased 15-29 G5 Kidney failure <15Repo rted eGFR is based on the CKD-EPI 2021 equation t hat does not use a race coefficientEsti mated GFR is not as accur ate as Creatinine Caroline han in predicting glom erular filtration rate . Estimated GFR is not appl icable for dialysis patien ts Purchasing Manager/Sales ID - MMLIPID [id number] 07:01:55 Test Item Value Reference Range Interpretation [...] Borderline 130-159 High 160-189 Very High >=190 Purchasing Manager/Sales ID - MMCBC (HEMOGRAM ONLY)2023-05-06 06:56:02 Test [...] = 413) Urinalysis w/Microscopic + Reflex to [id number] 21:11:57 Test Item Value Reference Range Interpretation Comments Color, UA (test Light Yellow code = 5778-6) Clarity, UA (test Clear code = 5767-9) Specific [place], 1.012 1.001-1.035 UA (test code = 5811-5) pH, UA (test code 7.0 5.0-8.0 = 5803-2) Protein, UA (test Negative Negative code = 02696-1) Glucose, UA (test Negative Negative code = 365) Ketones, UA (test Negative Negative code = 2514-8) Bilirubin, UA Negative Negative (test code = 77130-1) Blood, UA (test Negative Negative code = 31596-9) Nitrite, UA (test Negative Negative code = 5802-4) Leukocytes, UA Negative Negative (test code = 5799-2) Urobilinogen, UA 0.2 0.2-1.0 (test code = 04421-0) RBC, UA (test See_Comment [Automated me ssage] code = 24944-1) The system [facility] generated this result transmit betty reference range : /HPF. The refer ence range was not u sed to interpret th is result as normal/abnormal . WBC, UA (test 1 See_Comment [Automated me ssage] code = 5821-4) The system [facility] generated this result transmit betty reference range : /HPF. The refer ence range was not u sed to interpret th is result as normal/abnormal . Specimen Source (test code = 2795) DAVID (test code = Purchasing Manager/Sales ID - DAVID) [auto]Purchasing Manager/Sales ID - tech [facility] URINE [id number] 21:11:57 Test Item Value Reference Range Interpretation [...] /HPF 520) SOURCE(BEAKER) (test code = 2795) Purchasing Manager/Sales ID - [auto]Purchasing Manager/Sales ID - techXR CHEST 1 VIEW PORTABLE / BEDSIDE 2023-05-05 11:36:03 [facility] 1975 Sex: MEXAMINATION: XR CHEST 1 VIEW PORTABLE / BEDSIDE INDICATION: STEMI, edema?COMPARISON: None FINDINGS:LINES/TUBES: None LUNGS: The lungs are well inflated. Right hemidiaphragmatic elevation.Perihilar fullness and pulmonary vascular indistinctness. No focalairspace consolidation.PLEURA: No pleural effusion or pneumothorax.MEDIASTINUM: The cardiomediastinal silhouette appears normal in size andshape. Atherosclerotic calcifications of the thoracic aorta.BONES/SOFT TISSUES: No acute osseous injury.ABDOMEN: No free airunder the diaphragm.IMPRESSION:Central pulmonary vascular congestion. No focal pneumonia or airspaceedema.Right hemidiaphragmatic elevation.Electronically Signed By: Fransisca Helms05/05/2023 11:38 CDTWorkstation Name: [id number] NATRIURETIC FACTOR (BNP)2023-05-05 10:43:34 Test Item Value Reference Range Interpretation Comments B-TYPE NATRIURETIC PEPTIDE (BEAKER) < pg/mL 0-100 (test code = 700) Purchasing Manager/Sales ID - BVHIGH SENSITIVITY TROPONIN [id number] 10:42:25 Test Item Value Reference Range Interpretation Comments HIGH SENSITIVITY TROPONIN I (test 8 pg/ml <=35 code = 5597975) Purchasing Manager/Sales ID - BVThe TOOLROOM MACHINIST STAT High Sensitivity Troponin-I results should be used in conjunctionwith other diagnostic information such as ECG, clinical observations and information, and patient symptoms to aid in the diagnosis of NE.[id number] 10:35:41 Test Item Value Reference Range Interpretation Comments MAGNESIUM (BEAKER) (test code = 2.1 mg/dL 1.6-2.6 627) Purchasing Manager/Sales ID - [id number] 10:35:41 Test Item Value Reference Range Interpretation Comments PHOSPHORUS (BEAKER) (test code = 2.7 mg/dL 2.3-4.7 604) Purchasing Manager/Sales ID - BVBASIC METABOLIC [id number] 10:35:40 Test Item Value Reference Range Interpretation [...] not appl icable for dialysis patien ts Purchasing Manager/Sales ID - BVCBC W/PLT COUNT & AUTO [id number] 10:24:49 Test Item Value Reference Range Interpretation [...] code = 2801) U/S ABDOMEN RUQ*WW*2022-09-14 11:05:47 [facility] 1975 Sex: MEXAMINATION:US abdomen Doppler, [...] by: Antonella Pham MD 09/14/2022 11:[address] [facility] [id number] AND [id number] 10:11:00 Test Item Value Reference Range Interpretation [...] normal/abnormal . GFR 82 See_Comment L [Automated ANGOLAN (test mL/min/1.73m\\S\\2 message] The code = GFRAA) [...] normal/abnormal . GFR 74 See_Comment L [Automated ANGOLAN (test mL/min/1.73m\\S\\2 message] The code = GFRAA) [...] IU/L 10-49 H 31A) CBC (INCLUDES AUTOMATED DIFFERENTIAL)*[id number] 09:55:00 Test Item Value Reference Range Interpretation [...] MORPH (test code = NORMAL WRBCMOR) BLOOD [id number] 13:40:00 Test Item Value Reference Range Interpretation Comments Culture Observations (test NO GROWTH AFTER 5 code = COB1) DAYS BLOOD [id number] 13:40:00 Test Item Value Reference Range Interpretation Comments Culture Observations (test NO GROWTH AFTER 5 code = COB1) DAYS URINE [id number] 10:08:00 Test Item Value Reference Range Interpretation Comments Culture Observations (test NO GROWTH (<1,000 code = COB1) CFU/ML) CT ABDOMEN AND PELVIS WITH CONTRAST*WW*2022-08-26 13:53:02 [facility] : 1975 Sex: MExam: CT abdomen an d pelvis with contrast.CLINICAL HISTORY: Abdominal pain; Dehydration.LOCATION: D4.FINDINGS: Following the administration of 95 mL Isovue-300 intravenous contrast only, multislice axial images are obtained through the abdomen and pelvis during the venous phase. Coronal and sagittal reconstructed imagesare obtained and are used in interpretation. Creatinine and GFR are not given.No comparison studies.The liver is mildly above normal size limits measuring 16.7 cm craniocaudal at the midclavicular line. The gallbladder has been surgically removed. No abnormalities are noted of the pancreas or spleen.No perisplenic varices. No abnormalities are noted of the adrenal glands. No abnormalities are notedof the kidneys. The intrapelvic viscera are within normal limits. There is moderate fluid within theright colon and transverse colon. No significant adenopathy. There is a small amount of free fluid within the pelvis. No fluid collections. The appendix is normal in appearance. There is mild fluid dist ention of multiple mid small bowel with small air-fluid levels. There is a 3.7 cm x 1.2 cm oval well-defined hyperdense subcutaneous lesion at the left anterior mid abdomen. This is nonspecific and mayrepresent hematoma. No acute skeletal or soft tissue abnormalities are otherwise identified.IMPRESSION:1. There is mild fluid distention of multiple mid small bowel loops with small air- fluid levels. There is also moderate fluid within [...] hepatomegaly.*One or more of the following radiation dosereduction techniques was used: automated exposure control, adjustment of mA and/or KV according to pa tient size, and/or utilization of iterative reconstruction technique.Electronically signed by: Cleveland Lozano MD 08/26/2022 1:[address] [facility] [id number] *WW*2022-08-26 12:48:00 Test Item Value Reference Range [...] 70 See_Comment L [Automated GFR) mL/min/1.73m\\S\\2 message] e system which generated this result transmit betty reference range : >=90. The reference range was not used to interpret this result as normal/abnormal . GFR 82 See_Comment L [Automated ANGOLAN (test mL/min/1.73m\\S\\2 message] The code = GFRAA) system which generated this result transmit betty reference range : >=90. The reference range was not used to interpret this result as normal/abnormal . EGFR (test code = eGFR BY EGFR) CKD-EPI CALCULATION IS NOT RECOMMENDED FOR PATIENTS UNDER 18 YEARS OF AGE. BUN/CREA (test 13 -20 code = BCR) CALCIUM (test code 9.3 [...] IU/L 10-49 H 31A) AMYLASE AND LIPASE *[facility]2022-08-26 12:25:00 Test Item Value Reference Range Interpretation Comments AMYLASE (test code = 10A) 140 U/L 28-100 H LIPASE (test code = 60A) 45 IU/L 12-53 CALCIUM 2022-08-26 12:25:00 Test Item Value Reference Range Interpretation Comments CALCIUM (test code = 09D) 9.3 mg/dL 8.3-10.6 PRO TIME AND PTT *[facility]2022-08-26 12:20:00 Test Item Value Reference Range Interpretation [...] LA) 1.3 mmol/L 0.4-2.0 CBC (INCLUDES AUTOMATED DIFFERENTIAL)*[id number] 12:04:00 Test Item Value Reference Range Interpretation [...] XR ELBOW RT COMPLETE 3 VIEWS*WW*2022-02-26 12:03:26 [facility] : 1975 Sex: MEXAMINATION:XR [...]
[2023-05-27] MEDS ORDERED: MORPHINE 4 MG/ML SYR ONE ×2 (21:26→22:46)
[2023-05-27] MEDS ORDERED: NA CHLORIDE 0.9% 1,000 ML ONE (21:27)
[2023-05-27] MEDS ORDERED: FAMOTIDINE 20 MG/2 ML VIAL IV ONE (21:27)
[2023-05-27] MEDS ORDERED: ONDANSETRON 4 MG/2 ML VIAL ONE ×2 (21:27→23:24)
[2023-05-27 21:47] LABS: Absolute Lymphocytes (CBC) 0.5 K/uL (0.7-4.9); Hematocrit 35.7 % (39.6-49.0); Lymphocytes % 7.6 % (15.3-44.8); MCV 64.3 fL (80-100); MPV 7.3 fL (7.6-11.3); Platelets 526 thou/uL (152-406); RBC Red Blood Cell Count 5.55 M/uL (4.33-5.43)
[2023-05-27 21:57] LABS: Albumin 2.8 g/dL (3.4-5.0); Bilirubin Total 0.5 mg/dL (0.2-1.0); Potassium 4.3 mEq/L (3.5-5.1); Protein, Total 6.3 g/dL (6.4-8.2)
--- NOTE | 2023-05-27 22:40 | RAD REPORT ---
EXAM DESCRIPTION: CTAbdomen Pelvis W Contrast - 05/27/2023 10:30 pm CLINICAL HISTORY: Abdominal pain. ABD PAIN COMPARISON: <Comparisons> TECHNIQUE: Biphasic CT imaging of the abdomen and pelvis was performed with 100 ml non-ionic IV cont rast. All CT scans are performed using dose optimization technique as appropriate and may include automated exposure control or mA/KV adjustment according to patient size. FINDINGS: The lung bases are clear.Small hiatal hernia. The liver, spleen, pancreas, adrenal glands and kidneys are within normal limits. Cholecystectomy cli ps. No bowel obstruction, free air, free fluid or abscess. Moderate fluid is seen throughout mildly diste nded small intestine. The appendix is normal. No evidence of significant lymphadenopathy. Moderate lumbosacral degenerative spondylosis. IMPRESSION: No definitive acute intra-abdominal or pelvic finding. Questionable enteritis findings are present with mild fluid in distention throughout small bowel loop s.
[2023-05-27 22:47] LABS: Blood Morphology Comment NOTED (NOT SEEN); Hypochromasia 2+; Platelet Estimate ADEQ; White Blood Cell Scan OK (OK)
--- NOTE | 2023-05-27 23:10 | ER ---
Nurse's Notes [facility] Name: Delonte Gonzales Age: 48 yrs Sex: Male : 1975 Arrival Date: 05/27/2023 Time: 19:32 Bed 18 Private MD: Diagnosis: Enteritis Presentation: 05/27 19:58 Chief complaint: Abdominal pain and N/V/D since this morning. Coronavirus screen: At this time, the client does not indicate any symptoms associated with coronavirus-19. Ebola Screen: No symptoms or risks identified at this time. Initial Sepsis Screen: Does the patient meet any 2 criteria? No. Patient's initial sepsis screen is negative. Does the patient have a suspected source of infection? No. Patient's initial sepsis screen is negative. Risk Assessment: Do you want to hurt yourself or someone else? Patient reports no desire to harm self or others. Onset of symptoms was May 27, 2023. 19:58 Method Of Arrival: Wheelchair hb 19:58 Acuity: DANIEL 3 hb Historical: - Allergies: 19:58 No Known Allergies; hb - PMHx: 19:58 Crabtree's Esophagus; bicep tear; Hypertensive disorder; Myocarditis; Pancreatitis; PTSD;hb - PSHx: 19:58 Cholecystectomy; hb - Immunization history:: Adult Immunizations up to date. - Social history:: Smoking status: Patient denies any tobacco usage or history of. Screenin:[address] [facility] ED Fall Risk Assessment (Adult) History of falling in the last 3 months, cm10 including since admission No falls in past 3 months (0 pts) Confusion or Disorientation No (0 pts) Intoxicated or Sedated No (0 pts) Impaired Gait No (0 pts) Mobility Assist Device Used No (0 pt) Altered Elimination No (0 pt) Score/Fall Risk Level 0 - 2 = Low Risk Oriented to surroundings, Maintained a safe environment, Hourly rounding (assess needs \T\ fall precautionary measures) done. Abuse screen: Denies threats or abuse. Denies injuries from another. Nutritional screening: No deficits noted. Tuberculosis screening: No symptoms or risk factors identified. Assessment: 21:36 General: Appears in no apparent distress. uncomfortable, Behavior is calm, cooperative. cm10 Pain: Complains of pain in abdomen. Neuro: No deficits noted. Level of Consciousness is awake, alert, Oriented to person, place, time, situation. Respiratory: No deficits noted. Airway is patent Respiratory effort is even, unlabored, Respiratory pattern is regular, symmetrical. GI: Abdomen is round. Vital Signs: 19:59 BP 145 / 101; Pulse 115; Resp 18; Temp 99.6(O); Pulse Ox 97% on R/A; Weight 78.47 kg; hb Height 5 ft. 4 in. ; Pain 10/10; 21:15 BP 144 / 78; cm10 21:30 BP 112 / 86; Pulse 96; Resp 16; Pulse Ox 98% ; cm10 22:00 BP 112 / 67; Pulse 99; Resp 16; Pulse Ox 97% ; cm10 22:30 BP 116 / 70; Pulse 98; Resp 16; Pulse Ox 95% ; cm10 23:00 BP 104 / 62; Pulse 94; Resp 16; Pulse Ox 98% on R/A; cm10 19:59 Body Mass Index 29.70 (78.47 kg, 162.56 cm) hb 19:59 Pain Scale: Adult hb ED Course: 19:35 Patient arrived in ED. mr 19:49 Sherry Chiu, [facility]nu [facility] kb 19:49 Billy Erickson MD is Attending Physician. kb 19:58 Triage completed. hb 19:59 Arm band placed on. hb 21:30 Initial lab(s) drawn, by me, sent to lab. Inserted saline lock: 20 gauge in right cm10 forearm, using aseptic technique. Blood collected. 21:36 CBC with Diff Sent. cm10 21:36 CMP Sent. cm10 21:36 Lipase Sent. cm10 21:37 Patient has correct armband on for positive identification. Bed in low position. Call cm10 light in reach. Side rails up X 1. 22:20 Risa Phillip, RN is Primary Nurse. cm10 22:[address] via wheelchair. cm10 22:32 CT Abd/Pelvis - IV Contrast Only In Process Unspecified. EDMS 22:[address] cm10 23:32 Provided Education on: N/A. cm10 23:32 No provider procedures requiring assistance completed. IV discontinued, intact, cm10 bleeding controlled, No redness/swelling at site. Pressure dressing applied. Administered Medications: 21:30 Drug: NS 0.9% IV 1000 ml Route: IV; Rate: 1 bolus; Site: right forearm; cm10 23:31 Follow up: Response: No adverse reaction; IV Status: Completed infusion; IV Intake: cm10 1000ml 21:30 Drug: Famotidine IVP 20 mg Route: IVP; Site: right forearm; cm10 23:31 Follow up: Response: No adverse reaction cm10 21:30 Drug: Ondansetron IVP 4 mg Route: IVP; Site: right forearm; cm10 23:32 Follow up: Response: No adverse reaction cm10 21:30 Drug: morphine IVP or IV 4 mg Route: IVP; Infused Over: 4 mins; Site: right forearm; cm10 23:32 Follow up: Response: No adverse reaction cm10 22:40 Drug: morphine IVP or IV 4 mg Route: IVP; Infused Over: 4 mins; Site: right antecubital;cm10 23:31 Follow up: Response: No adverse reaction cm10 23:22 Drug: fentaNYL (PF) IVP 25 mcg Route: IVP; Site: right forearm; cm10 23:31 Follow up: Response: No adverse reaction cm10 23:22 Drug: Ondansetron IVP 4 mg Route: IVP; Site: right forearm; cm10 23:31 Follow up: Response: No adverse reaction cm10 Medication: 21:38 VIS not applicable for this client. cm10 Intake: 23:31 IV: 1000ml; Total: 1000ml. cm10 Outcome: 23:10 Discharge ordered by . kb 23:32 Discharged to home ambulatory, with significant other. cm10 23:32 Condition: good 23:32 Discharge instructions given to patient, significant other, Instructed on discharge instructions, follow up and referral plans. medication usage, Demonstrated understanding of instructions, follow-up care, medications, Prescriptions given X 2. 23:33 Patient left the ED. cm10 Signatures: Dispatcher [employer] EDMS Sherry Chiu, Na Roca Heather, Risa Chavez RN, RN RN cm10
--- NOTE | 2023-05-27 23:11 | EDPHYS ---
Physician Documentation [facility] Name: Delonte Gonzales Age: 48 yrs Sex: Male : 1975 Arrival Date: 05/27/2023 Time: 19:32 Bed 18 Private MD: ED Physician Billy Erickson HPI: 05/27 23:28 This 48 yrs old Male presents to ER via Wheelchair with complaints of Abdominal Pain, kb Vomiting/Diarrhea. 23:28 The patient presents with abdominal pain that is diffuse. Onset: The symptoms/episode kb began/occurred this morning. The symptoms do not radiate. Associated signs and symptoms: Pertinent positives: nausea, vomiting, and diarrhea, fever. The symptoms are described as constant. Modifying factors: The symptoms are alleviated by nothing, the symptoms are aggravated by nothing. Severity of pain: At its worst the pain was moderate in the emergency department the pain is unchanged. The patient has not experienced similar symptoms in the past. The patient has not recently seen a physician. Historical: - Allergies: 19:58 No Known Allergies; hb - PMHx: 19:58 Crabtree's Esophagus; bicep tear; Hypertensive disorder; Myocarditis; Pancreatitis; PTSD;hb - PSHx: 19:58 Cholecystectomy; hb - Immunization history:: Adult Immunizations up to date. - Social history:: Smoking status: Patient denies any tobacco usage or history of. ROS: 23:28 Respiratory: Negative for shortness of breath, cough, wheezing, and pleuritic chest kb pain. 23:28 Constitutional: Positive for fever. 23:28 Abdomen/GI: Positive for abdominal pain, nausea, vomiting, and diarrhea. 23:28 All other systems are negative. Exam: 23:28 Constitutional: This is a well developed, well nourished patient who is awake, alert, kb and in no acute distress. Head/Face: Normocephalic, atraumatic. ENT: Moist Mucous membranes Cardiovascular: Regular rate and rhythm with a normal S1 and S2. No gallops, murmurs, or rubs. No pulse deficits. Respiratory: Respirations even and unlabored. No increased work of breathing. Talking in full sentences Skin: Warm, dry with normal turgor. Normal color. MS/ Extremity: Pulses equal, no cyanosis. Neurovascular intact. Full, normal range of motion. Neuro: Awake and alert, GCS 15, oriented to person, place, time, and situation. Moves all extremities. Normal gait. 23:28 Abdomen/GI: Inspection: abdomen appears normal, Bowel sounds: normal, Palpation: soft, in all quadrants, moderate abdominal tenderness, in all quadrants. Vital Signs: 19:59 BP 145 / 101; Pulse 115; Resp 18; Temp 99.6(O); Pulse Ox 97% on R/A; Weight 78.47 kg; hb Height 5 ft. 4 in. ; Pain 10/10; 21:15 BP 144 / 78; cm10 21:30 BP 112 / 86; Pulse 96; Resp 16; Pulse Ox 98% ; cm10 22:00 BP 112 / 67; Pulse 99; Resp 16; Pulse Ox 97% ; cm10 22:30 BP 116 / 70; Pulse 98; Resp 16; Pulse Ox 95% ; cm10 23:00 BP 104 / 62; Pulse 94; Resp 16; Pulse Ox 98% on R/A; cm10 19:59 Body Mass Index 29.70 (78.47 kg, 162.56 cm) hb 19:59 Pain Scale: Adult hb MDM: 19:49 Patient medically screened. kb 23:28 Differential diagnosis: appendicitis, gastritis, gastroesophageal reflux disease, kb non-specific abd pain, pancreatitis. Data reviewed: vital signs, nurses notes. 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 05/27 20:00 Order name: CBC with Diff; Complete Time: 22:49 kb 05/27 20:01 Order name: CMP; Complete Time: 21:58 kb 05/27 20:01 Order name: Lipase; Complete Time: 21:58 kb 05/27 21:50 Order name: CBC Smear Scan; Complete Time: 22:49 EDMS 05/27 20:01 Order name: CT Abd/Pelvis - IV Contrast Only; Complete Time: 22:42 kb 05/27 20:01 Order name: IV Saline Lock; Complete Time: 21:35 kb 05/27 20:01 Order name: Labs collected and sent; Complete Time: 21:35 kb Administered Medications: 21:30 Drug: NS 0.9% IV 1000 ml Route: IV; Rate: 1 bolus; Site: right forearm; cm10 23:31 Follow up: Response: No adverse reaction; IV Status: Completed infusion; IV Intake: cm10 1000ml 21:30 Drug: Famotidine IVP 20 mg Route: IVP; Site: right forearm; cm10 23:31 Follow up: Response: No adverse reaction cm10 21:30 Drug: Ondansetron IVP 4 mg Route: IVP; Site: right forearm; cm10 23:32 Follow up: Response: No adverse reaction cm10 21:30 Drug: morphine IVP or IV 4 mg Route: IVP; Infused Over: 4 mins; Site: right forearm; cm10 23:32 Follow up: Response: No adverse reaction cm10 22:40 Drug: morphine IVP or IV 4 mg Route: IVP; Infused Over: 4 mins; Site: right antecubital;cm10 23:31 Follow up: Response: No adverse reaction cm10 23:22 Drug: fentaNYL (PF) IVP 25 mcg Route: IVP; Site: right forearm; cm10 23:31 Follow up: Response: No adverse reaction cm10 23:22 Drug: Ondansetron IVP 4 mg Route: IVP; Site: right forearm; cm10 23:31 Follow up: Response: No adverse reaction cm10 Disposition: 05/28 10:01 Co-signature as Attending Physician, Billy Erickson MD I reviewed the patient's care rt provided by the Advanced Practice Provider and agree with the diagnosis and treatment plan. Disposition Summary: 05/27/23 23:10 Discharge Ordered Location: Home kb Condition: Stable kb Diagnosis - Enteritis kb Followup: kb - With: Emergency Department - When: As needed - Reason: Worsening of condition Followup: kb - With: Private Physician - When: 2 - 3 days - Reason: Recheck today's complaints, Continuance of care, Re-evaluation by your physician Discharge Instructions: - Discharge Summary Sheet kb - Viral Gastroenteritis, Adult, [id number] kb Forms: - Medication Reconciliation Form kb - Thank You Letter kb - Antibiotic Education kb - Prescription Opioid Use kb - Patient Portal Instructions kb - Leadership Thank You Letter kb - Work release form cm10 Prescriptions: - ondansetron 4 mg Oral Tablet,disintegrating - take 1 tablet by ORAL route every 6 hours As needed; 12 tablet; Refills: 0, kb Product Selection Permitted - dicyclomine 20 mg Oral Tablet - take 1 tablet by ORAL route 4 times per day As needed; 20 tablet; Refills: 0, kb Product Selection Permitted Signatures: Dispatcher [employer] Sherry Mayorga FNP-C FNP-Ckb Baxter, Heather, Billy Vasquez RN, MD MD rt Martinez, Clarissa, RN RN cm10
[2023-05-27] MEDS ORDERED: FENTANYL CITR 100 MCG/2 ML ONE (23:24)
[2023-05-28 00:13] VITALS: TEMP 99.6
[2023-05-28 00:28] VITALS: BP 104/62; O2SAT 98
== END 2023-05-27 23:33 | disposition home or self-care (01) ==
LOC: ER 19:32
DX: K52.9 Noninfective gastroenteritis and colitis, unspecified (principal)
CPT/HCPCS: 85025; 36415; 83690; 80053; 74177; Q9967; J3010; J2405 ×2; J7030

== ENCOUNTER 2023-05-29 04:20 | Emergency (ER) | payer OTHER ==
--- OUTSIDE RECORDS SUMMARY | 2023-05-29 04:26 | XMS REPORT | Continuity of Care Document ---
:1975 Author Organization [facility] t Address [address] [place] [address] [place] [id number] Care Team Providers Name Role Phone WADE [...] DR JAYLON OSEI Admitting Clinician Unavailable DR TSEFANO PANCHAL Admitting Clinician Unavailable DR JUANITO GIBSON Admitting Clinician Unavailable DR GELY VILLALPANDO Admitting Clinician Unavailable DR ANIBAL KESSLER Admitting Clinician Unavailable DR JILLIAN JACKSON Admitting Clinician Unavailable DR AIDE PAULINO Admitting Clinician Unavailable DR SHARLA GARCIA Admitting Clinician Unavailable Payers Payer Name Policy Type Policy Number Effective Date Expiration Date matthias [facility] [id number] 2022 00:00:00 110 [id number] 2022 00:00:00 190 [id number] 2021 00:00:00 1005 [id number] 1959 00:00:00 1000 [id number] 2022 00:00:00 0050 [id number] 2021 00:00:00 Problems Condition Condition Condition Status [...] Clinician No Known DA Active [facility] Allergie Tea s NO KNOWN Allergy Active [facility] Social History Social Habit Start Date Stop Date Quantity Comments Source History SDOH [facility] History SDOH 2023-05-06 2023-05-[address] [facility] Med 00:00:00 00:00:[address] Sex Assigned At [birth year] [facility] [address] Heather kes 00:00:00 00:00:00 [...] :00 by mouth Center daily. aspirin 81 2023- Yes 81mg QD Take [address] [facility] MG EC 05-07- tablet (81 [facility] tablet 00:00: 23:59 mg total) Medic al 00 :00 by mouth Center daily. colchicine 2022-2023- Yes .6mg QD Take [address] (COLCRYS) 05-07- tablet [facility] 0.6 mg 00:00: 23:59 (0.6 [...] EC 05-07 tablet (81 [facility] tablet 00:00: 00:00 mg total) Medic al 00 :00 by mouth Center daily. colchicine 2022-2022- No .6mg QD Take [address] (COLCRYS) 05-07 tablet [facility] 0.6 mg 00:00: 00:00 (0.6 [...] 00 :00 by mouth Center daily. colchicine 2022-0 2022- No .6mg QD Take [address] (COLCRYS) 05-07-26 tablet [facility] 0.6 mg 00:00: 00:00 (0.6 mg Medical tablet 00 :00 total) by Center mouth daily. metoprolol 2023- Yes 25mg Q.5D Take [address] tartrate - 07-25 tablet (25 Luke s (LOPRESSOR) 00:00: 23:59 mg total) Medical 25 MG 00 :00 by mouth 2 Center tablet (two) times daily. furosemide 2023- Yes 40mg QD Take [address] [facility] [address] (LASIX) 40 - 07-25 tablet (40 Heather kes MG tablet 00:00: 23:59 mg total) Me dical 00 :00 by mouth Center daily. metoprolol 2023- Yes 25mg Q.5D Take [address] tartrate -06 05-25 tablet (25 Luke s (LOPRESSOR) 00:00: 23:59 mg total) Medical 25 MG 00 :00 by mouth 2 Center tablet (two) times daily. furosemide 2023- Yes 40mg QD Take [address] [facility] [address] (LASIX) 40 - 07-25 tablet (40 Heather kes MG tablet 00:00: 23:59 mg total) Me dical 00 :00 by mouth Center daily. HYDROcodone 2022- No 1{tbl} Take [address] -acetaminop - 08-05 tablet by Heather vargas (NORCO 00:00: 23:59 mouth Medic al 5-325) 00 :00 every 6 Center 5-325 mg (six) per tablet hours as needed for up to 10 days. Max Daily Amount: 4 tablets HYDROcodone 2022- No 1{tbl} Take [address] -acetaminop - 08-05 tablet by Heather vargas (NORCO 00:00: 23:59 mouth Medic al 5-325) 00 :00 every 6 Center 5-325 mg (six) per tablet hours as needed for up to 10 days. Max Daily Amount: 4 tablets predniSONE 2022- No 40mg QD Take [address] [facility] (DELTASONE) - 07-29 tablets Luke s 10 MG 00:00: 23:59 (40 mg Medical tablet 00 :00 total) by Center mouth daily for 3 days . predniSONE 2022- No 40mg QD Take [address] [facility] (DELTASONE) - 07-29 tablets Luke s 10 MG 00:00: 23:59 (40 mg Medical tablet 00 :00 total) by Center mouth daily for 3 days . HYDROcodone 2022- No 1{tbl} Take [address] -acetaminop 7-06 05- tablet by Heather vargas (NORCO 00:00: 00:00 mouth Medic al 5-325) 00 :00 every 6 Center 5-325 mg (six) per tablet hours as needed for up to 10 days. Max Daily Amount: 4 tablets metoprolol 2022-2022- No 25mg Q.5D Take [address] tartrate -06 05- tablet (25 Luke s (LOPRESSOR) 00:00: 00:00 mg total) Medical 25 MG 00 :00 by mouth 2 Center tablet (two) times daily. furosemide 2022-2022- No 40mg QD Take [address] (LASIX) 40 7-06 05- tablet (40 Heather kes MG tablet 00:00: 00:00 mg total) Me dical 00 :00 by mouth Center daily. furosemide 2022-2022- No 40mg QD Take [address] [facility] (LASIX) 40 7- 07-26 tablet (40 Heather kes MG tablet 00:00: 00:00 mg total) Me dical 00 :00 by mouth Center daily. HYDROcodone 2022-2022- No 1{tbl} Take [address] -acetaminop -06 05- tablet by Heather vargas (NORCO 00:00: 00:00 mouth Medic al 5-325) 00 :00 every 6 Center 5-325 mg (six) per tablet hours as needed for up to 10 days. Max Daily Amount: 4 tablets metoprolol 2022-2022- No 25mg Q.5D Take [address] tartrate -06 05-26 tablet (25 Luke s (LOPRESSOR) 00:00: 00:00 [...] KG Heart rate 2023-05-06 16:35:00 95 /min [facility] Systolic blood 2023-05-06 16:00:00 131 mm[Hg] [facility] Diastolic blood 2023-05-06 16:00:00 75 mm[Hg] [facility] Body temperature 2023-05-06 16:00:00 36.39 Cassia [facility] Respiratory rate 2023-05-06 16:00:00 18 /min [facility] Oxygen saturation in 2023-05-06 16:00:00 95 /min [facility] Arterial blood by Medical Ce nter Pulse oximetry Body height 2023-05-05 15:00:00 164.5 cm [facility] Body weight 2023-05-05 15:00:00 84.142 kg [facility] BMI 2023-05-05 15:00:00 31.09 kg/m2 [facility] Procedures Procedure Date / Time Performed Performing Clinician [facility] e 2D ECHO W/ DOPPLER 2023-05-06 14:58:00 Lauren Angeles [facility] (CW/PW/COLOR) [facility] B-TYPE NATRIURETIC 2023-05-06 05:42:00 Miguel Cedeno [facility] FACTOR (BNP) [facility] HIGH SENSITIVITY 2023-05-06 05:42:00 Miguel Cedeno [facility] TROPONIN I [facility] HEMOGLOBIN A1C 2023-05-06 05:42:00 [facility] BASIC METABOLIC PANEL 2023-05-06 05:42:00 [facility] CBC (HEMOGRAM ONLY) 2023-05-06 05:42:00 [facility] LIPID PANEL 2023-05-06 05:42:00 [facility] HEPATIC FUNCTION PANEL 2023-05-06 05:42:00 [facility] LIPASE 2023-05-06 05:42:00 [facility] BLOOD CULTURE 2023-05-05 20:14:00 [facility] URINALYSIS W/ REFLEX 2023-05-05 20:14:00 [facility] URINE CULTURE [facility] ECG 12-LEAD 2023-05-05 17:20:59 [facility] ECG 12-LEAD 2023-05-05 17:20:59 Unknown, [facility] ECG 12-LEAD 2023-05-05 17:20:59 Unknown, [facility] XR CHEST 1 VIEW PORTABLE 2023-05-05 11:31:00 Miguel Cedeno [facility] / BEDSIDE Medical Center CATHETERIZATION, HEART, 2023-05-05 10:34:00 Neal Kaiser [facility] LEFT, WITH PERCUTANEOUS Medical Center CORONARY INTERVENTION BASIC METABOLIC PANEL 2023-05-05 09:53:00 Miguel Cedeno [facility] MAGNESIUM 2023-05-05 09:53:00 Miguel Cedeno [facility] PHOSPHORUS 2023-05-05 09:53:00 Miguel Cedeno [facility] HIGH SENSITIVITY 2023-05-05 09:53:00 Miguel Cedeno [facility] [place] t [facility] TROPONIN I [facility] B-TYPE NATRIURETIC 2023-05-05 09:53:00 Miguel Cedeno [facility] FACTOR (BNP) [facility] CBC W/PLT COUNT & AUTO 2023-05-05 09:53:00 Miguel Cedeno [facility] DIFFERENTIAL [facility] CBC W/PLT COUNT & AUTO 2023-05-05 09:53:00 Miguel Cedeno [facility] DIFFERENTIAL [facility] ECG 12-LEAD 2023-05-05 09:28:58 Rohan Neal [place] [facility] ECG 12-LEAD 2023-05-05 09:23:38 Miguel Cedeno [facility] CARDIAC CATH REPORT - 2023-05-05 00:00:00 Provider, Vane [facility] SCAN Scanning [facility] EKG-SCANNED 2023-05-05 00:00:00 Provider, Default [facility] es Scanning [facility] Plan of Care Planned Activity Planned Date Details Comments Source Future Scheduled 2026-05-06 Lipid panel (procedure) [facility] Test 00:00:00 [code = 18040070] Medical Ce nter Future Scheduled 2026-05-06 Lipid panel (procedure) [facility] Test 00:00:00 [code = 54557136] Medical Ce nter Future Scheduled 2023-06-12 Influenza Vaccine (#1) [facility] 00:00[facility]00 [code = Influenza Vaccine Or dical Center (#1)] Future Scheduled 2023-06-12 Influenza Vaccine (#1) [facility] 00:00:00 [code = Influenza Vaccine Me dical Center (#1)] Future Scheduled 2023 SHINGLES VACCINES ([address] [facility] Test 00:00:00 2) [code = SHINGLES Medical Center VACCINES (1 of 2)] Future Scheduled 2023 SHINGLES VACCINES ([address] [facility] Test 00:00:00 2) [code = SHINGLES Medical Center VACCINES (1 of 2)] Future Scheduled 2022-10-[address] [facility] Test 00:00:00 (12+) [code = DEPRESSION Med ical Center SCREENING (12+)] Future Scheduled 2022-10-[address] [facility] Test 00:00:00 (12+) [code = DEPRESSION Med ical Center SCREENING (12+)] Future Scheduled 1992 DTAP/TDAP/TD VACCINES ([address] [facility] Test 00:00:00 - Tdap) [code = Medical Cent er DTAP/TDAP/TD VACCINES (1 - Tdap)] Future Scheduled 1992 DTAP/TDAP/TD VACCINES ([address] [facility] Test 00:00:00 - Tdap) [code = Medical Cent er DTAP/TDAP/TD VACCINES (1 - Tdap)] Future Scheduled 1991 HEPATITIS C [facility]CRE[facility]ING [facility] 00:00:00 [code = HEPATITIS C Medical Center SCREENING] Future Scheduled 1991 HEPATITIS C [facility]CRE[facility]ING [facility] 00:00:00 [code = HEPATITIS C Medical Center SCREENING] Future Scheduled [address] [facility] 00:00:00 virus screening Medical Cent er (procedure) [code = 586379671] Future Scheduled [address] [facility] Test 00:00:00 virus screening Medical Cent er (procedure) [code = 111048836] Future Scheduled [address] [facility] Test 00:00:00 Counseling and Screening Med ical Center (12+) [code = Tobacco Cessation Counseling and Screening (12+)] Future Scheduled [address] [facility] Test 00:00:00 Counseling and Screening Med [facility] (12+) [code = Tobacco Cessation Counseling and Screening (12+)] Future Scheduled 1973 COVID-19 VACCINE (#1) [facility] 00:00[facility]00 [code = COVID-19 VACCINE Med ical Center (#1)] Future Scheduled 1975 COVID-19 VACCINE (#1[facility] 00:00:00 [code = COVID-19 VACCINE Med ical Center (#1)] Future Scheduled 1973 CT Colonography (combo) [facility] Test 00:00:00 [code = CT Colonography Medi [facility] Center (combo)] Future Scheduled 1973 Screening for malignant [facility] Test 00:00:00 neoplasm of colon Medical Ce nter (procedure) [code = 266464145] Future Scheduled 1973 Screening for malignant [facility] Test 00:00:00 neoplasm of colon Medical Ce nter (procedure) [code = 565184679] Future Scheduled 1973 Screening for malignant [facility] Test 00:00:00 neoplasm of colon Medical Ce nter (procedure) [code = 041899732] Future Scheduled 1973 Screening for malignant [facility] Test 00:00:00 neoplasm of colon Medical Ce nter (procedure) [code = 927044093] Future Scheduled 1975 Sigmoidoscopy [code = [facility]:00 Sigmoidoscopy] Medical [facility] Future Scheduled 1973 CT Colonography (combo) [facility] Test 00:00:00 [code = CT Colonography [facility] (combo)] Future Scheduled 1973 Screening for malignant [facility] Test 00:00:00 neoplasm of colon Medical Ce nter (procedure) [code = 200738989] Future Scheduled 1973 Screening for malignant [facility] Test 00:00:00 neoplasm of colon Medical Ce nter (procedure) [code = 697019877] Future Scheduled 1973 Screening for malignant [facility] Test 00:00:00 neoplasm of colon Medical Ce nter (procedure) [code = 826172067] Future Scheduled 1973 Screening for malignant [facility] Test 00:00:00 neoplasm of colon Medical Ce nter (procedure) [code = 097980593] Future Scheduled 1975 Sigmoidoscopy [code = [facility] 00:[facility]:00 Sigmoidoscopy] Medical Cente r Encounters Start End Encounter Admission Attending Care Care Encounter Source Date/Time Date/Time Type Type Clinicians Facility Department ID 2023-05-06 Inpatient ER MANNIE ANGELES [facility] [id number] SLE 12:33:08 LAUREN 2023-05-05 Outpatient [facility] [id number] ID 14:28:05 [id number] [facility] 2023-05-05 Inpatient ER [facility] [id number] SLE 10:47:09 2023-05-05 Inpatient ER [facility] [id number] [facility] 09:27:55 2023-05-05 2023-05-06 [facility] Dinh Kaisermarilee Quintanilla [facility] [id number] [facility] 08:53:00 17:36:00 Encounter Lauren Angeles [facility] 2023-05-05 2023-05-06 [facility] Dinh Kaisermarilee Quintanilla [facility] [id number] [facility] 08:53:00 17:36:00 Encounter Lauren Angeles [facility] 2023-05-05 2023-05-06 Inpatient ER WILLIAM ANGELES Cardiac [id number] SLE 08:53:00 17:36:00 Psychiatric hospital 2023-05-05 2023-05-05 Surgery [facility] [id number] 11:05:00 13:31:00 [facility] 2023-05-05 2023-05-05 [facility] [id number] 11:05:00 13:31:00 [facility] 2023-05-05 2023-05-05 Orders [facility] [id number] 00:00:00 00:00:00 Only [facility] 2023-05-05 2023-05-05 Orders [facility] [id number] 00:00:00 00:00:00 Only [facility] 2022-12-12 2022-12-12 Emergency ER Alma [facility] [id number] [place] 10:46:00 13:08:00 Jose -[id number] [facility] 2022-12-11 2022-12-11 Emergency ER Ed, [facility] [id number] [place] 06:51:00 10:31:00 Noemíes -[id number] [facility] 2022-12-04 2022-12-05 Inpatient ER Jair, [facility] [id number] [place] 15:02:00 14:27:00 Misael -[id number] [facility] 2022-12-03 2022-12-03 Inpatient ER Jair, [facility] [id number] [place] 09:41:00 07:21:00 Misael -[id number] [facility] 2022-12-02 2022-12-02 Emergency ER Ed, [facility] [id number] [place] 10:15:00 16:30:00 Vahe -[id number] [facility] 2022-11-17 2022-11-17 Emergency E OSEI, [facility] [id number] [facility] 10:31:00 11:05:00 JAYLON [facility] 2022-10-26 2022-10-26 Emergency E OLADE, [facility] [id number] [facility] 08:20:00 10:20:00 STEFANO Med[facility] 2022-09-15 2022-09-15 Emergency E PESCO, [facility] [id number] [facility] 09:09:00 12:08:00 JUANITO Medic [facility] 2022-09-14 2022-09-14 Emergency E PESCO, [facility] [id number] [facility] 08:52:00 12:23:00 JUANITO Medic [facility] 2022-09-13 2022-09-13 Emergency E PESCO, [facility] [id number] [facility] 09:03:00 11:18:00 JUANITO Medic [facility] 2022-08-26 2022-08-26 Emergency E PUMAREJO, [facility] [id number] [facility] 10:57:00 15:13:00 GELY [facility] 2022-08-25 2022-08-25 Emergency E CHECO, IMRAN [facility] [id number] [facility] 09:48:00 11:36:00 [facility] 2022-08-22 2022-08-22 Emergency E MANUEL, [facility] [id number] [facility] 09:39:00 13:31:00 [facility] 2022-07-26 2022-07-26 Emergency E JEFFERSON, [facility] [id number] [facility] 11:44:00 13:18:00 AIDE [facility] 2022-02-26 2022-02-26 Emergency E RADHA, [facility] [id number] [facility] 11:00:00 12:27:00 [facility] Results Test Description Test Time Test Comments Results Result Comments Source BLOOD CULTURE 2023-05-10 21:00:24 Test Item Value Reference Range Interpretation Comme nts CULTURE (BEAKER) (test code = 1095) No growth in 5 days BLOOD [id number] 21:00:24 Test Item Value Reference Range Interpretation Comments CULTURE (BEAKER) (test No growth in 5 days code = 1095) The specimen volume collected for this blood culture was below the optimum (10 mL per bottle or 20 mL total). Use of lower volumes may adversely affect recovery and/or detection times of some organisms.HEMOGLOBIN [id number] 11:41:48 Test Item Value Reference Range Interpretation [...] 5.7- 6.4% indicates increased risk for diabetes (prediabetes)."[employer] Maintenance Mechanic ID - ADM HEPATIC FUNCTION [id number] 11:38:34 Test Item Value Reference Range Interpretation [...] (test code = 45 U/L 6-55 347) [employer]ic ID - MMOperator ID - [id number] 11:09:16 Test Item Value Reference Range Interpretation Comments LIPASE (BEAKER) (test code = 749) 93 U/L 8-78 H [employer] ID - MMB-TYPE NATRIURETIC FACTOR (BNP)2023-05-06 07:10:09 Test Item Value Reference Range Interpretation Comments B-TYPE NATRIURETIC PEPTIDE (BEAKER) < pg/mL 0-100 (test code = 700) [employer]ic ID - MMHIGH SENSITIVITY TROPONIN [id number] 07:09:22 Test Item Value Reference Range Interpretation Comments HIGH SENSITIVITY TROPONIN I (test 10 pg/ml <=35 code = 1745031) [employer] Mechanic ID - MMThe DEPUTY SHERIFF STAT High Sensitivity Troponin-I results should be used in conjunctionwith other diagnostic information such as ECG, clinical observations and information, and patient symptoms to aid in the diagnosis of [place].BASIC METABOLIC [id number] 07:01:55 Test Item Value Reference Range Interpretation [...] not appl icable for dialysis patien ts [employer] ID - MMLIPID [id number] 07:01:55 Test Item Value Reference Range Interpretation [...] Borderline 130-159 High 160-189 Very High >=190 [employer] ID - MMCBC (HEMOGRAM ONLY)2023-05-06 06:56:02 Test [...] = 413) Urinalysis w/Microscopic + Reflex to [id number] 21:11:57 Test Item Value Reference Range Interpretation Comments Color, UA (test Light Yellow code = 5778-6) Clarity, UA (test Clear code = 5767-9) Specific [place], 1.012 1.001-1.035 UA (test code = 5811-5) pH, UA (test code 7.0 5.0-8.0 = 5803-2) Protein, UA (test Negative Negative code = 49516-9) Glucose, UA (test Negative Negative code = 365) Ketones, UA (test Negative Negative code = 2514-8) Bilirubin, UA Negative Negative (test code = 01292-4) Blood, UA (test Negative Negative code = 87581-0) Nitrite, UA (test Negative Negative code = 5802-4) Leukocytes, UA Negative Negative (test code = 5799-2) Urobilinogen, UA 0.2 0.2-1.0 (test code = 08286-1) RBC, UA (test See_Comment [Automated me ssage] code = 50861-1) The system w [facility] generated this result transmit betty reference range : /HPF. The refer ence range was not u sed to interpret th is result as normal/abnormal . WBC, UA (test 1 See_Comment [Automated me ssage] code = 5821-4) The system [facility] generated this result transmit betty reference range : /HPF. The refer ence range was not u sed to interpret th is result as normal/abnormal . Specimen Source (test code = 2795) DAVID (test code = Water [employer] Maintenance Mechanic ID - DAVID) [auto]Water Plant Maintenance Mechanic ID - tech [facility] + Reflex to Culture 2023-05-05 21:11:57 Test Item Value Reference Range Interpretation Comments Color, UA (test Light Yellow code = 5778-6) Clarity, UA (test Clear code = 5767-9) Specific [place], 1.012 1.001-1.035 UA (test code = 5811-5) pH, UA (test code 7.0 5.0-8.0 = 5803-2) Protein, UA (test Negative Negative code = 99286-7) Glucose, UA (test Negative Negative code = 365) Ketones, UA (test Negative Negative code = 2514-8) Bilirubin, UA Negative Negative (test code = 75512-4) Blood, UA (test Negative Negative code = 91139-4) Nitrite, UA (test Negative Negative code = 5802-4) Leukocytes, UA Negative Negative (test code = 5799-2) Urobilinogen, UA 0.2 0.2-1.0 (test code = 93830-2) RBC, UA (test See_Comment [Automated me ssage] code = 89046-3) The system [facility] generated this result transmit betty reference range : /HPF. The refer ence range was not u sed to interpret th is result as normal/abnormal . WBC, UA (test 1 See_Comment [Automated me ssage] code = 5821-4) The system [facility] generated this result transmit betty reference range : /HPF. The refer ence range was not u sed to interpret th is result as normal/abnormal . Specimen Source (test code = 2795) DAVID (test code = Water Plant Maintenance Mechanic ID - DAVID) [auto]Water Plant Maintenance Mechanic ID - scenios [facility]/ REFLEX URINE [id number] 21:11:57 Test Item Value Reference Range Interpretation [...] /HPF 520) SOURCE(BEAKER) (test code = 2795) Water [employer] Maintenance Mechanic ID - [auto]Water Plant Maintenance Mechanic ID - techXR CHEST 1 VIEW PORTABLE / BEDSIDE 2023-05-05 11:36:03 [facility] 1975 Sex: MEXAMINATION:XR CHEST [...] Signed By: Fransisca Helms05/05/2023 11:38 CDTWorkstation Name: [id number] NATRIURETIC FACTOR (BNP)2023-05-05 10:43:34 Test Item Value Reference Range Interpretation Comments B-TYPE NATRIURETIC PEPTIDE (BEAKER) < pg/mL 0-100 (test code = 700) [employer] Maintenance Mechanic ID - BVHIGH SENSITIVITY TROPONIN [id number] 10:42:25 Test Item Value Reference Range Interpretation Comments HIGH SENSITIVITY TROPONIN I (test 8 pg/ml <=35 code = 7995064) [employer] Maintenance Mechanic ID - BVThe DEPUTY SHERIFF STAT High Sensitivity Troponin-I results should be used in conjunctionwith other diagnostic information such as ECG, clinical observations and information, and patient symptoms to aid in the diagnosis of FL.[id number] 10:35:41 Test Item Value Reference Range Interpretation Comments MAGNESIUM (BEAKER) (test code = 2.1 mg/dL 1.6-2.6 627) [employer] Maintenance Mechanic ID - [id number] 10:35:41 Test Item Value Reference Range Interpretation Comments PHOSPHORUS (BEAKER) (test code = 2.7 mg/dL 2.3-4.7 604) [employer] Maintenance Mechanic ID - BVBASIC METABOLIC [id number] 10:35:40 Test Item Value Reference Range Interpretation [...] not appl icable for dialysis patien ts Water Plant Maintenance Mechanic ID - BVCBC W/PLT COUNT & AUTO [id number] 10:24:49 Test Item Value Reference Range Interpretation [...] code = 2801) U/S ABDOMEN RUQ*WW*2022-09-14 11:05:47 [facility] : 1975 Sex: MEXAMINATION:US abdomen [...] by: Antonella Pham MD 09/14/2022 11:05 AM [facility] 0132PDHAMYLASE AND [id number] 10:11:00 Test Item Value Reference Range Interpretation [...] normal/abnormal . GFR 82 See_Comment L [Automated TOGOLESE (test mL/min/1.73m\\S\\2 message] The code = GFRAA) [...] normal/abnormal . GFR 74 See_Comment L [Automated TOGOLESE (test mL/min/1.73m\\S\\2 message] The code = GFRAA) [...] IU/L 10-49 H 31A) CBC (INCLUDES AUTOMATED DIFFERENTIAL)*[id number] 09:55:00 Test Item Value Reference Range Interpretation [...] MORPH (test code = NORMAL WRBCMOR) BLOOD [id number] 13:40:00 Test Item Value Reference Range Interpretation Comments Culture Observations (test NO GROWTH AFTER 5 code = COB1) DAYS BLOOD [id number] 13:40:00 Test Item Value Reference Range Interpretation Comments Culture Observations (test NO GROWTH AFTER 5 code = COB1) DAYS URINE [id number] 10:08:00 Test Item Value Reference Range Interpretation Comments Culture Observations (test NO GROWTH (<1,000 code = COB1) CFU/ML) CT ABDOMEN AND PELVIS WITH CONTRAST*WW*2022-08-26 13:53:02 [facility] 1975 Sex: MExam: [...] signed by: Evelina REINOSO 08/26/2022 1:53 PM [facility] [id number] *WW*2022-08-26 12:48:00 Test Item Value Reference Range [...] normal/abnormal . GFR 82 See_Comment L [Automated TOGOLESE (test mL/min/1.73m\\S\\2 message] The code = GFRAA) [...] LA) 1.3 mmol/L 0.4-2.0 CBC (INCLUDES AUTOMATED DIFFERENTIAL)*[id number] 12:04:00 Test Item Value Reference Range Interpretation [...] XR ELBOW RT COMPLETE 3 VIEWS*WW*2022-02-26 12:03:26 [facility] 1975 Sex: MEXAMINATION:XR [...]
[2023-05-29 05:04] LABS: Absolute Lymphocytes (CBC) 0.3 K/uL (0.7-4.9); Hematocrit 33.7 % (39.6-49.0); MCV 63.9 fL (80-100); MPV 6.9 fL (7.6-11.3); Platelets 580 thou/uL (152-406); RBC Red Blood Cell Count 5.28 M/uL (4.33-5.43)
[2023-05-29 05:20] LABS: Albumin 3.2 g/dL (3.4-5.0); Bilirubin Total 0.4 mg/dL (0.2-1.0); Potassium 3.7 mEq/L (3.5-5.1); Protein, Total 6.9 g/dL (6.4-8.2)
[2023-05-29] MEDS ORDERED: NA CHLORIDE 0.9% 2,000 ML ONE (05:24)
[2023-05-29] MEDS ORDERED: ONDANSETRON 4 MG/2 ML VIAL ONE (05:24)
[2023-05-29] MEDS ORDERED: MORPHINE 4 MG/ML SYR ONE ×3 (05:24→08:27)
[2023-05-29 05:25] LABS: Blood Morphology Comment NOTED (NOT SEEN); Hypochromasia 1+; Platelet Estimate ADEQ; Polychromasia SLIGHT; White Blood Cell Scan OK (OK)
[2023-05-29 07:20] LABS: Specific Gravity 1.021 (1.005-1.030); Urine Bacteria None Seen /HPF (<20); Urine Bilirubin NEGATIVE (Negative); Urine Blood Negative (Negative); Urine Clarity Clear (Clear); Urine Color Yellow (Yellow); Urine Glucose NEGATIVE (Negative); Urine Protein TRACE (Negative); Urine RBC <5 /HPF (None Seen); Urine Urobilinogen Normal (Normal)
--- NOTE | 2023-05-29 07:27 | RAD REPORT ---
EXAM DESCRIPTION: CTAbdomen Pelvis W Contrast - 05/29/2023 7:17 am CLINICAL HISTORY: ABD PAIN COMPARISON: Abdomen Pelvis W Contrast dated 05/27/2023; Abdomen Pelvis W Contrast dated 2; Abdomen Pelvis W Contrast dated 08/27/2022 TECHNIQUE: CT of the abdomen and pelvis was performed. All CT scans are performed using dose optimization technique as appropriate and may include automated exposure control or mA/KV adjustment according to patient size. FINDINGS: Lower chest: Circumferentially thickened distal esophagus could reflect esophagitis. Liver: No acute abnormality or suspicious lesions. Biliary: Cholecystectomy Stomach: No significant focal abnormality. Duodenum: No significant focal abnormality. Pancreas: No significant abnormality. Spleen: No significant abnormality. Adrenal: No suspicious lesions. Kidney/ureter: No hydronephrosis. No renal calculi. Retroperitoneum: No retroperitoneal adenopathy. Vascular: No aneurysm. Bowel: No significant focal abnormality. Normal appendix. Peritoneum: No ascites or free air. Bladder: Grossly unremarkable. Reproductive: No adnexal masses. Bones: No acute fracture. Advanced degenerative changes are present L5-S1. Other: n/a IMPRESSION: No acute intra-abdominal or pelvic finding. Normal appendix.
--- NOTE | 2023-05-29 08:26 | ER ---
Nurse's Notes [facility] Name: Delonte Gonzales Age: 48 yrs Sex: Male : 1975 Arrival Date: 05/29/2023 Time: 04:20 Bed 7 Private MD: Diagnosis: Infectious gastroenteritis and colitis, unspecified;Esophagitis, unspecified;Diarrhea, unspecified Presentation: 05/29 04:39 Chief complaint: Patient states: "I was just here for the same thing. I was getting as6 better but my pain came back and it's worse and I've been having diarrhea every 5-10 minutes since 9 last night". Coronavirus screen: At this time, the client does not indicate any symptoms associated with coronavirus-19. Ebola Screen: No symptoms or risks identified at this time. Initial Sepsis Screen: Does the patient meet any 2 criteria? No. Patient's initial sepsis screen is negative. Does the patient have a suspected source of infection? No. Patient's initial sepsis screen is negative. Risk Assessment: Do you want to hurt yourself or someone else? Patient reports no desire to harm self or others. Onset of symptoms was May 28, 2023. 04:39 Acuity: DANIEL 3 as6 04:39 Method Of Arrival: Ambulatory as6 Historical: - Allergies: 04:39 No Known Allergies; as6 - PMHx: 04:39 Crabtree's Esophagus; bicep tear; Hypertensive disorder; Pancreatitis; Myocarditis; PTSD;as6 - PSHx: 04:39 Cholecystectomy; as6 - Immunization history:: Client reports receiving the 2nd dose of the Covid vaccine, moderna. - Social history:: Smoking status: Patient denies any tobacco usage or history of. - Family history:: not pertinent. - Hospitalizations: : No recent hospitalization is reported. Screenin:43 [facility] ED Fall Risk Assessment (Adult) Score/Fall Risk Level 0 - 2 = Low Risk. Abuse as6 screen: Denies threats or abuse. Denies injuries from another. Nutritional screening: No deficits noted. Tuberculosis screening: No symptoms or risk factors identified. Assessment: 04:46 General: Appears uncomfortable, ill, Behavior is cooperative, restless, Reports fever as6 for feeling ill for. Pain: Complains of pain in abdomen. Neuro: Level of Consciousness is awake, alert, obeys commands, Oriented to person, place, time, situation. Cardiovascular: Capillary refill < 3 seconds Patient's skin is warm and dry. Respiratory: Respiratory effort is even, unlabored, Respiratory pattern is regular, symmetrical. GI: Reports lower abdominal pain, diarrhea. 06:00 Reassessment: Patient appears in no apparent distress at this time. Patient and/or jb4 family updated on plan of care and expected duration. Pain level reassessed. Patient is alert, oriented x 3, equal unlabored respirations, skin warm/dry/pink. 06:57 Reassessment: Patient appears in no apparent distress at this time. Patient and/or jb4 family updated on plan of care and expected duration. Pain level reassessed. Patient is alert, oriented x 3, equal unlabored respirations, skin warm/dry/pink. 08:26 Reassessment: Patient appears in no apparent distress at this time. Patient and/or hb family updated on plan of care and expected duration. Pain level reassessed. Patient is alert, oriented x 3, equal unlabored respirations, skin warm/dry/pink. 09:02 Reassessment: Patient appears in no apparent distress at this time. Patient and/or hb family updated on plan of care and expected duration. Pain level reassessed. Patient is alert, oriented x 3, equal unlabored respirations, skin warm/dry/pink. Vital Signs: 04:39 BP 121 / 71; Pulse 119; Resp 18 S; Temp 99(TE); Pulse Ox 98% on R/A; Weight 78.47 kg as6 (R); Height 5 ft. 4 in. (R); Pain 10/10; 06:57 BP 118 / 68; Pulse 103; Resp 16; Pulse Ox 98% on R/A; jb4 09:00 BP 126 / 76; Pulse 77; Resp 16; Pulse Ox 99% on R/A; hb 04:39 Body Mass Index 29.70 (78.47 kg, 162.56 cm) as6 04:39 Pain Scale: Adult as6 ED Course: 04:25 Patient arrived in ED. jj6 04:33 Krishna Mchugh MD is Attending Physician. kdr 04:39 Alexey Culp, MERT is Primary Nurse. as6 04:39 Arm band placed on. as6 04:43 Triage completed. as6 04:43 Bed in low position. Call light in reach. as6 05:04 Inserted saline lock: 20 gauge in right forearm, using aseptic technique. Blood as6 collected. 06:59 Attending Physician role handed off by Krishna Mchugh MD rn 06:59 Grayson Wynn MD is Attending Physician. rn 07:14 Urinalysis w/ reflexes Sent. ld1 07:19 CT Abd/Pelvis - IV Contrast Only In Process Unspecified. EDMS 09:15 No provider procedures requiring assistance completed. IV discontinued, intact, hb bleeding controlled, No redness/swelling at site. 09:17 Provided Education on: . hb Administered Medications: 05:19 Drug: NS 0.9% IV 1000 ml Route: IV; Rate: 1 bolus; Site: right forearm; as6 07:00 Follow up: Response: No adverse reaction; IV Status: Completed infusion; IV Intake: hb 1000ml 05:19 Drug: Ondansetron IVP 4 mg Route: IVP; Site: right forearm; as6 07:00 Follow up: Response: No adverse reaction hb 05:20 Drug: morphine IVP or IV 4 mg Route: IVP; Infused Over: 4 mins; Site: right forearm; as6 07:00 Follow up: Response: No adverse reaction hb 05:20 Drug: NS 0.9% IV 1000 ml Route: IV; Rate: 125 ml/hr; Site: right forearm; as6 07:25 Drug: morphine IVP or IV 4 mg Route: IVP; Infused Over: 4 mins; Site: right forearm; ld1 08:25 Follow up: Response: No adverse reaction hb 08:20 Drug: morphine IVP or IV 4 mg Route: IVP; Infused Over: 4 mins; Site: right antecubital;hb 09:15 Follow up: Response: No adverse reaction hb 09:10 Drug: Urich PO 5 mg-325 mg 1 tabs Route: PO; hb 09:15 Follow up: Response: Medication administered at discharge. hb Medication: 04:43 VIS not applicable for this client. as6 Intake: 07:00 IV: 1000ml; Total: 1000ml. hb Outcome: 08:25 Discharge ordered by . rn 09:16 Discharged to home ambulatory. hb 09:16 Condition: good 09:16 Discharge instructions given to patient, Instructed on discharge instructions, follow up and referral plans. medication usage, Demonstrated understanding of instructions, follow-up care, medications. 09:17 Patient left the ED. Signatures: Dispatcher [employer] EDMS Krishna Mchugh MD MD kdr Nieto, Roman, MD MD rn Baxter, Heather, RN RN Danial Otero RN RN jb4 Roxana Sommer RN RN ld1 oJ Woods jj6 Alexey Culp RN RN as6
--- NOTE | 2023-05-29 08:26 | EDPHYS ---
Physician Documentation [facility] Name: Delonte Gonzales Age: 48 yrs Sex: Male : 1975 Arrival Date: 05/29/2023 Time: 04:20 Bed 7 Private MD: ED Physician Grayson Wynn HPI: 05/29 08:04 This 48 yrs old Male presents to ER via Ambulatory with complaints of Abdominal Pain, rn Diarrhea. 08:04 The patient presents to the emergency department with diarrhea, abdominal pain, of the rn abdomen diffusely. Onset: The symptoms/episode began/occurred at an unknown time. Possible causes: unknown. The symptoms are aggravated by nothing. The symptoms are alleviated by nothing. Severity of symptoms: At their worst the symptoms were moderate in the emergency department the symptoms are unchanged. The patient has experienced similar episodes in the past. The patient has not recently seen a physician. Historical: - Allergies: 04:39 No Known Allergies; as6 - PMHx: 04:39 Crabtree's Esophagus; bicep tear; Hypertensive disorder; Pancreatitis; Myocarditis; PTSD;as6 - PSHx: 04:39 Cholecystectomy; as6 - Immunization history:: Client reports receiving the 2nd dose of the Covid vaccine, moderna. - Social history:: Smoking status: Patient denies any tobacco usage or history of. - Family history:: not pertinent. - Hospitalizations: : No recent hospitalization is reported. ROS: 08:04 Constitutional: Negative for fever, chills, and weight loss, Cardiovascular: Negative rn for chest pain, palpitations, and edema, Respiratory: Negative for shortness of breath, cough, wheezing, and pleuritic chest pain, Abdomen/GI: + abd pain with nausea and diarrhea MS/Extremity: Negative for injury and deformity, Skin: Negative for injury, rash, and discoloration, Neuro: Negative for headache, numbness, tingling, and seizure. Exam: 08:04 Constitutional: This is a well developed, well nourished patient who is awake, alert, rn and in no acute distress. ENT: dry MM Cardiovascular: Tachycardic, regular Respiratory: No increased work of breathing, no retractions or nasal flaring. Abdomen/GI: soft, no focal tenderness Skin: Warm, dry MS/ Extremity: Pulses equal, no cyanosis. Neuro: Awake and alert, GCS 15 Vital Signs: 04:39 BP 121 / 71; Pulse 119; Resp 18 S; Temp 99(TE); Pulse Ox 98% on R/A; Weight 78.47 kg as6 (R); Height 5 ft. 4 in. (R); Pain 10/10; 06:57 BP 118 / 68; Pulse 103; Resp 16; Pulse Ox 98% on R/A; jb4 09:00 BP 126 / 76; Pulse 77; Resp 16; Pulse Ox 99% on R/A; hb 04:39 Body Mass Index 29.70 (78.47 kg, 162.56 cm) as6 04:39 Pain Scale: Adult as6 MDM: 07:00 Patient medically screened. rn 08:23 Differential diagnosis: Nonspecific abd pain, gastritis, viral gastroenteritis, rn gastroenteritis, esophagitis. Data reviewed: vital signs, nurses notes, lab test result(s), radiologic studies, CT scan, and as a result, I will discharge patient. Counseling: I had a detailed discussion with the patient and/or guardian regarding the historical points, exam findings, and any diagnostic results supporting the discharge/admit diagnosis, lab results, radiology results, the need for outpatient follow up, to return to the emergency department if symptoms worsen or persist or if there are any questions or concerns that arise at home. Response to treatment: the patient's symptoms have markedly improved after treatment, and as a result, I will discharge patient. Special discussion: Based on the patient's Hx, exam, and Dx evaluation, there is no indication for emergent surgery or inpatient Tx. It is understood by the patient/guardian that if the Sx's persist or worsen they need to return immediately for re-evaluation. I discussed with the patient/guardian in detail that at this point there is no indication for admission to the hospital. It is understood, however, that if the symptoms persist or worsen the patient needs to return immediately for re-evaluation. ED course: Signed out to me by Dr. Mchugh at shift change, plan was to dc home if no acute changes in CT abdomen. CT shows esophagitis and previous CT shows enteritis a couple of days ago. WIll dc home with symptomatic treatment and given strict return precautions. . 05/29 04:34 Order name: CBC with Diff; Complete Time: kdr 05/29 04:34 Order name: CMP; Complete Time: kdr 05/29 04:34 Order name: Lipase; Complete Time: 06:26 kdr 05/29 04:34 Order name: Urinalysis w/ reflexes; Complete Time: 07:20 kdr 05/29 05:07 Order name: CBC Smear Scan; Complete Time: 06:26 EDMS 05/29 06:53 Order name: CT Abd/Pelvis - IV Contrast Only; Complete Time: 07:50 kdr 05/29 04:34 Order name: IV Saline Lock; Complete Time: 05:04 kdr 05/29 04:34 Order name: Labs collected and sent; Complete Time: 05:04 kdr Administered Medications: 05:19 Drug: NS 0.9% IV 1000 ml Route: IV; Rate: 1 bolus; Site: right forearm; as6 07:00 Follow up: Response: No adverse reaction; IV Status: Completed infusion; IV Intake: hb 1000ml 05:19 Drug: Ondansetron IVP 4 mg Route: IVP; Site: right forearm; as6 07:00 Follow up: Response: No adverse reaction hb 05:20 Drug: morphine IVP or IV 4 mg Route: IVP; Infused Over: 4 mins; Site: right forearm; as6 07:00 Follow up: Response: No adverse reaction hb 05:20 Drug: NS 0.9% IV 1000 ml Route: IV; Rate: 125 ml/hr; Site: right forearm; as6 07:25 Drug: morphine IVP or IV 4 mg Route: IVP; Infused Over: 4 mins; Site: right forearm; ld1 08:25 Follow up: Response: No adverse reaction hb 08:20 Drug: morphine IVP or IV 4 mg Route: IVP; Infused Over: 4 mins; Site: right antecubital;hb 09:15 Follow up: Response: No adverse reaction hb 09:10 Drug: Parker PO 5 mg-325 mg 1 tabs Route: PO; hb 09:15 Follow up: Response: Medication administered at discharge. hb Disposition Summary: 05/29/23 08:25 Discharge Ordered Location: Home rn Problem: new rn Symptoms: have improved rn Condition: Stable rn Diagnosis - Infectious gastroenteritis and colitis, unspecified rn - Esophagitis, unspecified rn - Diarrhea, unspecified rn Followup: rn - With: Private Physician - When: As needed - Reason: Recheck today's complaints, Re-evaluation by your physician Discharge Instructions: - Discharge Summary Sheet rn - Diarrhea, Adult rn - Esophagitis rn - Nausea and Vomiting, Adult rn Forms: - Medication Reconciliation Form rn - Thank You Letter rn - Antibiotic corner bead operator - Prescription Opioid Use rn - Patient Portal Instructions rn - Leadership Thank You Letter rn - Work release form mb4 Signatures: Dispatcher [employer] Krishna Benz MD MD kdr Nieto, Roman, MD MD rn Baxter, Heather, RN RN Roxana Sommer RN RN ld1 Alexey Culp RN RN as6
[2023-05-29] MEDS ORDERED: HYDROCODONE/APAP 5/325 MG TAB ONE (09:20)
[2023-05-29 09:21] VITALS: TEMP 99
[2023-05-29 09:24] VITALS: BP 126/76; O2SAT 99
== END 2023-05-29 09:17 | disposition home or self-care (01) ==
LOC: ER 04:20
DX: A09 Infectious gastroenteritis and colitis, unspecified (principal); K20.90 Esophagitis, unspecified without bleeding; I10 Essential (primary) hypertension
CPT/HCPCS: 85025; 81001; 36415; 83690; 80053; 74177; 99284; Q9967; J2405; J7030

== ENCOUNTER 2023-05-30 05:15 | Emergency (ER) | payer OTHER ==
--- OUTSIDE RECORDS SUMMARY | 2023-05-30 05:21 | XMS REPORT | Continuity of Care Document ---
:1975 Author Organization [facility] t Address [address] [place] [address] [place] [id number] Care Team Providers Name Role Phone WADE [...] Policy Number Effective Date Expiration Date matthias [facility] [id number] 2022 00:00:00 110 [id number] 2022 00:00:00 190 [id number] 2021 00:00:00 1005 [id number] 1959 00:00:00 1000 [id number] 2022 00:00:00 0050 [id number] 2021 00:00:00 Problems Condition Condition Condition Status [...] Clinician No Known DA Active [facility] Allergie [place] NO KNOWN Allergy Active [facility] Social History Social Habit Start Date Stop Date Quantity Comments Source History SDOH [facility] History SDOH 2023-05-06 2023-05-[address] [facility] Med 00:00:00 00:00:[address] Sex Assigned At [address] [facility] 00:00:00 [facility]00 Medical Center [...] 00 :00 by mouth Center daily. rosuvastati 2022-2022- No 10mg QD Take [address] [facility] [...] 25mg Q.5D Take [address] [facility] tartrate 05-06-25 tablet (25 Luke s (LOPRESSOR) 00:00: 23:59 mg total) Medical 25 MG 00 :00 by mouth 2 Center tablet (two) times daily. furosemide 2023- Yes 40mg QD Take [address] [facility] [address] (LASIX) 40 05-06-25 tablet (40 Heather kes MG tablet 00:00: 23:59 mg total) Me dical 00 :00 by mouth Center daily. metoprolol 2023- Yes 25mg Q.5D Take [address] tartrate 7-26 07-25 tablet (25 Luke s (LOPRESSOR) 00:00: 23:59 mg total) Medical 25 MG 00 :00 by mouth 2 Center tablet (two) times daily. furosemide 2023- Yes 40mg QD Take [address] [facility] [address] (LASIX) 40 7-26 07-25 tablet (40 Heather kes MG tablet 00:00: 23:59 mg total) Me dical 00 :00 by mouth Center daily. metoprolol 2023- Yes 25mg Q.5D Take [address] tartrate 7-26 07-25 tablet (25 Luke s (LOPRESSOR) 00:00: 23:59 mg total) Medical 25 MG 00 :00 by mouth 2 Center tablet (two) times daily. furosemide 2023- Yes 40mg QD Take [address] [facility] (LASIX) 40 7-26 07-25 tablet (40 Heather kes MG tablet 00:00: 23:59 mg total) Me dical 00 :00 by mouth Center daily. HYDROcodone 2022- No 1{tbl} Take [address] -acetaminop 7-26 08-05 tablet by Heather vargas (NORCO 00:00: 23:59 mouth Medic al 5-325) 00 :00 every 6 Center 5-325 mg (six) per tablet hours as needed for up to 10 days. Max Daily Amount: 4 tablets HYDROcodone 2022- No 1{tbl} Take [address] -acetaminop 7-26 08-05 tablet by Heather vargas (NORCO 00:00: 23:59 mouth Medic al 5-325) 00 :00 every 6 Center 5-325 mg (six) per tablet hours as needed for up to 10 days. Max Daily Amount: 4 tablets HYDROcodone 2022- No 1{tbl} Take [address] -acetaminop 7-26 08-05 tablet by Heather vargas (NORCO 00:00: 23:59 mouth Medic al 5-325) 00 :00 every 6 Center 5-325 mg (six) per tablet hours as needed for up to 10 days. Max Daily Amount: 4 tablets predniSONE 2022- No 40mg QD Take [address] [facility] [address] (DELTASONE) 7-26 07-29 tablets Luke s 10 MG 00:00: 23:59 (40 mg Medical tablet 00 :00 total) by Center mouth daily for 3 days . predniSONE 2022- No 40mg QD Take [address] [facility] (DELTASONE) -06 05-29 tablets Luke s 10 MG 00:00: 23:59 (40 mg Medical tablet 00 :00 total) by Center mouth daily for 3 days . predniSONE 2022-2022- No 40mg QD Take [address] (DELTASONE) 05-06- tablets Luke s 10 MG 00:00: 23:59 (40 mg Medical tablet 00 :00 total) by Center mouth daily for 3 days . HYDROcodone 2022- No 1{tbl} Take [address] -acetaminop 05-06- tablet by Heather bowers hen (NORCO 00:00: 00:00 mouth Medic al 5-325) 00 :00 every 6 Center 5-325 mg (six) per tablet hours as needed for up to 10 days. Max Daily Amount: 4 tablets metoprolol 2022- No 25mg Q.5D Take [address] tartrate 05-06- tablet (25 Luke s (LOPRESSOR) 00:00: 00:00 mg total) Medical 25 MG 00 :00 by mouth 2 Center tablet (two) times daily. furosemide 2022- No 40mg QD Take [address] [facility] (LASIX) 40 -06 05- tablet (40 Heather kes MG tablet 00:00: 00:00 mg total) Me dical 00 :00 by mouth Center daily. furosemide 2022- No 40mg QD Take [address] [facility] (LASIX) 40 -06 05- tablet (40 Heather kes MG tablet [...] days. Max Daily Amount: 4 tablets metoprolol 2022- No 25mg Q.5D Take [address] tartrate 05-06- tablet (25 Luke s (LOPRESSOR) 00:00: 00:00 mg total) Medical 25 MG 00 :00 by mouth 2 Center tablet (two) times daily. furosemide No 40mg QD Take [address] [facility] [address] (LASIX) 40 05-06- tablet (40 Heather kes MG tablet 00:00: 00:00 mg total) Me dical 00 :00 by mouth Center daily. HYDROcodone No 1{tbl} Take [address] -acetaminop 05-06 tablet by Heather agustins hen (NORCO 00:00: 00:00 mouth Medic al [...] KG Heart rate 2023-05-06 16:35:00 95 /min [facility] Systolic blood 2023-05-06 16:00:00 131 mm[Hg] [facility] Diastolic blood 2023-05-06 16:00:00 75 mm[Hg] [facility] Body temperature 2023-05-06 16:00:00 36.39 Cassia [facility] Respiratory rate 2023-05-06 16:00:00 18 /min [facility] Oxygen saturation in 2023-05-06 16:00:00 95 /min [facility] Arterial blood by Medical Ce nter Pulse oximetry Body height 2023-05-05 15:00:00 164.5 cm [facility] Body weight 2023-05-05 15:00:00 84.142 kg [facility] BMI 2023-05-05 15:00:00 31.09 kg/m2 [facility] Procedures Procedure Date / Time Performed Performing Clinician [facility] e 2D ECHO W/ DOPPLER 2023-05-06 14:58:00 Lauren Angeles [facility] (CW/PW/COLOR) [facility] B-TYPE NATRIURETIC 2023-05-06 05:42:00 Miguel Cedeno [facility] FACTOR (BNP) [facility] HIGH SENSITIVITY 2023-05-06 05:42:00 Miguel Cedeno [facility] TROPONIN I [facility] HEMOGLOBIN A1C 2023-05-06 05:42:00 Neal Kaiser [facility] BASIC METABOLIC PANEL 2023-05-06 05:42:00 [facility] 2023-05-06 05:42:00 Karthik [facility] LIPID PANEL 2023-05-06 05:42:00 Karthik [facility] HEPATIC FUNCTION PANEL 2023-05-06 05:42:00 Karthik [facility] LIPASE 2023-05-06 05:42:00 Karthik [facility] BLOOD CULTURE 2023-05-05 20:14:00 [facility] URINALYSIS W/ REFLEX 2023-05-05 20:14:00 Karthik Lauren [facility] URINE CULTURE [facility] ECG 12-LEAD 2023-05-05 17:20:59 Rohan, Neal Quintanilla [facility] ECG 12-LEAD 2023-05-05 17:20:59 Unknown, Hl7 Doctor [facility] ECG 12-LEAD 2023-05-05 17:20:59 Unknown, Hl7 Doctor [facility] XR CHEST 1 VIEW PORTABLE 2023-05-05 11:31:00 Miguel Cedeno [facility] / BEDSIDE [facility] [place] CATHETERIZATION, HEART, 2023-05-05 10:34:00 Rohan, Dinhmarilee Quintanilla [facility] LEFT, WITH PERCUTANEOUS Medical Center CORONARY INTERVENTION BASIC METABOLIC PANEL 2023-05-05 09:53:00 Miguel Cedeno [facility] MAGNESIUM 2023-05-05 09:53:00 Miguel Cedeno [facility] PHOSPHORUS 2023-05-05 09:53:00 Miguel Cedeno [facility] HIGH SENSITIVITY 2023-05-05 09:53:00 Miguel Cedeno [facility] TROPONIN I [facility] B-TYPE NATRIURETIC 2023-05-05 09:53:00 Miguel Cedeno [facility] FACTOR (BNP) [facility] [place] CBC W/PLT COUNT & AUTO 2023-05-05 09:53:[address] [facility] CBC W/PLT COUNT & AUTO 2023-05-05 09:53:00 Wilian Miguel [facility] Center ECG 12-LEAD 2023-05-05 09:28:58 Neal Kaiser [facility] ECG 12-LEAD 2023-05-05 09:23:38 Miguel Cedeno [facility] CARDIAC CATH REPORT - 2023-05-05 00:00:00 Provider, Default [facility] SCAN Scanning [facility] EKG-SCANNED 2023-05-05 00:00:00 Provider, Default [facility] es Scanning [facility] Plan of Care Planned Activity Planned Date Details Comments Source Future Scheduled 2026-05-06 Lipid panel (procedure) [facility] Test 00:00:00 [code = 54193307] Medical Ce nter Future Scheduled 2026-05-06 Lipid panel (procedure) [facility] Test 00:00:00 [code = 85356043] Medical Ce nter Future Scheduled 2026-05-06 Lipid panel (procedure) [facility] Test 00:00:00 [code = 46106277] Medical Ce nter Future Scheduled 2023-06-12 Influenza Vaccine (#1) [facility] 00:00[facility]00 [code = Influenza Vaccine Me dical Center (#1)] Future Scheduled 2023-06-12 Influenza Vaccine (#1) [facility] 00:00:00 [code = Influenza Vaccine Me dical Center (#1)] Future Scheduled 2023-06-12 Influenza Vaccine (#1) [facility] 00:00:00 [code = Influenza Vaccine Me dical Center (#1)] Future Scheduled 2023 SHINGLES VACCINES ([address] [facility] Test 00:00:00 2) [code = SHINGLES [facility] VACCINES (1 of 2)] Future Scheduled 2023 SHINGLES VACCINES ([address] [facility] Test 00:00:00 2) [code = SHINGLES [facility] VACCINES (1 of 2)] Future Scheduled 2023 SHINGLES VACCINES ([address] [facility] Test 00:00:00 2) [code = SHINGLES [facility] VACCINES (1 of 2)] Future Scheduled [...] screening Medical Cent er (procedure) [code = 974229771] Future Scheduled [address] [facility] Test 00:00:00 virus screening Medical Cent er (procedure) [code = 731416511] Future Scheduled [address] [facility] Test 00:00:00 virus screening Medical Cent er (procedure) [code = 330891149] Future Scheduled [address] [...] Test 00:00:00 [code = CT Colonography Medi kala Center (combo)] Future Scheduled 1973 Screening for malignant [facility] Test 00:00:00 neoplasm of colon Medical Ce nter (procedure) [code = 751670257] Future Scheduled 1973 Screening for malignant [facility] Test 00:00:00 neoplasm of colon Medical Ce nter (procedure) [code = 910601884] Future Scheduled 1973 Screening for malignant [facility] Test 00:00:00 neoplasm of colon Medical Ce nter (procedure) [code = 224823439] Future Scheduled 1973 Screening for malignant [facility] Test 00:00:00 neoplasm of colon Medical Ce nter (procedure) [code = 496387321] Future Scheduled 1975 Sigmoidoscopy [code = [facility] S[facility]oidoscopy] Medical Cente r Future Scheduled 1973 CT Colonography (combo) [facility] Test 00:00:00 [code = CT Colonography Medi kala Center (combo)] Future Scheduled 1973 Screening for malignant [facility] Test 00:00:00 neoplasm of colon Medical Ce nter (procedure) [code = 307878824] Future Scheduled 1973 Screening for malignant [facility] Test 00:00:00 neoplasm of colon Medical Ce nter (procedure) [code = 705897228] Future Scheduled 1973 Screening for malignant [facility] Test 00:00:00 neoplasm of colon Medical Ce nter (procedure) [code = 535342643] Future Scheduled 1973 Screening for malignant [facility] Test 00:00:00 neoplasm of colon Medical Ce nter (procedure) [code = 386377694] Future Scheduled 1975 Sigmoidoscopy [facility]code = [facility] 00:00:[facility] S[facility]oidoscopy] Medical Cente r Future Scheduled 1973 CT Colonography (combo) [facility] Test 00:00:00 [code = CT Colonography [facility] (combo)] Future Scheduled 1973 Screening for malignant [facility] Test 00:00:00 neoplasm of colon Medical Ce nter (procedure) [code = 482799798] Future Scheduled 1973 Screening for malignant [facility] Test 00:00:00 neoplasm of colon Medical Ce nter (procedure) [code = 330320625] Future Scheduled 1973 Screening for malignant [facility] Test 00:00:00 neoplasm of colon Medical Ce nter (procedure) [code = 156436661] Future Scheduled 1973 Screening for malignant [facility] Test 00:00:00 neoplasm of colon Medical Ce nter (procedure) [code = 220518773] Future Scheduled 1975 Sigmoidoscopy [facility]code [facility] 00:[facility] S[facility]oidoscopy] Medical Cente r Encounters Start End Encounter Admission Attending Care Care Encounter Source Date/Time Date/Time Type Type Clinicians Facility Department ID 2023-05-06 Inpatient ER KARTHIK, [facility] [id number] [facility] 12:33:08 LAUREN 2023-05-05 Outpatient [facility] [id number] [place] 14:28:05 [id number] [facility] 2023-05-05 Inpatient ER [facility] [id number] [facility] 10:47:09 2023-05-05 Inpatient ER [facility] [id number] [facility] 09:27:55 2023-05-05 2023-05-06 [address] Neal [facility] [id number] [facility] 08:53:00 17:36:00 Encounter Lauren [facility] 2023-05-05 [facility] [id number] [facility] 08:53:00 17:36:00 Encounter Lauren Angeles [facility] 2023-05-05 2023-05-06 Inpatient ER KARTHIK [facility] [id number] [facility] 08:53:00 17:36:00 LAUREN [facility] 2023-05-05 2023-05-05 Surgery [facility], [facility] [id number] 11:05:00 13:31:00 [facility] 2023-05-05 2023-05-05 Surgery [facility] [id number] 11:05:00 13:31:00 [facility] 2023-05-05 2023-05-[address] [facility] [id number] 00:00:00 00:00:00 [facility] 2023-05-05 2023-05-[address] [facility] [id number] 00:00:00 00:00:00 [facility] 2022-12-12 2022-12-12 Emergency ER Alma, [facility] [id number] [place] 10:46:00 13:08:00 [place] -[id number] [facility] 2022-12-11 2022-12-11 Emergency ER Ed, [facility] [id number] [place] 06:51:00 10:31:00 Vahe -[id number] [facility] 2022-12-04 2022-12-05 Inpatient ER Jair, [facility] [id number] [place] 15:02:00 14:27:00 Misael -[id number] [facility] 2022-12-03 2022-12-03 Inpatient ER Jair, [facility] [id number] [place] 09:41:00 07:21:00 Misael -[id number] [facility] 2022-12-02 2022-12-02 Emergency ER Ed, [facility] [id number] [place] 10:15:00 16:30:00 Vahe -[id number] [facility] 2022-11-17 2022-11-17 Emergency E OSEI, [id number] [facility] 10:31:00 11:05:00 JAYLON [facility]ica [facility] 2022-10-26 2022-10-26 Emergency E OLADE, [facility] [id number] [facility] 08:20:00 10:20:00 STEFANO Medica [facility] 2022-09-15 2022-09-15 Emergency E PESCO, [facility] [id number] [facility] 09:09:00 12:08:00 JUANITO Medic al [place] 2022-09-14 2022-09-14 Emergency E PESCO, [facility] [id number] [facility] 08:52:00 12:23:00 JUANITO Medic [facility] [place] 2022-09-13 2022-09-13 Emergency E PESCO, [facility] [id number] [facility] 09:03:00 11:18:00 JUANITO Medic al [place] 2022-08-26 2022-08-26 Emergency E PUMAREJO, [facility] [id number] [facility] 10:57:00 15:13:00 GELY Medica l [place] 2022-08-25 2022-08-25 Emergency E CHECO, IMRAN [facility] [id number] [facility] 09:48:00 11:36:00 Medica l [place] 2022-08-22 2022-08-22 Emergency E MANUEL, [facility] [id number] [facility] 09:39:00 13:31:00 JILLIAN Medica [facility] [place] 2022-07-26 2022-07-26 Emergency E FAKOYEJO, [facility] [id number] [facility] 11:44:00 13:18:00 AIDE Medica l [place] 2022-02-26 2022-02-26 Rey GARCIA [facility] [id number] [facility] 11:00:00 12:27:00 [facility] Results Test Description Test Time Test Comments Results Result Comments Source BLOOD CULTURE 2023-05-10 21:00:24 Test Item Value Reference Range Interpretation Comme nts CULTURE (BEAKER) (test code = 1095) No growth in 5 days BLOOD [id number] 21:00:24 Test Item Value Reference Range Interpretation Comments CULTURE (BEAKER) (test No growth in 5 days code = 1095) The specimen volume collected for this blood culture was below the optimum (10 mL per bottle or 20 mL total). Use of lower volumes may adversely affect recovery and/or detection times of some organisms.HEMOGLOBIN [id number] 11:41:48 Test Item Value Reference Range Interpretation Comments HEMOGLOBIN A1C 6.1 % See_Comment H [Automated m essage] ELECTROPHORESIS ([facility]) The system which (test code = 3811) generated this result transmitted ref erence range: <=5.6%. The reference range was not used to int erpret this result as normal/abnormal . "The A1c is measured using a NGSP-certified method. HbA1c value equal to or greater than 6.5% as thediagnosis cutoff for diabetes. An HbA1c value of 5.7- 6.4% indicates increased risk for diabetes (prediabetes)."Shipbuilding Draftsperson ID - ADM HEPATIC FUNCTION [id number] 11:38:34 Test Item Value Reference Range Interpretation [...] (test code = 45 U/L 6-55 347) Ship[employer] Draftsperson ID - MMOperator ID - [id number] 11:09:16 Test Item Value Reference Range Interpretation Comments LIPASE (BEAKER) (test code = 749) 93 U/L 8-78 H [employer] ID - MMB-TYPE NATRIURETIC FACTOR (BNP)2023-05-06 07:10:09 Test Item Value Reference Range Interpretation Comments B-TYPE NATRIURETIC PEPTIDE (BEAKER) < pg/mL 0-100 (test code = 700) [employer] Draftsperson ID - MMHIGH SENSITIVITY TROPONIN [id number] 07:09:22 Test Item Value Reference Range Interpretation Comments HIGH SENSITIVITY TROPONIN I (test 10 pg/ml <=35 code = 9344861) [employer]erson ID - MMThe DRUG CLERK STAT High Sensitivity Troponin-I results should be used in conjunctionwith other diagnostic information such as ECG, clinical observations and information, and patient symptoms to aid in the diagnosis of VT.BASIC METABOLIC [id number] 07:01:55 Test Item Value Reference Range Interpretation [...] not appl icable for dialysis patien ts [employer] ID - MMLIPID [id number] 07:01:55 Test Item Value Reference Range Interpretation [...] Borderline 130-159 High 160-189 Very High >=190 [employer] ID - MMCBC (HEMOGRAM ONLY)2023-05-06 06:56:02 Test [...] = 413) Urinalysis w/Microscopic + Reflex to [id number] 21:11:57 Test Item Value Reference Range Interpretation Comments Color, UA (test Light Yellow code = 5778-6) Clarity, UA (test Clear code = 5767-9) Specific [place], 1.012 1.001-1.035 UA (test code = 5811-5) pH, UA (test code 7.0 5.0-8.0 = 5803-2) Protein, UA (test Negative Negative code = 29093-0) Glucose, UA (test Negative Negative code = 365) Ketones, UA (test Negative Negative code = 2514-8) Bilirubin, UA Negative Negative (test code = 07642-5) Blood, UA (test Negative Negative code = 74249-7) Nitrite, UA (test Negative Negative code = 5802-4) Leukocytes, UA Negative Negative (test code = 5799-2) Urobilinogen, UA 0.2 0.2-1.0 (test code = 77060-1) RBC, UA (test See_Comment [Automated me ssage] code = 42621-4) The system w [facility] generated this result transmit betty reference range : /HPF. The refer ence range was not u sed to interpret th is result as normal/abnormal . WBC, UA (test 1 See_Comment [Automated me ssage] code = 5821-4) The system [facility] generated this result transmit betty reference range : /HPF. The refer ence range was not u sed to interpret th is result as normal/abnormal . Specimen Source (test code = 2795) DAVID (test code = Shipbuilding Draftsperson ID - DAVID) [auto]Shipbuilding Draftsperson ID - tech [facility] + Reflex to Culture 2023-05-05 21:11:57 Test Item Value Reference Range Interpretation Comments Color, UA (test Light Yellow code = 5778-6) Clarity, UA (test Clear code = 5767-9) Specific [place], 1.012 1.001-1.035 UA (test code = 5811-5) pH, UA (test code 7.0 5.0-8.0 = 5803-2) Protein, UA (test Negative Negative code = 91422-8) Glucose, UA (test Negative Negative code = 365) Ketones, UA (test Negative Negative code = 2514-8) Bilirubin, UA Negative Negative (test code = 90716-8) Blood, UA (test Negative Negative code = 80148-3) Nitrite, UA (test Negative Negative code = 5802-4) Leukocytes, UA Negative Negative (test code = 5799-2) Urobilinogen, UA 0.2 0.2-1.0 (test code = 11422-9) RBC, UA (test See_Comment [Automated me ssage] code = 59407-8) The system [facility] generated this result transmit betty reference range : /HPF. The refer ence range was not u sed to interpret th is result as normal/abnormal . WBC, UA (test 1 See_Comment [Automated me ssage] code = 5821-4) The system [facility] generated this result transmit betty reference range : /HPF. The refer ence range was not u sed to interpret th is result as normal/abnormal . Specimen Source (test code = 2795) DAVID (test code = Shipbuilding Draftsperson ID - DAVID) [auto]Shipbuilding Draftsperson ID - tech [facility]/Microscopic + Reflex to Culture 2023-05-05 21:11:57 Test Item Value Reference Range Interpretation Comments Color, UA (test Light Yellow code = 5778-6) Clarity, UA (test Clear code = 5767-9) Specific [place], 1.012 1.001-1.035 UA (test code = 5811-5) pH, UA (test code 7.0 5.0-8.0 = 5803-2) Protein, UA (test Negative Negative code = 60397-7) Glucose, UA (test Negative Negative code = 365) Ketones, UA (test Negative Negative code = 2514-8) Bilirubin, UA Negative Negative (test code = 91765-6) Blood, UA (test Negative Negative code = 09461-0) Nitrite, UA (test Negative Negative code = 5802-4) Leukocytes, UA Negative Negative (test code = 5799-2) Urobilinogen, UA 0.2 0.2-1.0 (test code = 49798-2) RBC, UA (test See_Comment [Automated me ssage] code = 95742-3) The system [facility] generated this result transmit betty reference range : /HPF. The refer ence range was not u sed to interpret th is result as normal/abnormal . WBC, UA (test 1 See_Comment [Automated me ssage] code = 5821-4) The system wh [facility] generated this result transmit betty reference range : /HPF. The refer ence range was not u sed to interpret th is result as normal/abnormal . Specimen Source (test code = 2795) DAVID (test code = Shipbuilding Draftsperson ID - DAVID) [auto]Shipbuilding Draftsperson ID - tech [facility]/ REFLEX URINE [id number] 21:11:57 Test Item Value Reference Range Interpretation [...] /HPF 520) SOURCE(BEAKER) (test code = 2795) Shipbuilding Draftsperson ID - [auto]Shipbuilding Draftsperson ID - techXR CHEST 1 VIEW PORTABLE / BEDSIDE 2023-05-05 11:36:03 [facility] 1975 Sex: MEXAMINATION:XR [...] Signed By: Fransisca Helms05/05/2023 11:38 CDTWorkstation Name: [id number] NATRIURETIC FACTOR (BNP)2023-05-05 10:43:34 Test Item Value Reference Range Interpretation Comments B-TYPE NATRIURETIC PEPTIDE (BEAKER) < pg/mL 0-100 (test code = 700) Shipbuilding Draftsperson ID - BVHIGH SENSITIVITY TROPONIN [id number] 10:42:25 Test Item Value Reference Range Interpretation Comments HIGH SENSITIVITY TROPONIN I (test 8 pg/ml <=35 code = 7249722) [employer]building Draftsperson ID - BVThe DRUG CLERK STAT High Sensitivity Troponin-I results should be used in conjunctionwith other diagnostic information such as ECG, clinical observations and information, and patient symptoms to aid in the diagnosis of VT.[id number] 10:35:41 Test Item Value Reference Range Interpretation Comments MAGNESIUM (BEAKER) (test code = 2.1 mg/dL 1.6-2.6 627) Shipbuilding Draftsperson ID - [id number] 10:35:41 Test Item Value Reference Range Interpretation Comments PHOSPHORUS (BEAKER) (test code = 2.7 mg/dL 2.3-4.7 604) Ship[employer] Draftsperson ID - BVBASIC METABOLIC [id number] 10:35:40 Test Item Value Reference Range Interpretation [...] not appl icable for dialysis patien ts Shipbuilding Draftsperson ID - BVCBC W/PLT COUNT & AUTO [id number] 10:24:49 Test Item Value Reference Range Interpretation [...] code = 2801) U/S ABDOMEN RUQ*WW*2022-09-14 11:05:47 [facility] 1975 Sex: MEXAMINATION:US abdomen [...] by: Antonella Pham MD 09/14/2022 11:05 AM BODY SERVICE TEAM MEMBER Workstation: LyricFindDHAMYLASE AND [id number] 10:11:00 Test Item Value Reference Range Interpretation [...] normal/abnormal . GFR 82 See_Comment L [Automated SPANISH (test mL/min/1.73m\\S\\2 message] The code = GFRAA) [...] ANG) BUN (test code = 16 mg/dL - 05D) CREATININE (test 1.3 mg/dL 0.7-1.3 code = 03E) GFR (test code = 64 See_Comment L [Automated GFR) mL/min/1.73m\\S\\2 message] Th e system which generated this result transmit betty reference range : >=90. The reference range was not used to interpret this result as normal/abnormal . GFR 74 See_Comment L [Automated SPANISH (test mL/min/1.73m\\S\\2 message] The code = GFRAA) [...] IU/L 10-49 H 31A) CBC (INCLUDES AUTOMATED DIFFERENTIAL)*[id number] 09:55:00 Test Item Value Reference Range Interpretation [...] MORPH (test code = NORMAL WRBCMOR) BLOOD [id number] 13:40:00 Test Item Value Reference Range Interpretation Comments Culture Observations (test NO GROWTH AFTER 5 code = COB1) DAYS BLOOD [id number] 13:40:00 Test Item Value Reference Range Interpretation Comments Culture Observations (test NO GROWTH AFTER 5 code = COB1) DAYS URINE [id number] 10:08:00 Test Item Value Reference Range Interpretation Comments Culture Observations (test NO GROWTH (<1,000 code = COB1) CFU/ML) CT ABDOMEN AND PELVIS WITH CONTRAST*WW*2022-08-26 13:53:02 [facility] 1975 Sex: [...] the pelvis.3. 3.7 cm x 1.2 cm ovalwell-defined subcutaneous hyperdensity at the left anterior mid abdomen is nonspecific but may represent hematoma. Clinical follow-up to resolution is recommended. If persistent, follow-up targeted ultrasound examination may be performed.4. Mild hepatomegaly.*One or more of the following radiation dose reduction techniques was used: automated exposure control, adjustment of mA and/or KV according to p atient size, and/or utilization of iterative reconstruction technique.Electronically signed by: Cleveland Lozano MD 08/26/2022 1:53 PM [facility] [id number] *WW*2022-08-26 12:48:00 Test Item Value Reference Range [...] normal/abnormal . GFR 82 See_Comment L [Automated SPANISH (test mL/min/1.73m\\S\\2 message] The code = GFRAA) [...] LA) 1.3 mmol/L 0.4-2.0 CBC (INCLUDES AUTOMATED DIFFERENTIAL)*[id number] 12:04:00 Test Item Value Reference Range Interpretation [...] XR ELBOW RT COMPLETE 3 VIEWS*WW*2022-02-26 12:03:26 [facility] : 1975 Sex: MEXAMINATION:XR ELBOW [...]
[2023-05-30] MEDS ORDERED: HALOPERIDOL LACT 5 MG/ML INJ ONE (05:49)
[2023-05-30] MEDS ORDERED: NA CHLORIDE 0.9% 500 ML ONE (05:49)
[2023-05-30 06:03] LABS: Absolute Lymphocytes (CBC) 0.8 K/uL (0.7-4.9); Hematocrit 31.7 % (39.6-49.0); Lymphocytes % 16.3 % (15.3-44.8); MCV 63.6 fL (80-100); MPV 6.9 fL (7.6-11.3); Platelets 546 thou/uL (152-406); RBC Red Blood Cell Count 4.99 M/uL (4.33-5.43)
[2023-05-30 06:17] LABS: Albumin 3.1 g/dL (3.4-5.0); Bilirubin Total 0.3 mg/dL (0.2-1.0); Potassium 4.2 mEq/L (3.5-5.1)
[2023-05-30] MEDS ORDERED: MORPHINE 15 MG IR TAB PO ONE (06:20)
--- NOTE | 2023-05-30 06:28 | ER ---
Nurse's Notes [facility] Name: Delonte Gonzales Age: 48 yrs Sex: Male : 1975 Arrival Date: 05/30/2023 Time: 05:15 Bed 7 Private MD: Diagnosis: Lower abdominal pain, unspecified;Diarrhea, unspecified;Concern for drug seeking behavior Presentation: 05/30 05:37 Chief complaint: Patient states: abdominal pain with diarrhea,onset 3-4 days. Patient pf1 was treated here on 05/29 for the same symptoms. 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 Coronavirus screen: Vaccine status: Patient reports receiving the 2nd dose of the covid vaccine. Moderna Client denies travel out of the [place] in the last 14 days. Client presents with at least one sign or symptom that may indicate coronavirus-19. Ebola Screen: Patient negative for fever greater than or equal to 101.5 degrees Fahrenheit, and additional compatible Ebola Virus Disease symptoms. Initial Sepsis Screen: Does the patient meet any 2 criteria? No. Patient's initial sepsis screen is negative. Does the patient have a suspected source of infection? No. Patient's initial sepsis screen is negative. Risk Assessment: Do you want to hurt yourself or someone else? Patient reports no desire to harm self or others. 05:37 Method Of Arrival: Ambulatory pf1 05:37 Acuity: DANIEL 3 pf1 06:20 Onset of symptoms was May 26, 2023. as6 Historical: - Allergies: 05:39 No Known Allergies; pf1 - PMHx: 05:39 Crabtree's Esophagus; bicep tear; Hypertensive disorder; Myocarditis; Pancreatitis; pf1 PTSD; gastroenteritis; - PSHx: 05:39 Cholecystectomy; pf1 - Immunization history:: Adult Immunizations up to date, Client reports receiving the 2nd dose of the Covid vaccine, Last tetanus immunization: < 5 years ago Flu vaccine is not up to date. - Social history:: Smoking status: Patient denies any tobacco usage or history of. Patient/guardian denies using alcohol, street drugs. Screenin:39 [facility] ED Fall Risk Assessment (Adult) Score/Fall Risk Level 0 - 2 = Low Risk. Abuse as6 screen: Denies threats or abuse. Denies injuries from another. Nutritional screening: No deficits noted. Tuberculosis screening: No symptoms or risk factors identified. Assessment: 05:38 General: Appears uncomfortable, ill, Behavior is calm, cooperative. Pain: Complains of as6 pain in abdomen. Neuro: Level of Consciousness is awake, alert, obeys commands, Oriented to person, place, time, situation. Cardiovascular: Capillary refill < 3 seconds Patient's skin is warm and dry. Respiratory: Respiratory effort is even, unlabored, Respiratory pattern is regular, symmetrical. GI: Reports lower abdominal pain, upper abdominal pain, diarrhea, nausea. Derm: Skin is intact, is healthy with good turgor. 05:40 Reassessment: Pt refused Haldol stating that the only thing that works for him is vc1 Morphine. Pt states that his dentist gave him Haldol before and it made him feel funny. 06:22 Reassessment: Pt states he would like the Haldol, but has just received PO Morphine. vc1 Informed pt that I can't give him Haldol this close together so he would have to give the PO morphine time to kick in. Pt asks me to remove IV and disconnect everything so he can just go home. Vital Signs: 05:37 BP 143 / 84; Pulse 77; Resp 16; Temp 98.6; Pulse Ox 100% on R/A; Weight 78.47 kg; Pain pf1 10/10; 06:20 BP 133 / 78; Pulse 71; Resp 18 S; Pulse Ox 99% on R/A; as6 05:37 Pain Scale: Adult pf1 ED Course: 05:16 Patient arrived in ED. jj6 05:18 Jeanne Raman MD is Attending Physician. sd2 05:36 Alexey Culp, MERT is Primary Nurse. as6 05:39 Triage completed. pf1 05:40 Bed in low position. Call light in reach. as6 05:40 Arm band placed on. as6 06:02 Inserted saline lock: 22 gauge in right forearm, using aseptic technique. as6 06:31 No provider procedures requiring assistance completed. IV discontinued, intact, vc1 bleeding controlled, No redness/swelling at site. Pressure dressing applied. Administered Medications: 06:02 Drug: NS 0.9% IV 500 ml Route: IV; Rate: bolus; Site: right forearm; as6 06:02 Not Given (Patient Refused): Haloperidol IVP 5 mg IVP once as6 06:11 Drug: morphine PO 15 mg Route: PO; vc1 Medication: 05:40 VIS not applicable for this client. as6 Outcome: 06:28 Discharge ordered by . sd2 06:31 Discharged to home ambulatory. vc1 :31 Condition: good 06:31 Patient left the ED. vc1 Signatures: Jo Woodsj6 Alexey Culp RN RN as6 Hayley Thompson RN RN vc1 Jeanne Raman MD MD sd2 Dahlia Oviedo RN RN pf1
--- NOTE | 2023-05-30 06:28 | EDPHYS ---
Physician Documentation [facility] Name: Delonte Gonzales Age: 48 yrs Sex: Male : 1975 Arrival Date: 05/30/2023 Time: 05:15 Bed 7 Private MD: ED Physician Jeanne aRman HPI: 05/30 06:07 This 48 yrs old Male presents to ER via Ambulatory with complaints of Abdominal Pain, sd2 Diarrhea. 06:07 48 yo M presents with CC of lower abdominal pain and diarrhea. This is patient's 4th sd2 visit in the last 5 days. Last 3 visits were for the same symptoms with negative workup including CT scan that showed gastroenteritis. Pt discharged home with oral Zofran which he has not been taking and reports no vomiting since leaving. Reports ongoing diarrhea unrelieved with Immodium. Reports morphine is the only thing that has helped with his pain. He has not been taking his Tylenol #4 he has at home from Pain Management. Denies significant fever, chest pain, SOB or other symptoms at this time. . Historical: - Allergies: 05:39 No Known Allergies; pf1 - PMHx: 05:39 Crabtree's Esophagus; bicep tear; Hypertensive disorder; Myocarditis; Pancreatitis; pf1 PTSD; gastroenteritis; - PSHx: 05:39 Cholecystectomy; pf1 - Immunization history:: Adult Immunizations up to date, Client reports receiving the 2nd dose of the Covid vaccine, Last tetanus immunization: < 5 years ago Flu vaccine is not up to date. - Social history:: Smoking status: Patient denies any tobacco usage or history of. Patient/guardian denies using alcohol, street drugs. ROS: 06:07 Constitutional: Negative for fever, chills, and weight loss, Eyes: Negative for injury, sd2 pain, redness, and discharge, Cardiovascular: Negative for chest pain, palpitations, and edema, Respiratory: Negative for shortness of breath, cough, wheezing. 06:07 : Negative for dysuria, frequency or hematuria. MS/Extremity: Negative for injury and deformity, Skin: Negative for injury, rash, and discoloration, Neuro: Negative for headache, numbness and tingling. 06:07 Abdomen/GI: Positive for abdominal pain, diarrhea, Negative for vomiting. Exam: 06:07 Constitutional: This is a well developed, well nourished patient who is awake, alert, sd2 and in no acute distress. Head/Face: Normocephalic, atraumatic. Eyes: EOMI, normal conjunctiva bilaterally Chest/axilla: Normal chest wall appearance and motion. Nontender with no deformity. Cardiovascular: Regular rate and rhythm with a normal S1 and S2. No gallops, murmurs, or rubs. 2+ distal pulses. Respiratory: Lungs have equal breath sounds bilaterally, clear to auscultation and percussion. No rales, rhonchi or wheezes noted. No increased work of breathing, no retractions or nasal flaring. Abdomen/GI: Soft, ND, lower abdominal tenderness present without rebound or guarding Skin: Warm, dry with normal turgor. Normal color with no rashes, no lesions, and no evidence of cellulitis. MS/ Extremity: Pulses equal, no cyanosis. Neurovascular intact. Full, normal range of motion. Ambulatory without difficulty. Psych: Awake, alert, with orientation to person, place and time. Behavior, mood, and affect are within normal limits. Vital Signs: 05:37 BP 143 / 84; Pulse 77; Resp 16; Temp 98.6; Pulse Ox 100% on R/A; Weight 78.47 kg; Pain pf1 10/10; 06:20 BP 133 / 78; Pulse 71; Resp 18 S; Pulse Ox 99% on R/A; as6 05:37 Pain Scale: Adult pf1 MDM: 05:21 Patient medically screened. sd2 06:07 Differential diagnosis: Gastritis, cholecystitis, pancreatitis, SBO, diverticulitis, sd2 kidney stone, appendicitis, UTI, dehydration, electrolyte abnormality among others. Data reviewed: vital signs, nurses notes, old medical records, Prior ER visits for same symptoms lab test result(s). I considered the following discharge prescriptions or medication management in the emergency department Medications were administered in the Emergency Department. See MAR. Test considered but Not performed: CT: Recent CT performed 24 hours ago. Care significantly affected by the following chronic conditions: Hypertension, Chronic pain. Counseling: I had a detailed discussion with the patient and/or guardian regarding the historical points, exam findings, and any diagnostic results supporting the discharge/admit diagnosis, lab results, radiology results. Refusal of service: The patient/guardian displays adequate decision making capability and despite a detailed discussion of alternatives, benefits, risks, and consequences refuses: Medications. ED course: Pt refuses Haldol and will only agree to receive morphine. Pt initially states I do not want to take a medication that I am not familiar with. He was told what the medication was previously, but when I told him the name again, he now reports that he had Haldol at a dentist's office and it "made me feel weird." States he cannot take it. Asked about ketamine and patient has received previously with EMS and for migraines. States he had hallucinations and it wore off quickly. I informed him that IV morphine will likely do the same and wear off quickly causing him to have to return to the ER again rather than taking his pain management medication with Zofran. I also informed him based upon his CT results that morphine and narcotics are not indicated for enteritis and chronic pain. The patient refuses to receive any other medications for pain. Offered PO morphine which the patient does agree to at this time. . 06:23 ED course: I was informed by the nurse that after receiving the oral morphine, the sd2 patient has now consented to receiving Haldol and wants to receive both at the same time. He was informed that we would need to wait since he just received a narcotic. The patient then decided he would like to leave. He did not want to wait for lab results or further workup and fully understands the risks of leaving including severe disability and/or as his workup is incomplete. He understands that he may change his mind and return at any time for further evaluation. The patient also refused to call his ride to come in the building as he drove himself here but states he has a flat tire and will get a ride home since he cannot drive home. Pt did not stay for us to talk further with him and left at this time after signing an informed refusal form. . 05/30 05:36 Order name: CBC with Diff 2 05/30 05:36 Order name: CMP 2 05/30 05:36 Order name: Lipase sd2 05/30 06:15 Order name: Manual Differential EDMS Administered Medications: 06:02 Drug: NS 0.9% IV 500 ml Route: IV; Rate: bolus; Site: right forearm; as6 06:02 Not Given (Patient Refused): Haloperidol IVP 5 mg IVP once as6 06:11 Drug: morphine PO 15 mg Route: PO; vc1 Disposition Summary: 05/30/23 06:28 Discharge Ordered Location: Home sd2 Problem: an ongoing problem sd2 Symptoms: are unchanged sd2 Condition: Stable sd2 Diagnosis - Lower abdominal pain, unspecified sd2 - Diarrhea, unspecified sd2 - Concern for drug seeking behavior sd2 Followup: sd2 - With: Private Physician - When: 2 - 3 days - Reason: Recheck today's complaints, Continuance of care, Re-evaluation by your physician Discharge Instructions: - Discharge Summary Sheet sd2 - Abdominal Pain, Adult sd2 - Diarrhea, Adult sd2 Forms: - Medication Reconciliation Form sd2 - Thank You Letter sd2 - Antibiotic Education sd2 - Prescription Opioid Use sd2 - Patient Portal Instructions sd2 - Leadership Thank You Letter sd2 Signatures: Dispatcher [employer] Alexey Anaya RN RN as6 Hayley Thompson RN RN vc1 Jeanne Raman MD MD sd2 Dahlia Oviedo RN RN pf1
[2023-05-30 06:43] VITALS: BP 143/84; TEMP 98.6; O2SAT 100
[2023-05-30 07:39] LABS: Blood Morphology Comment NOTED (NOT SEEN); Hypochromasia 2+; Platelet Estimate INCR
[2023-05-30 07:40] LABS: Platelets, Giant PRESENT
== END 2023-05-30 06:31 | disposition home or self-care (01) ==
LOC: ER 05:15
DX: R10.30 Lower abdominal pain, unspecified (principal); R19.7 Diarrhea, unspecified; I10 Essential (primary) hypertension; F43.10 Post-traumatic stress disorder, unspecified; K85.90 Acute pancreatitis without necrosis or infection, unspecified; K52.9 Noninfective gastroenteritis and colitis, unspecified; Z76.5 Malingerer [conscious simulation]
CPT/HCPCS: 85025; 36415; 83690; 80053; 99284; J7040; J1630

== ENCOUNTER 2025-08-06 15:44 | Emergency (ER) | payer OTHER, SELFPAY ==
--- NOTE | 2025-08-06 16:19 | EDPHYS ---
Physician Documentation [facility] Name: Delonte Gonzales Age: 50 yrs Sex: Male : 1975 Arrival Date: 08/06/2025 Time: 15:44 Bed IW1 Private MD: ED Physician Grayson Wynn HPI: 08/06 16:10 This 50 yrs old Male presents to ER via Ambulatory with complaints of medication rn withdrawls. 16:10 Patient reports has been on Suboxone for 2.5 years. States takes 8 mg / 2 mg. Usually rn gets it through telehealth but for some reason they are unable to fill it and pharmacy is not giving him his prescription. Patient reports has been out for 3 days and feeling tremulous, nausea, diarrhea, upset stomach with abdominal cramping and generalized malaise. Feels anxious. Patient is requesting short prescription to get him enough time to get in with a local doctor. Denies any other symptoms.. Historical: - Allergies: 15:57 No Known Allergies; ll1 - PMHx: 15:57 Anxiety; Crabtree's Esophagus; bicep tear; Gastroenteritis; Hypertensive disorder; ll1 Myocarditis; Pancreatitis; PTSD; - PSHx: 15:57 cardiac cath (ys); Cholecystectomy; ll1 - Immunization history:: Adult Immunizations up to date. - Infectious Disease History:: Denies. - Social history:: Smoking status: Reported history of juuling and/or vaping. Patient denies any tobacco usage or history of. - Family history:: not pertinent. - Hospitalizations: : No recent hospitalization is reported. ROS: 16:10 Constitutional: Negative for fever, chills, and weight loss, Eyes: Negative for injury, rn pain, redness, and discharge, Cardiovascular: Negative for chest pain, palpitations, and edema, Respiratory: Negative for shortness of breath, cough, wheezing, and pleuritic chest pain, Abdomen/GI: Negative for constipation MS/Extremity: Negative for injury and deformity, Skin: Negative for injury, rash, and discoloration, Neuro: Positive for generalized weakness and malaise Exam: 16:10 Constitutional: This is a well developed, well nourished patient who is awake, alert, rn and in no acute distress. ENT: Dry mucous membranes with tongue fasciculations Cardiovascular: Regular rate and rhythm. No pulse deficits. Respiratory: No increased work of breathing, no retractions or nasal flaring. MS/ Extremity: Pulses equal, no cyanosis. Neuro: Awake and alert, GCS 15 Vital Signs: 15:58 BP 145 / 90; Pulse 89; Resp 18; Temp 97.4; Pulse Ox 100% ; Weight 80.74 kg; Height 5 ll1 ft. 4 in. ; Pain 4/10; 15:58 Body Mass Index 30.55 (80.74 kg, 162.56 cm) ll1 15:58 Pain Scale: Adult ll1 MDM: 15:49 Medical Screening Exam initiated rn 16:10 Differential Diagnosis Encounter for refill of medication. Data reviewed: vital signs, rn nurses notes, old medical records, and as a result, I will discharge patient. Counseling: I had a detailed discussion with the patient and/or guardian regarding the historical points, exam findings, and any diagnostic results supporting the discharge/admit diagnosis, the need for outpatient follow up, to return to the emergency department if symptoms worsen or persist or if there are any questions or concerns that arise at home. Special discussion: I discussed with the patient/guardian in detail that at this point there is no indication for admission to the hospital. It is understood, however, that if the symptoms persist or worsen the patient needs to return immediately for re-evaluation. ED course: Will give patient prescription for Suboxone, has been on it long time, shows me previous prescription from [facility] at, will give 2 weeks worth to give him time to follow-up with local doctor.. Administered Medications: No medications were administered Disposition Summary: 08/06/25 16:18 Discharge Ordered Notes: Location: Home rn Problem: new rn Symptoms: are unchanged rn Condition: Stable rn Diagnosis - Opioid dependence with withdrawal rn Followup: rn - With: Private Physician - When: As needed - Reason: Recheck today's complaints, Re-evaluation by your physician Discharge Instructions: - Opioid Withdrawal rn - Discharge Summary Sheet ll1 Forms: - Medication Reconciliation Form rn - Antibiotic inspector government property - Prescription Opioid Use rn - Patient Portal Instructions rn - Leadership Thank You Letter rn - Work release form ll1 Prescriptions: - SUBOXONE (BUPRENORPHINE/NALOXONE) 8MG/2MG SL STRIP - administer 1 strip SUBLINGUAL route once daily As needed; 14 strip; Refills: 0, rn Product Selection Permitted Signatures: Wynn, Garyson, MD MD rn Jair, Lynsay, RN RN ll1
--- NOTE | 2025-08-06 16:19 | ER ---
Nurse's Notes [facility] Name: Delonte Gonzales Age: 50 yrs Sex: Male : 1975 Arrival Date: 08/06/2025 Time: 15:44 Bed IW1 Private MD: Diagnosis: Opioid dependence with withdrawal Presentation: 08/06 15:55 Chief complaint: Patient states: On Suboxone for 2.5 years. Unable to get prescriptions ll1 filled via telehealth for the past 3 days. Abdominal cramps, nausea, sweaty/cold feeling since. Coronavirus screen: Client denies travel out of the [place] in the last 14 days. At this time, the client does not indicate any symptoms associated with coronavirus-19. Ebola Screen: Patient denies travel to an Ebola-affected area in the 21 days before illness onset. Initial Sepsis Screen: Does the patient meet any 2 criteria? No. Patient's initial sepsis screen is negative. Does the patient have a suspected source of infection? No. Patient's initial sepsis screen is negative. Risk Assessment: Do you want to hurt yourself or someone else? Patient reports no desire to harm self or others. Onset of symptoms was August 04, 2025. 15:55 Method Of Arrival: Ambulatory ll1 15:55 Acuity: DANIEL 4 ll1 Triage Assessment: 15:55 General: Appears uncomfortable, Behavior is calm, cooperative, appropriate for age. ll1 Pain: Denies pain. Neuro: No deficits noted. Cardiovascular: No deficits noted. GI: Reports cramping, nausea. Historical: - Allergies: 15:57 No Known Allergies; ll1 - PMHx: 15:57 Anxiety; Crabtree's Esophagus; bicep tear; Gastroenteritis; Hypertensive disorder; ll1 Myocarditis; Pancreatitis; PTSD; - PSHx: 15:57 cardiac cath (ys); Cholecystectomy; ll1 - Immunization history:: Adult Immunizations up to date. - Infectious Disease History:: Denies. - Social history:: Smoking status: Reported history of juuling and/or vaping. Patient denies any tobacco usage or history of. - Family history:: not pertinent. - Hospitalizations: : No recent hospitalization is reported. Screenin:22 [facility] ED Fall Risk Assessment (Adult) History of falling in the last 3 months, ll1 including since admission No falls in past 3 months (0 pts) Confusion or Disorientation No (0 pts) Intoxicated or Sedated No (0 pts) Impaired Gait No (0 pts) Mobility Assist Device Used No (0 pt) Altered Elimination No (0 pt) Score/Fall Risk Level 0 - 2 = Low Risk Maintained a safe environment, Hourly rounding (assess needs \T\ fall precautionary measures) done. Abuse screen: Denies threats or abuse. Nutritional screening: No deficits noted. Tuberculosis screening: No symptoms or risk factors identified. Assessment: 16:23 Reassessment: No changes from previously documented assessment. Patient and/or family ll1 updated on plan of care and expected duration. Pain level reassessed. Vital Signs: 15:58 BP 145 / 90; Pulse 89; Resp 18; Temp 97.4; Pulse Ox 100% ; Weight 80.74 kg; Height 5 ll1 ft. 4 in. ; Pain 4/10; 15:58 Body Mass Index 30.55 (80.74 kg, 162.56 cm) ll1 15:58 Pain Scale: Adult ll1 ED Course: 15:45 Patient arrived in ED. im 15:49 Grayson Wynn MD is Attending Physician. rn 15:55 Arm band placed on. ll1 15:57 Triage completed. ll1 16:23 Patient has correct armband on for positive identification. Provided Education on: ER ll1 procedures and process. 16:23 No provider procedures requiring assistance completed. Patient did not have IV access ll1 during this emergency room visit. Administered Medications: No medications were administered Medication: 16:23 VIS not applicable for this client. ll1 Outcome: 16:18 Discharge ordered by . rn 16:23 Discharged to home ambulatory, ll1 16:23 Condition: stable 16:23 Discharge instructions given to patient, Instructed on discharge instructions, follow up and referral plans. medication usage, Demonstrated understanding of instructions, follow-up care, medications, Prescriptions given X 1, 16:23 Patient left the ED. ll1 Signatures: Grayson Wynn MD MD rn Lewis, Lynsay, RN RN ll1 Sophia Rose Corrections: (The following items were deleted from the chart) 16:00 15:58 BP 145 / 90; Pulse 89bpm; Resp 18bpm; Pulse Ox 100%; Temp 97.4F; Pain 4/10, ll1 Adult; ll1
[2025-08-06 17:28] VITALS: BP 145/90; TEMP 97.4; O2SAT 100
== END 2025-08-06 16:23 | disposition home or self-care (01) ==
LOC: ER 15:44
DX: F11.23 Opioid dependence with withdrawal (principal)
CPT/HCPCS: 99283